=== PATIENT | male | born 1950 | race Caucasian/White ===

== ENCOUNTER 2016-07-06 07:59 | Day surgery (SDC) | payer MEDICARE, OTHER ==
[2016-07-01 10:42] VITALS: BMI 23.0
[~2016-07-06 07:59] MED LIST: DEXAMETHASONE SOD PHOSPHATE 10 MG/ML 1 ML VIAL IV ONE; HEPARIN SODIUM,PORCINE 5,000 UNIT/ML 1 ML VIAL SQ ONE; LACTATED RINGERS 1,000 ML IV SCH; LIDOCAINE 1% 20 ML VIAL (10MG/ML) FOR IV START INTRADERMA PRN; ONDANSETRON 4 MG/2 ML VIAL IVP ONE; SCOPOLAMINE 1.5MG/72HR PATCH TRANSDERM ONE; ceFAZolin 2 GM in SODIUM CHLORIDE 0.9% 100 ML IVPB ONE
--- NOTE | 2016-07-06 10:41 | P.GSHP ---
History of Present Illness H&P Date: 07/06/16 Chief Complaint: Left inguinal hernia This is a 65-year-old male referred from Dr. bruce. Patient rents today for laparoscopic robotic system repair of a left inguinal hernia. Patient has developed a tender mass in the left groin - Constitutional Constitutional: Reports as per HPI Past Medical History Past Medical History: Cancer, COPD, Deep Vein Thrombosis (DVT), GERD/Reflux, Hyperlipidemia, Hypertension, Pneumonia Additional Past Medical History / Comment(s): 07/28/14 Laparoscopic dolly fundoplication with mesh repair hiatal hernia. Other HX: HIATAL HERNIA; PROSTATE CANCER-2009. SHINGLES-2013; HX DVT RT LEG 10 years History of Any Multi-Drug Resistant Organisms: None Reported Past Surgical History: Orthopedic Surgery Additional Past Surgical History / Comment(s): 07/28/14 Laparoscopic Dolly Fundoplication with mesh repair hiatal hernia. LEFT ARM SURGERY 1966. RIGHT ROTATOR CUFF REPAIR 2012. EGD 06/16/14. Past Anesthesia/Blood Transfusion Reactions: No Reported Reaction Additional Past Anesthesia/Blood Transfusion Reaction / Comment(s): SEVERE PONV AFTER SHOULDER SURG. States becomes hyper when waking up. Past Psychological History: No Psychological Hx Reported Additional Psychological History / Comment(s): Patient is retired from [employer]. 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 Was a tobacco smoker stopping 2 years ago. Denies significant alcohol use at this point in time. Denies experience. Denies extensive travels. Did not relate to animals in the home. Smoking Status: Former smoker Past Alcohol Use History: None Reported Additional Past Alcohol Use History / Comment(s): Quit smoking 7 years ago. Past Drug Use History: None Reported - Past Family History Sister(s) Family Medical History: Deep Vein Thrombosis (DVT) Medications and Allergies Home Medications Medication Instructions Recorded Confirmed Type Albuterol Inhaler [Ventolin Hfa 1 - 2 puff INHALATION Q6HR PRN 07/01/16 History Inhaler] Aspirin 325 mg PO DAILY 07/01/16 07/06/16 History Tiotropium 18 Mcg/Puff [Spiriva] 1 cap INHALATION DAILY PRN 07/01/16 07/06/16 History Allergies Allergy/AdvReac Type Severity Reaction Status Date / Time hydrocodone AdvReac Mild Vomiting Verified 07/28/14 16:55 Surgical - Exam Vital Signs Temp Pulse Resp BP Pulse Ox 97.8 F 60 16 176/97 96 07/06/16 10:21 07/06/16 10:21 07/06/16 10:21 07/06/16 10:21 07/06/16 10:21 - General well developed, no distress - Eyes PERRL - ENT normal pinna - Neck no masses - Respiratory normal expansion - Cardiovascular Rhythm: regular - Abdomen Abdomen: soft, non tender Hernia: inguinal (Left inguinal hernia) Assessment and Plan Plan: Left internal hernia. We'll perform laparoscopic robotic system repair.
--- NOTE | 2016-07-06 10:48 | P.GSHP ---
History of Present Illness H&P Date: 07/06/16 Chief Complaint: Right inguinal hernia This is a 65-year-old male who presents today for laparoscopic robotic-assisted repair of right inguinal hernia. The patient developed a tender mass in his right groin. - Constitutional Constitutional: Reports as per HPI Past Medical History Past Medical History: Cancer, COPD, Deep Vein Thrombosis (DVT), GERD/Reflux, Hyperlipidemia, Hypertension, Pneumonia Additional Past Medical History / Comment(s): 07/28/14 Laparoscopic dolly fundoplication with mesh repair hiatal hernia. Other HX: HIATAL HERNIA; PROSTATE CANCER-2009. SHINGLES-2013; HX DVT RT LEG 10 years History of Any Multi-Drug Resistant Organisms: None Reported Past Surgical History: Orthopedic Surgery Additional Past Surgical History / Comment(s): 07/28/14 Laparoscopic Dolly Fundoplication with mesh repair hiatal hernia. LEFT ARM SURGERY 1966. RIGHT ROTATOR CUFF REPAIR 2012. EGD 06/16/14. Past Anesthesia/Blood Transfusion Reactions: No Reported Reaction Additional Past Anesthesia/Blood Transfusion Reaction / Comment(s): SEVERE PONV AFTER SHOULDER SURG. States becomes hyper when waking up. 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 Was a tobacco smoker stopping 2 years ago. Denies significant alcohol use at this point in time. Denies experience. Denies extensive travels. Did not relate to animals in the home. Smoking Status: Former smoker Past Alcohol Use History: None Reported Additional Past Alcohol Use History / Comment(s): Quit smoking 7 years ago. Past Drug Use History: None Reported - Past Family History Sister(s) Family Medical History: Deep Vein Thrombosis (DVT) Medications and Allergies Home Medications Medication Instructions Recorded Confirmed Type Albuterol Inhaler [Ventolin Hfa 1 - 2 puff INHALATION Q6HR PRN 07/01/16 History Inhaler] Aspirin 325 mg PO DAILY 07/01/16 07/06/16 History Tiotropium 18 Mcg/Puff [Spiriva] 1 cap INHALATION DAILY PRN 07/01/16 07/06/16 History Allergies Allergy/AdvReac Type Severity Reaction Status Date / Time hydrocodone AdvReac Mild Vomiting Verified 07/28/14 16:55 Surgical - Exam Vital Signs Temp Pulse Resp BP Pulse Ox 97.8 F 60 16 176/97 96 07/06/16 10:21 07/06/16 10:21 07/06/16 10:21 07/06/16 10:21 07/06/16 10:21 - General well developed, no distress - Eyes PERRL - ENT normal pinna - Neck no masses - Respiratory normal expansion - Cardiovascular Rhythm: regular - Abdomen Abdomen: soft, non tender (Right inguinal hernia) Assessment and Plan Plan: Right inguinal hernia. We'll perform laparoscopic robotic-assisted repair.
[2016-07-06 11:03] LABS: Anion Gap 10 mmol/L; Blood Urea Nitrogen 27 mg/dL (9-20); Calcium 9.1 mg/dL (8.4-10.2); Carbon Dioxide 23 mmol/L (22-30); Chloride 111 mmol/L (98-107); Glucose 101 mg/dL (74-99); Non-African American GFR(MDRD) >60 (>60 ml/min/1.73 sqM); Potassium 4.6 mmol/L (3.5-5.1); Sodium 144 mmol/L (137-145)
[2016-07-06] MEDS ORDERED: BUPIVACAIN-EPI 0.25%-1:200,000 30 ML VIAL SQ ONE ×3 (11:09→11:35)
[2016-07-06] MEDS ORDERED: KETOROLAC 30 MG/ML 1 ML VIAL ONE (11:13)
[2016-07-06] MEDS ORDERED: SUCCINYLCHOLINE CHLORIDE 100 MG/5 ML SYR IV ONE (11:13)
[2016-07-06] MEDS ORDERED: LIDOCAINE 1% INJ 10MG/ML (20 ML MDV) ONE (11:13)
[2016-07-06] MEDS ORDERED: GLYCOPYRROLATE 0.2 MG/ML 2 ML VIAL ONE (11:13)
[2016-07-06] MEDS ORDERED: NEOSTIGMINE 1 MG/ML 10 ML VIAL ONE (11:13)
[2016-07-06] MEDS ORDERED: PROPOFOL 10 MG/ML 20 ML VIAL IV ONE (11:13)
[2016-07-06] MEDS ORDERED: fentaNYL (PF) 50 MCG/ML 2 ML AMP ONE (11:13)
[2016-07-06] MEDS ORDERED: ePHEDrine 50 MG/ML 1 ML AMP ONE (11:13)
[2016-07-06] MEDS ORDERED: MIDAZOLAM 2 MG/2 ML VIAL ONE (11:13)
[2016-07-06] MEDS ORDERED: ROCURONIUM BROMIDE 10 MG/ML 10 ML VIAL IV ONE (11:13)
[2016-07-06] MEDS ORDERED: PHENYLEPHRINE-0.9% NACL SYG 1 MG/10 ML SYRINGE ONE (11:13)
[2016-07-06 11:42] LABS: Basophils % (A) 1 %; CHCM 34.4; Eosinophils # (A) 0.2 k/uL (0-0.7); Eosinophils % (A) 3 %; HCT 48.2 % (39.0-53.0); HDW 2.62; HGB 15.9 gm/dL (13.0-17.5); Luc # (Auto) 0.13; Luc % (Auto) 2; Lymphocytes # (A) 1.2 k/uL (1.0-4.8); Lymphocytes % (A) 18 %; MCH 30.9 pg (25.0-35.0); MCHC 33.1 g/dL (31.0-37.0); MCV 93.4 fL (80.0-100.0); Mean Platelet Volume 6.9; Monocytes # (A) 0.4 k/uL (0-1.0); Monocytes % (A) 7 %; Neutrophils # (A) 4.5 k/uL (1.3-7.7); Neutrophils % (A) 70 %; RBC 5.16 m/uL (4.30-5.90); RDW 13.9 % (11.5-15.5); WBC 6.4 k/uL (3.8-10.6); WBC (Perox) 6.78
--- NOTE | 2016-07-06 12:45 | P.OP ---
Date of Procedure: 07/06/16 Preoperative Diagnosis: Right inguinal hernia Postoperative Diagnosis: Bilateral inguinal hernia Incarcerated omentum in left internal hernia Procedure(s) Performed: Laparoscopic robotic-assisted repair of bilateral inguinal hernia Partial omentectomy Anesthesia: DEVYN Surgeon: Dante Palmer Estimated Blood Loss (ml): 5 Pathology: other (Omentum) Condition: stable Disposition: PACU Description of Procedure: The patient's placed on the operating table in the supine position. The patient received general anesthesia. The patient's abdomen was prepped and draped in usual sterile fashion. The skin was anesthetized 1% local Xylocaine at the incision sites. Using an 11 blade a skin incision was made at the umbilicus. The fascia was grasped with a Sera and then the peritoneal cavity was entered with the Veress needle. Position of the Veress needle was confirmed with a positive drop test. After adequate insufflation a 5 mm trocar was placed into the peritoneal cavity. The Laparoscope was placed the peritoneal cavity. And a robotic 8 mm trocar was placed in the right lateral position and then another 8 mm robotic trochars placed in the left lateral position. The original 5 mm trocar was exchanged for a 12 mm trocar. The patient was placed in reverse Trendelenburg and then the patient was docked to the robot. Next the peritoneum over top of the right inguinal hernia was incised and then using blunt and sharp dissection and electrocautery the hernia sac was dissected free from the floor of the inguinal canal. The hernia sac was completely reduced into the peritoneal cavity. And then using the Pro electric golf cart repairers mesh the hernia was repaired. The peritoneum was then sutured with 20V lock suture. Next the peritoneum over top of the left inguinal hernia was incised and then using blunt and sharp dissection and electrocautery the hernia sac was dissected free from the floor of the inguinal canal. There was a portion of incarcerated omentum within the hernia sac this was divided with left cautery and brought out through the 12 mm trocar site. The hernia sac was completely reduced into the peritoneal cavity. And then using the Pro electric golf cart repairers mesh the hernia was repaired. The peritoneum was then sutured with 20V lock suture. The patient was then undocked the robot. The needle was withdrawn from the peritoneal cavity. The umbilical trocar site was closed with 0 Ethibond suture. The skin was closed interrupted 3-0 Monocryl suture. Dermabond dressing was applied. Patient was sent to recovery in stable condition.
[2016-07-06] MEDS: HYDROmorphone 1 MG/ML 1 ML SYRINGE IVP PRN ×2 (13:01→13:06)
[2016-07-06 13:07] VITALS: TEMP 97.6
[2016-07-06 13:50] VITALS: RESP 18
[2016-07-06] MEDS ORDERED: LACTATED RINGERS 1,000 ML IV ONE (15:25)
[2016-07-06 16:02] VITALS: BP 151/86; PULSE 52
== END 2016-07-06 17:20 | disposition home or self-care (01) ==
LOC: OR 07:59
PROVIDERS: ATTEND Surgery
DX: K40.30 Unilateral inguinal hernia, with obstruction, without gangrene, not specified as recurrent (principal); J44.9 Chronic obstructive pulmonary disease, unspecified; J45.909 Unspecified asthma, uncomplicated; Z86.718 Personal history of other venous thrombosis and embolism; Z79.82 Long term (current) use of aspirin; Z79.899 Other long term (current) drug therapy; Z87.891 Personal history of nicotine dependence
CPT/HCPCS: 88305; 80048; 85025; 49650; C1781; J2250; J1644; J1100; J2710; J0690; J2405; J2001; J3010; J1885; J1170; J2370; J0330; J2704

== ENCOUNTER 2018-09-15 18:41 | Inpatient (IN) | payer MEDICARE ==
[2018-09-15] MEDS ORDERED: LIDOCAINE 1% INJ 10MG/ML (20 ML MDV) SQ ONE (18:53)
[2018-09-15] MEDS ORDERED: LORazepam 2 MG/ML INJ IV STA (18:53)
--- NOTE | 2018-09-15 19:09 | XR ---
EXAMINATION TYPE: XR chest 1V portable DATE OF EXAM: 09/15/2018 Comparison: None Clinical History: 68-year-old male with pain, difficulty breathing, heart coughing. Findings: No cardiomediastinal shift. However, there is a relatively large right-sided pneumothorax measuring u p to 8.7 cm at the lateral right base and 4.7 cm at the apex. This is likely greater than 60% in volu me. Interstitial prominence on the left and hyperinflation. Heart upper limits of normal in size. Impression: 1. Large right-sided pneumothorax estimated at over 60%. No definite tension pneumothorax at this ondina e. 2. Borderline heart size and suspect underlying COPD. Critical findings called to Dr. Santiago in the ER at 7:05pm.
[2018-09-15 19:12] LABS: Basophils % (A) 0 %; Eosinophils # (A) 0.1 k/uL (0-0.7); Eosinophils % (A) 1 %; HCT 49.6 % (39.0-53.0); HGB 16.5 gm/dL (13.0-17.5); Hypochromasia Slight; Lymphocytes # (A) 1.4 k/uL (1.0-4.8); Lymphocytes % (A) 10 %; MCH 31.9 pg (25.0-35.0); MCHC 33.2 g/dL (31.0-37.0); MCV 95.8 fL (80.0-100.0); Mean Platelet Volume 8.6; Monocytes # (A) 0.6 k/uL (0-1.0); Monocytes % (A) 5 %; Neutrophils # (A) 11.6 k/uL (1.3-7.7); Neutrophils % (A) 83 %; Platelet Count 203 k/uL (150-450); RBC 5.17 m/uL (4.30-5.90); RDW 14.2 % (11.5-15.5); WBC 14.1 k/uL (3.8-10.6)
--- NOTE | 2018-09-15 19:25 | XR ---
EXAMINATION TYPE: XR chest 1V portable DATE OF EXAM: 09/15/2018 Comparison: Earlier today Clinical History: 68-year-old male chest tube insertion Findings: Interval Thoravent insertion on the right with reexpansion of most of the right lung. Small right bas ilar pneumothorax remains measuring 1.6 cm. There is irregular patchy density at the right base that may represent atelectasis or scarring. Follow-up recommended. Elongated/tortuous appearance to the ao rtic arch. Mild diffuse interstitial prominence and mild hyperinflation. Impression: Interval Thoravent insertion with reexpansion of most of the right lung. A small right basilar compon ent to the pneumothorax remains measuring 1.6 cm. Patchy right basilar opacity could represent atelec tasis. Attention on follow-up. Suspect underlying COPD. Ectatic ascending aorta.
[2018-09-15 19:54] LABS: Albumin 4.5 g/dL (3.5-5.0); Calcium 9.9 mg/dL (8.4-10.2); Potassium 4.7 mmol/L (3.5-5.1); Total Bilirubin 0.5 mg/dL (0.2-1.3); Total Protein 7.8 g/dL (6.3-8.2)
[2018-09-15 19:56] LABS: Partial Thromboplastin Time 23.4 sec (22.0-30.0); Prothrombin Time 10.5 sec (9.0-12.0)
--- NOTE | 2018-09-15 20:04 | ED ---
General Adult HPI - General Chief complaint: Shortness of Breath Stated complaint: SOB-sent from [facility] Time Seen by Provider: 09/15/18 18:43 Source: patient, EMS, RN notes reviewed, old records reviewed Mode of arrival: EMS Limitations: no limitations - History of Present Illness Initial comments: 68 -year-old male presenting in severe respiratory distress. Patient was sent from urgent care by ambulance with concern for pneumothorax. Patient states he's had cough and dyspnea for the past one week. Approximately 24 hours prior to arrival he developed worsening dyspnea and right-sided chest pain. Patient has previous history of COPD, he was a previous smoker, smoked for 47 years. He said cough productive of sputum. No fever. No central chest pain. - Related Data Home Medications Medication Instructions Recorded Confirmed Aspirin 325 mg PO DAILY 07/01/16 09/15/18 Albuterol Nebulized [Ventolin 2.5 mg INHALATION Q6H 09/15/18 09/15/18 Nebulized] Allergies Allergy/AdvReac Type Severity Reaction Status Date / Time hydrocodone AdvReac Mild Vomiting Verified 09/15/18 18:45 Review of Systems ROS Statement: Those systems with pertinent positive or pertinent negative responses have been documented in the HPI. ROS Other: All systems not noted in ROS Statement are negative. Past Medical History Past Medical History: Cancer, COPD, Deep Vein Thrombosis (DVT), GERD/Reflux, Hyperlipidemia, Hypertension, Pneumonia Additional Past Medical History / Comment(s): 07/28/14 Laparoscopic dolly fundoplication with mesh repair hiatal hernia. Other HX: HIATAL HERNIA; PROSTATE CANCER-2010. SHINGLES-2013; HX DVT RT LEG 10 years History of Any Multi-Drug Resistant Organisms: None Reported Past Surgical History: Orthopedic Surgery Additional Past Surgical History / Comment(s): 07/28/14 Laparoscopic Dolly Fundoplication with mesh repair hiatal hernia. LEFT ARM SURGERY 1966. RIGHT ROTATOR CUFF REPAIR 2012. EGD 06/16/14. Past Anesthesia/Blood Transfusion Reactions: No Reported Reaction Additional Past Anesthesia/Blood Transfusion Reaction / Comment(s): SEVERE PONV AFTER SHOULDER SURG. States becomes hyper when waking up. Past Psychological History: No Psychological Hx Reported Smoking Status: Former smoker Past Alcohol Use History: None Reported Past Drug Use History: None Reported - Past Family History Sister(s) Family Medical History: Deep Vein Thrombosis (DVT) General Exam Limitations: no limitations Course Vital Signs 09/15/18 09/15/18 09/15/18 18:46 18:50 19:36 Temperature 98.5 F Pulse Rate 117 H 93 Respiratory 24 26 H 22 Rate Blood Pressure 182/129 150/106 O2 Sat by Pulse 93 L 95 Oximetry Procedures - Chest Tube Insertion Consent Obtained: verbal consent Side of Procedure: right Indication: Pneumothorax Placed on monitor/pulse oximetry: Yes Site Prep: Chloroprep Local Anesthesia: Lidocaine 1% Amount (mLs): 3 Insertion Site: Other (Second intercostal space, midclavicular) Scalpel: #11 Open into Pleural Space Using: Trocar Tube Size (Indonesian): Other (9 danish) Returns: Air Sutured in Place: No Dressing Applied: Tape Attached to Suction: No Repeat X-ray Results: Lung Inflated Patient Tolerated Procedure: well Medical Decision Making - Medical Decision Making 68 -year-old male presenting with dyspnea, pneumothorax on AP chest. Patient is in extremis on initial evaluation, Thoravent, he is placed second intercostal space, midclavicular. Repeat x-ray shows near complete expansion of the right long. Patient reassessed, vital signs improved, symptoms improved. Still has diffuse wheezing on lung auscultation. Will be admitted for treatment of COPD, monitoring of pneumothorax, case discussed with the patient's bench worker Dr. Chirinos, will admit. - Lab Data Result diagrams: 09/15/18 19:00 09/15/18 19:25 Lab Results 09/15/18 09/15/18 09/15/18 Range/Units 19:00 19:25 19:25 WBC 14.1 H (3.8-10.6) k/uL RBC 5.17 (4.30-5.90) m/uL Hgb 16.5 (13.0-17.5) gm/dL Hct 49.6 (39.0-53.0) % MCV 95.8 (80.0-100.0) fL MCH 31.9 (25.0-35.0) pg MCHC 33.2 (31.0-37.0) g/dL RDW 14.2 (11.5-15.5) % Plt Count 203 (150-450) k/uL Neutrophils % 83 % Lymphocytes % 10 % Monocytes % 5 % Eosinophils % 1 % Basophils % 0 % Neutrophils # 11.6 H (1.3-7.7) k/uL Lymphocytes # 1.4 (1.0-4.8) k/uL Monocytes # 0.6 (0-1.0) k/uL Eosinophils # 0.1 (0-0.7) k/uL Basophils # 0.0 (0-0.2) k/uL Hypochromasia Slight PT 10.5 (9.0-12.0) sec INR 1.0 (<1.2) APTT 23.4 (22.0-30.0) sec Sodium 140 (137-145) mmol/L Potassium 4.7 (3.5-5.1) mmol/L Chloride 105 (98-107) mmol/L Carbon Dioxide 23 (22-30) mmol/L Anion Gap 12 mmol/L BUN 20 (9-20) mg/dL Creatinine 1.20 (0.66-1.25) mg/dL Est GFR (CKD-EPI)AfAm 72 (>60 ml/min/1.73 sqM) Est GFR (CKD-EPI)NonAf 62 (>60 ml/min/1.73 sqM) Glucose 117 H (74-99) mg/dL Calcium 9.9 (8.4-10.2) mg/dL Total Bilirubin 0.5 (0.2-1.3) mg/dL AST 32 (17-59) U/L ALT 34 (21-72) U/L Alkaline Phosphatase 83 (38-126) U/L Total Protein 7.8 (6.3-8.2) g/dL Albumin 4.5 (3.5-5.0) g/dL Critical Care Time Critical Care Time: Yes Total Critical Care Time: 35 Disposition Clinical Impression: Acute exacerbation of chronic obstructive airways disease, Pneumothorax Disposition: ADMITTED IP TO THIS [facility] Condition: Stable Is patient prescribed a controlled substance at d/c from ED?: No Referrals: None,Stated [Primary Care Provider] - 1-2 days Decision to Admit Reason: Admit from EC Decision Date: 09/15/18 Decision Time: 20:08
[2018-09-15] MEDS ORDERED: HYDROmorphone 1 MG/ML 1 ML SYRINGE IVP STA (20:06)
[2018-09-15] MEDS ORDERED: IPRATROPIUM-ALBUTEROL 3 ML NEB INHALATION PRN (20:08)
[2018-09-15] MEDS ORDERED: HYDROmorphone 0.5 MG/0.5 ML SYRINGE IVP PRN (20:11)
[2018-09-15] MEDS ORDERED: HYDROmorphone 0.5 MG/0.5 ML SYRINGE IVP STA (20:13)
[2018-09-15] MEDS ORDERED: ONDANSETRON 4 MG/2 ML VIAL IVP STA (21:53)
[2018-09-15 23:15] VITALS: BMI 22.1
[2018-09-16] MEDS: IPRATROPIUM-ALBUTEROL 3 ML NEB INHALATION SCH ×4 (07:21→20:05)
--- NOTE | 2018-09-16 08:10 | XR ---
EXAMINATION TYPE: XR chest 2V DATE OF EXAM: 09/16/2018 COMPARISON: 09/15/2018 HISTORY: Shortness of breath TECHNIQUE: Frontal and lateral views of the chest are obtained. FINDINGS: Significant interval progression of right-sided pneumothorax estimated at 30-40%. Right apical measur ement is 4.6 cm with right midlung zone measurement of 3.7 cm and right basilar measurements of 3.4 c m versus 1.6 cm previously. Right-sided pleural catheter is noted to be in place. Patchy infiltrate right medial lung base. Strandy density left medial lung base. Heart size is stable. Mediastinal structures are stable and grossly unremarkable. No evidence for hilar prominence. Degenerative changes dorsal spine. IMPRESSION: 1. Significant interval progression of right-sided pneumothorax estimated at 30-40%.
[2018-09-16] MEDS ORDERED: predniSONE 20 MG TAB PO SCH (09:00)
[2018-09-16] MEDS: KETOROLAC 30 MG/ML 1 ML VIAL IVP SCH ×2 (12:29→17:41)
[2018-09-16] MEDS: guaiFENesin 600 MG TABLET.ER PO SCH ×2 (12:29→21:07)
--- NOTE | 2018-09-16 12:51 | P.GSCN ---
History of Present Illness Consult date: 09/16/18 Reason for Consult: Right sided pneumothorax, S/P thoravent placement Requesting physician: Parrish Ambriz History of present illness: This is a 68-year-old gentleman has followed with Dr. Quiros in the past. He has a previous medical history of previous tobacco dependence, COPD, hypertension, hyperlipidemia, severe acid reflux, hiatal hernia status post padma fundoplication with mesh repair, DVT, and prostate cancer. He presented to an urgent care center yesterday with complaints of severe shortness of breath and cough 1 week. For the day prior to arrival he developed worsening shortness of breath as well as right-sided chest pain. The urgent care center him via EMS to [facility] emergency room due to the severity of his difficulty in breathing. Chest x-ray was completed demonstrating a large right- sided pneumothorax estimated at greater than 60% without tension pneumothorax. A thoravent was placed by the emergency room physicians with significant improvement to the pneumothorax but still a basilar component remaining. The patient was admitted to pulmonology services for continued treatment. He was placed on bronchodilators and steroids. This morning's x-ray demonstrated progression of his right-sided pneumothorax estimated to be 30-40%. Thoravent remained in place but was not placed to suction. For these reasons a consultation was placed to Dr. Mejia from cardiothoracic surgery. Review of Systems Review of systems was completed and was negative except as noted. - Cardiovascular Reports chest pain, Reports shortness of breath - Respiratory Reports cough Past Medical History Past Medical History: Cancer, COPD, Deep Vein Thrombosis (DVT), GERD/Reflux, Hyperlipidemia, Hypertension, Pneumonia Additional Past Medical History / Comment(s): HIATAL HERNIA; PROSTATE CANCER- 2009; SHINGLES-2013; HX DVT RT LEG 10 years History of Any Multi-Drug Resistant Organisms: None Reported Past Surgical History: Orthopedic Surgery Additional Past Surgical History / Comment(s): 07/28/14 Laparoscopic Padma Fundoplication with mesh repair of hiatal hernia. LEFT ARM SURGERY 1966. RIGHT ROTATOR CUFF REPAIR 2012. EGD 06/16/14. Past Anesthesia/Blood Transfusion Reactions: No Reported Reaction Additional Past Anesthesia/Blood Transfusion Reaction / Comm: SEVERE PONV AFTER SHOULDER SURG. States becomes hyper when waking up. 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 Was a tobacco smoker stopping 2 years ago. Denies significant alcohol use at this point in time. Denies experience. Denies extensive travels. Did not relate to animals in the home. Smoking Status: Former smoker Past Alcohol Use History: None Reported Additional Past Alcohol Use History / Comment(s): Quit smoking 7 years ago. Past Drug Use History: None Reported - Past Family History Sister(s) Family Medical History: Deep Vein Thrombosis (DVT) Medications and Allergies Home Medications Medication Instructions Recorded Confirmed Type Aspirin 325 mg PO DAILY 07/01/16 09/15/18 History Albuterol Nebulized [Ventolin 2.5 mg INHALATION Q6H 09/15/18 09/15/18 History Nebulized] Allergies Allergy/AdvReac Type Severity Reaction Status Date / Time hydrocodone AdvReac Mild Vomiting Verified 09/15/18 18:45 Surgical - Exam Vital Signs Temp Pulse Resp BP Pulse Ox 98.5 F 117 H 24 182/129 93 L 09/15/18 18:46 09/15/18 18:46 09/15/18 18:46 09/15/18 18:46 09/15/18 18:46 - General well developed, well nourished, no distress, no pain - Eyes PERRL, normal ocular movement - ENT no hearing loss - Neck no masses, no bruits, trachea midline - Respiratory Lungs sounds diminished bilaterally, right greater than left. Respirations even, nonlabored. Currently on 3 L nasal cannula with oxygen saturation 95%. Right-sided thoravent present, positive movement of the red diaphragm indicating positive air leak. - Cardiovascular S1, S2 present. Regular rate and rhythm, sinus rhythm on telemetry. Palpable peripheral pulses bilaterally. No edema present. No calf pain or tenderness noted. - Abdomen Abdomen: soft, non tender, bowel sounds - Genitourinary Deferred - Rectum Deferred - Integumentary no rash, no growths - Neurologic normal coordination, normal sensation - Musculoskeletal normal gait, normal posture - Psychiatric oriented to time, oriented to person, oriented to place, speech is normal, memory intact Results - Labs 09/15/18 19:00 09/15/18 19:25 Abnormal Lab Results - Last 24 Hours (Table) 09/15/18 09/15/18 Range/Units 19:00 19:25 WBC 14.1 H (3.8-10.6) k/uL Neutrophils # 11.6 H (1.3-7.7) k/uL Glucose 117 H (74-99) mg/dL Diabetes panel 09/15/18 Range/Units 19:25 Sodium 140 (137-145) mmol/L Potassium 4.7 (3.5-5.1) mmol/L Chloride 105 (98-107) mmol/L Carbon Dioxide 23 (22-30) mmol/L BUN 20 (9-20) mg/dL Creatinine 1.20 (0.66-1.25) mg/dL Glucose 117 H (74-99) mg/dL Calcium 9.9 (8.4-10.2) mg/dL AST 32 (17-59) U/L ALT 34 (21-72) U/L Alkaline Phosphatase 83 (38-126) U/L Total Protein 7.8 (6.3-8.2) g/dL Albumin 4.5 (3.5-5.0) g/dL Calcium panel 09/15/18 Range/Units 19:25 Calcium 9.9 (8.4-10.2) mg/dL Albumin 4.5 (3.5-5.0) g/dL Pituitary panel 09/15/18 Range/Units 19:25 Sodium 140 (137-145) mmol/L Potassium 4.7 (3.5-5.1) mmol/L Chloride 105 (98-107) mmol/L Carbon Dioxide 23 (22-30) mmol/L BUN 20 (9-20) mg/dL Creatinine 1.20 (0.66-1.25) mg/dL Glucose 117 H (74-99) mg/dL Calcium 9.9 (8.4-10.2) mg/dL Adrenal panel 09/15/18 Range/Units 19:25 Sodium 140 (137-145) mmol/L Potassium 4.7 (3.5-5.1) mmol/L Chloride 105 (98-107) mmol/L Carbon Dioxide 23 (22-30) mmol/L BUN 20 (9-20) mg/dL Creatinine 1.20 (0.66-1.25) mg/dL Glucose 117 H (74-99) mg/dL Calcium 9.9 (8.4-10.2) mg/dL Total Bilirubin 0.5 (0.2-1.3) mg/dL AST 32 (17-59) U/L ALT 34 (21-72) U/L Alkaline Phosphatase 83 (38-126) U/L Total Protein 7.8 (6.3-8.2) g/dL Albumin 4.5 (3.5-5.0) g/dL - Imaging Chest x-ray: report reviewed, image reviewed Assessment and Plan Assessment: 1. Right-sided pneumothorax, status post thoravent placement to the emergency room 2. Previous tobacco dependence 3. COPD 4. Hypertension 5. Hyperlipidemia 6. Severe acid reflux 7. Previous hiatal hernia status post Padma fundoplication with mesh repair 8. History of DVT 9. History of prostate cancer Plan: The patient was seen and examined at the bedside with Dr. Mejia. Patient has evidence of air leak from right-sided thoravent. The thoravent was connected to an atrium connected to -20 cm wall suction with initial continuous air leak. At this time our recommendation is to keep the thoravent connected to continuous wall suction. We will obtain a chest x-ray in the morning and continue to monitor x-rays for resolution of pneumothorax. Incentive spirometry ordered and encouraged. IV Toradol added for pain. Continue medical management of other comorbid conditions per primary care service. Thank you Dr. Ambriz for this consult. We look forward to working with you in the care of your patient. Time with Patient: Greater than 30
[2018-09-16] MEDS: methylPREDNISolone SOD SUCCI 40 MG/ML 1 ML VIAL IV SCH (17:41)
--- NOTE | 2018-09-16 18:35 | HP ---
HISTORY AND PHYSICAL Salvador Lord is a 68-year-old male with a history of severe COPD, who presented to a walk-in clinic with increasing shortness of breath of about 2-3 weeks duration. However, 2 days ago he developed increase in his shortness of breath associated with cough and a panic attack. He was seen in the walk-in clinic, was found to have a pneumothorax on the right and was transferred by EMS to [facility]. He had a Thora- Vent placed on that side with some relief of his pneumothorax. He was admitted for further evaluation and management. He denied any recent fever, chills or rigors. PAST MEDICAL HISTORY: Positive for COPD. No clear history of asthma. History of prostate cancer, hiatal hernia, laparoscopic Padma fundoplication, gastroesophageal reflux disease, previous DVT, history of shingles, right rotator cuff repair, history of anxiety. FAMILY HISTORY: Positive for DVT in his sister. SOCIAL HISTORY: Patient is a former heavy smoker. He does not drink alcohol excessively. MEDICATIONS: Prior to admission were aspirin and nebulized albuterol. PHYSICAL EXAMINATION: He was sitting in bed. He was anxious. His blood pressure is 127/78, respiratory rate of 18, pulse rate of 64, temperature 98 degrees Fahrenheit, O2 saturation on 3 L by nasal cannula is 95%. HEENT reveals pupils that are equal. Chest revealed decreased breath sounds bilaterally, more decreased on the right than the left. There is a right- sided Thoravent present anteriorly, not hooked to suction. Cardiovascular system reveals S1, S2. No S3, S4. Abdomen is soft. There is no pedal edema. LABS: Reveal a white count of 14.1, hemoglobin 16.5 with 11.6 thousand neutrophils. Sodium 140, potassium 4.7, chloride 105, bicarb 23, BUN 20, creatinine of 1.2. Chest x-ray initially shows right-sided pneumothorax with subsequent improvement in the pneumothorax after Thoravent placement. Chest x-ray this morning continues to show a 30% right-sided pneumothorax. IMPRESSION: At this time: 1. Right-sided pneumothorax, status post Thora-Vent placement. 2. Chronic obstructive pulmonary disease with exacerbation. 3. Mild hyperglycemia. 4. Leukocytosis, etiology unclear. 5. Anxiety. 6. Previous Padma fundoplication. 7. Previous history of DVT. At this point in time, would keep the Thora-Vent to suction. Have Cardiothoracic Surgery further evaluate the patient. Follow serial chest x-rays. Keep him on bronchodilators, add aerosolized steroids and IV steroids. Keep him on GI and DVT prophylaxis. His prognosis at this time is guarded. He was counseled regarding his condition and this approach. MMODL / IJN: [id number] /
[2018-09-16] MEDS: BUDESONIDE 0.5 MG/2 ML NEBU INHALATION SCH ×2 (20:05→20:06)
[2018-09-16] MEDS: MONTELUKAST 10 MG TAB PO SCH (21:07)
[2018-09-16] MEDS: FAMOTIDINE 20 MG TAB PO SCH (21:07)
[2018-09-16] MEDS: HEPARIN SODIUM,PORCINE 5,000 UNIT/ML 1 ML VIAL SQ SCH (21:08)
[2018-09-16] MEDS: diphenhydrAMINE 50 MG/ML 1 ML VIAL IVP PRN (21:08)
[2018-09-17] MEDS: KETOROLAC 30 MG/ML 1 ML VIAL IVP SCH ×5 (00:33→23:40)
[2018-09-17] MEDS: methylPREDNISolone SOD SUCCI 40 MG/ML 1 ML VIAL IV SCH ×3 (00:34→12:04)
[2018-09-17 05:49] LABS: Glucose,Whole Blood 150 mg/dL (75-99)
[2018-09-17] MEDS: INSULIN ASPART (NovoLOG) 100 UNIT/ML VIAL SQ SCH ×4 (05:53→21:29)
[2018-09-17] MEDS: BUDESONIDE 0.5 MG/2 ML NEBU INHALATION SCH ×2 (08:35→19:40)
[2018-09-17] MEDS: IPRATROPIUM-ALBUTEROL 3 ML NEB INHALATION SCH ×4 (08:35→19:40)
[2018-09-17] MEDS: guaiFENesin 600 MG TABLET.ER PO SCH ×2 (08:47→20:24)
[2018-09-17] MEDS: HEPARIN SODIUM,PORCINE 5,000 UNIT/ML 1 ML VIAL SQ SCH ×2 (08:47→20:24)
[2018-09-17] MEDS: FAMOTIDINE 20 MG TAB PO SCH ×2 (08:49→20:24)
--- NOTE | 2018-09-17 09:57 | XR ---
EXAMINATION TYPE: XR chest 1V portable DATE OF EXAM: 09/17/2018 COMPARISON: 09/16/2018 INDICATION: Pneumothorax TECHNIQUE: Single frontal view of the chest is obtained. FINDINGS: The heart size is normal. The pulmonary vasculature is normal. Some mild right perihilar infiltrate is present, likely on the basis of atelectasis. Some minimal ate lectasis is likely at the right lung base Right-sided chest tube is present. Previous pneumothorax is absent. No residual pneumothorax is ident ified. Small amount subcutaneous emphysema is at the right shoulder. IMPRESSION: 1. Resolution of the previous right pneumothorax. Right-sided chest tube remains in position. 2. Some right lung atelectasis may be present.
--- NOTE | 2018-09-17 11:00 | P.PN ---
Subjective Progress Note Date: 09/17/18 Principal diagnosis: Right sided pneumothorax, S/P Thoravent placement in the emergency room. Previous medical history of tobacco dependence, COPD, hypertension, hyperlipidemia, severe acid reflux, hiatal hernia status post Padma fundoplication with mesh repair, DVT, and prostate cancer. The patient is currently sitting up in bed in no acute distress. He does complain of some pain at the thoravent site with movement, but states it is controlled with current medication regimen. Denies shortness of breath. Thoravent connected to suction, intermittent air leak present. Right lung is reexpanded on his x-ray. Objective - Vital Signs Vital signs: Vital Signs Temp 97.6 F 09/17/18 08:54 Pulse 65 09/17/18 08:55 Resp 18 09/17/18 08:55 BP 135/85 09/17/18 08:54 Pulse Ox 99 09/17/18 08:54 Intake & Output 09/16/18 09/17/18 09/17/18 18:59 06:59 18:59 Intake Total 906 300 360 Output Total 400 500 Balance 506 -200 360 Weight 72.2 kg Intake: Oral 906 300 360 Output: Urine 400 500 Other: Voiding Method Toilet Toilet # Voids 1 200 - Constitutional General appearance: Present: cooperative, no acute distress - Respiratory Details: Lungs sounds slightly diminished bilaterally. Respirations even, nonlabored. Currently on room air with oxygen saturation 93%. Right-sided thoravent present, connected to continuous wall suction, no drainage since placement, positive small intermittent air leak. - Cardiovascular Details: S1, S2 present. Regular rate and rhythm, sinus rhythm on telemetry. Palpable peripheral pulses bilaterally. No edema present. No calf pain or tenderness noted. - Gastrointestinal Gastrointestinal Comment(s): Abdomen soft, nontender, nondistended. Active bowel sounds 4 quadrants. Tolerating diet. - Genitourinary Genitourinary Comment(s): Continues to void clear, yellow urine. - Integumentary Integumentary Comment(s): Skin is warm and dry with evidence of good perfusion. - Neurologic Neurologic: Present: CNII-XII intact - Musculoskeletal Musculoskeletal: Present: gait normal, strength equal bilaterally - Psychiatric Psychiatric: Present: A&O x's 3, appropriate affect, intact judgment & insight - Allied health notes Allied health notes reviewed: nursing - Labs CBC & Chem 7: 09/15/18 19:00 09/15/18 19:25 Labs: Abnormal Lab Results - Last 24 Hours (Table) 09/17/18 Range/Units 05:48 POC Glucose (mg/dL) 150 H (75-99) mg/dL - Imaging and Cardiology Chest x-ray: report reviewed, image reviewed Assessment and Plan Assessment: 1. Right-sided pneumothorax, status post thoravent placement in the emergency room 2. Previous tobacco dependence 3. COPD 4. Hypertension 5. Hyperlipidemia 6. Severe acid reflux 7. Previous hiatal hernia status post Padma fundoplication with mesh repair 8. History of DVT 9. History of prostate cancer Plan: 1. Continue thoravent to wall suction. Monitor for air leak resolution. 2. Encourage incentive spirometry use 10 times every hour while awake. 3. Will monitor daily x-rays. 4. Pain controlled current medication regimen. 5. Increase activity, ambulate in room. Nursing to have enough suction tubing so patient may ambulate. 6. Continue medical management of other comorbid conditions per primary care service. 7. More recommendations to follow. Time with Patient: Greater than 30
[2018-09-17 12:19] LABS: Glucose,Whole Blood 168 mg/dL (75-99)
--- NOTE | 2018-09-17 13:23 | P.PN ---
Subjective Progress Note Date: 09/17/18 This is a 68-year-old male who has a known history of severe COPD and presented to the hospital with shortness of breath and right-sided chest discomfort. He had gone into a walk-in clinic x-ray done there showed a right-sided pneumothorax is transferred [facility] EMS to [facility]. He had a right thoracotomy placed in the ER for his pneumothorax. Vascular surgery is following. Chest x- ray from this morning shows resolution of the right-sided pneumothorax. Discussed with nursing staff Gus surgery is recommending to continue the door event and will review reevaluate in the morning. Patient currently reports improvement in her shortness of breath. Denies any chest pain. Denies any nausea or vomiting. Denies any bowel movement changes or urinary symptoms. Objective - Vital Signs Vital signs: Vital Signs Temp 97.3 F L 09/17/18 11:43 Pulse 79 09/17/18 11:46 Resp 18 09/17/18 11:46 BP 134/81 09/17/18 11:43 Pulse Ox 96 09/17/18 11:43 Intake & Output 09/16/18 09/17/18 09/17/18 18:59 06:59 18:59 Intake Total 906 300 720 Output Total 400 500 300 Balance 506 -200 420 Weight 72.2 kg Intake: Oral 906 300 720 Output: Urine 400 500 300 Other: Voiding Method Toilet Toilet # Voids 1 1 - Exam Head normocephalic Neck supple Lungs clear to auscultation bilaterally no wheezing or crackles. Heart event noted on right side chest wall Heart regular rate and rhythm S1-S2, no rub or gallop Abdomen is soft nontender nondistended positive bowel sounds no hepatosplenomegaly Extremities no edema Neuro alert and orientated to 3 - Labs CBC & Chem 7: 09/15/18 19:00 09/15/18 19:25 Labs: Abnormal Lab Results - Last 24 Hours (Table) 09/17/18 09/17/18 Range/Units 05:48 11:46 POC Glucose (mg/dL) 150 H 168 H (75-99) mg/dL Assessment and Plan Assessment: 1. Right-sided pneumothorax status post Thora-vent placement. Vascular surgery following. Chest x-ray from today showing resolution in the pneumothorax. We will await further vascular surgery recommendations 2. Acute COPD exacerbation: Continue nebulizer treatments steroids. Pulmonary service following 3. Leukocytosis: Repeat labs and monitor possibly reactive 4. Hyperglycemia likely secondary to steroids continue sliding scale coverage. Check A1c 5. History of Padma fundoplication 6. History of right leg DVT several years ago. no longer on anticoagulation 7. History of prostate cancer 2009 DVT prophylaxis subcu heparin and GI prophylaxis I performed an examination of the patient and discussed their management with the physician Locomotive Supervisor. I have reviewed the Physician Locomotive Supervisor's notes and agree with the documented findings and plan of care
--- NOTE | 2018-09-17 15:10 | P.PN ---
Subjective Progress Note Date: 09/17/18 09/17/2018: Patient seen and examined. Patient continues to have leak from chest tube. He denies chest pain and shortness of breath. At our last office visit, he asked to be started on Zoloft because "it calms me down." He knows he is hyperactive and has been told he has ADD. He has not been following with psychiatry. He denies depression or suicidality. He states he did very well on Zoloft in the past. Objective - Vital Signs Vital signs: Vital Signs Temp 97.3 F L 09/17/18 11:43 Pulse 72 09/17/18 14:04 Resp 18 09/17/18 11:46 BP 134/81 09/17/18 11:43 Pulse Ox 96 09/17/18 11:43 Intake & Output 09/16/18 09/17/18 09/17/18 18:59 06:59 18:59 Intake Total 906 300 720 Output Total 400 500 300 Balance 506 -200 420 Weight 72.2 kg Intake: Oral 906 300 720 Output: Urine 400 500 300 Other: Voiding Method Toilet Toilet # Voids 1 1 - Exam General: A+OX3, NAD, hyperactive and poor focus, easily distracted CV: RRR, s1/s2 Lungs: Diminished otherwise clear, Right chest tube in place with air leak Abdomen: soft, nontender, nondistended, +bs Ext: no edema - Labs CBC & Chem 7: 09/15/18 19:00 09/15/18 19:25 Labs: Abnormal Lab Results - Last 24 Hours (Table) 09/17/18 09/17/18 Range/Units 05:48 11:46 POC Glucose (mg/dL) 150 H 168 H (75-99) mg/dL Assessment and Plan Assessment: Right spontaneous pneumothorax COPD, severe, FEV 1 41% Hyperglycemia likely secondary to steroids Mild leukocytosis History of DVT in the remote past History of prostate cancer History of Padma fundoplication and hiatial hernia GERD Hyperactivity, question bipolar versus ADHD versus other O2 to maintain saturation greater than or equal to 90%, currently on RA Consult psychiatry and start patient on Zoloft which he has taken in the past Continued smoking cessation Pulmciort Steroid taper Duonebs Perforomist IS and pulmonary hygiene Chest tube per CVTS GI and DVT prophylaxis Continue to monitor closely
[2018-09-17 16:35] LABS: Glucose,Whole Blood 140 mg/dL (75-99)
[2018-09-17] MEDS: predniSONE 20 MG TAB PO SCH (17:15)
[2018-09-17] MEDS: FORMOTEROL FUMARATE 20 MCG/2 ML NEBU INHALATION SCH (19:40)
[2018-09-17] MEDS: SERTRALINE 50 MG TAB PO SCH (20:24)
[2018-09-17] MEDS: diphenhydrAMINE 50 MG/ML 1 ML VIAL IVP PRN (20:24)
[2018-09-17] MEDS: MONTELUKAST 10 MG TAB PO SCH (20:24)
[2018-09-17 21:06] LABS: Glucose,Whole Blood 120 mg/dL (75-99)
[2018-09-18 05:48] LABS: Glucose,Whole Blood 130 mg/dL (75-99)
[2018-09-18 06:57] LABS: Basophils % (A) 0 %; Eosinophils % (A) 0 %; HCT 48.5 % (39.0-53.0); HGB 15.5 gm/dL (13.0-17.5); Lymphocytes # (A) 0.7 k/uL (1.0-4.8); Lymphocytes % (A) 4 %; MCH 31.2 pg (25.0-35.0); MCV 97.6 fL (80.0-100.0); Mean Platelet Volume 6.9; Monocytes # (A) 0.6 k/uL (0-1.0); Monocytes % (A) 3 %; Neutrophils # (A) 17.3 k/uL (1.3-7.7); Neutrophils % (A) 93 %; Platelet Count 246 k/uL (150-450); RBC 4.96 m/uL (4.30-5.90); RDW 13.9 % (11.5-15.5); WBC 18.7 k/uL (3.8-10.6)
[2018-09-18] MEDS: INSULIN ASPART (NovoLOG) 100 UNIT/ML VIAL SQ SCH ×4 (06:59→20:46)
[2018-09-18] MEDS: KETOROLAC 30 MG/ML 1 ML VIAL IVP SCH ×4 (07:03→23:06)
[2018-09-18 07:05] LABS: Albumin 4.1 g/dL (3.5-5.0); Calcium 9.7 mg/dL (8.4-10.2); Potassium 5.2 mmol/L (3.5-5.1); Total Bilirubin 0.4 mg/dL (0.2-1.3); Total Protein 7.2 g/dL (6.3-8.2)
[2018-09-18] MEDS: BUDESONIDE 0.5 MG/2 ML NEBU INHALATION SCH ×2 (07:20→19:15)
[2018-09-18] MEDS: IPRATROPIUM-ALBUTEROL 3 ML NEB INHALATION SCH ×4 (07:20→19:15)
[2018-09-18] MEDS: FORMOTEROL FUMARATE 20 MCG/2 ML NEBU INHALATION SCH ×2 (07:20→19:15)
--- NOTE | 2018-09-18 08:19 | XR ---
EXAMINATION TYPE: XR chest 1V portable DATE OF EXAM: 09/18/2018 HISTORY: Shortness of breath. COMPARISON: 09/17/2018 TECHNIQUE: Single view of the chest is submitted. FINDINGS: Right upper lobe pleural catheter is in place. No evidence for sizable pneumothorax at this time. Sca ttered linear atelectasis upper lobes. The heart is stable. Slight hilar fullness persists. Degenerative changes are seen of the dorsal spine. IMPRESSION: 1. Right upper lobe pleural catheter is in place. No evidence for sizable pneumothorax at this time. Scattered linear atelectasis upper lobes.
[2018-09-18] MEDS: guaiFENesin 600 MG TABLET.ER PO SCH ×2 (09:24→20:36)
[2018-09-18] MEDS: HEPARIN SODIUM,PORCINE 5,000 UNIT/ML 1 ML VIAL SQ SCH ×2 (09:24→20:37)
[2018-09-18] MEDS: FAMOTIDINE 20 MG TAB PO SCH ×2 (09:24→20:36)
[2018-09-18] MEDS: predniSONE 20 MG TAB PO SCH (09:24)
--- NOTE | 2018-09-18 09:50 | P.PN ---
Subjective Progress Note Date: 09/18/18 Principal diagnosis: Right sided pneumothorax, S/P Thoravent placement in the emergency room. Previous medical history of tobacco dependence, COPD, hypertension, hyperlipidemia, severe acid reflux, hiatal hernia status post Padma fundoplication with mesh repair, DVT, and prostate cancer. The patient is currently sitting up in bed in no acute distress. He does complain of some pain at the thoravent site with movement, but states it is controlled with current medication regimen. Denies shortness of breath. Thoravent connected to suction, intermittent air leak present. Right lung continues to be re-expanded on his x-ray. Objective - Vital Signs Vital signs: Vital Signs Temp 97.1 F L 09/18/18 04:00 Pulse 75 09/18/18 07:45 Resp 17 09/18/18 04:00 BP 164/98 09/18/18 04:00 Pulse Ox 95 09/18/18 07:20 Intake & Output 09/17/18 09/18/18 09/18/18 18:59 06:59 18:59 Intake Total 1080 510 360 Output Total 300 570 Balance 780 -60 360 Weight 70.9 kg Intake: IV 30 Invasive Line 1 30 Oral 1080 480 360 Output: Chest Tube Drainage 20 Thora-Vent Right Mid- 20 Clavicular Chest Urine 300 550 Other: Voiding Method Toilet Toilet # Voids 1 1 - Constitutional General appearance: Present: cooperative, no acute distress - Respiratory Details: Lungs sounds slightly diminished bilaterally. Respirations even, nonlabored. Currently on room air with oxygen saturation 95%. Right-sided thoravent present, connected to continuous wall suction, 10 mL serous drainage since placement, positive small intermittent air leak, less than yesterday. - Cardiovascular Details: S1, S2 present. Regular rate and rhythm, sinus rhythm on telemetry. Palpable peripheral pulses bilaterally. No edema present. No calf pain or tenderness noted. - Gastrointestinal Gastrointestinal Comment(s): Abdomen soft, nontender, nondistended. Active bowel sounds 4 quadrants. Tolerating diet. - Genitourinary Genitourinary Comment(s): Continues to void clear, yellow urine. - Integumentary Integumentary Comment(s): Skin is warm and dry with evidence of good perfusion. - Neurologic Neurologic: Present: CNII-XII intact - Musculoskeletal Musculoskeletal: Present: gait normal, strength equal bilaterally - Psychiatric Psychiatric: Present: A&O x's 3, appropriate affect, intact judgment & insight - Allied health notes Allied health notes reviewed: nursing - Labs CBC & Chem 7: 09/18/18 06:10 09/18/18 06:10 Labs: Abnormal Lab Results - Last 24 Hours (Table) 09/17/18 09/17/18 09/17/18 Range/Units 11:46 16:30 21:05 WBC (3.8-10.6) k/uL Neutrophils # (1.3-7.7) k/uL Lymphocytes # (1.0-4.8) k/uL Potassium (3.5-5.1) mmol/L BUN (9-20) mg/dL Glucose (74-99) mg/dL POC Glucose (mg/dL) 168 H 140 H 120 H (75-99) mg/dL 09/18/18 09/18/18 09/18/18 Range/Units 05:47 06:10 06:10 WBC 18.7 H (3.8-10.6) k/uL Neutrophils # 17.3 H (1.3-7.7) k/uL Lymphocytes # 0.7 L (1.0-4.8) k/uL Potassium 5.2 H (3.5-5.1) mmol/L BUN 33 H (9-20) mg/dL Glucose 120 H (74-99) mg/dL POC Glucose (mg/dL) 130 H (75-99) mg/dL - Imaging and Cardiology Chest x-ray: report reviewed, image reviewed Assessment and Plan Assessment: 1. Right-sided pneumothorax, status post thoravent placement in the emergency room 2. Previous tobacco dependence 3. COPD 4. Hypertension 5. Hyperlipidemia 6. Severe acid reflux 7. Previous hiatal hernia status post Padma fundoplication with mesh repair 8. History of DVT 9. History of prostate cancer Plan: 1. Thoravent placed to water seal. Will repeat CXR @ noon. 2. Encourage incentive spirometry use 10 times every hour while awake. 3. Will monitor daily x-rays. 4. Pain controlled current medication regimen. 5. Increase activity, ambulate in hallway. 6. Continue medical management of other comorbid conditions per primary care service. 7. More recommendations to follow. Time with Patient: Greater than 30
--- NOTE | 2018-09-18 10:03 | P.PN ---
Subjective Progress Note Date: 09/18/18 09/18/2018: Patient seen and examined. Patient is lying in bed resting. He states he feels pretty good. He was hoping to go home soon. He states that he was like to go back to work as soon as possible. 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 It is discussed with the patient that he will need to take some time off to recover. He should also wear a mask when he is exposed to the paint fumes. Objective - Vital Signs Vital signs: Vital Signs Temp 97.1 F L 09/18/18 04:00 Pulse 75 09/18/18 07:45 Resp 17 09/18/18 04:00 BP 164/98 09/18/18 04:00 Pulse Ox 95 09/18/18 07:20 Intake & Output 09/17/18 09/18/18 09/18/18 18:59 06:59 18:59 Intake Total 1080 510 360 Output Total 300 570 Balance 780 -60 360 Weight 70.9 kg Intake: IV 30 Invasive Line 1 30 Oral 1080 480 360 Output: Chest Tube Drainage 20 Thora-Vent Right Mid- 20 Clavicular Chest Urine 300 550 Other: Voiding Method Toilet Toilet # Voids 1 1 - Exam General: A+OX3, NAD, hyperactive and poor focus, easily distracted CV: RRR, s1/s2 Lungs: Diminished otherwise clear, Right chest tube in place with air leak Abdomen: soft, nontender, nondistended, +bs Ext: no edema - Labs CBC & Chem 7: 09/18/18 06:10 09/18/18 06:10 Labs: Abnormal Lab Results - Last 24 Hours (Table) 09/17/18 09/17/18 09/17/18 Range/Units 11:46 16:30 21:05 WBC (3.8-10.6) k/uL Neutrophils # (1.3-7.7) k/uL Lymphocytes # (1.0-4.8) k/uL Potassium (3.5-5.1) mmol/L BUN (9-20) mg/dL Glucose (74-99) mg/dL POC Glucose (mg/dL) 168 H 140 H 120 H (75-99) mg/dL 09/18/18 09/18/18 09/18/18 Range/Units 05:47 06:10 06:10 WBC 18.7 H (3.8-10.6) k/uL Neutrophils # 17.3 H (1.3-7.7) k/uL Lymphocytes # 0.7 L (1.0-4.8) k/uL Potassium 5.2 H (3.5-5.1) mmol/L BUN 33 H (9-20) mg/dL Glucose 120 H (74-99) mg/dL POC Glucose (mg/dL) 130 H (75-99) mg/dL Assessment and Plan Assessment: Right spontaneous pneumothorax COPD, severe, FEV 1 41% Hyperglycemia likely secondary to steroids Mild leukocytosis History of DVT in the remote past History of prostate cancer Leukocytosis, possibly secondary to steroids History of Padma fundoplication and hiatial hernia GERD Hyperactivity, question bipolar versus ADHD versus other O2 to maintain saturation greater than or equal to 90%, currently on RA Consult psychiatry and start patient on Zoloft which he has taken in the past Continued smoking cessation Pulmciort Steroid taper Angelo Perforomist Monitor WBC count and for signs/symptoms of infection IS and pulmonary hygiene Chest tube per CVTS GI and DVT prophylaxis: Heparin and Pepcid Continue to monitor closely
--- NOTE | 2018-09-18 11:51 | P.PN ---
Subjective Progress Note Date: 09/18/18 This is a 68-year-old male who has a known history of severe COPD and presented to the hospital with shortness of breath and right-sided chest discomfort. He had gone into a walk-in clinic x-ray done there showed a right-sided pneumothorax is transferred via EMS to [facility]. He had a right thoracotomy placed in the ER for his pneumothorax. Vascular surgery is following. Chest x- ray from this morning shows resolution of the right-sided pneumothorax. Discussed with nursing staff Gus surgery is recommending to continue the door event and will review reevaluate in the morning. Patient currently reports improvement in her shortness of breath. Denies any chest pain. Denies any nausea or vomiting. Denies any bowel movement changes or urinary symptoms. 09/18/2018 patient scheduled for repeat chest x-ray at noon. thoravent is placed waterseal. Followed by vascular surgery and pulmonary service. Patient denies any pain. Denies a chest pain or shortness of breath. Denies any nausea or vomiting. Denies any bowel movement changes or urinary symptoms. He was started on Zoloft yesterday for his hyperactivity. Awaiting psychiatric evaluation. Objective - Vital Signs Vital signs: Vital Signs Temp 98.1 F 09/18/18 08:00 Pulse 83 09/18/18 08:00 Resp 18 09/18/18 08:00 BP 131/94 09/18/18 08:00 Pulse Ox 95 09/18/18 08:00 Intake & Output 09/17/18 09/18/18 09/18/18 18:59 06:59 18:59 Intake Total 1080 510 370 Output Total 300 570 0 Balance 780 -60 370 Weight 70.9 kg Intake: IV 30 10 Invasive Line 1 30 10 Oral 1080 480 360 Output: Chest Tube Drainage 20 0 Thora-Vent Right Mid- 20 0 Clavicular Chest Urine 300 550 Other: Voiding Method Toilet Toilet Toilet # Voids 1 1 - Exam Head normocephalic Neck supple Lungs clear to auscultation bilaterally no wheezing or crackles. thoravent on right side chest wall Heart regular rate and rhythm S1-S2, no rub or gallop Abdomen is soft nontender nondistended positive bowel sounds no hepatosplenomegaly Extremities no edema Neuro alert and orientated to 3 - Labs CBC & Chem 7: 09/18/18 06:10 09/18/18 06:10 Labs: Abnormal Lab Results - Last 24 Hours (Table) 09/17/18 09/17/18 09/17/18 Range/Units 11:46 16:30 21:05 WBC (3.8-10.6) k/uL Neutrophils # (1.3-7.7) k/uL Lymphocytes # (1.0-4.8) k/uL Potassium (3.5-5.1) mmol/L BUN (9-20) mg/dL Glucose (74-99) mg/dL POC Glucose (mg/dL) 168 H 140 H 120 H (75-99) mg/dL 09/18/18 09/18/18 09/18/18 Range/Units 05:47 06:10 06:10 WBC 18.7 H (3.8-10.6) k/uL Neutrophils # 17.3 H (1.3-7.7) k/uL Lymphocytes # 0.7 L (1.0-4.8) k/uL Potassium 5.2 H (3.5-5.1) mmol/L BUN 33 H (9-20) mg/dL Glucose 120 H (74-99) mg/dL POC Glucose (mg/dL) 130 H (75-99) mg/dL Assessment and Plan Assessment: 1. Right-sided spontaneous pneumothorax status post Thora-vent placement. Vascular surgery following. Chest x-ray from today showing resolution in the pneumothorax. We will await further vascular surgery recommendations. Thoravent placed to water seal. vascular surgery ordered a repeat chest x-ray at noon 2. Acute COPD exacerbation: Continue nebulizer treatments steroids. Pulmonary service following 3. Leukocytosis: Likely secondary to steroids. 4. Hyperglycemia likely secondary to steroids continue sliding scale coverage. A1c is 6.0 5. History of Padma fundoplication 6. History of right leg DVT several years ago. no longer on anticoagulation 7. History of prostate cancer 2009 8. Hyperactivity, Dr. Chirinos has added Zoloft and agree with psychiatry consult DVT prophylaxis subcu heparin and GI prophylaxis I performed an examination of the patient and discussed their management with the physician Redye Hand. I have reviewed the Physician Redye Hand's notes and agree with the documented findings and plan of care
[2018-09-18 12:01] LABS: Glucose,Whole Blood 109 mg/dL (75-99)
--- NOTE | 2018-09-18 12:27 | XR ---
EXAMINATION TYPE: XR chest 2V DATE OF EXAM: 09/18/2018 COMPARISON: 09/18/2018 HISTORY: Pneumothorax TECHNIQUE: Frontal and lateral views of the chest are obtained. FINDINGS: Right-sided pleural catheter is in place. There appears to be interval development of a right-sided p neumothorax estimated at between 15 and 20%. Apical measurement of 2.2 cm and mid lung zone measureme nt of 1.3 cm. Heart size is stable. Mediastinal structures are stable and grossly unremarkable. No evidence for hilar prominence. Degenerative changes dorsal spine. IMPRESSION: 1. Interval development of right-sided pneumothorax. A [place] level critical message alert has been initiated for Michaela Leyva via the [facility] Results System on 09/18/2018 12:24 PM. This message alert has been sent to Michaela Leyva via the pref erences provided by the clinician for the receipt of Radiology Critical Findings. Message ID [id number].
[2018-09-18] MEDS ORDERED: diphenhydrAMINE 25 MG CAP PO PRN (13:44)
[2018-09-18 16:56] LABS: Glucose,Whole Blood 138 mg/dL (75-99)
[2018-09-18 20:34] LABS: Glucose,Whole Blood 140 mg/dL (75-99)
[2018-09-18] MEDS: MONTELUKAST 10 MG TAB PO SCH (20:36)
[2018-09-18] MEDS: SERTRALINE 50 MG TAB PO SCH (20:36)
[2018-09-18] MEDS: amLODIPine 5 MG TAB PO SCH (23:37)
[2018-09-19 06:18] LABS: Glucose,Whole Blood 89 mg/dL (75-99)
[2018-09-19] MEDS: INSULIN ASPART (NovoLOG) 100 UNIT/ML VIAL SQ SCH ×2 (06:23→12:07)
[2018-09-19] MEDS: KETOROLAC 30 MG/ML 1 ML VIAL IVP SCH ×2 (06:25→12:09)
[2018-09-19 06:52] LABS: Basophils % (A) 0 %; Eosinophils % (A) 0 %; HCT 45.2 % (39.0-53.0); HGB 14.6 gm/dL (13.0-17.5); Lymphocytes # (A) 1.2 k/uL (1.0-4.8); Lymphocytes % (A) 10 %; MCH 30.6 pg (25.0-35.0); MCHC 32.3 g/dL (31.0-37.0); MCV 94.7 fL (80.0-100.0); Mean Platelet Volume 7.1; Monocytes # (A) 0.7 k/uL (0-1.0); Monocytes % (A) 5 %; Neutrophils # (A) 10.4 k/uL (1.3-7.7); Neutrophils % (A) 84 %; Platelet Count 244 k/uL (150-450); RBC 4.77 m/uL (4.30-5.90); RDW 14.8 % (11.5-15.5); WBC 12.4 k/uL (3.8-10.6)
[2018-09-19 06:59] LABS: ALT 27 U/L (21-72); AST 24 U/L (17-59); Albumin 3.7 g/dL (3.5-5.0); Alkaline Phosphatase 58 U/L (38-126); Anion Gap 7 mmol/L; Blood Urea Nitrogen 29 mg/dL (9-20); Calcium 9.3 mg/dL (8.4-10.2); Carbon Dioxide 26 mmol/L (22-30); Chloride 107 mmol/L (98-107); Glucose 91 mg/dL (74-99); Potassium 4.5 mmol/L (3.5-5.1); Sodium 140 mmol/L (137-145); Total Bilirubin 0.4 mg/dL (0.2-1.3); Total Protein 6.5 g/dL (6.3-8.2)
[2018-09-19] MEDS: BUDESONIDE 0.5 MG/2 ML NEBU INHALATION SCH (08:10)
[2018-09-19] MEDS: IPRATROPIUM-ALBUTEROL 3 ML NEB INHALATION SCH ×3 (08:10→15:24)
[2018-09-19] MEDS: FORMOTEROL FUMARATE 20 MCG/2 ML NEBU INHALATION SCH (08:10)
[2018-09-19] MEDS: HEPARIN SODIUM,PORCINE 5,000 UNIT/ML 1 ML VIAL SQ SCH (08:13)
[2018-09-19] MEDS: amLODIPine 5 MG TAB PO SCH (08:13)
[2018-09-19] MEDS: predniSONE 20 MG TAB PO SCH (08:14)
[2018-09-19] MEDS: FAMOTIDINE 20 MG TAB PO SCH (08:14)
[2018-09-19] MEDS: guaiFENesin 600 MG TABLET.ER PO SCH (08:14)
--- NOTE | 2018-09-19 08:26 | XR ---
EXAMINATION TYPE: XR chest 2V DATE OF EXAM: 09/19/2018 COMPARISON: 09/18/2018 HISTORY: Follow-up for pneumothorax TECHNIQUE: Frontal and lateral views of the chest are obtained. FINDINGS: There is improved right apical pneumothorax currently measuring approximately 1.3 cm and p reviously measuring approximately 2.2 cm. The right lateral component of the pneumothorax has also im proved in the interim. Right-sided Thoravent is similar in position. Underlying emphysematous changes are seen of the lungs. Right midlung linear atelectasis and/or pleural scarring is noted. Eventratio n of the hemidiaphragms is seen. Cardia mediastinal silhouette is mildly enlarged. There is also enla rgement of the main pulmonary artery suggesting underlying coronary retention. IMPRESSION: Decreasing right pneumothorax.
[2018-09-19 09:43] VITALS: RESP 18
--- NOTE | 2018-09-19 09:50 | PN ---
PROGRESS NOTE DATE OF SERVICE: 09/19/2018 The patient has been hemodynamically stable. He continues to have a right-sided pneumothorax with an air leak. PHYSICAL EXAMINATION: His respiratory rate is 16, pulse rate of 65, temperature 98.2, blood pressure 145/74, O2 sat on room air is 99%. HEENT is unremarkable. Chest reveals right Thora vent in place. Cardiovascular system reveals an S1, S2. No S3, no S4. Abdomen is soft. There is no pedal edema chest. White count is 12.4, hemoglobin of 14.6. Chest x-ray shows decreasing right-sided pneumothorax with underlying emphysematous changes. IMPRESSION: 1. Right-sided spontaneous pneumothorax with ongoing air leak. 2. Chronic obstructive pulmonary disease with exacerbation. 3. Anxiety. At this point in time, would continue Thora vent in this patient. Cardiothoracic Surgery is following the patient and the patient may require further intervention. Did discuss his condition with his primary director industrial museum, Dr. Chirinos, as well. MMODL / IJN: [id number] /
[2018-09-19 11:54] LABS: Glucose,Whole Blood 107 mg/dL (75-99)
[2018-09-19] MEDS ORDERED: HYDROmorphone 2 MG TAB PO PRN (12:00)
[2018-09-19 12:04] VITALS: BP 157/81; PULSE 76; TEMP 98.3
--- NOTE | 2018-09-19 13:58 | P.PN ---
Subjective Progress Note Date: 09/19/18 Principal diagnosis: Right sided pneumothorax, S/P Thoravent placement in the emergency room. Previous medical history of tobacco dependence, COPD, hypertension, hyperlipidemia, severe acid reflux, hiatal hernia status post Padma fundoplication with mesh repair, DVT, and prostate cancer. The patient is currently sitting up in bed in no acute distress. He does complain of some pain at the thoravent site with movement, but states it is controlled with current medication regimen. Denies shortness of breath. Thoravent placed to water seal yesterday, intermittent air leak still present, CXR stable. Patient would like to go home, he is in no distress. Objective - Vital Signs Vital signs: Vital Signs Temp 98.3 F 09/19/18 11:52 Pulse 76 09/19/18 11:52 Resp 18 09/19/18 11:52 BP 157/81 09/19/18 11:52 Pulse Ox 99 09/19/18 11:52 Intake & Output 09/18/18 09/19/18 09/19/18 18:59 06:59 18:59 Intake Total 1100 960 600 Output Total 0 Balance 1100 960 600 Weight 73.9 kg Intake: IV 20 Invasive Line 1 20 Oral 1080 960 600 Output: Chest Tube Drainage 0 Thora-Vent Right Mid- 0 Clavicular Chest Other: Voiding Method Toilet Toilet Toilet # Voids 1 2 3 - Constitutional General appearance: Present: cooperative, no acute distress - Respiratory Details: Lungs sounds slightly diminished bilaterally. Respirations even, nonlabored. Currently on room air with oxygen saturation 99%. Right-sided thoravent present, on water seal, no drainage, positive small intermittent air leak, less than yesterday. - Cardiovascular Details: S1, S2 present. Regular rate and rhythm, sinus rhythm on telemetry. Palpable peripheral pulses bilaterally. No edema present. No calf pain or tenderness noted. - Gastrointestinal Gastrointestinal Comment(s): Abdomen soft, nontender, nondistended. Active bowel sounds 4 quadrants. Tolerating diet. - Genitourinary Genitourinary Comment(s): Continues to void clear, yellow urine. - Integumentary Integumentary Comment(s): Skin is warm and dry with evidence of good perfusion. - Neurologic Neurologic: Present: CNII-XII intact - Musculoskeletal Musculoskeletal: Present: gait normal, strength equal bilaterally - Psychiatric Psychiatric: Present: A&O x's 3, appropriate affect, intact judgment & insight - Allied health notes Allied health notes reviewed: nursing - Labs CBC & Chem 7: 09/19/18 06:16 09/19/18 06:16 Labs: Abnormal Lab Results - Last 24 Hours (Table) 09/18/18 09/18/18 09/19/18 Range/Units 16:54 20:33 06:16 WBC 12.4 H (3.8-10.6) k/uL Neutrophils # 10.4 H (1.3-7.7) k/uL BUN (9-20) mg/dL POC Glucose (mg/dL) 138 H 140 H (75-99) mg/dL 09/19/18 09/19/18 Range/Units 06:16 11:51 WBC (3.8-10.6) k/uL Neutrophils # (1.3-7.7) k/uL BUN 29 H (9-20) mg/dL POC Glucose (mg/dL) 107 H (75-99) mg/dL - Imaging and Cardiology Chest x-ray: report reviewed, image reviewed Assessment and Plan Assessment: 1. Right-sided pneumothorax, status post thoravent placement in the emergency room 2. Previous tobacco dependence 3. COPD 4. Hypertension 5. Hyperlipidemia 6. Severe acid reflux 7. Previous hiatal hernia status post Padma fundoplication with mesh repair 8. History of DVT 9. History of prostate cancer Plan: 1. Atrium discontinued. Thoravent cap placed. 2. Encourage incentive spirometry use 10 times every hour while awake. 3. Pain controlled current medication regimen. 4. Increase activity, ambulate in hallway. 5. Continue medical management of other comorbid conditions per primary care s ervice. 6. Patient may be discharged to home from our standpoint with thoravent in place. Patient and his were taught how to examine the red diaphragm on the thoravent for cessation of air leak. 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 They were instructed to call our office for an appointment once there is no more fluctuation in the red diaphragm. The patient is to obtain a chest x-ray prior to his appointment with us for removal of the thoravent, prescription for chest x-ray was given to the patient. Our contact information was given to the patient and his . Time with Patient: Greater than 30
--- NOTE | 2018-09-19 14:28 | P.DS ---
Providers Date of admission: 09/15/18 20:08 Expected date of discharge: 09/19/18 Attending physician: Mukund Quiros Consults: 09/16/18 11:26 Consult Physician Stat Consulting Provider: Christiano Jackman Consult Reason/Comments: unresolved right pnemo Do you want consulting provider notified?: Yes 09/17/18 13:14 Consult Physician Routine Consulting Provider: Ame Chirinos Consult Reason/Comments: COPD exacerbation Do you want consulting provider notified?: Yes 09/17/18 15:06 Consult Physician Routine Consulting Provider: Ashok Erickson Consult Reason/Comments: Hyperactivity Do you want consulting provider notified?: Yes Primary care physician: Stated None Hospital Course: Discharge diagnosis 1. Right-sided spontaneous pneumothorax status post Thora-vent placement. Vascular surgery following. Chest x-ray from today showing resolution in the pneumothorax. We will await further vascular surgery recommendations. Thoravent placed to water seal. Per cardiothoracic surgery patient may be discharged home with her event in place. Per cardiothoracic surgery patient and his were taught how to examine the red diaphragm on the Thora vent for air leak. Orders for chest x-ray outpatient ordered. Patient to follow-up with cardiothoracic surgery for removal of Thora vent. 2. Acute COPD exacerbation: Continue nebulizer treatments steroids. Pulmonary service following. Patient has been cleared for discharge from pulmonary services. Patient will be DC'd on prednisone taper. Patient to follow-up outpatient 3. Leukocytosis: Likely secondary to steroids. Trending down 4. Hyperglycemia likely secondary to steroids continue sliding scale coverage. A1c is 6.0 5. History of Padma fundoplication 6. History of right leg DVT several years ago. no longer on anticoagulation 7. History of prostate cancer 2009 8. Hyperactivity, Dr. Chirinos has added Zoloft and agree with psychiatry consult. Patient will be DC'd on Zoloft follow up with PCP 9. Hyperkalemia: Potassium 5.2. Repeat potassium level in morning. Avoid eating potassium-rich foods, repeat potassium 4.5 10. Essential hypertension. Patient will be DC'd and Norvasc. Patient to follow-up with PCP for further management Hospital course This is a 68-year-old male who has a known history of severe COPD and presented to the hospital with shortness of breath and right-sided chest discomfort. He had gone into a walk-in clinic x-ray done there showed a right-sided pneumothorax is transferred via EMS to [facility] ER. He had a right thoracotomy placed in the ER for his pneumothorax. Vascular surgery is following. Chest x- ray from this morning shows resolution of the right-sided pneumothorax. Discussed with nursing staff Gus surgery is recommending to continue the door event and will review reevaluate in the morning. Patient currently reports improvement in her shortness of breath. Denies any chest pain. Denies any nausea or vomiting. Denies any bowel movement changes or urinary symptoms. 09/18/2018 patient scheduled for repeat chest x-ray at noon. thoravent is placed waterseal. Followed by vascular surgery and pulmonary service. Patient denies any pain. Denies a chest pain or shortness of breath. Denies any nausea or vomiting. Denies any bowel movement changes or urinary symptoms. He was started on Zoloft yesterday for his hyperactivity. Awaiting psychiatric evaluation. On 09/19/2017 patient is alert and oriented 3. Patient has been cleared for discharge from cardiothoracic and pulmonary services. Patient will be DC'd with Thora vent in place. Repeat chest x-ray for outpatient ordered per cardiothoracic surgery. Instructions also given to patient and per surgical ADJ[employer]CT TRAINER. Patient did have elevated blood pressure throughout stay. Patient will be DC'd and Norvasc 10 mg daily. Patient also evaluated by psychiatry services will be discharged home on Zoloft. Patient also discharged on prednisone taper per pulmonary recommendation. At this time patient denies chest pain or shortness of breath. Patient denies nausea vomiting or diarrhea. Patient denies any urinary burning or frequency. I performed an examination of the patient and discussed their management with the Nurse Practitioner. I have reviewed the Nurse Practitioner's notes and agree with the documented findings and plan of care Patient Condition at Discharge: Stable Plan - Discharge Summary Discharge Rx Participant: No New Discharge Prescriptions: New amLODIPine [Norvasc] 10 mg PO DAILY 30 Days #30 tab Montelukast [Singulair] 10 mg PO HS 30 Days #30 tab Sertraline [Zoloft] 50 mg PO HS 30 Days #30 tab Continue Albuterol Nebulized [Ventolin Nebulized] 2.5 mg INHALATION Q6H Discontinued Aspirin 325 mg PO DAILY Discharge Medication List Albuterol Nebulized [Ventolin Nebulized] 2.5 mg INHALATION Q6H 09/15/18 [History] Montelukast [Singulair] 10 mg PO HS 30 Days #30 tab 09/19/18 [Rx] Sertraline [Zoloft] 50 mg PO HS 30 Days #30 tab 09/19/18 [Rx] amLODIPine [Norvasc] 10 mg PO DAILY 30 Days #30 tab 09/19/18 [Rx] Follow up Appointment(s)/Referral(s): Janice Garrett MD [STAFF PHYSICIAN] - As Needed (once air leak stops (red diaphram quits moving) please call office for appointment, will need chest xray before appointment) None,Stated [Primary Care Provider] - 1-2 days (Please call insurance to find a list of providers covered in your area. ) Parrish Ambriz MD [STAFF PHYSICIAN] - 09/28/18 3:30 pm Ambulatory/Diagnostic Orders: XR chest 2V [RAD.AMB] Facility: [facility], Location: Rad Xray [facility] Patient Instructions/Handouts: Spontaneous Pneumothorax (DC), COPD (Chronic Obstructive Pulmonary Disease) (DC), Anxiety (ED) Activity/Diet/Wound Care/Special Instructions: Thoravent management: Please monitor red diaphram on Thoravent daily. When no longer moving up and down, please call Dr. Garrett's office for appointment. Obtain chest X-ray prior to appointment time. If Thoravent accidentally comes out at home, please come back to the emergency room for X-ray and evaluation.
[2018-09-20] MEDS ORDERED: amLODIPine 10 MG TAB PO SCH (09:00)
== END 2018-09-19 15:48 | disposition home or self-care (01) | DRG 200 ==
LOC: EC 18:41 → SUPCPDRO 18:41 → 3SCARD 20:08
PROVIDERS: ADMIT Internal Medicine; ATTEND Internal Medicine
PROC: 0W9900Z Drainage of Right Pleural Cavity with Drainage Device, Open Approach (ICD-10-PCS; principal; 2018-09-15)
DX: J93.9 Pneumothorax, unspecified (principal); J44.1 Chronic obstructive pulmonary disease with (acute) exacerbation; E78.5 Hyperlipidemia, unspecified; E87.5 Hyperkalemia; F41.0 Panic disorder [episodic paroxysmal anxiety]; I10 Essential (primary) hypertension; K21.9 Gastro-esophageal reflux disease without esophagitis; R73.9 Hyperglycemia, unspecified; T38.0X5A Adverse effect of glucocorticoids and synthetic analogues, initial encounter; F90.9 Attention-deficit hyperactivity disorder, unspecified type; J93.82 Other air leak; Z79.82 Long term (current) use of aspirin; Z79.899 Other long term (current) drug therapy; Z87.891 Personal history of nicotine dependence; Z86.19 Personal history of other infectious and parasitic diseases; Z85.46 Personal history of malignant neoplasm of prostate; Z86.718 Personal history of other venous thrombosis and embolism
CPT/HCPCS: 32551; 36415; 71045; 71046; 80053; 83036; 85025; 85610; 85730; 94640; 96374; 96375; 99291

== ENCOUNTER 2018-09-23 15:58 | Inpatient (IN) | payer MEDICARE ==
[2018-09-23] MEDS ORDERED: SODIUM CHLORIDE 0.9% 1,000 ML IV STA ×3 (16:00→16:09)
[2018-09-23] MEDS ORDERED: LORazepam 2 MG/ML INJ IV STA (16:09)
[2018-09-23] MEDS ORDERED: ALBUTEROL NEBULIZED 2.5 MG/3 ML INHALATION STA (16:09)
[2018-09-23] MEDS ORDERED: MORPHINE SULFATE 2 MG/ML SYRINGE IVP STA (16:09)
[2018-09-23] MEDS ORDERED: IPRATROPIUM 0.5 MG/2.5 ML NEBU INHALATION STA (16:09)
--- NOTE | 2018-09-23 16:32 | XR ---
EXAMINATION TYPE: XR chest 1V portable DATE OF EXAM: 09/23/2018 COMPARISON: 09/19/2018 HISTORY: Pneumothorax TECHNIQUE: Single frontal view of the chest is obtained. FINDINGS: There is a right upper chest. There is soft tissue air on the right chest wall. There is p robably very tiny pneumothorax of less than 5%. There is mild atelectasis in the right midlung. Left lung is clear. There is no heart failure. Trachea is midline. IMPRESSION: Mild right-sided atelectasis. Right-sided pneumothorax is essentially cleared compared t o last exam. Soft tissue air increased compared to last exam.
[2018-09-23 16:41] LABS: Basophils % (A) 0 %; Eosinophils # (A) 0.1 k/uL (0-0.7); Eosinophils % (A) 1 %; HCT 53.9 % (39.0-53.0); HGB 17.2 gm/dL (13.0-17.5); Lymphocytes # (A) 0.9 k/uL (1.0-4.8); Lymphocytes % (A) 5 %; MCV 96.9 fL (80.0-100.0); Mean Platelet Volume 6.6; Monocytes # (A) 0.7 k/uL (0-1.0); Monocytes % (A) 4 %; Neutrophils # (A) 15.2 k/uL (1.3-7.7); Neutrophils % (A) 89 %; Platelet Count 284 k/uL (150-450); RBC 5.56 m/uL (4.30-5.90); WBC 17.1 k/uL (3.8-10.6)
[2018-09-23 16:49] LABS: Albumin 4.7 g/dL (3.5-5.0); Calcium 9.9 mg/dL (8.4-10.2); Magnesium 2.2 mg/dL (1.6-2.3); Partial Thromboplastin Time 22.2 sec (22.0-30.0); Potassium 4.9 mmol/L (3.5-5.1); Prothrombin Time 10.3 sec (9.0-12.0); Total Bilirubin 0.5 mg/dL (0.2-1.3); Total Protein 8.1 g/dL (6.3-8.2)
--- NOTE | 2018-09-23 17:26 | ED ---
SOB HPI - General Chief Complaint: Shortness of Breath Stated Complaint: SOB Time Seen by Provider: 09/23/18 16:00 Source: patient, RN notes reviewed, old records reviewed Mode of arrival: wheelchair Limitations: no limitations - History of Present Illness Initial Comments: This is a 60-year-old male the ER for evaluation presents today for evaluation s ignificant shortness of breath. Patient concern over unsure), states he did fail his versus pneumothorax. Patient states he cannot live like he says he has activity he does get significant short of breath states the patient is very anxious. This is worse episode of shortness of breath and anxiety since the event. Patient was just discharged from hospital 3-4 days ago. He denies chest pain denies MD Complaint: shortness of breath, cough, anxiety -: hour(s) Severity: severe Severity scale (1-10): 10 Consistency: constant Improves With: nothing Worsens With: exertion Known History Of: COPD, other (Recent pneumothorax) Associated Symptoms: chest pain, pain with inspiration Treatments Prior to Arrival: none - Related Data Home Medications Medication Instructions Recorded Confirmed Albuterol Nebulized [Ventolin 2.5 mg INHALATION RT-Q6H 09/15/18 09/23/18 Nebulized] predniSONE See Taper PO DIRECTED 09/23/18 09/23/18 Previous Rx's Medication Instructions Recorded Ibuprofen 600 mg PO Q6HR #56 tablet 09/19/18 Montelukast [Singulair] 10 mg PO HS 30 Days #30 tab 09/19/18 Sertraline [Zoloft] 50 mg PO HS 30 Days #30 tab 09/19/18 amLODIPine [Norvasc] 10 mg PO DAILY 30 Days #30 tab 09/19/18 Allergies Allergy/AdvReac Type Severity Reaction Status Date / Time hydrocodone AdvReac Mild Vomiting Verified 09/23/18 16:31 Review of Systems ROS Statement: Those systems with pertinent positive or pertinent negative responses have been documented in the HPI. ROS Other: All systems not noted in ROS Statement are negative. Past Medical History Past Medical History: Cancer, COPD, Deep Vein Thrombosis (DVT), GERD/Reflux, Hyperlipidemia, Hypertension, Pneumonia Additional Past Medical History / Comment(s): HIATAL HERNIA; PROSTATE CANCER- 2009; SHINGLES-2013; HX DVT RT LEG 10 years History of Any Multi-Drug Resistant Organisms: None Reported Past Surgical History: Orthopedic Surgery Additional Past Surgical History / Comment(s): 07/28/14 Laparoscopic Padma Fundoplication with mesh repair of hiatal hernia. LEFT ARM SURGERY 1967. RIGHT ROTATOR CUFF REPAIR 2012. EGD 06/16/14. Past Anesthesia/Blood Transfusion Reactions: No Reported Reaction Additional Past Anesthesia/Blood Transfusion Reaction / Comment(s): SEVERE PONV AFTER SHOULDER SURG. States becomes hyper when waking up. Past Psychological History: No Psychological Hx Reported Smoking Status: Former smoker Past Alcohol Use History: None Reported Past Drug Use History: None Reported - Past Family History Sister(s) Family Medical History: Deep Vein Thrombosis (DVT) Mother Family Medical History: Cancer (Lungs) Father Family Medical History: Myocardial Infarction ([place]) General Exam Limitations: no limitations General appearance: alert, anxious, in distress Head exam: Present: atraumatic, normocephalic, normal inspection Eye exam: Present: normal appearance, PERRL, EOMI. Absent: scleral icterus, conjunctival injection, periorbital swelling ENT exam: Present: normal exam, mucous membranes moist Neck exam: Present: normal inspection. Absent: tenderness, meningismus, lymphadenopathy Respiratory exam: Present: respiratory distress, wheezes, accessory muscle use, decreased breath sounds, prolonged expiratory. Absent: rales, rhonchi, stridor Cardiovascular Exam: Present: normal rhythm, tachycardia, normal heart sounds. Absent: systolic murmur, diastolic murmur, rubs, gallop, clicks GI/Abdominal exam: Present: soft, normal bowel sounds. Absent: distended, tenderness, guarding, rebound, rigid Extremities exam: Present: normal inspection, full ROM, normal capillary refill. Absent: tenderness, pedal edema, joint swelling, calf tenderness Back exam: Present: normal inspection Neurological exam: Present: alert, oriented X3, CN II-XII intact Psychiatric exam: Present: normal affect, normal mood Skin exam: Present: warm, dry, intact, normal color. Absent: rash Course Vital Signs 09/23/18 09/23/18 09/23/18 16:16 16:50 16:55 Temperature 98.8 F Pulse Rate 101 H 78 85 Pulse Rate [ Pulse Oximetery ] Respiratory 24 20 20 Rate Blood Pressure 170/87 125/86 Blood Pressure [Left Arm] O2 Sat by Pulse 98 100 Oximetry 04/09/23/18 09/23/18 17:03 17:15 17:28 Temperature Pulse Rate 82 80 89 Pulse Rate [ Pulse Oximetery ] Respiratory 20 21 20 Rate Blood Pressure Blood Pressure [Left Arm] O2 Sat by Pulse Oximetry 09/23/18 09/23/18 09/23/18 18:51 19:14 19:28 Temperature 98.4 F Pulse Rate 81 80 Pulse Rate [ 81 Pulse Oximetery ] Respiratory 18 22 22 Rate Blood Pressure 129/91 Blood Pressure 179/100 [Left Arm] O2 Sat by Pulse 96 96 Oximetry 09/23/18 09/23/18 19:39 20:02 Temperature Pulse Rate 85 82 Pulse Rate [ Pulse Oximetery ] Respiratory 20 18 Rate Blood Pressure 137/92 Blood Pressure [Left Arm] O2 Sat by Pulse 97 Oximetry - Reevaluation(s) Reevaluation #1: Record is reviewed Patient had no improvement placed to suction that began to feel relief, patient was given anxiety medication Medical Decision Making - Medical Decision Making 60 female the ER for evaluation, patient doesn't pneumothorax or event, no pneumothorax is improved from prior. Patient will be placed on breathing treatments to be admitted further by pulmonology and cardiothoracic surgery - Lab Data Result diagrams: 09/25/18 06:31 09/25/18 06:31 Lab Results 09/23/18 09/23/18 09/23/18 Range/Units 16:22 16:22 16:22 WBC 17.1 H (3.8-10.6) k/uL RBC 5.56 (4.30-5.90) m/uL Hgb 17.2 (13.0-17.5) gm/dL Hct 53.9 H (39.0-53.0) % MCV 96.9 (80.0-100.0) fL MCH 31.0 (25.0-35.0) pg MCHC 32.0 (31.0-37.0) g/dL RDW 14.0 (11.5-15.5) % Plt Count 284 (150-450) k/uL Neutrophils % 89 % Lymphocytes % 5 % Monocytes % 4 % Eosinophils % 1 % Basophils % 0 % Neutrophils # 15.2 H (1.3-7.7) k/uL Lymphocytes # 0.9 L (1.0-4.8) k/uL Monocytes # 0.7 (0-1.0) k/uL Eosinophils # 0.1 (0-0.7) k/uL Basophils # 0.0 (0-0.2) k/uL PT (9.0-12.0) sec INR (<1.2) APTT (22.0-30.0) sec Sodium 140 (137-145) mmol/L Potassium 4.9 (3.5-5.1) mmol/L Chloride 104 (98-107) mmol/L Carbon Dioxide 23 (22-30) mmol/L Anion Gap 13 mmol/L BUN 30 H (9-20) mg/dL Creatinine 1.23 (0.66-1.25) mg/dL Est GFR (CKD-EPI)AfAm 70 (>60 ml/min/1.73 sqM) Est GFR (CKD-EPI)NonAf 60 (>60 ml/min/1.73 sqM) Glucose 137 H (74-99) mg/dL Calcium 9.9 (8.4-10.2) mg/dL Magnesium 2.2 (1.6-2.3) mg/dL Total Bilirubin 0.5 (0.2-1.3) mg/dL AST 41 (17-59) U/L ALT 52 (21-72) U/L Alkaline Phosphatase 79 (38-126) U/L Troponin I (0.000-0.034) ng/mL NT-Pro-B Natriuret Pep 2820 pg/mL Total Protein 8.1 (6.3-8.2) g/dL Albumin 4.7 (3.5-5.0) g/dL Triglycerides (<150) mg/dL Cholesterol (<200) mg/dL LDL Cholesterol, Calc (0-99) mg/dL HDL Cholesterol (40-60) mg/dL 09/23/18 09/23/18 09/23/18 Range/Units 16:22 16:22 16:22 WBC (3.8-10.6) k/uL RBC (4.30-5.90) m/uL Hgb (13.0-17.5) gm/dL Hct (39.0-53.0) % MCV (80.0-100.0) fL MCH (25.0-35.0) pg MCHC (31.0-37.0) g/dL RDW (11.5-15.5) % Plt Count (150-450) k/uL Neutrophils % % Lymphocytes % % Monocytes % % Eosinophils % % Basophils % % Neutrophils # (1.3-7.7) k/uL Lymphocytes # (1.0-4.8) k/uL Monocytes # (0-1.0) k/uL Eosinophils # (0-0.7) k/uL Basophils # (0-0.2) k/uL PT 10.3 (9.0-12.0) sec INR 1.0 (<1.2) APTT 22.2 (22.0-30.0) sec Sodium (137-145) mmol/L Potassium (3.5-5.1) mmol/L Chloride (98-107) mmol/L Carbon Dioxide (22-30) mmol/L Anion Gap mmol/L BUN (9-20) mg/dL Creatinine (0.66-1.25) mg/dL Est GFR (CKD-EPI)AfAm (>60 ml/min/1.73 sqM) Est GFR (CKD-EPI)NonAf (>60 ml/min/1.73 sqM) Glucose (74-99) mg/dL Calcium (8.4-10.2) mg/dL Magnesium (1.6-2.3) mg/dL Total Bilirubin (0.2-1.3) mg/dL AST (17-59) U/L ALT (21-72) U/L Alkaline Phosphatase (38-126) U/L Troponin I 0.395 H* (0.000-0.034) ng/mL NT-Pro-B Natriuret Pep pg/mL Total Protein (6.3-8.2) g/dL Albumin (3.5-5.0) g/dL Triglycerides 169 H (<150) mg/dL Cholesterol 249 H (<200) mg/dL LDL Cholesterol, Calc 128 H (0-99) mg/dL HDL Cholesterol 87 H (40-60) mg/dL - EKG Data -: EKG Interpreted by Me (EKG shows sinus rhythm rate of 89, CA 2:30, QRS 108, QTc 457) - Radiology Data Radiology results: report reviewed (S x-ray shows pneumothorax improved from prior), image reviewed Critical Care Time Critical Care Time: Yes Total Critical Care Time: 31 Disposition Clinical Impression: Acute exacerbation of chronic obstructive airways disease, Pneumothorax, Hypoxia, ACS (acute coronary syndrome), Elevated troponin Disposition: ADMITTED IP TO THIS HOSP Condition: Serious Is patient prescribed a controlled substance at d/c from ED?: No
[2018-09-23] MEDS ORDERED: NITROGLYCERIN SL TABS 0.4 MG TAB SUBLINGUAL PRN (18:49)
[2018-09-23] MEDS ORDERED: MORPHINE SULFATE 2 MG/ML SYRINGE IVP PRN (18:49)
[2018-09-23] MEDS ORDERED: ASPIRIN 81 MG PO STA (18:49)
[2018-09-23] MEDS: IPRATROPIUM-ALBUTEROL 3 ML NEB INHALATION SCH (19:28)
[2018-09-23] MEDS ORDERED: IBUPROFEN 600 MG TAB PO PRN (21:53)
[2018-09-23 21:57] LABS: Cholesterol 249 mg/dL (<200); HDL Cholesterol 87 mg/dL (40-60); LDL Cholesterol,Calculated 128 mg/dL (0-99); Triglycerides 169 mg/dL (<150)
[2018-09-23] MEDS: SERTRALINE 50 MG TAB PO SCH (22:09)
[2018-09-23] MEDS: MONTELUKAST 10 MG TAB PO SCH (22:09)
[2018-09-23] MEDS: diphenhydrAMINE 25 MG CAP PO PRN (22:10)
[2018-09-23] MEDS: hydrALAZINE HCL 25 MG TAB PO SCH (22:10)
[2018-09-23] MEDS: guaiFENesin 600 MG TABLET.ER PO PRN (22:10)
[2018-09-24] MEDS ORDERED: IBUPROFEN 600 MG TAB PO SCH
[2018-09-24] MEDS: IPRATROPIUM-ALBUTEROL 3 ML NEB INHALATION SCH ×5 (06:16→19:17)
--- NOTE | 2018-09-24 08:19 | P.CRDCN ---
History of Present Illness Consult date: 09/24/18 Requesting physician: Mukund Quiros Consult reason: shortness of breath Chief complaint: Shortness of breath History of present illness: This is a 68-year-old gentleman with history of hypertension, hyperlipidemia, family history of premature coronary artery disease in his father, acid reflux, hiatal hernia with prior Lance fundoplication procedure, history of DVT and prostate cancer, history of nicotine dependence who recently underwent thoravent placement because of a collapsed lung. He states that he was discharged home, and for the past 4 days has been very short of breath. He denies any peripheral edema, denies any chest discomfort, no PND or orthopnea. Chest x-ray on admission here showed mild right sided atelectasis. Right-sided pneumothorax is essentially cleared compared to last exam. Soft tissue air increased as compared with last exam. EKG on arrival here showed a normal sinus rhythm with first-degree AV block evidence of left ventricular hypertrophy and ST depression noted in the lateral leads. Blood pressure 156/105 with a heart rate in the 70s, 97% on 5 L of oxygen. Blood pressure on admission was 170/87. White blood cell count 17.1, hemoglobin 17.2, platelet count 284. Sodium 140, potassium 4.9, BUN 30 and creatinine 1.2. Magnesium 2.2. Troponin 0.39, 0.29, 0.29. BNP level [id number]. Cholesterol 249, LDL 128, triglycerides 169 and HDL 87. Cardiology consultation was requested for congestive heart failure and abnormality in troponin. At the time of my examination this morning, patient is still quite short of breath. No peripheral edema. Past Medical History Past Medical History: Cancer, COPD, Deep Vein Thrombosis (DVT), GERD/Reflux, Hyperlipidemia, Hypertension, Pneumonia Additional Past Medical History / Comment(s): HIATAL HERNIA; PROSTATE CANCER- 2009; SHINGLES-2013; HX DVT RT LEG 10 years History of Any Multi-Drug Resistant Organisms: None Reported Past Surgical History: Orthopedic Surgery Additional Past Surgical History / Comment(s): 07/28/14 Laparoscopic Padma Fundoplication with mesh repair of hiatal hernia. LEFT ARM SURGERY 1966. RIGHT ROTATOR CUFF REPAIR 2012. EGD 06/16/14. Past Anesthesia/Blood Transfusion Reactions: No Reported Reaction Additional Past Anesthesia/Blood Transfusion Reaction / Comment(s): SEVERE PONV AFTER SHOULDER SURG. States becomes hyper when waking up. Past Psychological History: No Psychological Hx Reported Additional Psychological History / Comment(s): Patient is retired from [employer]. 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 Was a tobacco smoker stopping 2 years ago. Denies significant alcohol use at this point in time. Denies experience. Denies extensive travels. Did not relate to animals in the home. Smoking Status: Former smoker Past Alcohol Use History: None Reported Additional Past Alcohol Use History / Comment(s): Quit smoking 7 years ago. Past Drug Use History: None Reported - Past Family History Sister(s) Family Medical History: Deep Vein Thrombosis (DVT) Mother Family Medical History: Cancer (Lungs) Father Family Medical History: Myocardial Infarction ([place]) Medications and Allergies Home Medications Medication Instructions Recorded Confirmed Type Albuterol Nebulized [Ventolin 2.5 mg INHALATION RT-Q6H 09/15/18 09/23/18 History Nebulized] Ibuprofen 600 mg PO Q6HR #56 tablet 09/19/18 09/23/18 Rx Montelukast [Singulair] 10 mg PO HS 30 Days #30 tab 09/19/18 09/23/18 Rx Sertraline [Zoloft] 50 mg PO HS 30 Days #30 tab 09/19/18 09/23/18 Rx amLODIPine [Norvasc] 10 mg PO DAILY 30 Days #30 tab 09/19/18 09/23/18 Rx predniSONE See Taper PO DIRECTED 09/23/18 09/23/18 History Allergies Allergy/AdvReac Type Severity Reaction Status Date / Time hydrocodone AdvReac Mild Vomiting Verified 09/23/18 16:31 Physical Exam Vitals: Vital Signs Temp Pulse Pulse Resp BP BP Pulse Ox 09/24/18 06:24 76 09/24/18 06:16 79 96 09/24/18 04:00 98 F 88 18 156/105 97 09/23/18 23:47 98.2 F 90 18 172/99 96 09/23/18 20:02 82 18 137/92 97 09/23/18 19:39 85 20 09/23/18 19:28 80 22 09/23/18 19:14 98.4 F 81 22 179/100 96 09/23/18 18:51 81 18 129/91 96 09/23/18 17:28 89 20 09/23/18 17:15 80 21 09/23/18 17:03 82 20 09/23/18 16:55 85 20 125/86 100 09/23/18 16:50 78 20 09/23/18 16:16 98.8 F 101 H 24 170/87 98 Intake and Output 09/23/18 09/24/18 09/24/18 22:59 06:59 14:59 Output Total 650 Balance -650 Output: Urine 650 Other: Voiding Method Toilet Urinal Weight 74.843 kg 74.7 kg PHYSICAL EXAMINATION: GENERAL: 68-year-old gentleman, visibly short of breath at the time of my examination HEENT: Head is atraumatic, normocephalic. Pupils equal, round. Sclera anicteric. Conjunctiva are clear. Mucous membranes of the mouth are moist. Neck is supple. There is no elevated jugular venous pressure. No carotid bruit is heard. HEART EXAMINATION: Heart S1, S2 systolic ejection murmur is heard . CHEST EXAMINATION: Lungs reveal diminished air entry to bilateral bases, thoravent in place ABDOMEN: Soft, nontender. Bowel sounds are heard. No organomegaly noted. EXTREMITIES: 2+ peripheral pulses with no evidence of peripheral edema and no calf tenderness noted. NEUROLOGIC patient is awake, alert and oriented 3 . . Results 09/25/18 06:31 09/25/18 06:31 Cardiac Enzymes 09/23/18 09/23/18 09/23/18 Range/Units 16:22 16:22 22:21 AST 41 (17-59) U/L Troponin I 0.395 H* 0.295 H* (0.000-0.034) ng/mL 09/24/18 Range/Units 04:06 AST (17-59) U/L Troponin I 0.298 H* (0.000-0.034) ng/mL Coagulation 09/23/18 Range/Units 16:22 PT 10.3 (9.0-12.0) sec APTT 22.2 (22.0-30.0) sec Lipids 09/23/18 Range/Units 16:22 Triglycerides 169 H (<150) mg/dL Cholesterol 249 H (<200) mg/dL HDL Cholesterol 87 H (40-60) mg/dL CBC 09/23/18 Range/Units 16:22 WBC 17.1 H (3.8-10.6) k/uL RBC 5.56 (4.30-5.90) m/uL Hgb 17.2 (13.0-17.5) gm/dL Hct 53.9 H (39.0-53.0) % Plt Count 284 (150-450) k/uL Comprehensive Metabolic Panel 09/23/18 Range/Units 16:22 Sodium 140 (137-145) mmol/L Potassium 4.9 (3.5-5.1) mmol/L Chloride 104 (98-107) mmol/L Carbon Dioxide 23 (22-30) mmol/L BUN 30 H (9-20) mg/dL Creatinine 1.23 (0.66-1.25) mg/dL Glucose 137 H (74-99) mg/dL Calcium 9.9 (8.4-10.2) mg/dL AST 41 (17-59) U/L ALT 52 (21-72) U/L Alkaline Phosphatase 79 (38-126) U/L Total Protein 8.1 (6.3-8.2) g/dL Albumin 4.7 (3.5-5.0) g/dL Current Medications Generic Name Dose Route Start Last Admin Trade Name Freq PRN Reason Stop Dose Admin Albuterol/Ipratropium 3 ml 09/23/18 20:00 09/24/18 06:16 Duoneb 0.5 Mg-3 Mg/3 Ml Soln INHALATION 3 ml RT-QID ZEINA Administration Amlodipine Besylate 10 mg 09/24/18 09:00 Norvasc PO DAILY [facility] Aspirin 325 mg 09/24/18 09:00 Aspirin PO DAILY [facility] Atorvastatin Calcium 80 mg 09/24/18 09:00 Lipitor PO DAILY [facility] Diphenhydramine HCl 50 mg 09/23/18 22:05 09/23/18 22:10 Benadryl PO 50 mg HS PRN Administration Insomnia Enoxaparin Sodium 40 mg 09/24/18 09:00 Lovenox SQ DAILY [facility] Guaifenesin 600 mg 09/23/18 21:51 09/23/18 22:10 Mucinex PO 600 mg Q12HR PRN Administration Cough Hydralazine HCl 25 mg 09/23/18 22:00 09/23/18 22:10 Apresoline PO 25 mg BID ZEINA Administration Ibuprofen 600 mg 09/23/18 21:53 Motrin PO QID PRN Pain Lorazepam 1 mg 09/23/18 19:48 Ativan IV Q4HR PRN Anxiety Montelukast Sodium 10 mg 09/23/18 22:00 09/23/18 22:09 Singulair PO 10 mg HS ZEINA Administration Morphine Sulfate 2 mg 09/23/18 18:49 Morphine Sulfate (Inj) IVP Q4H PRN Chest Pain Nitroglycerin 0.4 mg 09/23/18 18:49 Nitrostat SUBLINGUAL Q5M PRN Chest Pain Prednisone 40 mg 09/24/18 09:00 PO 10/04/18 08:59 DAILY ZEINA Taper Sertraline HCl 50 mg 09/23/18 22:00 09/23/18 22:09 Zoloft PO 50 mg HS ZEINA Administration Intake and Output 09/23/18 09/24/18 09/24/18 22:59 06:59 14:59 Output Total 650 Balance -650 Output: Urine 650 Other: Voiding Method Toilet Urinal Weight 74.843 kg 74.7 kg 09/23/18 16:22 09/23/18 16:22 EKG Interpretations (text) EKG shows a normal sinus rhythm with first-degree AV block, LVH strain pattern, ST depression noted in the lateral leads. Assessment and Plan Plan: Assessment and plan #1 symptoms of shortness of breath, could be secondary to recent pneumothorax with thoravent placement, COPD exacerbation, and mild congestive cardiac failure, LV function unknown #2 accelerated hypertension #3 hyperlipidemia #4 family history of premature coronary artery disease in his father #5 prior history of smoking, patient is a 42 year history of smoking #6 history of DVT #7 history of prostate cancer #8 hiatal hernia with prior Padma fundoplication #9 abnormality in troponin could be secondary to hypoxia, cannot rule out an acute coronary event Plan We will obtain an echocardiogram with Doppler study. Decrease aspirin to 81 mg daily, continue Lipitor 80, resume the patient's Norvasc 10 mg daily which she was taking at home. We will also give the patient one time dose of IV Lasix. Check a d-dimer to rule out possibility of pulmonary embolism. Further recommendations to follow. DNP note has been reviewed, I agree with a documented findings and plan of care. Patient was seen and examined.
[2018-09-24 08:53] LABS: Basophils % (A) 0 %; Eosinophils # (A) 0.2 k/uL (0-0.7); Eosinophils % (A) 2 %; HCT 47.8 % (39.0-53.0); HGB 15.4 gm/dL (13.0-17.5); Lymphocytes # (A) 1.7 k/uL (1.0-4.8); Lymphocytes % (A) 15 %; MCH 31.7 pg (25.0-35.0); MCHC 32.1 g/dL (31.0-37.0); MCV 98.6 fL (80.0-100.0); Mean Platelet Volume 6.4; Monocytes # (A) 0.6 k/uL (0-1.0); Monocytes % (A) 5 %; Neutrophils # (A) 8.7 k/uL (1.3-7.7); Neutrophils % (A) 77 %; Platelet Count 231 k/uL (150-450); RBC 4.84 m/uL (4.30-5.90); RDW 14.1 % (11.5-15.5); WBC 11.3 k/uL (3.8-10.6)
[2018-09-24] MEDS ORDERED: ASPIRIN 325 MG TAB PO SCH (09:00)
[2018-09-24] MEDS ORDERED: ENOXAPARIN 40 MG/0.4 ML SYRINGE SQ SCH (09:00)
[2018-09-24 09:02] LABS: ALT 45 U/L (21-72); AST 28 U/L (17-59); African American GFR (CKD) >90 (>60 ml/min/1.73 sqM); Albumin 3.6 g/dL (3.5-5.0); Alkaline Phosphatase 55 U/L (38-126); Anion Gap 8 mmol/L; Blood Urea Nitrogen 25 mg/dL (9-20); Carbon Dioxide 23 mmol/L (22-30); Chloride 107 mmol/L (98-107); Glucose 146 mg/dL (74-99); Potassium 4.4 mmol/L (3.5-5.1); Sodium 138 mmol/L (137-145); Total Bilirubin 0.3 mg/dL (0.2-1.3); Total Protein 6.3 g/dL (6.3-8.2)
[2018-09-24] MEDS: ASPIRIN 81 MG PO SCH (09:26)
[2018-09-24] MEDS: ATORVASTATIN 80 MG TAB PO SCH (09:27)
[2018-09-24] MEDS: predniSONE 10 MG TAB PO SCH (09:27)
[2018-09-24] MEDS: hydrALAZINE HCL 25 MG TAB PO SCH ×2 (09:27→20:27)
[2018-09-24] MEDS: amLODIPine 10 MG TAB PO SCH (09:27)
--- NOTE | 2018-09-24 11:05 | CT ---
EXAMINATION TYPE: CT angio chest DATE OF EXAM: 09/24/2018 COMPARISON: Chest x-ray of 09/23/2018 HISTORY: Elevated Ddimer CT DLP: 498.3 mGycm. Automated Exposure Control for Dose Reduction was Utilized. CONTRAST: CTA scan of the thorax is performed with IV Contrast, patient injected with 82 mL of Isovue 370, pulm onary embolism protocol. MIP Images are created on CT scanner and reviewed. FINDINGS: LUNGS: There is reaccumulation of a large right-sided pneumothorax essentially resolved on the prior chest x-ray of 09/23/2018. Volume is estimated at 70%. The right Thoravent and has its distal tip vicky g the lung surface within a large bleb. Extensive emphysematous changes are seen of the lungs. There is also interval development of extensive predominantly right-sided hemithorax subcutaneous emphysema . This extends into the neck soft tissues. Multifocal right-sided atelectasis is seen as a result of the pneumothorax. Evaluation for underlying pulmonary nodule is limited. There is no pleural effusio n. The tracheobronchial tree is patent. MEDIASTINUM: There is satisfactory enhancement of the pulmonary artery and its branches, there is no CT evidence for pulmonary embolism. There are no greater than 1 cm hilar or mediastinal lymph nodes. No CT evidence of right heart strain as there is no reflux of contrast into the hepatic veins, no e nlargement of the main pulmonary artery, and no abnormal right ventricular to left ventricular ratio. No cardiomegaly. Moderate coronary calcifications are seen. These pericardial fluid is noted. OTHER: Postsurgical changes seen of the gastroesophageal junction. Evaluation of the upper abdomen is limited without contrast. IMPRESSION: 1. Reaccumulation of a large approximately 70% right-sided pneumothorax without current mediastinal s hift on the examination. Thoravent is in place. Extensive underlying emphysematous change. Voicemail was left with the ordering provider. 2. No evidence of central pulmonary embolus. Subsegmental arteries are somewhat limited. No CT eviden ce of right heart strain. A [place] level critical message alert has been initiated for Mukund Quiros MD via the [employer] Critical Results System on 09/24/2018 11:02 AM. This message alert has been sent to Mukund Quiros MD via the preferences provided by the clinician for the receipt of Radiology Critical Findings. Spangle e ID [id number].
--- NOTE | 2018-09-24 11:26 | P.HPIM ---
History of Present Illness H&P Date: 09/24/18 This is a 68-year-old male patient who presented to the hospital with complaints of increased shortness of breath. Patient was recently admitted for spontaneous right-sided pneumothorax post thoracotomy placement. Patient was DC'd with thoraven in place. reports that at home he became very short winded was unable to walk. He has past medical history of COPD, GERD, hyperlipidemia, hypertension, pneumonia, ex-smoker, prostate cancer 2000, DVT 10 years ago completed treatment. Chest x-ray completed showing mild right-sided atelectasis. Right-sided pneumothorax is essentially cleared compared to last exam. Soft tissue air increased compared to last exam. EKG completed showing sinus rhythm with first-degree AV block. Troponin is elevated 0.394, 0.295 and 0.290. Cardiology and pulmonary service is consulted. D-dimer elevated at 2.00. CTA performed pending. BNP also elevated 2820. Patient does have thoravent in place. Cardiothoracic surgery consulted. Patient is very anxious. Ativan given when necessary order. At that time patient is still complaining of some shortness breath. Patient denies chest pain. Patient denies nausea vomiting or diarrhea. Patient denies any urinary burning or frequency. Review of Systems Please refer to HPI otherwise unremarkable Past Medical History Past Medical History: Cancer, COPD, Deep Vein Thrombosis (DVT), GERD/Reflux, Hyperlipidemia, Hypertension, Pneumonia Additional Past Medical History / Comment(s): HIATAL HERNIA; PROSTATE CANCER-2 010; SHINGLES-2013; HX DVT RT LEG 10 years History of Any Multi-Drug Resistant Organisms: None Reported Past Surgical History: Orthopedic Surgery Additional Past Surgical History / Comment(s): 07/28/14 Laparoscopic Padma Fund oplication with mesh repair of hiatal hernia. LEFT ARM SURGERY 1966. RIGHT ROTATOR CUFF REPAIR 2012. EGD 06/16/14. Past Anesthesia/Blood Transfusion Reactions: No Reported Reaction Additional Past Anesthesia/Blood Transfusion Reaction / Comment(s): SEVERE PONV AFTER SHOULDER SURG. States becomes hyper when waking up. 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 Was a tobacco smoker stopping 2 years ago. Denies significant alcohol use at this point in time. Denies experience. Denies extensive travels. Did not relate to animals in the home. Smoking Status: Former smoker Past Alcohol Use History: None Reported Additional Past Alcohol Use History / Comment(s): Quit smoking 7 years ago. Past Drug Use History: None Reported - Past Family History Sister(s) Family Medical History: Deep Vein Thrombosis (DVT) Medications and Allergies Home Medications Medication Instructions Recorded Confirmed Type Albuterol Nebulized [Ventolin 2.5 mg INHALATION RT-Q6H 09/15/18 09/23/18 History Nebulized] Ibuprofen 600 mg PO Q6HR #56 tablet 09/19/18 09/23/18 Rx Montelukast [Singulair] 10 mg PO HS 30 Days #30 tab 09/19/18 09/23/18 Rx Sertraline [Zoloft] 50 mg PO HS 30 Days #30 tab 09/19/18 09/23/18 Rx amLODIPine [Norvasc] 10 mg PO DAILY 30 Days #30 tab 09/19/18 09/23/18 Rx predniSONE See Taper PO DIRECTED 09/23/18 09/23/18 History Allergies Allergy/AdvReac Type Severity Reaction Status Date / Time hydrocodone AdvReac Mild Vomiting Verified 09/23/18 16:31 Physical Exam Vitals: Vital Signs Temp Pulse Pulse Resp BP BP Pulse Ox 09/24/18 09:37 78 09/24/18 09:21 77 09/24/18 08:30 97.7 F 72 22 127/78 94 L 09/24/18 06:24 76 09/24/18 06:16 79 96 09/24/18 04:00 98 F 88 18 156/105 97 09/23/18 23:47 98.2 F 90 18 172/99 96 09/23/18 20:02 82 18 137/92 97 09/23/18 19:39 85 20 09/23/18 19:28 80 22 09/23/18 19:14 98.4 F 81 22 179/100 96 09/23/18 18:51 81 18 129/91 96 09/23/18 17:28 89 20 09/23/18 17:15 80 21 09/23/18 17:03 82 20 09/23/18 16:55 85 20 125/86 100 09/23/18 16:50 78 20 09/23/18 16:16 98.8 F 101 H 24 170/87 98 Intake and Output 09/23/18 09/24/18 09/24/18 22:59 06:59 14:59 Intake Total 120 Output Total 650 200 Balance -650 -80 Intake: Oral 120 Output: Urine 650 200 Other: Voiding Method Toilet Urinal Weight 74.843 kg 74.7 kg Head normocephalic Neck supple Lungs diminished bilaterally, Thoravent in place Heart regular rate and rhythm S1-S2, no rub or gallop Abdomen is soft nontender nondistended positive bowel sounds no hepatosplenomegaly Extremities no edema Neuro alert and orientated to 3 Results CBC & Chem 7: 09/24/18 08:33 09/24/18 08:33 Labs: Abnormal Lab Results - Last 24 Hours (Table) 09/23/18 09/23/18 09/23/18 Range/Units 16:22 16:22 16:22 WBC 17.1 H (3.8-10.6) k/uL Hct 53.9 H (39.0-53.0) % Neutrophils # 15.2 H (1.3-7.7) k/uL Lymphocytes # 0.9 L (1.0-4.8) k/uL D-Dimer (<0.60) mg/L FEU BUN 30 H (9-20) mg/dL Glucose 137 H (74-99) mg/dL Troponin I 0.395 H* (0.000-0.034) ng/mL Triglycerides (<150) mg/dL Cholesterol (<200) mg/dL LDL Cholesterol, Calc (0-99) mg/dL HDL Cholesterol (40-60) mg/dL 09/23/18 09/23/18 09/24/18 Range/Units 16:22 22:21 04:06 WBC (3.8-10.6) k/uL Hct (39.0-53.0) % Neutrophils # (1.3-7.7) k/uL Lymphocytes # (1.0-4.8) k/uL D-Dimer (<0.60) mg/L FEU BUN (9-20) mg/dL Glucose (74-99) mg/dL Troponin I 0.295 H* 0.298 H* (0.000-0.034) ng/mL Triglycerides 169 H (<150) mg/dL Cholesterol 249 H (<200) mg/dL LDL Cholesterol, Calc 128 H (0-99) mg/dL HDL Cholesterol 87 H (40-60) mg/dL 09/24/18 09/24/18 09/24/18 Range/Units 08:33 08:33 08:33 WBC 11.3 H (3.8-10.6) k/uL Hct (39.0-53.0) % Neutrophils # 8.7 H (1.3-7.7) k/uL Lymphocytes # (1.0-4.8) k/uL D-Dimer 2.00 H (<0.60) mg/L FEU BUN 25 H (9-20) mg/dL Glucose 146 H (74-99) mg/dL Troponin I (0.000-0.034) ng/mL Triglycerides (<150) mg/dL Cholesterol (<200) mg/dL LDL Cholesterol, Calc (0-99) mg/dL HDL Cholesterol (40-60) mg/dL Thrombosis Risk Factor Assmnt - Choose All That Apply Any of the Below Risk Factors Present?: Yes Each Factor Represents 1 point: Abnormal pulmonary function (COPD) Other Risk Factors: Yes Each Risk Factor Represents 2 Points: Age 61-74 years Thrombosis Risk Factor Assessment Total Risk Factor Score: 3 Thrombosis Risk Factor Assessment Level: Moderate Risk Assessment and Plan Assessment: 1. Increased shortness of breath secondary to recent pneumothorax with thoravent in place and COPD exacerbation. D-dimer was elevated at 2.00. CTA chest performed showing reaccumulation of large, approximately 70% right-sided pneumonia without current mediastinal shift on the exam. thoravent is in place. Extensive underlying emphysematous change. No evidence of central pulmonary embolus. Subsegmental arteries are somewhat limited. No CT evidence of right heart strain. Cardiothoracic services have been consulted. Pulmonary services consulted. currently on DuoNeb breathing treatments and prednisone 40 mg 2. Mild congestive heart failure. BNP elevated 2820. 2-D echo ordered. Cardiology services following. 3. Elevated troponins. Troponin level 0.395, 0.295 and 0.298. Cardiology services are following 4. Recent right-sided spontaneous pneumothorax status post ThoraVent placement. Patient was recently DC'd with ThoraVent placed. Cardiothoracic surgeon has been reconsulted 5. Leukocytosis. Patient has been on oral prednisone. White blood cell is trending down 6. History of Niesen fundoplication 7. History of prostate cancer 2009 8. History of right leg DVT several years ago no longer on anticoagulation 9. Essential hypertension patient was DC'd during previous admission on Norvasc and hydralazine 10. Anxiety and hyperactivity. Ativan when necessary has been ordered. Maintained on Zoloft DVT prophylaxis Lovenox. GI prophylaxis Protonix Time with Patient: Greater than 30 (Greater than 60% of the total time spent in counseling and coordination of care. I performed an examination of the patient and discussed their management with the Nurse Practitioner. I have reviewed the Nurse Practitioner's notes and agree with the documented findings and plan of care)
[2018-09-24] MEDS ORDERED: FUROSEMIDE 10 MG/ML 4 ML VIAL IV STA (11:30)
--- NOTE | 2018-09-24 15:03 | P.GSCN ---
History of Present Illness Consult date: 09/24/18 Reason for Consult: Recurrent spontaneous right pneumothorax with Thoravent in place. Requesting physician: Mukund Quiros History of present illness: This is a 68-year-old gentleman who is followed by Dr. Mukund Quiros on an outpatient basis. His past medical history significant for hypertension, hyperlipidemia, chronic obstructive pulmonary disease, history of nicotine dependence in remission quit smoking about 8 years ago, gastroesophageal reflux disease, hiatal hernia status post Padma fundoplication in July 2014, history of acute renal failure due to dehydration in July 2014, right leg deep vein thrombosis, history of prostate cancer and a remote history of pneumonia. Recently, the patient has had complaints of progressive shortness of breath, cough, generalized weakness, fatigue and feeling of anxiousness. On 09/15/2018 he presented to the emergency department here at [facility] and was found to have a spontaneous right pneumothorax and subsequent Thoravent chest tube placed. He was discharged home on 09/19/2018 with his right anterior chest Thoravent in place and was scheduled to follow up with cardiothoracic surgery on an outpatient basis for Thoravent tube removal. While at home the patient continued to have progressive shortness of breath, persistent cough with tenacious white sputum, episodes of dizziness and progressive weakness. He reports that he was being stubborn at home and felt like he probably should have come to the hospital earlier but was putting it off. 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 He denies any recent fever, chills, vomiting, nausea, diarrhea, recent trauma or syncope. His initial lab results showed a white blood cell count of 17.1, hemoglobin 17.2, BUN 30, creatinine 1.23, and troponins as high as 0.395. The patient also had a d-dimer of 2.00. A chest x- ray was completed in the emergency department which according to the report showed mild right-sided atelectasis, and his right sided pneumothorax is essentially cleared compared to his last exam. Due to the patient's elevated d- dimer a CTA of his chest was completed which demonstrated a reaccumulation of a large approximately 70% right-sided pneumothorax without current mediastinal shift on the examination. Thoravent in place and some extensive underlying emphysematous change. No evidence of central pulmonary embolus was seen. Subsequently, due to the patient's recurrent spontaneous right pneumothorax despite the Thoravent in place a consult was placed to Dr. Janice Garrett from cardiothoracic surgery for further evaluation and treatment recommendations. Review of Systems A 14 point review of systems was negative except as mentioned in the HPI. Past Medical History Past Medical History: Cancer, COPD, Deep Vein Thrombosis (DVT), GERD/Reflux, Hearing Disorder / Deafness (Wears hearing aids to bilateral ears.), Hype rlipidemia, Hypertension, Pneumonia, Renal Disease (Acute renal failure in 2015 due to dehydration) Additional Past Medical History / Comment(s): HIATAL HERNIA; PROSTATE CANCER- 2009; SHINGLES-2013; HX DVT RT LEG 10 years History of Any Multi-Drug Resistant Organisms: None Reported Past Surgical History: Orthopedic Surgery Additional Past Surgical History / Comment(s): 07/28/14 Laparoscopic Padma F undoplication with mesh repair of hiatal hernia. LEFT ARM SURGERY 1966. RIGHT ROTATOR CUFF REPAIR 2012. EGD 06/16/14. Past Anesthesia/Blood Transfusion Reactions: No Reported Reaction Additional Past Anesthesia/Blood Transfusion Reaction / Comm: Severe postoperative nausea and vomiting after his shoulder surgery. states becomes hyper when waking up. Past Psychological History: No Psychological Hx Reported Additional Psychological History / Comment(s): Patient is retired from [employer]. 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 Was a tobacco smoker stopping 7 years ago. Denies significant alcohol use at this point in time. Denies experience. Denies extensive travels. Did not relate to animals in the home. Smoking Status: Former smoker Past Alcohol Use History: None Reported Additional Past Alcohol Use History / Comment(s): Quit smoking 7 years ago. Past Drug Use History: None Reported - Past Family History Sister(s) Family Medical History: Deep Vein Thrombosis (DVT) Mother Family Medical History: Cancer (Lungs) Father Family Medical History: Myocardial Infarction ([place]) Medications and Allergies Home Medications Medication Instructions Recorded Confirmed Type Albuterol Nebulized [Ventolin 2.5 mg INHALATION RT-Q6H 09/15/18 09/23/18 History Nebulized] Ibuprofen 600 mg PO Q6HR #56 tablet 09/19/18 09/23/18 Rx Montelukast [Singulair] 10 mg PO HS 30 Days #30 tab 09/19/18 09/23/18 Rx Sertraline [Zoloft] 50 mg PO HS 30 Days #30 tab 09/19/18 09/23/18 Rx amLODIPine [Norvasc] 10 mg PO DAILY 30 Days #30 tab 09/19/18 09/23/18 Rx predniSONE See Taper PO DIRECTED 09/23/18 09/23/18 History Allergies Allergy/AdvReac Type Severity Reaction Status Date / Time hydrocodone AdvReac Mild Vomiting Verified 09/23/18 16:31 Surgical - Exam Vital Signs Temp Pulse Resp BP Pulse Ox 98.8 F 101 H 24 170/87 98 09/23/18 16:16 09/23/18 16:16 09/23/18 16:16 09/23/18 16:16 09/23/18 16:16 - General Anxious and restless well developed, well nourished, no pain - Eyes PERRL, normal ocular movement - ENT normal pinna, normal nares, normal mucosa, no congestion, decreased hearing, dentures - Neck Neck is supple, no lymphadenopathy. no masses, no bruits, trachea midline, no venous distension - Respiratory Lung sounds essentially clear throughout, diminished to his right lower lobe. Respirations are symmetrical and nonlabored. Oxygen saturation are 94% on 5 L nasal cannula. Right Thoravent chest tube in place and connected to low continuous wall suction -20 cm H2O. Intermittent air leak is present. - Cardiovascular Regular rhythm and rate. S1 and S2 present, negative for S3, gallop or murmur. No edema present. Peripheral pulses palpable. - Abdomen Abdomen is soft, nontender and nondistended. Active bowel sounds to all 4 abdominal quadrants. No guarding or rigidity. No organomegaly. - Genitourinary Deferred - Rectum Deferred - Integumentary no rash, no growths, no abnormal pigmentation - Neurologic normal coordination, normal sensation - Musculoskeletal normal gait, normal posture - Psychiatric oriented to time, oriented to person, oriented to place, speech is normal, memory intact Results - Labs 09/24/18 08:33 09/24/18 08:33 Abnormal Lab Results - Last 24 Hours (Table) 09/23/18 09/23/18 09/23/18 Range/Units 16:22 16:22 16:22 WBC 17.1 H (3.8-10.6) k/uL Hct 53.9 H (39.0-53.0) % Neutrophils # 15.2 H (1.3-7.7) k/uL Lymphocytes # 0.9 L (1.0-4.8) k/uL D-Dimer (<0.60) mg/L FEU BUN 30 H (9-20) mg/dL Glucose 137 H (74-99) mg/dL Troponin I 0.395 H* (0.000-0.034) ng/mL Triglycerides (<150) mg/dL Cholesterol (<200) mg/dL LDL Cholesterol, Calc (0-99) mg/dL HDL Cholesterol (40-60) mg/dL 09/23/18 09/23/18 09/24/18 Range/Units 16:22 22:21 04:06 WBC (3.8-10.6) k/uL Hct (39.0-53.0) % Neutrophils # (1.3-7.7) k/uL Lymphocytes # (1.0-4.8) k/uL D-Dimer (<0.60) mg/L FEU BUN (9-20) mg/dL Glucose (74-99) mg/dL Troponin I 0.295 H* 0.298 H* (0.000-0.034) ng/mL Triglycerides 169 H (<150) mg/dL Cholesterol 249 H (<200) mg/dL LDL Cholesterol, Calc 128 H (0-99) mg/dL HDL Cholesterol 87 H (40-60) mg/dL 09/24/18 09/24/18 09/24/18 Range/Units 08:33 08:33 08:33 WBC 11.3 H (3.8-10.6) k/uL Hct (39.0-53.0) % Neutrophils # 8.7 H (1.3-7.7) k/uL Lymphocytes # (1.0-4.8) k/uL D-Dimer 2.00 H (<0.60) mg/L FEU BUN 25 H (9-20) mg/dL Glucose 146 H (74-99) mg/dL Troponin I (0.000-0.034) ng/mL Triglycerides (<150) mg/dL Cholesterol (<200) mg/dL LDL Cholesterol, Calc (0-99) mg/dL HDL Cholesterol (40-60) mg/dL Diabetes panel 09/23/18 09/23/18 09/24/18 Range/Units 16:22 16:22 08:33 Sodium 140 138 (137-145) mmol/L Potassium 4.9 4.4 (3.5-5.1) mmol/L Chloride 104 107 (98-107) mmol/L Carbon Dioxide 23 23 (22-30) mmol/L BUN 30 H 25 H (9-20) mg/dL Creatinine 1.23 0.94 (0.66-1.25) mg/dL Glucose 137 H 146 H (74-99) mg/dL Calcium 9.9 9.0 (8.4-10.2) mg/dL AST 41 28 (17-59) U/L ALT 52 45 (21-72) U/L Alkaline Phosphatase 79 55 (38-126) U/L Total Protein 8.1 6.3 (6.3-8.2) g/dL Albumin 4.7 3.6 (3.5-5.0) g/dL Triglycerides 169 H (<150) mg/dL HDL Cholesterol 87 H (40-60) mg/dL Calcium panel 09/23/18 09/24/18 Range/Units 16:22 08:33 Calcium 9.9 9.0 (8.4-10.2) mg/dL Albumin 4.7 3.6 (3.5-5.0) g/dL Pituitary panel 09/23/18 09/24/18 Range/Units 16:22 08:33 Sodium 140 138 (137-145) mmol/L Potassium 4.9 4.4 (3.5-5.1) mmol/L Chloride 104 107 (98-107) mmol/L Carbon Dioxide 23 23 (22-30) mmol/L BUN 30 H 25 H (9-20) mg/dL Creatinine 1.23 0.94 (0.66-1.25) mg/dL Glucose 137 H 146 H (74-99) mg/dL Calcium 9.9 9.0 (8.4-10.2) mg/dL Adrenal panel 09/23/18 09/24/18 Range/Units 16:22 08:33 Sodium 140 138 (137-145) mmol/L Potassium 4.9 4.4 (3.5-5.1) mmol/L Chloride 104 107 (98-107) mmol/L Carbon Dioxide 23 23 (22-30) mmol/L BUN 30 H 25 H (9-20) mg/dL Creatinine 1.23 0.94 (0.66-1.25) mg/dL Glucose 137 H 146 H (74-99) mg/dL Calcium 9.9 9.0 (8.4-10.2) mg/dL Total Bilirubin 0.5 0.3 (0.2-1.3) mg/dL AST 41 28 (17-59) U/L ALT 52 45 (21-72) U/L Alkaline Phosphatase 79 55 (38-126) U/L Total Protein 8.1 6.3 (6.3-8.2) g/dL Albumin 4.7 3.6 (3.5-5.0) g/dL - Imaging Chest x-ray: report reviewed, image reviewed CT scan - chest: report reviewed, image reviewed EKG: image reviewed Assessment and Plan Assessment: 1. Recurrent spontaneous right pneumothorax with Thoravent in place 2. Chronic obstructive pulmonary disease 3. Mild congestive heart failure, elevated BNP 2820 4. Elevated troponins as high as 0.395 5. Leukocytosis 6. History of hiatal hernia status post Padma fundoplication 7. History of prostate cancer 8. History of right leg deep vein thrombosis 9. Hypertension 10. Hyperlipidemia 11. Anxiety 12. History of pneumonia 13. Remote history of smoking, in remission 14. History of gastroesophageal reflux disease Plan: The patient was seen and examined. His chart diagnostics were reviewed. The CTA of his chest report reveals a 60-70% recurrent right pneumothorax despite the Thoravent in place. The Thoravent was placed to low continuous wall suction at -20 cm H2O with a repeat chest x-ray showing a less than 5% pneumothorax. The patient's case was discussed with Dr. Donta Sierra from Cardiothoracic Surgery. We will repeat a chest x-ray in the a.m. and continue to follow and monitor his chest x-rays for resolution of his pneumothorax. Encourage use of his incentive spirometry every hour while awake. Acetaminophen by mouth has b een added to his pain management regimen. Encourage continued smoking cessation. Primary care for continued medical management recommendations. Thank you Dr. Quiros for this consult and we will look forward to working with you in the care of your patient. Time with Patient: Greater than 30
--- NOTE | 2018-09-24 16:27 | XR ---
EXAMINATION TYPE: XR chest 1V portable DATE OF EXAM: 09/24/2018 Comparison: 09/23/2018 Clinical History: 68-year-old male follow-up right pneumothorax Findings: Right-sided thoracentesis present. Moderate size right-sided pneumothorax is present. Pleural edge me asures 1.3 cm from the apical margin and 1.7 cm from the lateral basilar margin. Pleural edge is also seen at the medial base measuring 1.7 cm to the right heart margin. No shift of the heart towards th e left. Mild interstitial prominence. Extensive subcutaneous emphysema in the right hemithorax. Impression: Moderate-sized right-sided pneumothorax. This seems to have improved slightly from the CT performed e padmini today. No radiographic evidence for tension. Background of COPD.
--- NOTE | 2018-09-24 16:31 | CONS ---
CONSULTATION Salvador Lord is a 68-year-old male with a history of is severe COPD who presented to the ER with increasing shortness of breath of about 1-2 days duration. He recently was admitted to the hospital with a right-sided spontaneous pneumothorax and had a Thoravent in place. He was seen in the ER and admitted. He had a chest x-ray done which showed less than 5% pneumothorax. Subsequently, his D-dimer was elevated. He had a CT scan of the chest, which showed a 70% pneumothorax with some shift of his mediastinum to the right. Subsequently cardiothoracic surgery consult was placed as well. The patient, when I saw him, was quite short of breath. He was very anxious. He denied any recent fever or chills. PAST MEDICAL HISTORY: His past medical history is positive for COPD, prostate cancer, hiatal hernia and laparoscopic Padma fundoplication. Gastroesophageal reflux disease. Previous DVT. History of shingles. Right rotator cuff repair. History of anxiety. FAMILY HISTORY: Positive for DVT in his sister. SOCIAL HISTORY: The patient is a former smoker. He does not drink alcohol excessively. MEDICATIONS: Prior to admission were sertraline, Singulair, prednisone in a tapering fashion, Norvasc, ibuprofen, and albuterol. REVIEW OF SYSTEMS: Noncontributory other than what is described in the history of present illness and past medical history. PHYSICAL EXAMINATION: GENERAL: He was standing up at the side of the bed. He was quite short of breath. He subsequently sat down. VITAL SIGNS: His blood pressure was 127/78, respiratory rate of 28, pulse rate of 76, temperature 97.7, O2 saturation on 5 L by nasal cannula is 94%. HEENT reveals pupils are equal, mild prominence of the jugular veins. CHEST: Reveals decreased breath sounds on the right with a Thoravent in place. There was prolonged exhalation bilaterally with an expiratory wheeze. CARDIOVASCULAR SYSTEM: With an S1, S2. ABDOMEN was soft. EXTREMITIES: There was no pedal edema. LABS: Reveal a white count of 11.3, hemoglobin of 15.4, D-dimer of 2. Sodium 138, potassium 4.4, chloride 107, bicarb 23, BUN 25, creatinine 0.94. Troponin of 0.298. X-RAY: Chest x-ray was reviewed which showed less than 5% pneumothorax. CT scan of the chest was reviewed which showed a 70% pneumothorax mostly anterior on the right. IMPRESSION: At this time: 1. Shortness of breath that is worsening secondary to right-sided pneumothorax. 2. Chronic obstructive pulmonary disease with recent exacerbation. 3. Mild congestive heart failure is likely. 4. Elevated troponins, etiology unclear. At this point in time, from a pulmonary perspective, would recommend keeping the Thoravent to negative suction. Further evaluation by cardiothoracic surgery with possible replacement of chest tube versus more invasive procedure with mechanical pleurodesis for ongoing pneumothorax. I agree with keeping on bronchodilators. See if we can taper his steroids. His prognosis at this time is guarded. Keep him on GI and DVT prophylaxis. He was counseled regarding his condition. MMODL / IJN: [id number] /
--- NOTE | 2018-09-24 18:29 | ECHOF ---
Referral Reason:chf MEASUREMENTS -------- HEIGHT: 180.3 cm WEIGHT: 74.4 kg BP: IVSd: 1.3 cm (0.6 - 1.1) LVIDd: 3.8 cm (3.9 - 5.3) LVPWd: 1.4 cm (0.6 - 1.1) IVSs: 1.3 cm LVIDs: 2.4 cm LVPWs: 1.6 cm Ao Diam: 3.4 cm (2.0 - 3.7) LA Diam: 2.6 cm (2.7 - 3.8) AV Cusp: 0.8 cm (1.5 - 2.6) EPSS: 1.2 cm MV E Shayne: 0.52 m/s MV DecT: 224 ms MV A Shayne: 0.76 m/s MV E/A Ratio: 0.69 AV maxP.19 mmHg AV meanP.56 mmHg AR PHT: 225 ms RAP: 5.00 mmHg RVSP: 11.16 mmHg MV EF SLOPE: 50.78 mm/s (70 - 150) MV EXCURSION: 13.67 mm (> 18.000) FINDINGS -------- Sinus rhythm. This was a technically good study. The left ventricular size is normal. There is moderate concentric left ventricular hypertrophy. O verall left ventricular systolic function is low-normal with, an EF between 50 - 55 %. The right ventricle is normal in size. The left atrium is normal in size. The right atrial size is normal. Aortic valve is trileaflet and is severely thickened. There is mild aortic regurgitation. Moderat e to severe aortic stenosis with peak/mean pressure gradient of 88.19mmHg / 61.56mmHg, the aortic ghanshyam ve area by continuity equation is 0.4cm. Peak/mean gradient across the Aortic Valve is 88.19mmHg / 61.56mmHg. The mitral valve leaflets are mildly thickened. Mild mitral annular calcification present. Mild m itral regurgitation is present. Mild tricuspid regurgitation present. The right ventricular systolic pressure, as measured by Doppl er, is 11.16mmHg. There is no pulmonic regurgitation present. The aortic root size is normal. Normal inferior vena cava with normal inspiratory collapse consistent with estimated right atrial pre ssure of 5 mmHg. There is no pericardial effusion. CONCLUSIONS -------- 1. Sinus rhythm. 2. This was a technically good study. 3. The left ventricular size is normal. 4. There is moderate concentric left ventricular hypertrophy. 5. Overall left ventricular systolic function is low-normal with, an EF between 50 - 55 %. 6. The right ventricle is normal in size. 7. The left atrium is normal in size. 8. The right atrial size is normal. 9. Aortic valve is trileaflet and is severely thickened. 10. There is mild aortic regurgitation. 11. Moderate to severe aortic stenosis with peak/mean pressure gradient of 88.19mmHg / 61.56mmHg, the aortic valve area by continuity equation is 0.4cm. 12. Peak/mean gradient across the Aortic Valve is 88.19mmHg / 61.56mmHg. 13. The mitral valve leaflets are mildly thickened. 14. Mild mitral annular calcification present. 15. Mild mitral regurgitation is present. 16. Mild tricuspid regurgitation present. 17. The right ventricular systolic pressure, as measured by Doppler, is 11.16mmHg. 18. There is no pulmonic regurgitation present. 19. The aortic root size is normal. 20. Normal inferior vena cava with normal inspiratory collapse consistent with estimated right atrial pressure of 5 mmHg. 21. There is no pericardial effusion. BAND INSTRUMENT REPAIRER: Michaela Ibarra RDCS
[2018-09-24] MEDS: HEPARIN SODIUM,PORCINE 5,000 UNIT/ML 1 ML VIAL SQ SCH (20:27)
[2018-09-24] MEDS: SERTRALINE 50 MG TAB PO SCH (20:27)
[2018-09-24] MEDS: diphenhydrAMINE 25 MG CAP PO PRN (20:27)
[2018-09-24] MEDS: MONTELUKAST 10 MG TAB PO SCH (20:27)
[2018-09-24] MEDS: guaiFENesin 600 MG TABLET.ER PO PRN (20:28)
[2018-09-24] MEDS: ACETAMINOPHEN TAB 500 MG TAB PO PRN (20:28)
[2018-09-25] MEDS: IPRATROPIUM-ALBUTEROL 3 ML NEB INHALATION PRN (03:55)
[2018-09-25] MEDS: PANTOPRAZOLE 40 MG TABLET PO SCH (06:41)
[2018-09-25 07:12] LABS: Basophils % (A) 0 %; Eosinophils # (A) 0.2 k/uL (0-0.7); Eosinophils % (A) 2 %; HCT 44.7 % (39.0-53.0); HGB 14.6 gm/dL (13.0-17.5); Lymphocytes % (A) 20 %; MCH 31.7 pg (25.0-35.0); MCHC 32.6 g/dL (31.0-37.0); Mean Platelet Volume 6.7; Monocytes # (A) 0.8 k/uL (0-1.0); Monocytes % (A) 8 %; Neutrophils # (A) 6.9 k/uL (1.3-7.7); Neutrophils % (A) 69 %; Platelet Count 214 k/uL (150-450); RBC 4.61 m/uL (4.30-5.90); RDW 14.6 % (11.5-15.5); WBC 9.9 k/uL (3.8-10.6)
[2018-09-25 07:15] LABS: Albumin 3.3 g/dL (3.5-5.0); Potassium 4.7 mmol/L (3.5-5.1); Total Bilirubin 0.3 mg/dL (0.2-1.3)
[2018-09-25] MEDS: IPRATROPIUM-ALBUTEROL 3 ML NEB INHALATION SCH ×4 (07:44→19:52)
[2018-09-25] MEDS: predniSONE 10 MG TAB PO SCH (08:50)
[2018-09-25] MEDS: ASPIRIN 81 MG PO SCH (08:50)
[2018-09-25] MEDS: ATORVASTATIN 80 MG TAB PO SCH (08:51)
[2018-09-25] MEDS: hydrALAZINE HCL 25 MG TAB PO SCH ×2 (08:51→20:48)
[2018-09-25] MEDS: HEPARIN SODIUM,PORCINE 5,000 UNIT/ML 1 ML VIAL SQ SCH ×2 (08:51→20:48)
--- NOTE | 2018-09-25 09:02 | P.PN ---
Subjective Progress Note Date: 09/25/18 Principal diagnosis: Pneumothorax This is a pleasant 68-year-old gentleman with a past medical history significant for hypertension, dyslipidemia, and history of DVT, who was admitted to the hospital with shortness of breath and was found to have pneumothorax which seems to be recurrent. He was discharged from the hospital recently with Thoravent. This time that was attached to suction. He is feeling better. The computed tomography scan revealed right sided pneumothorax. He was seen and evaluated by a surgeon and the plan is to pursue with surgery in the next few days. On follow-up with him today, he is feeling better internal shortness of breath. No chest pain or chest discomfort. Overall he is looking much better than yesterday. Hemodynamically he is stable. He underwent an echocardiogram which revealed normal LV function with evidence of severe aortic stenosis and mean gradient more than 14 mmHg. Objective - Vital Signs Vital signs: Vital Signs Temp 98.3 F 09/25/18 08:54 Pulse 64 09/25/18 08:54 Resp 20 09/25/18 08:54 BP 106/60 09/25/18 08:54 Pulse Ox 97 09/25/18 08:54 Intake & Output 09/24/18 09/25/18 09/25/18 18:59 06:59 18:59 Intake Total 740 822 Output Total 2200 1600 Balance -1460 -1600 822 Weight 73.4 kg Intake: IV 140 LR @ 50 140 Oral 600 822 Output: Urine 2200 1600 Other: Voiding Method Urinal # Voids 4 - Constitutional General appearance: Present: no acute distress - Respiratory Respiratory: bilateral: CTA - Cardiovascular Rhythm: regular Heart sounds: normal: S1, S2 Abnormal Heart Sounds: Present: systolic murmur - Labs CBC & Chem 7: 09/25/18 06:31 09/25/18 06:31 Labs: Abnormal Lab Results - Last 24 Hours (Table) 09/24/18 09/24/18 09/25/18 Range/Units 08:33 08:33 06:31 D-Dimer 2.00 H (<0.60) mg/L FEU Carbon Dioxide 34 H (22-30) mmol/L BUN 25 H 29 H (9-20) mg/dL Glucose 146 H (74-99) mg/dL Total Protein 6.0 L (6.3-8.2) g/dL Albumin 3.3 L (3.5-5.0) g/dL Assessment and Plan Assessment: Assessment #1 recurrent right-sided pneumothorax #2 hypertension #3 dyslipidemia #4 aortic stenosis Plan #1 the patient is going to undergo surgery for the pneumothorax #2 down the line, he is to have a ALEJANDRO and heart catheterization to further investigate aortic stenosis #4 follow-up with the patient
--- NOTE | 2018-09-25 09:04 | XR ---
EXAMINATION TYPE: XR chest 1V portable DATE OF EXAM: 09/25/2018 COMPARISON: 09/24/2018 HISTORY: Right-sided pneumothorax. Follow-up exam. TECHNIQUE: Single frontal view of the chest is obtained. FINDINGS: Subcutaneous emphysema is seen again overlying the right hemithorax. The previously seen r ight-sided pneumothorax is less well visualized given overlying density. Obliquely oriented density i n the right midlung is present however lung markings are seen past this line. The pneumothorax appear s to have improved in the interim. No right-sided mediastinal shift. Ascending thoracic aortic aneury sm is suspected. Main pulmonary artery on the left appears enlarged. Underlying emphysematous changes are seen with scattered areas of linear atelectasis. Surgical anchors of the right humeral head are seen from prior rotator cuff repair with surgical change of the distal right clavicle. Right-sided th oracostomy tube is similar in position. IMPRESSION: Slightly suboptimal evaluation of the pneumothorax however this appears to have improved in the interim with the visceral pleural line only vaguely seen peripherally. Overlying subcutaneous emphysema, chest wall edema, and multifocal bilateral atelectasis are again noted. Ascending thoraci c aortic aneurysm is suspected.
[2018-09-25] MEDS: amLODIPine 10 MG TAB PO SCH (10:45)
--- NOTE | 2018-09-25 11:06 | P.PN ---
Subjective Progress Note Date: 09/25/18 This is a 68-year-old male patient who presented to the hospital with complaints of increased shortness of breath. Patient was recently admitted for spontaneous right-sided pneumothorax post thoracotomy placement. Patient was DC'd with thoraven in place. reports that at home he became very short winded was unable to walk. He has past medical history of COPD, GERD, hyperlipidemia, hypertension, pneumonia, ex-smoker, prostate cancer 2000, DVT 10 years ago completed treatment. Chest x-ray completed showing mild right-sided atelectasis. Right-sided pneumothorax is essentially cleared compared to last exam. Soft tissue air increased compared to last exam. EKG completed showing sinus rhythm with first-degree AV block. Troponin is elevated 0.394, 0.295 and 0.290. Cardiology and pulmonary service is consulted. D-dimer elevated at 2.00. CTA performed pending. BNP also elevated 2820. Patient does have thoravent in place. Cardiothoracic surgery consulted. Patient is very anxious. Ativan given when necessary order. At that time patient is still complaining of some shortness breath. Patient denies chest pain. Patient denies nausea vomiting or diarrhea. Patient denies any urinary burning or frequency. On 09/25/2018 patient's chest tube hooked to suction for right-sided pneu mothorax. Discussed case with cardiothoracic nurse practitioner. Planning VATS procedure. Patient received 1 dose of IV Lasix for mild CHF exacerbation. Per cardiology patient does have aortic stenosis will eventually have ALEJANDRO and heart cath outpatient. At this time patient does state improvement with shortness of breath. Patient denies chest pain. Patient denies nausea vomiting or diarrhea. Patient denies any urinary burning or frequency. Objective - Vital Signs Vital signs: Vital Signs Temp 98.3 F 09/25/18 08:54 Pulse 64 09/25/18 08:54 Resp 20 09/25/18 08:54 BP 106/60 09/25/18 08:54 Pulse Ox 97 09/25/18 08:54 Intake & Output 09/24/18 09/25/18 09/25/18 18:59 06:59 18:59 Intake Total 740 822 Output Total 2200 1600 Balance -1460 -1600 822 Weight 73.4 kg Intake: IV 140 LR @ 50 140 Oral 600 822 Output: Urine 2200 1600 Other: Voiding Method Urinal Urinal # Voids 4 - Exam Head normocephalic Neck supple Lungs diminished bilaterally, Thoravent in place Heart regular rate and rhythm S1-S2, no rub or gallop Abdomen is soft nontender nondistended positive bowel sounds no hepatosplenomegaly Extremities no edema Neuro alert and orientated to 3 - Labs CBC & Chem 7: 09/25/18 06:31 09/25/18 06:31 Labs: Abnormal Lab Results - Last 24 Hours (Table) 09/25/18 Range/Units 06:31 Carbon Dioxide 34 H (22-30) mmol/L BUN 29 H (9-20) mg/dL Total Protein 6.0 L (6.3-8.2) g/dL Albumin 3.3 L (3.5-5.0) g/dL Assessment and Plan Assessment: 1. Increased shortness of breathing secondary to recurring right-sided pneumothorax. CTA chest performed showing reaccumulation of large, approximately 70% right-sided pneumonia without current mediastinal shift on the exam. thoravent is in place. Extensive underlying emphysematous change. No evidence of central pulmonary embolus. Subsegmental arteries are somewhat limited. No CT evidence of right heart strain. Cardiothoracic services have been consulted. Pulmonary services consulted. currently on DuoNeb breathing treatments and prednisone 40 mg. Thoravent currently attached to negative suction. Discussed case with cardiothoracic MACHINE FELLER likely planning VATS procedure 2. Mild diastolic congestive heart failure. BNP elevated 2820. 2-D echo completed showing EF of 50-55% Cardiology services following. Patient received 1 dose of IV Lasix 3. Elevated troponins. Troponin level 0.395, 0.295 and 0.298. Cardiology services are following 4. Recent right-sided spontaneous pneumothorax status post ThoraVent placement. Patient was recently DC'd with ThoraVent placed. Cardiothoracic surgeon has been reconsulted 5. Leukocytosis. Patient has been on oral prednisone. White blood cell is kenneth nding down 6. History of Niesen fundoplication 7. History of prostate cancer 2009 8. History of right leg DVT several years ago no longer on anticoagulation 9. Essential hypertension patient was DC'd during previous admission on Norvasc and hydralazine 10. Anxiety and hyperactivity. Ativan when necessary has been ordered. Maintained on Zoloft 11. Aortic stenosis. 2-D echo completed per cardiology. Patient will likely need ALEJANDRO a cardiac catheterization outpatient DVT prophylaxis heparin. GI prophylaxis Protoni I performed an examination of the patient and discussed their management with the Nurse Practitioner. I have reviewed the Nurse Practitioner's notes and agree with the documented findings and plan of care
--- NOTE | 2018-09-25 11:48 | P.PN ---
Subjective Progress Note Date: 09/25/18 Principal diagnosis: Recurrent spontaneous right pneumothorax with thoravent in place. Previous medical history of tobacco dependence, COPD, hypertension, hyperlipidemia, severe acid reflux, hiatal hernia status post Padma fundoplication with mesh repair, right leg DVT, renal failure secondary to dehydration, and prostate cancer. The patient's currently sitting up in bed in no acute distress with his at the bedside. Thoravent remains in place connected to atrium connected to -20 cm wall suction. Positive air leak present. Denies pain, shortness of breath at this time. No new complaints except patient would like to have surgery to get it over with so he may return to work. Objective - Vital Signs Vital signs: Vital Signs Temp 98.3 F 09/25/18 08:54 Pulse 64 09/25/18 08:54 Resp 20 09/25/18 08:54 BP 106/60 09/25/18 08:54 Pulse Ox 97 09/25/18 08:54 Intake & Output 09/24/18 09/25/18 09/25/18 18:59 06:59 18:59 Intake Total 740 822 Output Total 2200 1600 Balance -1460 -1600 822 Weight 73.4 kg Intake: IV 140 LR @ 50 140 Oral 600 822 Output: Urine 2200 1600 Other: Voiding Method Urinal Urinal # Voids 4 - Constitutional General appearance: Present: cooperative, no acute distress - Respiratory Details: Lungs sounds diminished bilaterally. Respirations even, nonlabored. Currently on 4 L nasal cannula with oxygen saturation 98%. Able to achieve 2250 mL on his incentive spirometry. Right-sided thoravent present, connected to atrium at -20 cm wall suction, no output in the atrium, positive air leak present. - Cardiovascular Details: S1, S2 present. Regular rate and rhythm, sinus rhythm on telemetry. Palpable peripheral pulses bilaterally. No edema present. No calf pain or tenderness noted. - Gastrointestinal Gastrointestinal Comment(s): Abdomen soft, nontender, nondistended. Active bowel sounds present 4 quadra nts. Tolerating diet. - Genitourinary Genitourinary Comment(s): Continues to void clear, yellow urine. - Integumentary Integumentary Comment(s): Skin is warm and dry with evidence of good perfusion. - Neurologic Neurologic: Present: CNII-XII intact - Musculoskeletal Musculoskeletal: Present: gait normal, strength equal bilaterally - Psychiatric Psychiatric: Present: A&O x's 3, appropriate affect - Allied health notes Allied health notes reviewed: nursing - Labs CBC & Chem 7: 09/25/18 06:31 09/25/18 06:31 Labs: Abnormal Lab Results - Last 24 Hours (Table) 09/25/18 Range/Units 06:31 Carbon Dioxide 34 H (22-30) mmol/L BUN 29 H (9-20) mg/dL Total Protein 6.0 L (6.3-8.2) g/dL Albumin 3.3 L (3.5-5.0) g/dL - Imaging and Cardiology Chest x-ray: report reviewed, image reviewed Assessment and Plan Assessment: 1. Recurrent spontaneous right pneumothorax with Thoravent in place 2. Previous tobacco dependence 3. Chronic obstructive pulmonary disease 4. Hypertension 5. Hyperlipidemia 6. Severe acid reflux 7. History of hiatal hernia status post Padma fundoplication 8. History of prostate cancer 9. History of right leg deep vein thrombosis 10. Anxiety Plan: 1. Continue thoravent to continuous wall suction. Will monitor for resolution of air leak. 2. Will monitor daily x-rays. 3. Wean O2 as tolerated. Encourage incentive spirometry use 10 times every hour while awake. 4. Encourage continued smoking cessation. 5. Bronchodilators, steroids per pulmonology. 6. Patient will likely need surgical thoracoscopy. This was discussed in detail with the patient and his and they are in agreement. Timing of surgery to be discussed. Would like the patient's lungs to be medically maximized first. 7. Continued medical management per primary care service. 8. GI/DVT prophylaxis. 9. Pain control with current medication regimen. 10. More recommendations to follow. Time with Patient: Greater than 30
--- NOTE | 2018-09-25 14:41 | P.PN ---
Subjective Progress Note Date: 09/25/18 09/25/2018: Patient seen and examined for follow-up. The patient has Thora vent hooked to suction. The patient states that he had a panic attack yesterday when he could not breathe. He states he is feeling much better today and is less short of breath. The patient does have a continuous air leak. Plan is for surgical intervention. The patient was also told he needs an aortic valve replacement which will be arranged as an outpatient, apparently he was told in 3 months. Objective - Vital Signs Vital signs: Vital Signs Temp 98.0 F 09/25/18 11:40 Pulse 68 09/25/18 11:58 Resp 20 09/25/18 11:42 BP 120/70 09/25/18 11:40 Pulse Ox 95 09/25/18 11:40 Intake & Output 09/24/18 09/25/18 09/25/18 18:59 06:59 18:59 Intake Total 740 1082 Output Total 2200 1600 13 Balance -1460 -1600 1069 Weight 73.4 kg Intake: IV 140 LR @ 50 140 Oral 600 1082 Output: Chest Tube Drainage 13 Thora-Vent 13 Urine 2200 1600 Other: Voiding Method Urinal Urinal # Voids 4 - Exam General: A+OX3, NAD, hyperactive and poor focus, easily distracted CV: RRR, s1/s2 Lungs: Diminished otherwise clear, Right thoravent in place with air leak Abdomen: soft, nontender, nondistended, +bs Ext: no edema - Labs CBC & Chem 7: 09/25/18 06:31 09/25/18 06:31 Labs: Abnormal Lab Results - Last 24 Hours (Table) 09/25/18 Range/Units 06:31 Carbon Dioxide 34 H (22-30) mmol/L BUN 29 H (9-20) mg/dL Total Protein 6.0 L (6.3-8.2) g/dL Albumin 3.3 L (3.5-5.0) g/dL Assessment and Plan Assessment: Right spontaneous pneumothorax, s/p thoravent COPD, severe, FEV 1 41% Hyperglycemia likely secondary to steroids Mild leukocytosis History of DVT in the remote past History of prostate cancer Leukocytosis, possibly secondary to steroids History of Padma fundoplication and hiatial hernia GERD Hyperactivity, question bipolar versus ADHD versus other O2 to maintain saturation greater than or equal to 90%, currently on RA Continue Zoloft Continued smoking cessation Pulmciort Steroid taper Angelo Perforomist IS and pulmonary hygiene Thoravent per CVTS GI and DVT prophylaxis: Heparin and Pepcid Continue to monitor closely Plan for surgical intervention Patients lungs are at baseline.
[2018-09-25] MEDS: FORMOTEROL FUMARATE 20 MCG/2 ML NEBU INHALATION SCH (19:52)
[2018-09-25] MEDS: BUDESONIDE 0.5 MG/2 ML NEBU INHALATION SCH (19:52)
[2018-09-25] MEDS: diphenhydrAMINE 25 MG CAP PO PRN (20:48)
[2018-09-25] MEDS: MONTELUKAST 10 MG TAB PO SCH (20:48)
[2018-09-25] MEDS: SERTRALINE 50 MG TAB PO SCH (20:48)
[2018-09-26] MEDS: IPRATROPIUM-ALBUTEROL 3 ML NEB INHALATION PRN ×2 (04:17→23:32)
[2018-09-26 06:49] LABS: Basophils % (A) 0 %; Eosinophils # (A) 0.3 k/uL (0-0.7); Eosinophils % (A) 3 %; HGB 14.5 gm/dL (13.0-17.5); Lymphocytes % (A) 20 %; MCHC 32.2 g/dL (31.0-37.0); MCV 96.5 fL (80.0-100.0); Mean Platelet Volume 6.7; Monocytes # (A) 0.7 k/uL (0-1.0); Monocytes % (A) 7 %; Neutrophils # (A) 6.8 k/uL (1.3-7.7); Neutrophils % (A) 68 %; Platelet Count 209 k/uL (150-450); RBC 4.67 m/uL (4.30-5.90); RDW 14.6 % (11.5-15.5)
[2018-09-26 06:57] LABS: ALT 43 U/L (21-72); AST 22 U/L (17-59); African American GFR (CKD) >90 (>60 ml/min/1.73 sqM); Albumin 3.3 g/dL (3.5-5.0); Alkaline Phosphatase 53 U/L (38-126); Anion Gap 4 mmol/L; Blood Urea Nitrogen 28 mg/dL (9-20); Calcium 8.8 mg/dL (8.4-10.2); Carbon Dioxide 29 mmol/L (22-30); Chloride 104 mmol/L (98-107); Glucose 88 mg/dL (74-99); Potassium 4.3 mmol/L (3.5-5.1); Sodium 137 mmol/L (137-145); Total Bilirubin 0.3 mg/dL (0.2-1.3); Total Protein 5.9 g/dL (6.3-8.2)
[2018-09-26] MEDS: FORMOTEROL FUMARATE 20 MCG/2 ML NEBU INHALATION SCH ×2 (07:41→21:15)
[2018-09-26] MEDS: IPRATROPIUM-ALBUTEROL 3 ML NEB INHALATION SCH ×5 (07:41→21:15)
[2018-09-26] MEDS: BUDESONIDE 0.5 MG/2 ML NEBU INHALATION SCH ×2 (07:41→21:15)
--- NOTE | 2018-09-26 07:52 | XR ---
EXAMINATION TYPE: XR chest 1V portable DATE OF EXAM: 09/26/2018 HISTORY: Follow-up pneumothorax COMPARISON: 09/26/2018 from earlier in the day TECHNIQUE: Single view of the chest is submitted. FINDINGS: Large right-sided pneumothorax has progressed since the previous study with maximal measurement of 4. 2 cm versus 2.9 cm previously. Right apical pleural catheter appears to have been removed. There is a increasing subcutaneous emphysema noted. Pneumothorax is estimated at 50%. The heart is stable. Hilar and mediastinal structures are within normal limits. Degenerative changes are seen of the dorsal spine. IMPRESSION: 1. Progressive right-sided pneumothorax estimated at 50%. Increasing subcutaneous emphysema. Right a pical pleural catheter appears to have been removed. A [place] level critical message alert has been initiated for Michaela Leyva via the [facility] Results System on 09/26/2018 7:49 AM. This message alert has been sent to Michaela Leyva via the unrival ences provided by the clinician for the receipt of Radiology Critical Findings. Message ID [id number].
--- NOTE | 2018-09-26 07:53 | XR ---
EXAMINATION TYPE: XR chest 1V portable DATE OF EXAM: 09/26/2018 HISTORY: Follow-up pneumothorax COMPARISON: 09/25/2018 TECHNIQUE: Single view of the chest is submitted. FINDINGS: Significant interval progression of right-sided pneumothorax identified measuring 2.9 cm. Pneumothora x is estimated at 35-40%. Right apical pleural catheter is noted. Subcutaneous emphysema identified. The heart is stable. Hilar and mediastinal structures are within normal limits. Degenerative changes are seen of the dorsal spine. IMPRESSION: 1. Significant interval progression of right-sided pneumothorax identified measuring 2.9 cm. Pneumot horax is estimated at 35-40%. Right apical pleural catheter is noted.
[2018-09-26] MEDS ORDERED: IPRATROPIUM-ALBUTEROL 3 ML NEB INHALATION STA (08:35)
[2018-09-26] MEDS ORDERED: ceFAZolin IN SWFI 2 GM/20 ML SYRINGE IVP STA (08:39)
[2018-09-26] MEDS ORDERED: NEOSTIGMINE 1 MG/ML 10 ML VIAL ONE (09:00)
[2018-09-26] MEDS ORDERED: ePHEDrine SULFATE/0.9% NACL/PF 50 MG/5 ML SYRINGE IV ONE (09:00)
[2018-09-26] MEDS ORDERED: ROCURONIUM BROMIDE 10 MG/ML 10 ML VIAL IV ONE (09:00)
[2018-09-26] MEDS ORDERED: fentaNYL (PF) 50 MCG/ML 2 ML AMP ONE (09:00)
[2018-09-26] MEDS ORDERED: SUCCINYLCHOLINE CHLORIDE 100 MG/5 ML SYR IV ONE (09:00)
[2018-09-26] MEDS ORDERED: LIDOCAINE 1% INJ 10MG/ML (20 ML MDV) ONE (09:00)
[2018-09-26] MEDS ORDERED: ONDANSETRON 4 MG/2 ML VIAL ONE (09:00)
[2018-09-26] MEDS ORDERED: LABETALOL 5 MG/ML VIAL MDV ONE (09:00)
[2018-09-26] MEDS ORDERED: PHENYLEPHRINE-0.9% NACL SYG 1 MG/10 ML SYRINGE ONE (09:00)
[2018-09-26] MEDS ORDERED: PROPOFOL 10 MG/ML 20 ML VIAL IV ONE (09:00)
[2018-09-26] MEDS ORDERED: GLYCOPYRROLATE 0.2 MG/ML 2 ML VIAL ONE (09:00)
[2018-09-26] MEDS ORDERED: MIDAZOLAM 2 MG/2 ML VIAL ONE (09:00)
[2018-09-26] MEDS ORDERED: LACTATED RINGERS 1,000 ML IV ONE (09:10)
[2018-09-26] MEDS ORDERED: IV FLUID CONTINUATION 1,000 ML IV ONE (09:10)
[2018-09-26] MEDS ORDERED: STERILE TALC 3 GM POWDER W/BLOWER KIT INTRAPLEUR ONE ×2 (09:10→10:52)
[2018-09-26] MEDS ORDERED: BUPIVACAINE (PF) 0.5% 30 ML VIAL SQ ONE ×2 (09:53→11:11)
--- NOTE | 2018-09-26 10:56 | P.PN ---
Subjective Progress Note Date: 09/26/18 Principal diagnosis: Recurrent spontaneous right pneumothorax with thoravent in place. Previous medical history of tobacco dependence, COPD, hypertension, hyperlipidemia, severe acid reflux, hiatal hernia status post Padma fundoplication with mesh repair, right leg DVT, renal failure secondary to dehydration, and prostate cancer. After chest x-ray this morning the patient's thoravent was noted to be almost completely out, patient was very short of breath although oxygen saturations were stable in the mid to high 90s. Thoravent removed, site covered with Vaseline gauze and 4 x 4, stat portable chest x-ray completed demonstrating 50% pneumothorax off the lateral wall. Drs. Sierra and Gasper were called, decision was made to take patient to the operating room for video-assisted thoracoscopy with bleb stapling. This was discussed in detail with the patient and his and they were in agreement. Prior to getting to the operating room, the patient complained of feeling like his throat was closing, his voice became more high- pitched, and he was very anxious. He was taken to the recovery room, arterial line was placed, and he was taken emergently to the operating room. Objective - Vital Signs Vital signs: Vital Signs Temp 98.1 F 09/26/18 03:30 Pulse 89 09/26/18 08:37 Resp 24 09/26/18 08:00 BP 131/71 09/26/18 08:00 Pulse Ox 98 09/26/18 08:00 Intake & Output 09/25/18 09/26/18 09/26/18 18:59 06:59 18:59 Intake Total 1282 0 Output Total 238 1025 100 Balance 1044 -1025 -100 Weight 75.1 kg Intake: Oral 1282 0 Output: Chest Tube Drainage 13 50 Thora-Vent 13 50 Urine 225 975 100 Other: Voiding Method Urinal Toilet - Constitutional Constitutional Comment(s): Moderate distress General appearance: Present: cooperative - Respiratory Details: Lungs sounds diminished bilaterally, right greater than left, expiratory wheezes present. Respirations labored this morning. Was on 5 L nasal cannula with oxygen saturation in the mid 90s. Right-sided thoravent was discontinued, positive subcu air present to right chest. - Cardiovascular Details: S1, S2 present. Regular rate and rhythm, sinus rhythm on telemetry. Palpable peripheral pulses bilaterally. No edema present. No calf pain or tenderness noted. - Gastrointestinal Gastrointestinal Comment(s): Abdomen soft, nontender, nondistended. Active bowel sounds present 4 quadrants. Patient made nothing by mouth for surgery. - Genitourinary Genitourinary Comment(s): Continues to void clear, yellow urine. - Integumentary Integumentary Comment(s): Skin is warm and dry with evidence of good perfusion. - Neurologic Neurologic: Present: CNII-XII intact - Musculoskeletal Musculoskeletal: Present: strength equal bilaterally - Psychiatric Psychiatric Comment(s): Very anxious requiring constant reassurance Psychiatric: Present: A&O x's 3 - Allied health notes Allied health notes reviewed: nursing - Labs CBC & Chem 7: 09/26/18 06:15 09/26/18 06:15 Labs: Abnormal Lab Results - Last 24 Hours (Table) 09/26/18 Range/Units 06:15 BUN 28 H (9-20) mg/dL Total Protein 5.9 L (6.3-8.2) g/dL Albumin 3.3 L (3.5-5.0) g/dL - Imaging and Cardiology Chest x-ray: report reviewed, image reviewed Assessment and Plan Assessment: 1. Recurrent spontaneous right pneumothorax with Thoravent dislodgment this morning 2. Previous tobacco dependence 3. Chronic obstructive pulmonary disease 4. Hypertension 5. Hyperlipidemia 6. Severe acid reflux 7. History of hiatal hernia status post Padma fundoplication 8. History of prostate cancer 9. History of right leg deep vein thrombosis 10. Anxiety 11. Severe aortic stenosis discovered on transthoracic echocardiogram with peak/mean gradient 88.19 mmHg/61.56 mmHg and valve area 0.4 cm Plan: 1. Patient taken emergently to OR this morning for VATS with bleb resection. We will transfer to the intensive care unit after surgery. 2. Will monitor daily x-rays. 3. Wean O2 as tolerated. Encourage incentive spirometry use 10 times every hour while awake. 4. Encourage continued smoking cessation. 5. Bronchodilators, steroids per pulmonology. 6. Continued medical management per primary care service. 7. GI/DVT prophylaxis. 8. Pain control with current medication regimen. 9. Patient will need workup for aortic stenosis with ALEJANDRO and heart catheterization in the future, cardiology following. 10. More recommendations to follow. Time with Patient: Greater than 30
[2018-09-26] MEDS ORDERED: ALBUTEROL NEBULIZED 2.5 MG/3 ML INHALATION ONE (11:38)
[2018-09-26] MEDS ORDERED: LABETALOL SYRINGE 5 MG/ML IVP ONE (11:45)
[2018-09-26] MEDS ORDERED: FUROSEMIDE 10 MG/ML 4 ML VIAL IV ONE (11:55)
--- NOTE | 2018-09-26 12:09 | XR ---
EXAMINATION TYPE: XR chest 1V portable DATE OF EXAM: 09/26/2018 HISTORY: Follow-up pneumothorax COMPARISON: 09/26/2018 TECHNIQUE: Single view of the chest is submitted. FINDINGS: Right-sided pneumothorax is much smaller in size and currently measures approximately 5.2 mm versus 4 .2 cm previously. Right-sided chest tube in place. Extensive subcutaneous emphysema noted. The heart is stable. Hilar and mediastinal structures are within normal limits. Degenerative changes are seen of the dorsal spine. IMPRESSION: 1. Right-sided pneumothorax is much smaller in size and currently measures approximately 5.2 mm vers us 4.2 cm previously. Right-sided chest tube in place. Extensive subcutaneous emphysema noted.
[2018-09-26] MEDS ORDERED: SODIUM CHLORIDE 0.9% 1,000 ML IV ONE (12:35)
[2018-09-26] MEDS ORDERED: METOCLOPRAMIDE 5 MG/ML 2 ML VIAL IVP PRN (13:23)
--- NOTE | 2018-09-26 13:31 | P.PN ---
Subjective Progress Note Date: 09/26/18 09/26/2018: Patient seen and examined in the ICU immediately post-op. He is having pain and is asking for pain medications. SBP is 100-110 with MAP 70's. O2 saturation is 95% on 2L NC. He does appear to be in pain and has subcutaneous emphysema. The patient states he is doing ok. He was given Lasix 10 mg IV post-operatively in the PACU. Objective - Vital Signs Vital signs: Vital Signs Temp 97.8 F 09/26/18 11:38 Pulse 58 L 09/26/18 12:35 Resp 18 09/26/18 12:35 BP 112/52 09/26/18 12:35 Pulse Ox 100 09/26/18 12:35 Intake & Output 09/25/18 09/26/18 09/26/18 18:59 06:59 18:59 Intake Total 1282 1600 Output Total 238 1025 320 Balance 1044 -1025 1280 Weight 75.1 kg Intake: IV 1600 Oral 1282 0 Output: Chest Tube Drainage 13 50 Thora-Vent 13 50 Urine 225 975 300 Estimated Blood Loss 20 Other: Voiding Method Urinal Toilet - Exam General: A+OX3, appears to have pain and pursed lip breathing CV: RRR, s1/s2, joel Lungs: Diminished with coarse breath sounds bilaterally, Right chest tube in place with air leak Abdomen: soft, nontender, nondistended, +bs Ext: no edema - Labs CBC & Chem 7: 09/26/18 06:15 09/26/18 06:15 Labs: Abnormal Lab Results - Last 24 Hours (Table) 09/26/18 Range/Units 06:15 BUN 28 H (9-20) mg/dL Total Protein 5.9 L (6.3-8.2) g/dL Albumin 3.3 L (3.5-5.0) g/dL Assessment and Plan Assessment: Right spontaneous pneumothorax, s/p VATS COPD, severe, FEV 1 41% Hyperglycemia likely secondary to steroids Mild leukocytosis History of DVT in the remote past History of prostate cancer Leukocytosis, possibly secondary to steroids History of Padma fundoplication and hiatial hernia GERD Hyperactivity, question bipolar versus ADHD versus other O2 to maintain saturation greater than or equal to 90% Continue Zoloft Continued smoking cessation Pulmciort Steroid taper Duonebs Perforomist IS and pulmonary hygiene Chest tube per CVTS Monitor urine output and renal function Monitor BP via arterial line Pain control GI and DVT prophylaxis: Heparin and Pepcid Monitor in the ICU
--- NOTE | 2018-09-26 13:38 | CDI ---
Documentation Clarification Form Date: 09/26/2018 1:27:27 PM From: Kiara Addison RN CCDS Phone: '[phone] Admit Date: 09/23/2018 6:49:00 PM Patient Name: Salvador Lord Visit Number: [id number] Discharge Date: ATTENTION: The Clinical Documentation Specialists (CDI) and [facility] Coding Staff appreciate your assistance in clarifying documentation. Please respond to the clarification below the line at the bottom and electronically sign. The CDI & [facility] Coding staff will review the response and follow-up if needed. Please note: Queries are made part of the Legal Health Record. If you have any questions, please contact the author of this message via ITS. Dr. Mukund Quiros Mild diastolic congestive heart failure is documented in PN dated 09/25/2018 History/Risk Factors: 68 year old male presents to ED with shortness of breath. Medical Hx COPD, HTN , ex smoker Clinical Indicators: VS/Pulse OX: 106/60 64 98.3 20 97% BNP: 2820 Echocardiogram Results: EF 50% - 55% Chest X Ray: Mild right sided atelectasis Treatment: Lasix ivp In your professional opinion, can you please clarify the acuity of CHF if known? Diastolic Heart Failure: * Acute * Chronic * Acute on Chronic * Unable to Determine * Other, please specify (Last Revision: August 2017) Acute diastolic heart failure MTDD
--- NOTE | 2018-09-26 13:46 | P.PN ---
Subjective Progress Note Date: 09/26/18 This is a 68-year-old male patient who presented to the hospital with complaints of increased shortness of breath. Patient was recently admitted for spontaneous right-sided pneumothorax post thoracotomy placement. Patient was DC'd with thoraven in place. reports that at home he became very short winded was unable to walk. He has past medical history of COPD, GERD, hyperlipidemia, hypertension, pneumonia, ex-smoker, prostate cancer 2000, DVT 10 years ago completed treatment. Chest x-ray completed showing mild right-sided atelectasis. Right-sided pneumothorax is essentially cleared compared to last exam. Soft tissue air increased compared to last exam. EKG completed showing sinus rhythm with first-degree AV block. Troponin is elevated 0.394, 0.295 and 0.290. Cardiology and pulmonary service is consulted. D-dimer elevated at 2.00. CTA performed pending. BNP also elevated 2820. Patient does have thoravent in place. Cardiothoracic surgery consulted. Patient is very anxious. Ativan given when necessary order. At that time patient is still complaining of some shortness breath. Patient denies chest pain. Patient denies nausea vomiting or diarrhea. Patient denies any urinary burning or frequency. On 09/25/2018 patient's chest tube hooked to suction for right-sided pneu mothorax. Discussed case with cardiothoracic nurse practitioner. Planning VATS procedure. Patient received 1 dose of IV Lasix for mild CHF exacerbation. Per cardiology patient does have aortic stenosis will eventually have ALEJANDRO and heart cath outpatient. At this time patient does state improvement with shortness of breath. Patient denies chest pain. Patient denies nausea vomiting or diarrhea. Patient denies any urinary burning or frequency. On 09/26/2018. Patient had episode of chest tube feeding dislodge this AM. Patient went into a story distress. Patient was taken to emergent surgery for VATS procedure with Dr. Jackman. Patient is currently resting in the intensive care unit. Chest tube is in place. At this time patient does state some improvement with shortness of breath. Patient denies nausea or vomiting. Patient denies any urinary burning or frequency Objective - Vital Signs Vital signs: Vital Signs Temp 97.8 F 09/26/18 11:38 Pulse 58 L 09/26/18 12:35 Resp 18 09/26/18 12:35 BP 112/52 09/26/18 12:35 Pulse Ox 100 09/26/18 12:35 Intake & Output 09/25/18 09/26/18 09/26/18 18:59 06:59 18:59 Intake Total 1282 1600 Output Total 238 1025 320 Balance 1044 -1025 1280 Weight 75.1 kg Intake: IV 1600 Oral 1282 0 Output: Chest Tube Drainage 13 50 Thora-Vent 13 50 Urine 225 975 300 Estimated Blood Loss 20 Other: Voiding Method Urinal Toilet - Exam Head normocephalic Neck supple Lungs diminished bilaterally, chest tube in place Heart regular rate and rhythm S1-S2, no rub or gallop Abdomen is soft nontender nondistended positive bowel sounds no hepatosplenomegaly Extremities no edema Neuro alert and orientated to 3 - Labs CBC & Chem 7: 09/26/18 06:15 09/26/18 06:15 Labs: Abnormal Lab Results - Last 24 Hours (Table) 09/26/18 Range/Units 06:15 BUN 28 H (9-20) mg/dL Total Protein 5.9 L (6.3-8.2) g/dL Albumin 3.3 L (3.5-5.0) g/dL Assessment and Plan Assessment: 1. Increased shortness of breathing secondary to recurring right-sided pneumothorax. CTA chest performed showing reaccumulation of large, approximately 70% right-sided pneumonia without current mediastinal shift on the exam. thoravent is in place. Extensive underlying emphysematous change. No evidence of central pulmonary embolus. Subsegmental arteries are somewhat limited. No CT evidence of right heart strain. Cardiothoracic services have been consulted. Pulmonary services consulted. currently on DuoNeb breathing treatments and prednisone 40 mg. and 09/26/2018, Thoravent extraembryonic improved this AM. Was taken to the OR for video-assisted thorascopic the with bleb stapling. Patient is now resting in the intensive care unit. 2. Mild diastolic congestive heart failure. BNP elevated 2820. 2-D echo completed showing EF of 50-55% Cardiology services following. Patient received 1 dose of IV Lasix 3. Elevated troponins. Troponin level 0.395, 0.295 and 0.298. Cardiology services are following 4. Recent right-sided spontaneous pneumothorax status post ThoraVent placement. 5. Leukocytosis. Patient has been on oral prednisone. White blood cell is trending down 6. History of Niesen fundoplication 7. History of prostate cancer 2009 8. History of right leg DVT several years ago no longer on anticoagulation 9. Essential hypertension patient was DC'd during previous admission on Norvasc and hydralazine 10. Anxiety and hyperactivity. Ativan when necessary has been ordered. Maintained on Zoloft 11. Aortic stenosis. 2-D echo completed per cardiology. Patient will likely need ALEJANDRO a cardiac catheterization outpatient DVT prophylaxis heparin. GI prophylaxis Protonix Patient in the intensive care unit. Pulmonary, cardiology and cardiothoracic following I performed an examination of the patient and discussed their management with the Nurse Practitioner. I have reviewed the Nurse Practitioner's notes and agre e with the documented findings and plan of care
[2018-09-26] MEDS: amLODIPine 10 MG TAB PO SCH (14:56)
[2018-09-26] MEDS: PANTOPRAZOLE 40 MG TABLET PO SCH (14:56)
[2018-09-26] MEDS: ATORVASTATIN 80 MG TAB PO SCH (14:57)
[2018-09-26] MEDS: predniSONE 10 MG TAB PO SCH (14:57)
[2018-09-26] MEDS: hydrALAZINE HCL 25 MG TAB PO SCH ×2 (14:57→21:22)
[2018-09-26] MEDS: ASPIRIN 81 MG PO SCH (14:57)
[2018-09-26] MEDS: HEPARIN SODIUM,PORCINE 5,000 UNIT/ML 1 ML VIAL SQ SCH ×2 (14:57→21:27)
[2018-09-26] MEDS: HYDROcodone/APAP 10-325MG 1 EACH TAB PO PRN (15:53)
[2018-09-26] MEDS: ONDANSETRON 4 MG/2 ML VIAL IVP PRN (15:54)
--- NOTE | 2018-09-26 17:00 | P.PN ---
Subjective Progress Note Date: 09/26/18 Principal diagnosis: Pneumothorax This is a pleasant 68-year-old gentleman with a past medical history significant for hypertension, dyslipidemia, and history of DVT, who was admitted to the hospital with shortness of breath and was found to have pneumothorax which seems to be recurrent. He was discharged from the hospital recently with Thoravent. This time that was attached to suction. He is feeling better. The computed tomography scan revealed right sided pneumothorax. He was seen and evaluated by a surgeon and the plan is to pursue with surgery in the next few days. On follow-up with the patient today, he is feeling better internal shortness of breath with no chest pain or chest discomfort. Hemodynamically he continues to be stable. He does have severe aortic stenosis which will be addressed probably as an outpatient. Objective - Vital Signs Vital signs: Vital Signs Temp 98.3 F 09/26/18 14:00 Pulse 59 L 09/26/18 15:40 Resp 16 09/26/18 15:40 BP 99/65 09/26/18 15:40 Pulse Ox 94 L 09/26/18 15:40 Intake & Output 09/25/18 09/26/18 09/26/18 18:59 06:59 18:59 Intake Total 1282 1770 Output Total 238 1025 506 Balance 1044 -1025 1264 Weight 75.1 kg Intake: IV 1650 LR @ 50 50 Oral 1282 120 Output: Chest Tube Drainage 13 50 Thora-Vent 13 50 Drainage 46 Right Chest 46 Urine 225 975 440 Estimated Blood Loss 20 Other: Voiding Method Urinal Toilet ABP, PAP, CO, CI - Last Documented Arterial Blood Pressure 82/48 - Constitutional General appearance: Present: no acute distress - Respiratory Respiratory: right: diminished - Cardiovascular Rhythm: regular Heart sounds: normal: S1, S2 Abnormal Heart Sounds: Present: systolic murmur - Labs CBC & Chem 7: 09/26/18 06:15 09/26/18 06:15 Labs: Abnormal Lab Results - Last 24 Hours (Table) 09/26/18 Range/Units 06:15 BUN 28 H (9-20) mg/dL Total Protein 5.9 L (6.3-8.2) g/dL Albumin 3.3 L (3.5-5.0) g/dL Assessment and Plan Assessment: Assessment #1 recurrent right-sided pneumothorax #2 hypertension #3 dyslipidemia #4 aortic stenosis Plan #1 continue the current medical regimen #2 down the line, he is to have a ALEJANDRO and heart catheterization to further investigate aortic stenosis #4 follow-up with the patient
[2018-09-26] MEDS: ceFAZolin IN SWFI 2 GM/20 ML SYRINGE IVP SCH ×2 (17:37→23:58)
[2018-09-26] MEDS: HYDROmorphone 1 MG/ML 1 ML SYRINGE IVP PRN (19:21)
[2018-09-26] MEDS: diphenhydrAMINE 25 MG CAP PO PRN (21:27)
[2018-09-26] MEDS: MONTELUKAST 10 MG TAB PO SCH (21:27)
[2018-09-26] MEDS: SERTRALINE 50 MG TAB PO SCH (22:12)
--- NOTE | 2018-09-26 22:17 | OP ---
OPERATIVE REPORT DATE OF SURGERY: 09/26/2018 PREOPERATIVE DIAGNOSIS: Spontaneous right pneumothorax. POSTOPERATIVE DIAGNOSIS: Spontaneous right pneumothorax. PROCEDURES: 1. Right VATS bleb resection. 2. Pleurodesis. SURGEON: Christiano Jackman MD [employer] MECHANIC: CHARLENE Thibodeaux ANESTHESIA: General. SPECIMEN: Right lower lobe bleb wedge resection. ESTIMATED BLOOD LOSS: Less than 25 mL. COMPLICATIONS: None. INDICATION: The patient is a 68-year-old male with a history of multiple medical problems, including COPD, who was initially admitted to the hospital last week with a spontaneous right pneumothorax. He was noted to have large blebs per CT scan. A Thoravent was placed and he was discharged home. He returned to the hospital earlier this week with persistent shortness of breath. This morning the Thoravent became dislodged and he became progressively hypoxic. Right VATS bleb resection and pleurodesis were recommended. The risks, benefits and alternatives to these procedures were discussed with the patient. All his questions were answered. Consent was obtained. FINDINGS: There was a large bleb noted in the right lower lobe. PROCEDURE IN DETAIL: The patient was taken to the operating room and placed supine on the operating table. After the induction of general anesthesia, a double-lumen endotracheal tube was placed by the anesthesia service. Its position was confirmed using a bronchoscope. The patient was then placed in the left lateral decubitus position with the right side up. Care was taken to pad all pressure points. The right flank and chest were then prepped and draped in the usual sterile fashion. A thoracoscope port was placed at approximately the sixth intercostal space along the posterior axillary line. Upon entry into the pleural space, a large taylor of air was noted. Two additional working ports were then placed under direct vision. A thoracoscope was introduced and adhesions were noted between the lung and the chest wall. These were carefully taken down using electrocautery. Once the lung was completely freed circumferentially, I was able to inspect it closer. There was a large bleb noted at the base of the right lower lobe. Using a stapling device with a 60 mm reinforced purple load, the bleb was resected through normal tissue parenchyma. The remaining right upper lobe, right middle lobe and right lower lobe were then carefully inspected. I did not visualize any additional large blebs. The right chest was then filled with saline. I did inflate the right lung, and no obvious air bubbling was noted. Mechanical pleurodesis was then performed to the chest wall using a Bovie scratch pad. Three grams of talc were also insufflated into the pleural space. A 28-Yakut chest tube was placed and directed posteriorly toward the apex. The right lung was inflated under direct vision and appeared to expand nicely. There was no obvious air leak noted. Hemostasis was assured. The chest tube was secured to the skin using a suture. All three working ports were then closed in multiple layers. Sterile dressing was applied. The patient appeared to tolerate the procedure well. There were no immediate complications. He was extubated at the completion of the case and returned to the recovery room in stable condition. MMODL / IJN: [id number] / MTDAllison
[2018-09-26] MEDS: guaiFENesin 600 MG TABLET.ER PO PRN (23:50)
[2018-09-26] MEDS: LORazepam 2 MG/ML INJ IV PRN (23:51)
[2018-09-27] MEDS: methylPREDNISolone SOD SUCCI 40 MG/ML 1 ML VIAL IV SCH ×4 (00:01→23:55)
--- NOTE | 2018-09-27 00:02 | XR ---
EXAM: XR Chest, 1 View 09/26/2018 at 2330 hrs. CLINICAL HISTORY: Reason: Increased resp distress and facial swelling TECHNIQUE: Frontal view of the chest. COMPARISON: Chest x-ray 09/26/2018 1152 hrs. FINDINGS: Lungs: No focal infiltrates or consolidations. Pleural space: Very small right-sided pneumothorax unchanged as compared to prior study of 09/26/2018 1152 hrs. No significant pleural effusion. Heart: Heart size remains within normal limits. Extensive soft tissue emphysema persists throughout the thorax and extending into the imaged base of neck. Pneumomediastinum is also likely present. Tubes, lines and devices: Indwelling right chest tube remains unchanged with tip extending to right apex. No significant change since prior chest radiograph of 09/26/2018. IMPRESSION: Stable follow-up chest radiograph with very small right sided pneumothorax. Indwelling right chest tube. Extensive soft tissue emphysema and probable pneumomediastinum.
[2018-09-27] MEDS: HYDROmorphone 1 MG/ML 1 ML SYRINGE IVP PRN ×3 (02:26→22:47)
[2018-09-27] MEDS: ONDANSETRON 4 MG/2 ML VIAL IVP PRN (02:26)
[2018-09-27] MEDS ORDERED: ePHEDrine SULFATE/0.9% NACL/PF 50 MG/5 ML SYRINGE IV ONE (04:30)
[2018-09-27] MEDS ORDERED: ROCURONIUM BROMIDE 10 MG/ML 10 ML VIAL IV ONE (04:30)
[2018-09-27] MEDS ORDERED: MIDAZOLAM 1 MG/ML 5 ML VIAL ONE (04:30)
[2018-09-27] MEDS ORDERED: PROPOFOL 10 MG/ML 20 ML VIAL IV ONE (04:30)
[2018-09-27] MEDS ORDERED: SUCCINYLCHOLINE CHLORIDE VIAL 200 MG/10 ML VIAL IV ONE (04:30)
[2018-09-27] MEDS: PROPOFOL 1,000 MG in EMPTY BAG 1 BAG IV SCH ×6 (05:30→23:47)
[2018-09-27 05:46] LABS: ABG Base Excess 1.7 mmol/L; ABG HCO3 28 mmol/L (21-25); ABG Oxygen Saturation 99.8 % (94-97); ABG PCO2 54 mmHg (35-45); ABG PH 7.32 (7.35-7.45); ABG PO2 388 mmHg (83-108); ABG TCO2 29 mmol/L (19-24); Allen Test Performed? Yes
--- NOTE | 2018-09-27 05:48 | XR ---
EXAM: XR Chest, 1 View 09/27/2018 at 0503 hrs. CLINICAL HISTORY: Reason: post vats TECHNIQUE: Frontal view of the chest. COMPARISON: Chest x-ray 09/26/2018 at 2330 hrs. Chest x-ray 09/26/2018 at 1152 hrs. FINDINGS: Interval placement of endotracheal tube which has its tip above the tamera and appears to project at level of thoracic aortic arch. Interval placement of nasogastric tube which extends into the stomach, distal tip not included. Indwelling right chest tube remains unchanged and extends to right apex. Minimal right pneumothorax is unchanged or mildly decreased. No significant pleural effusion identified on supine chest examination. Persistent extensive soft tissue emphysema throughout the chest and base of neck. Probable pneumomediastinum. Heart size remains within normal limits. No acute infiltrates or consolidations. Overall, no significant change since prior comparison chest radiographs except for placement of endotracheal and nasogastric tubes. IMPRESSION: Indwelling right chest tube remains unchanged. Interval placement of endotracheal and nasogastric tubes as described in body of report. Minimal right pneumothorax and persistent extensive soft tissue emphysema. Probable pneumomediastinum.
[2018-09-27] MEDS ORDERED: SODIUM CHLORIDE 0.9% 1,000 ML IV ONE (05:57)
[2018-09-27 06:26] LABS: Basophils % (A) 0 %; Eosinophils % (A) 0 %; HCT 41.1 % (39.0-53.0); HGB 13.4 gm/dL (13.0-17.5); Lymphocytes # (A) 0.4 k/uL (1.0-4.8); Lymphocytes % (A) 2 %; MCH 32.1 pg (25.0-35.0); MCHC 32.7 g/dL (31.0-37.0); MCV 98.2 fL (80.0-100.0); Mean Platelet Volume 6.5; Monocytes # (A) 0.6 k/uL (0-1.0); Monocytes % (A) 3 %; Neutrophils # (A) 16.9 k/uL (1.3-7.7); Neutrophils % (A) 94 %; Platelet Count 177 k/uL (150-450); RBC 4.19 m/uL (4.30-5.90)
[2018-09-27] MEDS: NOREPINEPHRINE 4 MG in SODIUM CHLORIDE 0.9% 250 ML IV SCH ×2 (06:27→23:47)
[2018-09-27 06:48] LABS: Appearance,Urine Clear (Clear); Bilirubin,Urine Negative (Negative); Blood,Urine Moderate (Negative); Color,Urine Yellow; Glucose,Urine (UA) Negative (Negative); Ketones,Urine Trace (Negative); Leukocyte Esterase,Urine Negative (Negative); Mucus,Urine Rare /hpf; Nitrite,Urine Negative (Negative); Protein,Urine Trace (Negative); RBC,Urine >182 /hpf (0-5); Specific Gravity,Urine 1.034 (1.001-1.035); Urobilinogen,Urine <2.0 mg/dL (<2.0)
[2018-09-27 06:51] LABS: ALT 35 U/L (21-72); AST 33 U/L (17-59); African American GFR (CKD) >90 (>60 ml/min/1.73 sqM); Albumin 2.4 g/dL (3.5-5.0); Alkaline Phosphatase 42 U/L (38-126); Anion Gap 3 mmol/L; Blood Urea Nitrogen 28 mg/dL (9-20); Calcium 6.9 mg/dL (8.4-10.2); Carbon Dioxide 23 mmol/L (22-30); Chloride 110 mmol/L (98-107); Glucose 120 mg/dL (74-99); Magnesium 1.6 mg/dL (1.6-2.3); Phosphorus 3.5 mg/dL (2.5-4.5); Potassium 4.2 mmol/L (3.5-5.1); Sodium 136 mmol/L (137-145); Total Bilirubin 0.4 mg/dL (0.2-1.3); Total Protein 4.6 g/dL (6.3-8.2)
[2018-09-27] MEDS ORDERED: Magnesium Replacement Protocol 1 EACH MISC MISCELLANE PRN (07:01)
[2018-09-27] MEDS: FORMOTEROL FUMARATE 20 MCG/2 ML NEBU INHALATION SCH ×2 (08:02→19:44)
[2018-09-27] MEDS: IPRATROPIUM-ALBUTEROL 3 ML NEB INHALATION SCH ×4 (08:02→19:44)
[2018-09-27] MEDS: BUDESONIDE 0.5 MG/2 ML NEBU INHALATION SCH ×2 (08:02→19:44)
[2018-09-27] MEDS: MAGNESIUM SULFATE-D5W PMX 1 GM in DEXTROSE/WATER 1 100ML.BAG IVPB SCH ×2 (08:45→10:00)
[2018-09-27] MEDS: PANTOPRAZOLE 40 MG TABLET PO SCH (09:59)
[2018-09-27] MEDS: amLODIPine 10 MG TAB PO SCH (10:00)
[2018-09-27] MEDS: ATORVASTATIN 80 MG TAB PO SCH (10:00)
[2018-09-27] MEDS: ASPIRIN 81 MG PO SCH (10:00)
[2018-09-27] MEDS: CHLORHEXIDINE GLUCONATE 15 ML CUP MUCOUS MEM SCH ×2 (10:00→20:37)
[2018-09-27] MEDS: hydrALAZINE HCL 25 MG TAB PO SCH (10:01)
[2018-09-27] MEDS: HEPARIN SODIUM,PORCINE 5,000 UNIT/ML 1 ML VIAL SQ SCH ×2 (10:01→20:37)
[2018-09-27] MEDS: PANTOPRAZOLE 40 MG/10 ML VIAL IVP SCH (10:23)
--- NOTE | 2018-09-27 11:45 | P.PN ---
Subjective Progress Note Date: 09/27/18 Principal diagnosis: Pneumothorax This is a pleasant 68-year-old gentleman with a past medical history significant for hypertension, dyslipidemia, and history of DVT, who was admitted to the hospital with shortness of breath and was found to have pneumothorax which seems to be recurrent. He was discharged from the hospital recently with Thoravent. This time that was attached to suction. He is feeling better. The computed tomography scan revealed right sided pneumothorax. He underwent surgery. The patient underwent right VATS bleb resection. On follow-up with the patient today, he was intubated last night. He is on a small dose of Levothroid. He does have severe aortic stenosis. I am going to DC his blood pressure medications, try to wean him from the Levothroid, and hopefully extubate him soon. Objective - Vital Signs Vital signs: Vital Signs Temp 98.3 F 09/27/18 08:00 Pulse 58 L 09/27/18 08:53 Resp 16 09/27/18 08:00 BP 110/66 09/27/18 08:00 Pulse Ox 98 09/27/18 08:00 Intake & Output 09/26/18 09/27/18 09/27/18 18:59 06:59 18:59 Intake Total 2009 1838.228 76.408 Output Total 870 400 123 Balance 1140 1438.228 -46.592 Intake: IV 1650 1040 20 LR @ 50 50 Sodium Chloride 0.9% 1, 40 20 000 ml @ 0 mls/hr IV .STK -[facility] Rx#:[id number] Sodium Chloride 0.9% 1, 1000 000 ml @ 999 mls/hr IV . Q1H1M [facility] Rx#:[id number] Intake, IV Titration 18.228 56.408 Amount Norepinephrine 4 mg In 3.958 17.168 Sodium Chloride 0.9% 250 ml @ 0.05 MCG/KG/MIN 14. 307 mls/hr IV .[id number] [facility] Rx#:[id number] Propofol 1,000 mg In 14.270 39.24 Empty Bag 1 bag @ Titrate IV .Q0M [facility] Rx#: [id number] Oral 360 780 Output: Drainage 55 23 Right Chest 55 23 Urine 795 400 100 Uretheral (Flores) 140 Estimated Blood Loss 20 Other: Voiding Method Indwelling Catheter Indwelling Catheter ABP, PAP, CO, CI - Last Documented Arterial Blood Pressure 111/45 - Constitutional General appearance: Present: no acute distress - Respiratory Respiratory: bilateral: CTA - Cardiovascular Rhythm: regular Abnormal Heart Sounds: Present: systolic murmur - Labs CBC & Chem 7: 09/27/18 05:45 09/27/18 05:45 Labs: Abnormal Lab Results - Last 24 Hours (Table) 09/27/18 09/27/18 09/27/18 Range/Units 05:43 05:45 05:45 WBC 18.0 H (3.8-10.6) k/uL RBC 4.19 L (4.30-5.90) m/uL Neutrophils # 16.9 H (1.3-7.7) k/uL Lymphocytes # 0.4 L (1.0-4.8) k/uL ABG pH 7.32 L (7.35-7.45) ABG pCO2 54 H (35-45) mmHg ABG pO2 388 H (83-108) mmHg ABG HCO3 28 H (21-25) mmol/L ABG Total CO2 29 H (19-24) mmol/L ABG O2 Saturation 99.8 H (94-97) % Sodium 136 L (137-145) mmol/L Chloride 110 H (98-107) mmol/L BUN 28 H (9-20) mg/dL Glucose 120 H (74-99) mg/dL Calcium 6.9 L (8.4-10.2) mg/dL Total Protein 4.6 L (6.3-8.2) g/dL Albumin 2.4 L (3.5-5.0) g/dL Urine Protein (Negative) Urine Ketones (Negative) Urine Blood (Negative) Urine RBC (0-5) /hpf Urine Mucus (None) /hpf 09/27/18 Range/Units 06:20 WBC (3.8-10.6) k/uL RBC (4.30-5.90) m/uL Neutrophils # (1.3-7.7) k/uL Lymphocytes # (1.0-4.8) k/uL ABG pH (7.35-7.45) ABG pCO2 (35-45) mmHg ABG pO2 (83-108) mmHg ABG HCO3 (21-25) mmol/L ABG Total CO2 (19-24) mmol/L ABG O2 Saturation (94-97) % Sodium (137-145) mmol/L Chloride (98-107) mmol/L BUN (9-20) mg/dL Glucose (74-99) mg/dL Calcium (8.4-10.2) mg/dL Total Protein (6.3-8.2) g/dL Albumin (3.5-5.0) g/dL Urine Protein Trace H (Negative) Urine Ketones Trace H (Negative) Urine Blood Moderate H (Negative) Urine RBC >182 H (0-5) /hpf Urine Mucus Rare H (None) /hpf Assessment and Plan Assessment: Assessment #1 recurrent right-sided pneumothorax #2 hypertension #3 dyslipidemia #4 aortic stenosis Plan #1 continue the current medical regimen #2 down the line, he is to have a ALEJANDRO and heart catheterization to further investigate aortic stenosis #4 follow-up with the patient
--- NOTE | 2018-09-27 12:04 | P.PN ---
Subjective Progress Note Date: 09/27/18 This is a 68-year-old male patient who presented to the hospital with complaints of increased shortness of breath. Patient was recently admitted for spontaneous right-sided pneumothorax post thoracotomy placement. Patient was DC'd with thoraven in place. reports that at home he became very short winded was unable to walk. He has past medical history of COPD, GERD, hyperlipidemia, hypertension, pneumonia, ex-smoker, prostate cancer 2000, DVT 10 years ago completed treatment. Chest x-ray completed showing mild right-sided atelectasis. Right-sided pneumothorax is essentially cleared compared to last exam. Soft tissue air increased compared to last exam. EKG completed showing sinus rhythm with first-degree AV block. Troponin is elevated 0.394, 0.295 and 0.290. Cardiology and pulmonary service is consulted. D-dimer elevated at 2.00. CTA performed pending. BNP also elevated 2820. Patient does have thoravent in place. Cardiothoracic surgery consulted. Patient is very anxious. Ativan given when necessary order. At that time patient is still complaining of some shortness breath. Patient denies chest pain. Patient denies nausea vomiting or diarrhea. Patient denies any urinary burning or frequency. On 09/25/2018 patient's chest tube hooked to suction for right-sided pneu mothorax. Discussed case with cardiothoracic nurse practitioner. Planning VATS procedure. Patient received 1 dose of IV Lasix for mild CHF exacerbation. Per cardiology patient does have aortic stenosis will eventually have ALEJANDRO and heart cath outpatient. At this time patient does state improvement with shortness of breath. Patient denies chest pain. Patient denies nausea vomiting or diarrhea. Patient denies any urinary burning or frequency. On 09/26/2018. Patient had episode of chest tube feeding dislodge this AM. Patient went into a story distress. Patient was taken to emergent surgery for VATS procedure with Dr. Jackman. Patient is currently resting in the intensive care unit. Chest tube is in place. At this time patient does state some improvement with shortness of breath. Patient denies nausea or vomiting. Patient denies any urinary burning or frequency On 09/27/2018 patient required mechanical ventilation and intubation throughout night due to increasing subcu emphysema. At this time patient is sedated. Patient also requiring Levophed for pressure support. Patient remains in intensive care unit. Pulmonary and cardiothoracic services are following. Objective - Vital Signs Vital signs: Vital Signs Temp 98.3 F 09/27/18 08:00 Pulse 58 L 09/27/18 08:53 Resp 16 09/27/18 08:00 BP 110/66 09/27/18 08:00 Pulse Ox 98 09/27/18 08:00 Intake & Output 09/26/18 09/27/18 09/27/18 18:59 06:59 18:59 Intake Total 2009 1838.228 76.408 Output Total 870 400 123 Balance 1140 1438.228 -46.592 Intake: IV 1650 1040 20 LR @ 50 50 Sodium Chloride 0.9% 1, 40 20 000 ml @ 0 mls/hr IV .[facility] Rx#:[id number] Sodium Chloride 0.9% 1, 1000 000 ml @ 999 mls/hr IV . Q1H1M [facility] Rx#:[id number] Intake, IV Titration 18.228 56.408 Amount Norepinephrine 4 mg In 3.958 17.168 Sodium Chloride 0.9% 250 ml @ 0.05 MCG/KG/MIN 14. 307 mls/hr IV .[id number] [facility] Rx#:[id number] Propofol 1,000 mg In 14.270 39.24 Empty Bag 1 bag @ Titrate IV .Q0M [facility] Rx#: [id number] Oral 360 780 Output: Drainage 55 23 Right Chest 55 23 Urine 795 400 100 Uretheral (Flores) 140 Estimated Blood Loss 20 Other: Voiding Method Indwelling Catheter Indwelling Catheter ABP, PAP, CO, CI - Last Documented Arterial Blood Pressure 111/45 - Exam Head normocephalic Neck supple Lungs diminished bilaterally, chest tube in place Heart regular rate and rhythm S1-S2, no rub or gallop Abdomen is soft nontender nondistended positive bowel sounds no hepatosplenomegaly Extremities no edema Neuro alert and orientated to 3 - Labs CBC & Chem 7: 09/27/18 05:45 09/27/18 05:45 Labs: Abnormal Lab Results - Last 24 Hours (Table) 09/27/18 09/27/18 09/27/18 Range/Units 05:43 05:45 05:45 WBC 18.0 H (3.8-10.6) k/uL RBC 4.19 L (4.30-5.90) m/uL Neutrophils # 16.9 H (1.3-7.7) k/uL Lymphocytes # 0.4 L (1.0-4.8) k/uL ABG pH 7.32 L (7.35-7.45) ABG pCO2 54 H (35-45) mmHg ABG pO2 388 H (83-108) mmHg ABG HCO3 28 H (21-25) mmol/L ABG Total CO2 29 H (19-24) mmol/L ABG O2 Saturation 99.8 H (94-97) % Sodium 136 L (137-145) mmol/L Chloride 110 H (98-107) mmol/L BUN 28 H (9-20) mg/dL Glucose 120 H (74-99) mg/dL Calcium 6.9 L (8.4-10.2) mg/dL Total Protein 4.6 L (6.3-8.2) g/dL Albumin 2.4 L (3.5-5.0) g/dL Urine Protein (Negative) Urine Ketones (Negative) Urine Blood (Negative) Urine RBC (0-5) /hpf Urine Mucus (None) /hpf 09/27/18 Range/Units 06:20 WBC (3.8-10.6) k/uL RBC (4.30-5.90) m/uL Neutrophils # (1.3-7.7) k/uL Lymphocytes # (1.0-4.8) k/uL ABG pH (7.35-7.45) ABG pCO2 (35-45) mmHg ABG pO2 (83-108) mmHg ABG HCO3 (21-25) mmol/L ABG Total CO2 (19-24) mmol/L ABG O2 Saturation (94-97) % Sodium (137-145) mmol/L Chloride (98-107) mmol/L BUN (9-20) mg/dL Glucose (74-99) mg/dL Calcium (8.4-10.2) mg/dL Total Protein (6.3-8.2) g/dL Albumin (3.5-5.0) g/dL Urine Protein Trace H (Negative) Urine Ketones Trace H (Negative) Urine Blood Moderate H (Negative) Urine RBC >182 H (0-5) /hpf Urine Mucus Rare H (None) /hpf Assessment and Plan Assessment: 1. Increased shortness of breathing secondary to recurring right-sided pneumothorax. CTA chest performed showing reaccumulation of large, approximately 70% right-sided pneumonia without current mediastinal shift on the exam. thoravent is in place. Extensive underlying emphysematous change. No evidence of central pulmonary embolus. Subsegmental arteries are somewhat limited. No CT evidence of right heart strain. Cardiothoracic services have been consulted. Pulmonary services consulted. currently on DuoNeb breathing treatments and prednisone 40 mg. and 09/26/2018, Thoravent extraembryonic improved this AM. Was taken to the OR for video-assisted thorascopic the with bleb stapling. Patient having subcu emphysema. Patient currently on steroids. 2. Increased subcu emphysema post surgical requiring mechanical ventilation for airway management. Patient is currently maintained on mechanical ventilation. Pulmonary services are following 3. Mild diastolic congestive heart failure. BNP elevated 2820. 2-D echo completed showing EF of 50-55% Cardiology services following. Patient received 1 dose of IV Lasix 4. Elevated troponins. Troponin level 0.395, 0.295 and 0.298. Cardiology services are following 5. Recent right-sided spontaneous pneumothorax status post ThoraVent placement. 6. Leukocytosis. Patient has been on oral prednisone. White blood cell is trending down 7. History of Niesen fundoplication 8. History of prostate cancer 2009 9. History of right leg DVT several years ago no longer on anticoagulation 10. Essential hypertension patient was DC'd during previous admission on Norvasc and hydralazine 11. Anxiety and hyperactivity. Ativan when necessary has been ordered. Maintained on Zoloft 12. Aortic stenosis. 2-D echo completed per cardiology. Patient will likely need ALEJANDRO a cardiac catheterization outpatient 13. Hypotension likely secondary to sedation. Patient currently maintained on Levophed DVT prophylaxis heparin. GI prophylaxis Protonix Patient in the intensive care unit. Pulmonary, cardiology and cardiothoracic following I performed an examination of the patient and discussed their management with the Nurse Practitioner. I have reviewed the Nurse Practitioner's notes and agree with the documented findings and plan of care
[2018-09-27 12:29] LABS: Glucose,Whole Blood 150 mg/dL (75-99)
[2018-09-27] MEDS: INSULIN ASPART (NovoLOG) 100 UNIT/ML VIAL SQ SCH ×3 (13:00→23:55)
[2018-09-27] MEDS ORDERED: ATROPINE SULFATE 0.1 MG/ML 10ML SYRINGE ONE (13:19)
--- NOTE | 2018-09-27 13:19 | P.PN ---
Subjective Progress Note Date: 09/27/18 09/27/2018: Patient seen and examined in the intensive care unit with nursing staff and his sister at bedside. Case was also discussed with thoracic surgery team. Overnight the patient had worsening shortness of breath and subcutaneous emphysema. The patient was unable to protect his airway and was having difficulty swallowing his saliva. The patient was subsequently intubated for airway protection. The patient is currently intubated in the intensive care unit. He does have air leak via his chest tube. His chest x-ray is reviewed and shows minimal pneumothorax. The patient is on 4 mcg/m of Levophed. He has been bradycardic since surgery with heart rates in the 50s to 60s. The patient is currently sedated on propofol. His urine output has been around 100 mL per hour. He was found to have an elevated white blood cell count and 18. He was started on Solu-Medrol overnight. The patient has zero cuff leak. This is discussed with his family at bedside. The patient will remain sedated and intubated. We will recheck cuff leak in the AM and if there is adequate cuff leak, we will proceed with spontaneous breathing trial. Objective - Vital Signs Vital signs: Vital Signs Temp 98.3 F 09/27/18 08:00 Pulse 51 L 09/27/18 12:07 Resp 16 09/27/18 08:00 BP 110/66 09/27/18 08:00 Pulse Ox 98 09/27/18 08:00 Intake & Output 09/26/18 09/27/18 09/27/18 18:59 06:59 18:59 Intake Total 2009 1838.228 76.408 Output Total 870 400 123 Balance 1140 1438.228 -46.592 Intake: IV 1650 1040 20 LR @ 50 50 Sodium Chloride 0.9% 1, 40 20 000 ml @ 0 mls/hr IV .[facility] Rx#:[id number] Sodium Chloride 0.9% 1, 1000 000 ml @ 999 mls/hr IV . Q1H1M [facility] Rx#:[id number] Intake, IV Titration 18.228 56.408 Amount Norepinephrine 4 mg In 3.958 17.168 Sodium Chloride 0.9% 250 ml @ 0.05 MCG/KG/MIN 14. 307 mls/hr IV .[id number] [facility] Rx#:[id number] Propofol 1,000 mg In 14.270 39.24 Empty Bag 1 bag @ Titrate IV .Q0M [facility] Rx#: [id number] Oral 360 780 Output: Drainage 55 23 Right Chest 55 23 Urine 795 400 100 Uretheral (Flores) 140 Estimated Blood Loss 20 Other: Voiding Method Indwelling Catheter Indwelling Catheter ABP, PAP, CO, CI - Last Documented Arterial Blood Pressure 111/45 - Exam General: Sedated on ventilator, comfortable CV: RRR, s1/s2, joel Lungs: Diminished with coarse breath sounds bilaterally, Right chest tube in place with air leak Abdomen: soft, nontender, nondistended, +bs Ext: no edema - Labs CBC & Chem 7: 09/27/18 05:45 09/27/18 05:45 Labs: Abnormal Lab Results - Last 24 Hours (Table) 09/27/18 09/27/18 09/27/18 Range/Units 05:43 05:45 05:45 WBC 18.0 H (3.8-10.6) k/uL RBC 4.19 L (4.30-5.90) m/uL Neutrophils # 16.9 H (1.3-7.7) k/uL Lymphocytes # 0.4 L (1.0-4.8) k/uL ABG pH 7.32 L (7.35-7.45) ABG pCO2 54 H (35-45) mmHg ABG pO2 388 H (83-108) mmHg ABG HCO3 28 H (21-25) mmol/L ABG Total CO2 29 H (19-24) mmol/L ABG O2 Saturation 99.8 H (94-97) % Sodium 136 L (137-145) mmol/L Chloride 110 H (98-107) mmol/L BUN 28 H (9-20) mg/dL Glucose 120 H (74-99) mg/dL POC Glucose (mg/dL) (75-99) mg/dL Calcium 6.9 L (8.4-10.2) mg/dL Total Protein 4.6 L (6.3-8.2) g/dL Albumin 2.4 L (3.5-5.0) g/dL Urine Protein (Negative) Urine Ketones (Negative) Urine Blood (Negative) Urine RBC (0-5) /hpf Urine Mucus (None) /hpf 09/27/18 09/27/18 Range/Units 06:20 12:25 WBC (3.8-10.6) k/uL RBC (4.30-5.90) m/uL Neutrophils # (1.3-7.7) k/uL Lymphocytes # (1.0-4.8) k/uL ABG pH (7.35-7.45) ABG pCO2 (35-45) mmHg ABG pO2 (83-108) mmHg ABG HCO3 (21-25) mmol/L ABG Total CO2 (19-24) mmol/L ABG O2 Saturation (94-97) % Sodium (137-145) mmol/L Chloride (98-107) mmol/L BUN (9-20) mg/dL Glucose (74-99) mg/dL POC Glucose (mg/dL) 150 H (75-99) mg/dL Calcium (8.4-10.2) mg/dL Total Protein (6.3-8.2) g/dL Albumin (3.5-5.0) g/dL Urine Protein Trace H (Negative) Urine Ketones Trace H (Negative) Urine Blood Moderate H (Negative) Urine RBC >182 H (0-5) /hpf Urine Mucus Rare H (None) /hpf Assessment and Plan Assessment: Respiratory failure due to compromised airway, on mechanical ventilation Right spontaneous pneumothorax, s/p VATS Hypotension likely secondary to sedation COPD, severe, FEV 1 41% Leukocytosis History of DVT in the remote past History of prostate cancer Leukocytosis, possibly secondary to steroids History of Padma fundoplication and hiatial hernia GERD Hyperactivity, question bipolar versus ADHD versus other O2 to maintain saturation greater than or equal to 90% Continue Zoloft Continued smoking cessation Pulmciort Steroid taper Dubrigette Perforomist IS and pulmonary hygiene Chest tube per CVTS Monitor urine output and renal function Monitor BP via arterial line Pain control GI and DVT prophylaxis: Heparin and Pepcid Zero cuff leak, patient is not to be extubated at this time. Will continue Solumedrol and recheck cuff leak in the AM. Plans for sedation holiday and SBT will be dependent on cuff leak. Discussed with nursing and will wean levophed to maintain MAP > or = 60. Monitor urine output and renal function. [place] and Dilaudid for pain control. Continue Propofol for sedation. Initiate tube feeds. Blood, urine, sputum cultures. Patient started on Rocephin for UA. Further ABX recommendations pending culture results. Family is at bedside and updated to plan of care. All questions are answered.
--- NOTE | 2018-09-27 13:49 | P.PN ---
Subjective Progress Note Date: 09/27/18 Principal diagnosis: Spontaneous right pneumothorax status post Thoravent placement, mild congestive heart failure, elevated BNP on admission 2820, elevated troponins as high as 0. 395, history of hiatal hernia status post Padma fundoplication, history of prostate cancer, history of right leg deep vein thrombosis, hypertension, hyperlipidemia, history of anxiety, history of pneumonia, remote history of smoking, in remission, history of gastroesophageal reflux disease. POD #1 right video-assisted thoracoscopic surgery with bleb resection and talc pleurodesis. Postoperative respiratory failure due to compromised airway an unexpected outcome. The patient is resting in bed in the intensive care unit. Last evening the patient developed some episodes of anxiety, dyspnea and increasing subcutaneous emphysema to his chest, bilateral upper extremities and to his face and right eye. He was complaining of difficulty swallowing, and progressive shortness of breath. Subsequently, he was intubated with mechanical ventilator support and is currently sedated on propofol drip at 55 mcg/kg/m. According to his nurse the subcutaneous emphysema has somewhat lessened since being intubated. The patient is also on norepinephrine drip at 4 mcg/m due to some hypotension. A right pleural chest tube remains in place to low continuous wall suction -20 cm H2O with a continuous air leak present. Pulmonary critical care medicine was notified of his progressive shortness of breath and he was subsequently started on Solu-Medrol and felt he needed to be intubated to protect his airway. Currently his is at his bedside and was updated on his care and her questions were answered to the best of my ability. Objective - Vital Signs Vital signs: Vital Signs Temp 98.3 F 09/27/18 08:00 Pulse 51 L 09/27/18 12:07 Resp 16 09/27/18 08:00 BP 110/66 09/27/18 08:00 Pulse Ox 98 09/27/18 08:00 Intake & Output 09/26/18 09/27/18 09/27/18 18:59 06:59 18:59 Intake Total 2009 1838.228 76.408 Output Total 870 400 123 Balance 1140 1438.228 -46.592 Intake: IV 1650 1040 20 LR @ 50 50 Sodium Chloride 0.9% 1, 40 20 000 ml @ 0 mls/hr IV .[facility] Rx#:[id number] Sodium Chloride 0.9% 1, 1000 000 ml @ 999 mls/hr IV . Q1H1M [facility] Rx#:[id number] Intake, IV Titration 18.228 56.408 Amount Norepinephrine 4 mg In 3.958 17.168 Sodium Chloride 0.9% 250 ml @ 0.05 MCG/KG/MIN 14. 307 mls/hr IV .[id number] [facility] Rx#:[id number] Propofol 1,000 mg In 14.270 39.24 Empty Bag 1 bag @ Titrate IV .Q0M [facility] Rx#: [id number] Oral 360 780 Output: Drainage 55 23 Right Chest 55 23 Urine 795 400 100 Uretheral (Flores) 140 Estimated Blood Loss 20 Other: Voiding Method Indwelling Catheter Indwelling Catheter ABP, PAP, CO, CI - Last Documented Arterial Blood Pressure 111/45 - Constitutional Constitutional Comment(s): Sedated on propofol drip. General appearance: Present: no acute distress (Temperature) - Respiratory Details: Lungs sounds are diminished throughout, with few scattered rhonchi. Respirations symmetrical and nonlabored with mechanical ventilator support. Current ventilator settings: AC 14, TV 500, FiO2 60%, PEEP 5. Right pleural chest tube remains in place to low continuous wall suction -20 cm H2O. Continuous air leak present. Draining thin serosanguineous drainage, 75 mL output since surgery. - Cardiovascular Details: Regular rhythm with a bradycardic rate. S1 and S2 present, negative for S3 or gallop. Systolic murmur present. Bedside telemetry showing sinus bradycardia heart rate 52. No edema present. Knee-high sequential compression devices and KRISTEN hose in place to his bilateral lower extremities. - Gastrointestinal Gastrointestinal Comment(s): Abdomen is soft, nontender and nondistended. Hypoactive bowel sounds present in all 4 abdominal quadrants. OG tube in place to low intermittent wall suction. - Genitourinary Genitourinary Comment(s): Flores catheter for accurate I&O. Draining clear yellow urine. - Integumentary Integumentary Comment(s): Skin is warm and dry. No clubbing or cyanosis is present. Right VATS incisions clean, dry and approximated. Dressings are clean, dry and intact. No drainage or redness is present. Dressing in place to his right pleural chest tube, clean and dry. - Neurologic Neurologic: Present: CNII-XII intact - Musculoskeletal Musculoskeletal Comment(s): Bed rest at this time, sedated with propofol drip. - Psychiatric Psychiatric Comment(s): Sedated on propofol drip at 55 mcg/kg/m. - Allied health notes Allied health notes reviewed: nursing - Labs CBC & Chem 7: 09/27/18 05:45 09/27/18 05:45 Labs: Abnormal Lab Results - Last 24 Hours (Table) 09/27/18 09/27/18 09/27/18 Range/Units 05:43 05:45 05:45 WBC 18.0 H (3.8-10.6) k/uL RBC 4.19 L (4.30-5.90) m/uL Neutrophils # 16.9 H (1.3-7.7) k/uL Lymphocytes # 0.4 L (1.0-4.8) k/uL ABG pH 7.32 L (7.35-7.45) ABG pCO2 54 H (35-45) mmHg ABG pO2 388 H (83-108) mmHg ABG HCO3 28 H (21-25) mmol/L ABG Total CO2 29 H (19-24) mmol/L ABG O2 Saturation 99.8 H (94-97) % Sodium 136 L (137-145) mmol/L Chloride 110 H (98-107) mmol/L BUN 28 H (9-20) mg/dL Glucose 120 H (74-99) mg/dL POC Glucose (mg/dL) (75-99) mg/dL Calcium 6.9 L (8.4-10.2) mg/dL Total Protein 4.6 L (6.3-8.2) g/dL Albumin 2.4 L (3.5-5.0) g/dL Urine Protein (Negative) Urine Ketones (Negative) Urine Blood (Negative) Urine RBC (0-5) /hpf Urine Mucus (None) /hpf 09/27/18 09/27/18 Range/Units 06:20 12:25 WBC (3.8-10.6) k/uL RBC (4.30-5.90) m/uL Neutrophils # (1.3-7.7) k/uL Lymphocytes # (1.0-4.8) k/uL ABG pH (7.35-7.45) ABG pCO2 (35-45) mmHg ABG pO2 (83-108) mmHg ABG HCO3 (21-25) mmol/L ABG Total CO2 (19-24) mmol/L ABG O2 Saturation (94-97) % Sodium (137-145) mmol/L Chloride (98-107) mmol/L BUN (9-20) mg/dL Glucose (74-99) mg/dL POC Glucose (mg/dL) 150 H (75-99) mg/dL Calcium (8.4-10.2) mg/dL Total Protein (6.3-8.2) g/dL Albumin (3.5-5.0) g/dL Urine Protein Trace H (Negative) Urine Ketones Trace H (Negative) Urine Blood Moderate H (Negative) Urine RBC >182 H (0-5) /hpf Urine Mucus Rare H (None) /hpf - Imaging and Cardiology Chest x-ray: report reviewed, image reviewed Assessment and Plan Assessment: 1. Recurrent spontaneous right pneumothorax with Thoravent in place 2. Chronic obstructive pulmonary disease 3. Mild congestive heart failure, elevated BNP 2820 4. Elevated troponins as high as 0.395 5. Leukocytosis 6. History of hiatal hernia status post Padma fundoplication 7. History of prostate cancer 8. History of right leg deep vein thrombosis 9. Hypertension 10. Hyperlipidemia 11. Anxiety 12. History of pneumonia 13. Remote history of smoking, in remission 14. History of gastroesophageal reflux disease 15. Subcutaneous emphysema 16. Postoperative acute respiratory failure due to compromised airway, an unexpected outcome Plan: 1. Keep right pleural chest tube in place to low continuous wall suction -20 cm H2O. Monitor for resolution of air leak. 2. Mechanical ventilator, bronchodilator and steroid management and pulmonary management per Dr. Chirinos. 3. GI and DVT prophylaxis. 4. Continue education on smoking cessation. 5. Pain control per current ordered regimen. 6. Medical management per primary care service. 7. Once extubated encourage use of his incentive spirometry every hour while awake. 8. Once extubated encourage activity as tolerated consult physical and occupational therapy. 9. More recommendations to follow based on patient's clinical course. Time with Patient: Greater than 30
[2018-09-27 17:24] LABS: Glucose,Whole Blood 131 mg/dL (75-99)
[2018-09-27] MEDS: MONTELUKAST 10 MG TAB PO SCH (20:37)
[2018-09-27] MEDS: SERTRALINE 50 MG TAB PO SCH (22:57)
[2018-09-28 00:01] LABS: Glucose,Whole Blood 179 mg/dL (75-99)
[2018-09-28] MEDS: HYDROmorphone 1 MG/ML 1 ML SYRINGE IVP PRN ×2 (02:44→11:05)
[2018-09-28] MEDS: PROPOFOL 1,000 MG in EMPTY BAG 1 BAG IV SCH ×6 (04:14→21:32)
[2018-09-28 04:28] LABS: Basophils % (A) 0 %; Eosinophils % (A) 0 %; HCT 36.8 % (39.0-53.0); HGB 11.7 gm/dL (13.0-17.5); Lymphocytes # (A) 0.4 k/uL (1.0-4.8); Lymphocytes % (A) 2 %; MCH 31.5 pg (25.0-35.0); MCHC 31.7 g/dL (31.0-37.0); MCV 99.7 fL (80.0-100.0); Mean Platelet Volume 6.5; Monocytes # (A) 0.5 k/uL (0-1.0); Monocytes % (A) 3 %; Neutrophils # (A) 17.4 k/uL (1.3-7.7); Neutrophils % (A) 95 %; Platelet Count 184 k/uL (150-450); WBC 18.4 k/uL (3.8-10.6)
[2018-09-28 04:49] LABS: ABG Base Excess 1.9 mmol/L; ABG HCO3 28 mmol/L (21-25); ABG Oxygen Saturation 99.1 % (94-97); ABG PCO2 53 mmHg (35-45); ABG PH 7.33 (7.35-7.45); ABG PO2 159 mmHg (83-108); ABG TCO2 30 mmol/L (19-24); Allen Test Performed? Yes
[2018-09-28 04:54] LABS: ALT 27 U/L (21-72); AST 17 U/L (17-59); African American GFR (CKD) >90 (>60 ml/min/1.73 sqM); Alkaline Phosphatase 39 U/L (38-126); Anion Gap 0 mmol/L; Blood Urea Nitrogen 22 mg/dL (9-20); Calcium 6.7 mg/dL (8.4-10.2); Carbon Dioxide 23 mmol/L (22-30); Chloride 115 mmol/L (98-107); Glucose 101 mg/dL (74-99); Magnesium 2.1 mg/dL (1.6-2.3); Potassium 3.8 mmol/L (3.5-5.1); Sodium 138 mmol/L (137-145); Total Bilirubin 0.2 mg/dL (0.2-1.3); Total Protein 4.1 g/dL (6.3-8.2)
[2018-09-28 06:30] LABS: Glucose,Whole Blood 120 mg/dL (75-99)
[2018-09-28] MEDS: INSULIN ASPART (NovoLOG) 100 UNIT/ML VIAL SQ SCH ×3 (06:31→18:27)
[2018-09-28] MEDS ORDERED: Potassium Replacement Protocol 1 EACH MISC MISCELLANE PRN (06:41)
[2018-09-28] MEDS: POTASSIUM CHLORIDE 10 MEQ in WATER FOR INJECTION 1 100ML.BAG IVPB SCH ×2 (07:14→08:20)
--- NOTE | 2018-09-28 07:19 | XR ---
EXAMINATION TYPE: XR chest 1V portable DATE OF EXAM: 09/28/2018 HISTORY: Tube placement COMPARISON: September 27, 2018 TECHNIQUE: Single view of the chest is submitted. FINDINGS: Endotracheal and NG tubes are unchanged in position. Right-sided chest tube is also unchanged in posi tion. No evidence for sizable pneumothorax. Extensive subcutaneous emphysema noted. The heart is stable. Hilar and mediastinal structures are within normal limits. Degenerative changes are seen of the dorsal spine. IMPRESSION: 1. Endotracheal and NG tubes are unchanged in position. Right-sided chest tube is also unchanged in position. No evidence for sizable pneumothorax. Extensive subcutaneous emphysema noted.
--- NOTE | 2018-09-28 07:36 | P.PN ---
Subjective Progress Note Date: 09/28/18 Principal diagnosis: Pneumothorax This is a pleasant 68-year-old gentleman with a past medical history significant for hypertension, dyslipidemia, and history of DVT, who was admitted to the hospital with shortness of breath and was found to have pneumothorax which seems to be recurrent. He was discharged from the hospital recently with Thoravent. This time that was attached to suction. He is feeling better. The computed tomography scan revealed right sided pneumothorax. He underwent surgery. The patient underwent right VATS bleb resection. On follow-up with the patient today, 09/28/2018, the patient still intubated on mechanical ventilation. Hemodynamically the patient continues to be unstable and requiring small doses of norepinephrine. Part of the hemodynamic instability is that he is on propofol, in the setting of severe aortic stenosis. The chest x-ray from today revealed no evidence off pneumothorax with extensive subcutaneous emphysema changes. Objective - Vital Signs Vital signs: Vital Signs Temp 97.4 F L 09/28/18 04:00 Pulse 42 L 09/28/18 07:00 Resp 14 09/28/18 07:00 BP 99/61 09/28/18 02:00 Pulse Ox 98 09/28/18 07:00 Intake & Output 09/27/18 09/28/18 09/28/18 18:59 06:59 18:59 Intake Total 935.231 958.630 63.277 Output Total 1283 535 Balance -347.769 423.630 63.277 Weight 75.1 kg 78.5 kg Intake: IV 250 436 43 Normal Saline 200 400 40 Normal Saline Pressure 30 36 3 Bag Sodium Chloride 0.9% 1, 20 000 ml @ 0 mls/hr IV .[facility] Rx#:[id number] Intake, IV Titration 625.231 392.630 20.277 Amount Magnesium Sulfate-D5w Pmx 200 1 gm In Dextrose/Water 1 100ml.bag @ 100 mls/hr IVPB Q1H [facility] Rx#: [id number] Norepinephrine 4 mg In 145.119 61.280 Sodium Chloride 0.9% 250 ml @ 0.05 MCG/KG/MIN 14. 307 mls/hr IV .[id number] [facility] Rx#:[id number] Propofol 1,000 mg In 230.112 331.350 20.277 Empty Bag 1 bag @ Titrate IV .Q0M [facility] Rx#: [id number] cefTRIAXone 1 gm In 50 Sodium Chloride 0.9% 50 ml @ 100 mls/hr IVPB Q24H [facility] Rx#:[id number] Tube Feeding 70 Other 60 60 Output: Chest Tube Drainage 50 Chest Tube Right Lateral 50 Chest Drainage 23 Right Chest 23 Urine 1210 535 Other: Voiding Method Indwelling Catheter Indwelling Catheter ABP, PAP, CO, CI - Last Documented Arterial Blood Pressure 110/47 - Constitutional General appearance: Present: no acute distress - Respiratory Respiratory: bilateral: CTA - Cardiovascular Rhythm: regular Heart sounds: normal: S1, S2 Abnormal Heart Sounds: Present: systolic murmur - Labs CBC & Chem 7: 09/28/18 04:05 09/28/18 04:05 Labs: Abnormal Lab Results - Last 24 Hours (Table) 09/27/18 09/27/18 09/27/18 Range/Units 12:25 17:23 23:52 WBC (3.8-10.6) k/uL RBC (4.30-5.90) m/uL Hgb (13.0-17.5) gm/dL Hct (39.0-53.0) % Neutrophils # (1.3-7.7) k/uL Lymphocytes # (1.0-4.8) k/uL ABG pH (7.35-7.45) ABG pCO2 (35-45) mmHg ABG pO2 (83-108) mmHg ABG HCO3 (21-25) mmol/L ABG Total CO2 (19-24) mmol/L ABG O2 Saturation (94-97) % Chloride (98-107) mmol/L BUN (9-20) mg/dL Creatinine (0.66-1.25) mg/dL Glucose (74-99) mg/dL POC Glucose (mg/dL) 150 H 131 H 179 H (75-99) mg/dL Calcium (8.4-10.2) mg/dL Total Protein (6.3-8.2) g/dL Albumin (3.5-5.0) g/dL 09/28/18 09/28/18 09/28/18 Range/Units 04:05 04:05 04:43 WBC 18.4 H (3.8-10.6) k/uL RBC 3.70 L (4.30-5.90) m/uL Hgb 11.7 L (13.0-17.5) gm/dL Hct 36.8 L (39.0-53.0) % Neutrophils # 17.4 H (1.3-7.7) k/uL Lymphocytes # 0.4 L (1.0-4.8) k/uL ABG pH 7.33 L (7.35-7.45) ABG pCO2 53 H (35-45) mmHg ABG pO2 159 H (83-108) mmHg ABG HCO3 28 H (21-25) mmol/L ABG Total CO2 30 H (19-24) mmol/L ABG O2 Saturation 99.1 H (94-97) % Chloride 115 H (98-107) mmol/L BUN 22 H (9-20) mg/dL Creatinine 0.55 L (0.66-1.25) mg/dL Glucose 101 H (74-99) mg/dL POC Glucose (mg/dL) (75-99) mg/dL Calcium 6.7 L (8.4-10.2) mg/dL Total Protein 4.1 L (6.3-8.2) g/dL Albumin 2.0 L (3.5-5.0) g/dL 09/28/18 Range/Units 06:28 WBC (3.8-10.6) k/uL RBC (4.30-5.90) m/uL Hgb (13.0-17.5) gm/dL Hct (39.0-53.0) % Neutrophils # (1.3-7.7) k/uL Lymphocytes # (1.0-4.8) k/uL ABG pH (7.35-7.45) ABG pCO2 (35-45) mmHg ABG pO2 (83-108) mmHg ABG HCO3 (21-25) mmol/L ABG Total CO2 (19-24) mmol/L ABG O2 Saturation (94-97) % Chloride (98-107) mmol/L BUN (9-20) mg/dL Creatinine (0.66-1.25) mg/dL Glucose (74-99) mg/dL POC Glucose (mg/dL) 120 H (75-99) mg/dL Calcium (8.4-10.2) mg/dL Total Protein (6.3-8.2) g/dL Albumin (3.5-5.0) g/dL Microbiology - Last 24 Hours (Table) 09/27/18 06:20 Urine Culture - Preliminary Urine,Catheterized Assessment and Plan Assessment: Assessment #1 recurrent right-sided pneumothorax #2 acute hypoxic respiratory failure #3 hypotension Plan #1 right wean the patient from norepinephrine #2 hopefully extubate the patient later on today #3 follow-up with the patient
[2018-09-28] MEDS: BUDESONIDE 0.5 MG/2 ML NEBU INHALATION SCH ×2 (07:37→19:41)
[2018-09-28] MEDS: FORMOTEROL FUMARATE 20 MCG/2 ML NEBU INHALATION SCH ×2 (07:37→19:41)
[2018-09-28] MEDS: IPRATROPIUM-ALBUTEROL 3 ML NEB INHALATION SCH ×4 (07:37→19:41)
[2018-09-28] MEDS: methylPREDNISolone SOD SUCCI 40 MG/ML 1 ML VIAL IV SCH ×2 (08:19→16:47)
[2018-09-28] MEDS: CHLORHEXIDINE GLUCONATE 15 ML CUP MUCOUS MEM SCH ×2 (08:19→21:36)
[2018-09-28] MEDS: PANTOPRAZOLE 40 MG/10 ML VIAL IVP SCH (08:19)
[2018-09-28] MEDS: HEPARIN SODIUM,PORCINE 5,000 UNIT/ML 1 ML VIAL SQ SCH ×2 (08:20→21:36)
[2018-09-28] MEDS: ASPIRIN 81 MG PO SCH (08:20)
[2018-09-28] MEDS: ATORVASTATIN 80 MG TAB PO SCH (08:20)
--- NOTE | 2018-09-28 09:34 | P.PN ---
Subjective Progress Note Date: 09/28/18 This is a 68-year-old male patient who presented to the hospital with complaints of increased shortness of breath. Patient was recently admitted for spontaneous right-sided pneumothorax post thoracotomy placement. Patient was DC'd with thoraven in place. reports that at home he became very short winded was unable to walk. He has past medical history of COPD, GERD, hyperlipidemia, hypertension, pneumonia, ex-smoker, prostate cancer 2000, DVT 10 years ago completed treatment. Chest x-ray completed showing mild right-sided atelectasis. Right-sided pneumothorax is essentially cleared compared to last exam. Soft tissue air increased compared to last exam. EKG completed showing sinus rhythm with first-degree AV block. Troponin is elevated 0.394, 0.295 and 0.290. Cardiology and pulmonary service is consulted. D-dimer elevated at 2.00. CTA performed pending. BNP also elevated 2820. Patient does have thoravent in place. Cardiothoracic surgery consulted. Patient is very anxious. Ativan given when necessary order. At that time patient is still complaining of some shortness breath. Patient denies chest pain. Patient denies nausea vomiting or diarrhea. Patient denies any urinary burning or frequency. On 09/25/2018 patient's chest tube hooked to suction for right-sided pneu mothorax. Discussed case with cardiothoracic nurse practitioner. Planning VATS procedure. Patient received 1 dose of IV Lasix for mild CHF exacerbation. Per cardiology patient does have aortic stenosis will eventually have ALEJANDRO and heart cath outpatient. At this time patient does state improvement with shortness of breath. Patient denies chest pain. Patient denies nausea vomiting or diarrhea. Patient denies any urinary burning or frequency. On 09/26/2018. Patient had episode of Thora vent dislodge this AM. Patient went into a story distress. Patient was taken to emergent surgery for VATS procedure with Dr. Jackman. Patient is currently resting in the intensive care unit. Chest tube is in place. At this time patient does state some improvement with shortness of breath. Patient denies nausea or vomiting. Patient denies any urinary burning or frequency On 09/27/2018 patient required mechanical ventilation and intubation throughout night due to increasing subcu emphysema. At this time patient is sedated. Patient also requiring Levophed for pressure support. Patient remains in intensive care unit. Pulmonary and cardiothoracic services are following. On 09/28/2018 patient remains on mechanical ventilation in the ICU. Patient remains on sedation. Pulmonary following. Patient started on Rocephin. Patient maintained on IV Solu-Medrol. Patient improvement with subcu emphysema. Patient remains on Levophed for pressure support. No plans to wean today per pulmonary. Continue tube feeds Objective - Vital Signs Vital signs: Vital Signs Temp 97.5 F L 09/28/18 08:00 Pulse 48 L 09/28/18 08:30 Resp 14 09/28/18 08:30 BP 99/61 09/28/18 02:00 Pulse Ox 99 09/28/18 08:30 Intake & Output 09/27/18 09/28/18 09/28/18 18:59 06:59 18:59 Intake Total 935.231 958.630 366.438 Output Total 1283 535 30 Balance -347.769 423.630 336.438 Weight 75.1 kg 78.5 kg Intake: IV 250 436 266 Normal Saline 200 400 60 Normal Saline Pressure 30 36 6 Bag Potassium Chloride 10 meq 200 In Water For Injection 1 100ml.bag @ 100 mls/hr IVPB Q1H [facility] Rx#: [id number] Sodium Chloride 0.9% 1, 20 000 ml @ 0 mls/hr IV .[facility] Rx#:[id number] Intake, IV Titration 625.231 392.630 100.438 Amount Magnesium Sulfate-D5w Pmx 200 1 gm In Dextrose/Water 1 100ml.bag @ 100 mls/hr IVPB Q1H [facility] Rx#: [id number] Norepinephrine 4 mg In 145.119 61.280 45.307 Sodium Chloride 0.9% 250 ml @ 0.05 MCG/KG/MIN 14. 307 mls/hr IV .[id number] [facility] Rx#:[id number] Propofol 1,000 mg In 230.112 331.350 55.131 Empty Bag 1 bag @ Titrate IV .Q0M [facility] Rx#: [id number] cefTRIAXone 1 gm In 50 Sodium Chloride 0.9% 50 ml @ 100 mls/hr IVPB Q24H [facility] Rx#:[id number] Tube Feeding 70 Other 60 60 Output: Chest Tube Drainage 50 0 Chest Tube Right Lateral 50 0 Chest Drainage 23 Right Chest 23 Urine 1210 535 30 Other: Voiding Method Indwelling Catheter Indwelling Catheter ABP, PAP, CO, CI - Last Documented Arterial Blood Pressure 128/62 - Exam Head normocephalic Neck supple Lungs diminished bilaterally, chest tube in place Heart regular rate and rhythm S1-S2, no rub or gallop Abdomen is soft nontender nondistended positive bowel sounds no hepatosplenomegaly Extremities no edema Neuro alert and orientated to 3 - Labs CBC & Chem 7: 09/28/18 04:05 09/28/18 04:05 Labs: Abnormal Lab Results - Last 24 Hours (Table) 09/27/18 09/27/18 09/27/18 Range/Units 12:25 17:23 23:52 WBC (3.8-10.6) k/uL RBC (4.30-5.90) m/uL Hgb (13.0-17.5) gm/dL Hct (39.0-53.0) % Neutrophils # (1.3-7.7) k/uL Lymphocytes # (1.0-4.8) k/uL ABG pH (7.35-7.45) ABG pCO2 (35-45) mmHg ABG pO2 (83-108) mmHg ABG HCO3 (21-25) mmol/L ABG Total CO2 (19-24) mmol/L ABG O2 Saturation (94-97) % Chloride (98-107) mmol/L BUN (9-20) mg/dL Creatinine (0.66-1.25) mg/dL Glucose (74-99) mg/dL POC Glucose (mg/dL) 150 H 131 H 179 H (75-99) mg/dL Calcium (8.4-10.2) mg/dL Total Protein (6.3-8.2) g/dL Albumin (3.5-5.0) g/dL 09/28/18 09/28/18 09/28/18 Range/Units 04:05 04:05 04:43 WBC 18.4 H (3.8-10.6) k/uL RBC 3.70 L (4.30-5.90) m/uL Hgb 11.7 L (13.0-17.5) gm/dL Hct 36.8 L (39.0-53.0) % Neutrophils # 17.4 H (1.3-7.7) k/uL Lymphocytes # 0.4 L (1.0-4.8) k/uL ABG pH 7.33 L (7.35-7.45) ABG pCO2 53 H (35-45) mmHg ABG pO2 159 H (83-108) mmHg ABG HCO3 28 H (21-25) mmol/L ABG Total CO2 30 H (19-24) mmol/L ABG O2 Saturation 99.1 H (94-97) % Chloride 115 H (98-107) mmol/L BUN 22 H (9-20) mg/dL Creatinine 0.55 L (0.66-1.25) mg/dL Glucose 101 H (74-99) mg/dL POC Glucose (mg/dL) (75-99) mg/dL Calcium 6.7 L (8.4-10.2) mg/dL Total Protein 4.1 L (6.3-8.2) g/dL Albumin 2.0 L (3.5-5.0) g/dL 09/28/18 Range/Units 06:28 WBC (3.8-10.6) k/uL RBC (4.30-5.90) m/uL Hgb (13.0-17.5) gm/dL Hct (39.0-53.0) % Neutrophils # (1.3-7.7) k/uL Lymphocytes # (1.0-4.8) k/uL ABG pH (7.35-7.45) ABG pCO2 (35-45) mmHg ABG pO2 (83-108) mmHg ABG HCO3 (21-25) mmol/L ABG Total CO2 (19-24) mmol/L ABG O2 Saturation (94-97) % Chloride (98-107) mmol/L BUN (9-20) mg/dL Creatinine (0.66-1.25) mg/dL Glucose (74-99) mg/dL POC Glucose (mg/dL) 120 H (75-99) mg/dL Calcium (8.4-10.2) mg/dL Total Protein (6.3-8.2) g/dL Albumin (3.5-5.0) g/dL Microbiology - Last 24 Hours (Table) 09/27/18 06:20 Urine Culture - Preliminary Urine,Catheterized Assessment and Plan Assessment: 1. Increased shortness of breathing secondary to recurring right-sided pneumothorax. CTA chest performed showing reaccumulation of large, approxi mately 70% right-sided pneumonia without current mediastinal shift on the exam. thoravent is in place. Extensive underlying emphysematous change. No evidence of central pulmonary embolus. Subsegmental arteries are somewhat limited. No CT evidence of right heart strain. Cardiothoracic services have been consulted. Pulmonary services consulted. currently on DuoNeb breathing treatments and pr ednisone 40 mg. and 09/26/2018, Thoravent extraembryonic improved this AM. Was taken to the OR for video-assisted thorascopic the with bleb stapling. Patient having subcu emphysema. Patient currently on steroids. 2. Increased subcu emphysema post surgical requiring mechanical ventilation for airway management. Patient is currently maintained on mechanical ventilation. Pulmonary services are following 3. Mild diastolic congestive heart failure. BNP elevated 2820. 2-D echo completed showing EF of 50-55% Cardiology services following. Patient received 1 dose of IV Lasix 4. Elevated troponins. Troponin level 0.395, 0.295 and 0.298. Cardiology services are following 5. Recent right-sided spontaneous pneumothorax status post ThoraVent placement. 6. Leukocytosis. Patient has been on oral prednisone. White blood cell is trending down 7. History of Niesen fundoplication 8. History of prostate cancer 2009 9. History of right leg DVT several years ago no longer on anticoagulation 10. Essential hypertension patient was DC'd during previous admission on Norvasc and hydralazine 11. Anxiety and hyperactivity. Ativan when necessary has been ordered. Maintained on Zoloft 12. Aortic stenosis. 2-D echo completed per cardiology. Patient will likely need ALEJANDRO a cardiac catheterization outpatient 13. Hypotension likely secondary to sedation. Patient currently maintained on Levophed DVT prophylaxis heparin. GI prophylaxis Protonix Patient in the intensive care unit. Pulmonary, cardiology and cardiothoracic following I performed an examination of the patient and discussed their management with the Nurse Practitioner. I have reviewed the Nurse Practitioner's notes and agree with the documented findings and plan of care
[2018-09-28] MEDS ORDERED: CALCIUM GLUCONATE 2 GM in SODIUM CHLORIDE 0.9% 100 ML IVPB ONE (10:00)
[2018-09-28 12:16] LABS: Glucose,Whole Blood 145 mg/dL (75-99)
--- NOTE | 2018-09-28 13:47 | P.PN ---
Subjective Progress Note Date: 09/28/18 Principal diagnosis: Recurrent spontaneous right pneumothorax with thoravent in place. Mild congestive heart failure on admission with BNP 2820, elevated troponins of 0.395. New diagnosis of severe aortic stenosis per echocardiogram. Previous medical history of tobacco dependence, COPD, hypertension, hyperlipidemia, severe acid reflux, hiatal hernia status post Padma fundoplication with mesh repair, right leg DVT, renal failure secondary to dehydration, and prostate cancer. POD #2 right VATS bleb resection with mechanical and talc pleurodesis Postoperative hypoxic respiratory failure secondary to compromised airway, expected outcome given extensive subcutaneous emphysema The patient remains intubated and mechanically ventilated in the intensive care unit. Attempt was made last night and this morning for cuff leak which the patient did not have, hence he will remain intubated per pulmonology. Was hypotensive yesterday requiring initiation of levofed. With lightened sedation this morning he was moving all extremities but not to command. Right-sided chest tube remains present with continuous air leak. Subcu emphysema improved but still present. Objective - Vital Signs Vital signs: Vital Signs Temp 97.8 F 09/28/18 12:00 Pulse 49 L 09/28/18 13:00 Resp 14 09/28/18 13:00 BP 99/61 09/28/18 02:00 Pulse Ox 96 09/28/18 13:00 Intake & Output 09/27/18 09/28/18 09/28/18 18:59 06:59 18:59 Intake Total 935.231 958.630 643.584 Output Total 1283 535 175 Balance -347.769 423.630 468.584 Weight 75.1 kg 78.5 kg 78.5 kg Intake: IV 250 436 438 Normal Saline 200 400 220 Normal Saline Pressure 30 36 18 Bag Potassium Chloride 10 meq 200 In Water For Injection 1 100ml.bag @ 100 mls/hr IVPB Q1H [facility] Rx#: [id number] Sodium Chloride 0.9% 1, 20 000 ml @ 0 mls/hr IV [facility] Rx#:[id number] Intake, IV Titration 625.231 392.630 165.584 Amount Magnesium Sulfate-D5w Pmx 200 1 gm In Dextrose/Water 1 100ml.bag @ 100 mls/hr IVPB Q1H [facility] Rx#: [id number] Norepinephrine 4 mg In 145.119 61.280 45.307 Sodium Chloride 0.9% 250 ml @ 0.05 MCG/KG/MIN 14. 307 mls/hr IV .[id number] [facility] Rx#:[id number] Propofol 1,000 mg In 230.112 331.350 120.277 Empty Bag 1 bag @ Titrate IV .Q0M [facility] Rx#: [id number] cefTRIAXone 1 gm In 50 Sodium Chloride 0.9% 50 ml @ 100 mls/hr IVPB Q24H [facility] Rx#:[id number] Tube Feeding 70 40 Other 60 60 Output: Chest Tube Drainage 50 20 Chest Tube Right Lateral 50 20 Chest Drainage 23 Right Chest 23 Urine 1210 535 155 Other: Voiding Method Indwelling Catheter Indwelling Catheter Indwelling Catheter ABP, PAP, CO, CI - Last Documented Arterial Blood Pressure 102/52 - Constitutional General appearance: Present: no acute distress - Respiratory Details: Lungs sounds diminished bilaterally. Respirations even, nonlabored on mechanical ventilation. Current ventilator settings assist control mode, FiO2 40%, tidal volume 500, respiratory rate 14, PEEP 5. 7.5 ET tube present, 24 at the lip. Right pleural chest tube present to -20 cm continuous wall suction, 170 mL serosanguineous drainage in the last 24 hours, continuous air leak present. - Cardiovascular Details: S1, S2 present. Slow but regular rate and rhythm, sinus bradycardia on telemetry. Palpable peripheral pulses bilaterally. No lower extremity edema present. No calf pain or tenderness noted. Left radial arterial line present. SCDs present. - Gastrointestinal Gastrointestinal Comment(s): Abdomen soft, nontender, nondistended. Active bowel sounds present 4 quadrants. OG tube present with tube feeding infusing at 20 mL/h. - Genitourinary Genitourinary Comment(s): Flores present draining clear, yellow urine. Output 30-50 mL per hour overnight. - Integumentary Integumentary Comment(s): Skin is warm and dry with evidence of good perfusion. Right lateral chest tube site covered with dry intact dressing. - Neurologic Neurologic: Present: CNII-XII intact - Allied health notes Allied health notes reviewed: nursing - Labs CBC & Chem 7: 09/28/18 04:05 09/28/18 04:05 Labs: Abnormal Lab Results - Last 24 Hours (Table) 09/27/18 09/27/18 09/28/18 Range/Units 17:23 23:52 04:05 WBC 18.4 H (3.8-10.6) k/uL RBC 3.70 L (4.30-5.90) m/uL Hgb 11.7 L (13.0-17.5) gm/dL Hct 36.8 L (39.0-53.0) % Neutrophils # 17.4 H (1.3-7.7) k/uL Lymphocytes # 0.4 L (1.0-4.8) k/uL ABG pH (7.35-7.45) ABG pCO2 (35-45) mmHg ABG pO2 (83-108) mmHg ABG HCO3 (21-25) mmol/L ABG Total CO2 (19-24) mmol/L ABG O2 Saturation (94-97) % Chloride (98-107) mmol/L BUN (9-20) mg/dL Creatinine (0.66-1.25) mg/dL Glucose (74-99) mg/dL POC Glucose (mg/dL) 131 H 179 H (75-99) mg/dL Calcium (8.4-10.2) mg/dL Total Protein (6.3-8.2) g/dL Albumin (3.5-5.0) g/dL 09/28/18 09/28/18 09/28/18 Range/Units 04:05 04:43 06:28 WBC (3.8-10.6) k/uL RBC (4.30-5.90) m/uL Hgb (13.0-17.5) gm/dL Hct (39.0-53.0) % Neutrophils # (1.3-7.7) k/uL Lymphocytes # (1.0-4.8) k/uL ABG pH 7.33 L (7.35-7.45) ABG pCO2 53 H (35-45) mmHg ABG pO2 159 H (83-108) mmHg ABG HCO3 28 H (21-25) mmol/L ABG Total CO2 30 H (19-24) mmol/L ABG O2 Saturation 99.1 H (94-97) % Chloride 115 H (98-107) mmol/L BUN 22 H (9-20) mg/dL Creatinine 0.55 L (0.66-1.25) mg/dL Glucose 101 H (74-99) mg/dL POC Glucose (mg/dL) 120 H (75-99) mg/dL Calcium 6.7 L (8.4-10.2) mg/dL Total Protein 4.1 L (6.3-8.2) g/dL Albumin 2.0 L (3.5-5.0) g/dL 09/28/18 Range/Units 12:14 WBC (3.8-10.6) k/uL RBC (4.30-5.90) m/uL Hgb (13.0-17.5) gm/dL Hct (39.0-53.0) % Neutrophils # (1.3-7.7) k/uL Lymphocytes # (1.0-4.8) k/uL ABG pH (7.35-7.45) ABG pCO2 (35-45) mmHg ABG pO2 (83-108) mmHg ABG HCO3 (21-25) mmol/L ABG Total CO2 (19-24) mmol/L ABG O2 Saturation (94-97) % Chloride (98-107) mmol/L BUN (9-20) mg/dL Creatinine (0.66-1.25) mg/dL Glucose (74-99) mg/dL POC Glucose (mg/dL) 145 H (75-99) mg/dL Calcium (8.4-10.2) mg/dL Total Protein (6.3-8.2) g/dL Albumin (3.5-5.0) g/dL Microbiology - Last 24 Hours (Table) 09/27/18 06:20 Urine Culture - Final Urine,Catheterized 09/28/18 01:05 Sputum Culture - Preliminary Sputum - Imaging and Cardiology Chest x-ray: report reviewed, image reviewed Assessment and Plan Assessment: 1. Recurrent spontaneous right pneumothorax, status post VATS with bleb resection and pleurodesis 2. Mild congestive heart failure, elevated BNP 2820 3. Elevated troponins as high as 0.395 4. Leukocytosis 5. Previous tobacco dependence 6. Chronic obstructive pulmonary disease 7. Hypertension 8. Hyperlipidemia 9. Severe acid reflux 10. History of hiatal hernia status post Padma fundoplication 11. History of prostate cancer 12. History of right leg deep vein thrombosis 13. Anxiety 14. Severe aortic stenosis discovered on transthoracic echocardiogram with peak/mean gradient 88.19 mmHg/61.56 mmHg and valve area 0.4 cm 15. Postoperative subcu emphysema, expected 16. Postoperative acute respiratory failure secondary to compromised airway Plan: 1. Continue chest tube to continuous wall suction. Will monitor for resolution of air leak. 2. Mechanical ventilator, bronchodilators, steroid management per pulmonology. 3. Will monitor daily x-rays. 4. Encourage continued smoking cessation. 5. Once extubated encourage use of incentive spirometry, increase activity. 6. Continued medical management per primary care service. 7. GI/DVT prophylaxis. 8. Pain control with current medication regimen. 9. Patient will need workup for aortic stenosis with ALEJANDRO and heart catheterization in the future, cardiology following. 10. More recommendations to follow. Time with Patient: Greater than 30
[2018-09-28] MEDS ORDERED: SODIUM CHLORIDE 0.9% 1,000 ML IV ONE (14:23)
--- NOTE | 2018-09-28 14:23 | P.PN ---
Subjective Progress Note Date: 09/28/18 09/28/2017: Patient seen and examined in the intensive care unit with his and sister at bedside. The patient did not have a cuff leak this morning. This is discussed with the family. We will continue to monitor and recheck cuff leak in the morning. His CXR shows no evidence of pneumothorax however he does have extensive subcutaneous emphysema. He remains on levophed at less than 1 mcg/min. His MAP is 66. His urine output has been 30-50 cc/hr. He is tolerating tube feeds. He does have a continous air leak. Objective - Vital Signs Vital signs: Vital Signs Temp 97.8 F 09/28/18 12:00 Pulse 49 L 09/28/18 13:00 Resp 14 09/28/18 13:00 BP 99/61 09/28/18 02:00 Pulse Ox 96 09/28/18 13:00 Intake & Output 09/27/18 09/28/18 09/28/18 18:59 06:59 18:59 Intake Total 935.231 958.630 643.584 Output Total 1283 535 175 Balance -347.769 423.630 468.584 Weight 75.1 kg 78.5 kg 78.5 kg Intake: IV 250 436 438 Normal Saline 200 400 220 Normal Saline Pressure 30 36 18 Bag Potassium Chloride 10 meq 200 In Water For Injection 1 100ml.bag @ 100 mls/hr IVPB Q1H [facility] Rx#: [id number] Sodium Chloride 0.9% 1, 20 000 ml @ 0 mls/hr IV .[facility] Rx#:[id number] Intake, IV Titration 625.231 392.630 165.584 Amount Magnesium Sulfate-D5w Pmx 200 1 gm In Dextrose/Water 1 100ml.bag @ 100 mls/hr IVPB Q1H [facility] Rx#: [id number] Norepinephrine 4 mg In 145.119 61.280 45.307 Sodium Chloride 0.9% 250 ml @ 0.05 MCG/KG/MIN 14. 307 mls/hr IV .[id number] [facility] Rx#:[id number] Propofol 1,000 mg In 230.112 331.350 120.277 Empty Bag 1 bag @ Titrate IV .Q0M [facility] Rx#: [id number] cefTRIAXone 1 gm In 50 Sodium Chloride 0.9% 50 ml @ 100 mls/hr IVPB Q24H [facility] Rx#:[id number] Tube Feeding 70 40 Other 60 60 Output: Chest Tube Drainage 50 20 Chest Tube Right Lateral 50 20 Chest Drainage 23 Right Chest 23 Urine 1210 535 155 Other: Voiding Method Indwelling Catheter Indwelling Catheter Indwelling Catheter ABP, PAP, CO, CI - Last Documented Arterial Blood Pressure 102/52 - Exam General: Sedated on ventilator, comfortable CV: RRR, s1/s2, joel Lungs: Diminished with coarse breath sounds bilaterally, Right chest tube in place with air leak Abdomen: soft, nontender, nondistended, +bs Ext: no edema - Labs CBC & Chem 7: 09/28/18 04:05 09/28/18 04:05 Labs: Abnormal Lab Results - Last 24 Hours (Table) 09/27/18 09/27/18 09/28/18 Range/Units 17:23 23:52 04:05 WBC 18.4 H (3.8-10.6) k/uL RBC 3.70 L (4.30-5.90) m/uL Hgb 11.7 L (13.0-17.5) gm/dL Hct 36.8 L (39.0-53.0) % Neutrophils # 17.4 H (1.3-7.7) k/uL Lymphocytes # 0.4 L (1.0-4.8) k/uL ABG pH (7.35-7.45) ABG pCO2 (35-45) mmHg ABG pO2 (83-108) mmHg ABG HCO3 (21-25) mmol/L ABG Total CO2 (19-24) mmol/L ABG O2 Saturation (94-97) % Chloride (98-107) mmol/L BUN (9-20) mg/dL Creatinine (0.66-1.25) mg/dL Glucose (74-99) mg/dL POC Glucose (mg/dL) 131 H 179 H (75-99) mg/dL Calcium (8.4-10.2) mg/dL Total Protein (6.3-8.2) g/dL Albumin (3.5-5.0) g/dL 09/28/18 09/28/18 09/28/18 Range/Units 04:05 04:43 06:28 WBC (3.8-10.6) k/uL RBC (4.30-5.90) m/uL Hgb (13.0-17.5) gm/dL Hct (39.0-53.0) % Neutrophils # (1.3-7.7) k/uL Lymphocytes # (1.0-4.8) k/uL ABG pH 7.33 L (7.35-7.45) ABG pCO2 53 H (35-45) mmHg ABG pO2 159 H (83-108) mmHg ABG HCO3 28 H (21-25) mmol/L ABG Total CO2 30 H (19-24) mmol/L ABG O2 Saturation 99.1 H (94-97) % Chloride 115 H (98-107) mmol/L BUN 22 H (9-20) mg/dL Creatinine 0.55 L (0.66-1.25) mg/dL Glucose 101 H (74-99) mg/dL POC Glucose (mg/dL) 120 H (75-99) mg/dL Calcium 6.7 L (8.4-10.2) mg/dL Total Protein 4.1 L (6.3-8.2) g/dL Albumin 2.0 L (3.5-5.0) g/dL 09/28/18 Range/Units 12:14 WBC (3.8-10.6) k/uL RBC (4.30-5.90) m/uL Hgb (13.0-17.5) gm/dL Hct (39.0-53.0) % Neutrophils # (1.3-7.7) k/uL Lymphocytes # (1.0-4.8) k/uL ABG pH (7.35-7.45) ABG pCO2 (35-45) mmHg ABG pO2 (83-108) mmHg ABG HCO3 (21-25) mmol/L ABG Total CO2 (19-24) mmol/L ABG O2 Saturation (94-97) % Chloride (98-107) mmol/L BUN (9-20) mg/dL Creatinine (0.66-1.25) mg/dL Glucose (74-99) mg/dL POC Glucose (mg/dL) 145 H (75-99) mg/dL Calcium (8.4-10.2) mg/dL Total Protein (6.3-8.2) g/dL Albumin (3.5-5.0) g/dL Microbiology - Last 24 Hours (Table) 09/27/18 06:20 Urine Culture - Final Urine,Catheterized 09/28/18 01:05 Sputum Culture - Preliminary Sputum Assessment and Plan Assessment: Respiratory failure due to compromised airway, on mechanical ventilation Right spontaneous pneumothorax, s/p VATS Hypotension likely secondary to sedation COPD, severe, 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% Leukocytosis History of DVT in the remote past History of prostate cancer Leukocytosis, possibly secondary to steroids History of Padma fundoplication and hiatial hernia GERD Hyperactivity, question bipolar versus ADHD versus other O2 to maintain saturation greater than or equal to 90% Continue Zoloft Continued smoking cessation Pulmciort Steroid taper Duoneanil Perforomist IS and pulmonary hygiene Chest tube per CVTS Monitor urine output and renal function Monitor BP via arterial line Pain control GI and DVT prophylaxis: Heparin and Pepcid No audible cuff leak, patient is not to be extubated at this time. Will continue Solumedrol and recheck cuff leak in the AM. Plans for sedation holiday and SBT will be dependent on cuff leak. Monitor urine output and renal function. [place] and Dilaudid for pain control. Continue Propofol for sedation. Continue tube feeds. Will give 1 L IVF bolus now for marginal urine output and to hopefully help wean levophed off. Family is at bedside and updated to plan of care. All questions are answered.
[2018-09-28] MEDS: NOREPINEPHRINE 4 MG in SODIUM CHLORIDE 0.9% 250 ML IV SCH (17:44)
[2018-09-28 17:50] LABS: Glucose,Whole Blood 151 mg/dL (75-99)
[2018-09-28] MEDS: MONTELUKAST 10 MG TAB PO SCH (21:36)
[2018-09-28] MEDS: SERTRALINE 50 MG TAB PO SCH (21:36)
[2018-09-28] MEDS: IPRATROPIUM-ALBUTEROL 3 ML NEB INHALATION PRN (23:21)
[2018-09-28 23:29] LABS: Glucose,Whole Blood 127 mg/dL (75-99)
[2018-09-29 01:24] LABS: Glucose,Whole Blood 124 mg/dL (75-99)
[2018-09-29] MEDS: PROPOFOL 1,000 MG in EMPTY BAG 1 BAG IV SCH ×3 (01:24→08:13)
[2018-09-29] MEDS: INSULIN ASPART (NovoLOG) 100 UNIT/ML VIAL SQ SCH ×4 (01:25→18:43)
[2018-09-29] MEDS: methylPREDNISolone SOD SUCCI 40 MG/ML 1 ML VIAL IV SCH ×3 (01:26→17:25)
[2018-09-29] MEDS: IPRATROPIUM-ALBUTEROL 3 ML NEB INHALATION PRN ×2 (03:37→23:26)
[2018-09-29] MEDS: HYDROmorphone 1 MG/ML 1 ML SYRINGE IVP PRN (04:29)
[2018-09-29 05:36] LABS: ABG Base Excess 1.6 mmol/L; ABG HCO3 27 mmol/L (21-25); ABG Oxygen Saturation 98.6 % (94-97); ABG PCO2 47 mmHg (35-45); ABG PH 7.37 (7.35-7.45); ABG PO2 121 mmHg (83-108); ABG TCO2 28 mmol/L (19-24); Allen Test Performed? Yes
[2018-09-29 06:11] LABS: Glucose,Whole Blood 148 mg/dL (75-99)
--- NOTE | 2018-09-29 06:40 | XR ---
EXAMINATION TYPE: XR chest 1V portable DATE OF EXAM: 09/29/2018 HISTORY: Tube placement. REFERENCE: Previous study dated 09/28/2018. FINDINGS: The patient is ET tube and NG tube remain in place, unchanged in appearance. A right pleura l drains in place. There is extensive subcutaneous emphysema present bilaterally. This is unchanged from previous. Heart size upper limits of normal. The lungs appear clear. Pleural space are clear. IMPRESSION: PERSISTENT SUBCUTANEOUS EMPHYSEMA.
[2018-09-29 06:47] LABS: HCT 36.1 % (39.0-53.0); HGB 11.7 gm/dL (13.0-17.5); MCH 32.1 pg (25.0-35.0); MCHC 32.5 g/dL (31.0-37.0); MCV 98.8 fL (80.0-100.0); Mean Platelet Volume 6.7; Platelet Count 162 k/uL (150-450); RBC 3.65 m/uL (4.30-5.90); RDW 14.1 % (11.5-15.5)
[2018-09-29 06:52] LABS: African American GFR (CKD) >90 (>60 ml/min/1.73 sqM); Anion Gap 2 mmol/L; Blood Urea Nitrogen 31 mg/dL (9-20); Calcium 8.5 mg/dL (8.4-10.2); Carbon Dioxide 26 mmol/L (22-30); Chloride 109 mmol/L (98-107); Glucose 139 mg/dL (74-99); Potassium 4.9 mmol/L (3.5-5.1); Sodium 137 mmol/L (137-145)
--- NOTE | 2018-09-29 06:56 | P.PN ---
Subjective Progress Note Date: 09/29/18 Principal diagnosis: Pneumothorax This is a pleasant 68-year-old gentleman with a past medical history significant for hypertension, dyslipidemia, and history of DVT, who was admitted to the hospital with shortness of breath and was found to have pneumothorax which seems to be recurrent. He was discharged from the hospital recently with Thoravent. This time that was attached to suction. He is feeling better. The computed tomography scan revealed right sided pneumothorax. He underwent surgery. The patient underwent right VATS bleb resection. On follow-up with the patient today, September 292018, the patient continues to be intubated on mechanical ventilation. Beside that he continues to be slightly unstable and requiring small dose of norepinephrine. He failed weaning yesterday. The chest x-ray continues to show persistent subcutaneous emphysema. Objective - Vital Signs Vital signs: Vital Signs Temp 98.1 F 09/29/18 04:00 Pulse 54 L 09/29/18 06:00 Resp 14 09/29/18 06:00 BP 99/57 09/29/18 06:00 Pulse Ox 96 09/29/18 06:00 Intake & Output 09/28/18 09/28/18 09/29/18 06:59 18:59 06:59 Intake Total 853.850 5320.060 1068.204 Output Total 535 480 680 Balance 467.420 3952.060 388.204 Weight 78.5 kg 78.5 kg 81.2 kg Intake: IV 436 1889 473 Calcium Gluconate 2 gm In 100 Sodium Chloride 0.9% 100 ml @ 100 mls/hr IVPB ONCE [facility] Rx#:[id number] Normal Saline 400 500 440 Normal Saline Pressure 36 39 33 Bag Potassium Chloride 10 meq 200 In Water For Injection 1 100ml.bag @ 100 mls/hr IVPB Q1H [facility] Rx#: [id number] Sodium Chloride 0.9% 1, 1000 000 ml @ 999 mls/hr IV . Q1H1M [facility] Rx#:[id number] cefTRIAXone 1 gm In 50 Sodium Chloride 0.9% 50 ml @ 100 mls/hr IVPB Q24H [facility] Rx#:[id number] Intake, IV Titration 392.630 383.060 210.204 Amount Norepinephrine 4 mg In 61.280 65.286 10.204 Sodium Chloride 0.9% 250 ml @ 0.05 MCG/KG/MIN 14. 307 mls/hr IV .[id number] [facility] Rx#:[id number] Propofol 1,000 mg In 331.350 317.774 200 Empty Bag 1 bag @ Titrate IV .Q0M [facility] Rx#: [id number] Tube Feeding 70 70 325 Other 60 60 Output: Chest Tube Drainage 30 30 Chest Tube Right Lateral 30 30 Chest Urine 535 450 650 Other: Voiding Method Indwelling Catheter Indwelling Catheter Indwelling Catheter ABP, PAP, CO, CI - Last Documented Arterial Blood Pressure 98/49 - Constitutional General appearance: Present: no acute distress - Respiratory Respiratory: bilateral: diminished - Labs CBC & Chem 7: 09/28/18 04:05 09/29/18 06:00 Labs: Abnormal Lab Results - Last 24 Hours (Table) 09/28/18 09/28/18 09/28/18 Range/Units 12:14 17:49 23:27 ABG pCO2 (35-45) mmHg ABG pO2 (83-108) mmHg ABG HCO3 (21-25) mmol/L ABG Total CO2 (19-24) mmol/L ABG O2 Saturation (94-97) % Chloride (98-107) mmol/L BUN (9-20) mg/dL Glucose (74-99) mg/dL POC Glucose (mg/dL) 145 H 151 H 127 H (75-99) mg/dL 09/29/18 09/29/18 09/29/18 Range/Units 01:23 05:31 06:00 ABG pCO2 47 H (35-45) mmHg ABG pO2 121 H (83-108) mmHg ABG HCO3 27 H (21-25) mmol/L ABG Total CO2 28 H (19-24) mmol/L ABG O2 Saturation 98.6 H (94-97) % Chloride 109 H (98-107) mmol/L BUN 31 H (9-20) mg/dL Glucose 139 H (74-99) mg/dL POC Glucose (mg/dL) 124 H (75-99) mg/dL 09/29/18 Range/Units 06:09 ABG pCO2 (35-45) mmHg ABG pO2 (83-108) mmHg ABG HCO3 (21-25) mmol/L ABG Total CO2 (19-24) mmol/L ABG O2 Saturation (94-97) % Chloride (98-107) mmol/L BUN (9-20) mg/dL Glucose (74-99) mg/dL POC Glucose (mg/dL) 148 H (75-99) mg/dL Microbiology - Last 24 Hours (Table) 09/27/18 13:10 Blood Culture - Preliminary Blood No Growth after 24 hours 09/28/18 01:05 Gram Stain - Preliminary Sputum Sputum Culture - Preliminary 09/27/18 06:20 Urine Culture - Final Urine,Catheterized Assessment and Plan Assessment: Assessment #1 recurrent right-sided pneumothorax #2 acute hypoxic respiratory failure #3 hypotension #4 severe aortic stenosis Plan #1 try to wean the patient from norepinephrine #2 avoid any hypertensive medications #3 follow-up with the patient
[2018-09-29] MEDS: CHLORHEXIDINE GLUCONATE 15 ML CUP MUCOUS MEM SCH (08:12)
[2018-09-29] MEDS: PANTOPRAZOLE 40 MG/10 ML VIAL IVP SCH (08:12)
[2018-09-29] MEDS: HEPARIN SODIUM,PORCINE 5,000 UNIT/ML 1 ML VIAL SQ SCH ×2 (08:12→21:48)
[2018-09-29] MEDS: ATORVASTATIN 80 MG TAB PO SCH (08:13)
[2018-09-29] MEDS: ASPIRIN 81 MG PO SCH (08:13)
[2018-09-29] MEDS: BUDESONIDE 0.5 MG/2 ML NEBU INHALATION SCH ×2 (08:20→19:40)
[2018-09-29] MEDS: IPRATROPIUM-ALBUTEROL 3 ML NEB INHALATION SCH ×4 (08:20→19:40)
[2018-09-29] MEDS: FORMOTEROL FUMARATE 20 MCG/2 ML NEBU INHALATION SCH ×2 (08:20→19:40)
--- NOTE | 2018-09-29 11:25 | P.PN ---
Subjective Progress Note Date: 09/29/18 09/29/2018: Patient seen and examined in the ICU with nursing staff and family at bedside. The patient is off levophed with MAP 70's. Urine output has been adequate. Sedation is held and patient follows complex commands. He is able to lift his head off of the bed. He denies significant pain. He tolerated SBT and has a large, audible cuff leak. The patient's sister is at bedside and is updated to the plan for extubation. Objective - Vital Signs Vital signs: Vital Signs Temp 97.5 F L 09/29/18 08:00 Pulse 52 L 09/29/18 10:00 Resp 14 09/29/18 10:00 BP 94/52 09/29/18 10:00 Pulse Ox 97 09/29/18 10:00 Intake & Output 09/28/18 09/29/18 09/29/18 18:59 06:59 18:59 Intake Total 2342.060 1068.204 470.086 Output Total 480 680 240 Balance 1862.060 388.204 230.086 Weight 78.5 kg 81.2 kg Intake: IV 1889 473 172 Calcium Gluconate 2 gm In 100 Sodium Chloride 0.9% 100 ml @ 100 mls/hr IVPB ONCE [facility] Rx#:[id number] Normal Saline 500 440 160 Normal Saline Pressure 39 33 12 Bag Potassium Chloride 10 meq 200 In Water For Injection 1 100ml.bag @ 100 mls/hr IVPB Q1H [facility] Rx#: [id number] Sodium Chloride 0.9% 1, 1000 000 ml @ 999 mls/hr IV . Q1H1M [facility] Rx#:[id number] cefTRIAXone 1 gm In 50 Sodium Chloride 0.9% 50 ml @ 100 mls/hr IVPB Q24H [facility] Rx#:[id number] Intake, IV Titration 383.060 210.204 145.086 Amount Norepinephrine 4 mg In 65.286 10.204 7.439 Sodium Chloride 0.9% 250 ml @ 0.05 MCG/KG/MIN 14. 307 mls/hr IV .[id number] [facility] Rx#:[id number] Propofol 1,000 mg In 317.774 200 137.647 Empty Bag 1 bag @ Titrate IV .Q0M [facility] Rx#: [id number] Tube Feeding 70 325 123 Other 60 30 Output: Chest Tube Drainage 30 30 0 Chest Tube Right Lateral 30 30 0 Chest Urine 450 650 240 Other: Voiding Method Indwelling Catheter Indwelling Catheter Indwelling Catheter ABP, PAP, CO, CI - Last Documented Arterial Blood Pressure 98/49 - Exam General: Alert, following commands CV: RRR, s1/s2, joel Lungs: Diminished with coarse breath sounds bilaterally, Right chest tube in place with air leak Abdomen: soft, nontender, nondistended, +bs Ext: no edema - Labs CBC & Chem 7: 09/29/18 06:00 09/29/18 06:00 Labs: Abnormal Lab Results - Last 24 Hours (Table) 09/28/18 09/28/18 09/28/18 Range/Units 12:14 17:49 23:27 WBC (3.8-10.6) k/uL RBC (4.30-5.90) m/uL Hgb (13.0-17.5) gm/dL Hct (39.0-53.0) % ABG pCO2 (35-45) mmHg ABG pO2 (83-108) mmHg ABG HCO3 (21-25) mmol/L ABG Total CO2 (19-24) mmol/L ABG O2 Saturation (94-97) % Chloride (98-107) mmol/L BUN (9-20) mg/dL Glucose (74-99) mg/dL POC Glucose (mg/dL) 145 H 151 H 127 H (75-99) mg/dL 09/29/18 09/29/18 09/29/18 Range/Units 01:23 05:31 06:00 WBC 18.0 H (3.8-10.6) k/uL RBC 3.65 L (4.30-5.90) m/uL Hgb 11.7 L (13.0-17.5) gm/dL Hct 36.1 L (39.0-53.0) % ABG pCO2 47 H (35-45) mmHg ABG pO2 121 H (83-108) mmHg ABG HCO3 27 H (21-25) mmol/L ABG Total CO2 28 H (19-24) mmol/L ABG O2 Saturation 98.6 H (94-97) % Chloride (98-107) mmol/L BUN (9-20) mg/dL Glucose (74-99) mg/dL POC Glucose (mg/dL) 124 H (75-99) mg/dL 09/29/18 09/29/18 Range/Units 06:00 06:09 WBC (3.8-10.6) k/uL RBC (4.30-5.90) m/uL Hgb (13.0-17.5) gm/dL Hct (39.0-53.0) % ABG pCO2 (35-45) mmHg ABG pO2 (83-108) mmHg ABG HCO3 (21-25) mmol/L ABG Total CO2 (19-24) mmol/L ABG O2 Saturation (94-97) % Chloride 109 H (98-107) mmol/L BUN 31 H (9-20) mg/dL Glucose 139 H (74-99) mg/dL POC Glucose (mg/dL) 148 H (75-99) mg/dL Microbiology - Last 24 Hours (Table) 09/28/18 01:05 Gram Stain - Preliminary Sputum Sputum Culture - Preliminary Marylin albicans Presumptive Staph aureus 09/27/18 13:10 Blood Culture - Preliminary Blood No Growth after 24 hours 09/27/18 06:20 Urine Culture - Final Urine,Catheterized Assessment and Plan Assessment: Respiratory failure due to compromised airway, s/p mechanical ventilation Right spontaneous pneumothorax, s/p VATS Hypotension likely secondary to sedation COPD, severe, FEV 1 41% Leukocytosis History of DVT in the remote past History of prostate cancer Leukocytosis, possibly secondary to steroids History of Padma fundoplication and hiatial hernia GERD Hyperactivity, question bipolar versus ADHD versus other O2 to maintain saturation greater than or equal to 90% Continue Zoloft Continued smoking cessation Pulmciort Steroid taper Angelo Perforomist IS and pulmonary hygiene Chest tube per CVTS Monitor urine output and renal function Discontinue arterial line Pain control GI and DVT prophylaxis: Heparin and Pepcid Monitor urine output and renal function. [place] and Dilaudid for pain control. Discontinue Propofol and levophed Tube feeds discontinued Patient had large, audible cuff leak, patient successfully extubated to 4L NC O2. CVTS team updated Family is at bedside and updated to plan of care. All questions are answered.
--- NOTE | 2018-09-29 12:30 | P.PN ---
Subjective Progress Note Date: 09/29/18 Principal diagnosis: Recurrent spontaneous right pneumothorax with thoravent in place. Mild congestive heart failure on admission with BNP 2820, elevated troponins of 0.395. New diagnosis of severe aortic stenosis per echocardiogram. Previous medical history of tobacco dependence, COPD, hypertension, hyperlipidemia, severe acid reflux, hiatal hernia status post Padma fundoplication with mesh repair, right leg DVT, renal failure secondary to dehydration, and prostate cancer. POD #3 right VATS bleb resection with mechanical and talc pleurodesis Postoperative hypoxic respiratory failure secondary to compromised airway, expected outcome given extensive subcutaneous emphysema The patient remained intubated and mechanically ventilated in the intensive care unit this morning, recently extubated per pulmonology. Right-sided chest tube remains present with continuous air leak. Subcu emphysema improved but still present. Objective - Vital Signs Vital signs: Vital Signs Temp 98.1 F 09/29/18 12:00 Pulse 71 09/29/18 12:00 Resp 27 H 09/29/18 12:00 BP 138/74 09/29/18 12:00 Pulse Ox 93 L 09/29/18 12:00 Intake & Output 09/28/18 09/29/18 09/29/18 18:59 06:59 18:59 Intake Total 2342.060 1068.204 578.989 Output Total 480 680 360 Balance 1862.060 388.204 218.989 Weight 78.5 kg 81.2 kg Intake: IV 1889 473 255 Calcium Gluconate 2 gm In 100 Sodium Chloride 0.9% 100 ml @ 100 mls/hr IVPB ONCE [facility] Rx#:[id number] Normal Saline 500 440 240 Normal Saline Pressure 39 33 15 Bag Potassium Chloride 10 meq 200 In Water For Injection 1 100ml.bag @ 100 mls/hr IVPB Q1H [facility] Rx#: [id number] Sodium Chloride 0.9% 1, 1000 000 ml @ 999 mls/hr IV . Q1H1M [facility] Rx#:[id number] cefTRIAXone 1 gm In 50 Sodium Chloride 0.9% 50 ml @ 100 mls/hr IVPB Q24H [facility] Rx#:[id number] Intake, IV Titration 383.060 210.204 170.989 Amount Norepinephrine 4 mg In 65.286 10.204 7.439 Sodium Chloride 0.9% 250 ml @ 0.05 MCG/KG/MIN 14. 307 mls/hr IV .[id number] [facility] Rx#:[id number] Propofol 1,000 mg In 317.774 200 163.550 Empty Bag 1 bag @ Titrate IV .Q0M [facility] Rx#: [id number] Tube Feeding 70 325 123 Other 60 30 Output: Chest Tube Drainage 30 30 10 Chest Tube Right Lateral 30 30 10 Chest Urine 450 650 350 Other: Voiding Method Indwelling Catheter Indwelling Catheter Indwelling Catheter ABP, PAP, CO, CI - Last Documented Arterial Blood Pressure 98/49 - Constitutional General appearance: Present: cooperative, no acute distress - Respiratory Details: Lungs sounds diminished bilaterally. Respirations even, nonlabored. Currently on 4 L nasal cannula with oxygen saturation 93%. Right pleural chest tube present to -20 cm continuous wall suction, 30 mL serosanguineous drainage overnight, 100 mL in the last 24 hours, continuous air leak present. - Cardiovascular Details: S1, S2 present. Regular rate and rhythm, sinus rhythm on telemetry. Palpable peripheral pulses bilaterally. No lower extremity edema present. No calf pain or tenderness noted. Left radial arterial line present. SCDs present. - Gastrointestinal Gastrointestinal Comment(s): Abdomen soft, nontender, nondistended. Active bowel sounds present 4 quadrants. Currently nothing by mouth as he was just extubated - Genitourinary Genitourinary Comment(s): Flores present draining clear, yellow urine. Output 40-50 mL per hour overnight. - Integumentary Integumentary Comment(s): Skin is warm and dry with evidence of good perfusion. Right lateral chest tube site covered with dry intact dressing. - Neurologic Neurologic: Present: CNII-XII intact - Musculoskeletal Musculoskeletal: Present: generalized weakness, strength equal bilaterally - Psychiatric Psychiatric: Present: A&O x's 3, appropriate affect, intact judgment & insight - Allied health notes Allied health notes reviewed: nursing - Labs CBC & Chem 7: 09/29/18 06:00 09/29/18 06:00 Labs: Abnormal Lab Results - Last 24 Hours (Table) 09/28/18 09/28/18 09/29/18 Range/Units 17:49 23:27 01:23 WBC (3.8-10.6) k/uL RBC (4.30-5.90) m/uL Hgb (13.0-17.5) gm/dL Hct (39.0-53.0) % ABG pCO2 (35-45) mmHg ABG pO2 (83-108) mmHg ABG HCO3 (21-25) mmol/L ABG Total CO2 (19-24) mmol/L ABG O2 Saturation (94-97) % Chloride (98-107) mmol/L BUN (9-20) mg/dL Glucose (74-99) mg/dL POC Glucose (mg/dL) 151 H 127 H 124 H (75-99) mg/dL 09/29/18 09/29/18 09/29/18 Range/Units 05:31 06:00 06:00 WBC 18.0 H (3.8-10.6) k/uL RBC 3.65 L (4.30-5.90) m/uL Hgb 11.7 L (13.0-17.5) gm/dL Hct 36.1 L (39.0-53.0) % ABG pCO2 47 H (35-45) mmHg ABG pO2 121 H (83-108) mmHg ABG HCO3 27 H (21-25) mmol/L ABG Total CO2 28 H (19-24) mmol/L ABG O2 Saturation 98.6 H (94-97) % Chloride 109 H (98-107) mmol/L BUN 31 H (9-20) mg/dL Glucose 139 H (74-99) mg/dL POC Glucose (mg/dL) (75-99) mg/dL 09/29/18 Range/Units 06:09 WBC (3.8-10.6) k/uL RBC (4.30-5.90) m/uL Hgb (13.0-17.5) gm/dL Hct (39.0-53.0) % ABG pCO2 (35-45) mmHg ABG pO2 (83-108) mmHg ABG HCO3 (21-25) mmol/L ABG Total CO2 (19-24) mmol/L ABG O2 Saturation (94-97) % Chloride (98-107) mmol/L BUN (9-20) mg/dL Glucose (74-99) mg/dL POC Glucose (mg/dL) 148 H (75-99) mg/dL Microbiology - Last 24 Hours (Table) 09/28/18 01:05 Gram Stain - Preliminary Sputum Sputum Culture - Preliminary Marylin albicans Presumptive Staph aureus 09/27/18 13:10 Blood Culture - Preliminary Blood No Growth after 24 hours 09/27/18 06:20 Urine Culture - Final Urine,Catheterized - Imaging and Cardiology Chest x-ray: report reviewed, image reviewed Assessment and Plan Assessment: 1. Recurrent spontaneous right pneumothorax, status post VATS with bleb resection and pleurodesis 2. Mild congestive heart failure, elevated BNP 2820 3. Elevated troponins as high as 0.395 4. Leukocytosis 5. Previous tobacco dependence 6. Chronic obstructive pulmonary disease 7. Hypertension 8. Hyperlipidemia 9. Severe acid reflux 10. History of hiatal hernia status post Padma fundoplication 11. History of prostate cancer 12. History of right leg deep vein thrombosis 13. Anxiety 14. Severe aortic stenosis discovered on transthoracic echocardiogram with peak/mean gradient 88.19 mmHg/61.56 mmHg and valve area 0.4 cm 15. Postoperative subcu emphysema, expected 16. Postoperative acute respiratory failure secondary to compromised airway Plan: 1. Continue chest tube to continuous wall suction. Will monitor for resolution of air leak. 2. Bronchodilators, steroid management per pulmonology. 3. Will monitor daily x-rays. 4. Encourage continued smoking cessation. 5. Encourage use of incentive spirometry, increase activity. 6. Continued medical management per primary care service. 7. GI/DVT prophylaxis. 8. Pain control with current medication regimen. 9. Patient will need workup for aortic stenosis with ALEJANDRO and heart catheterization in the future, cardiology following. 10. More recommendations to follow. Time with Patient: Greater than 30
[2018-09-29 13:26] LABS: Glucose,Whole Blood 120 mg/dL (75-99)
--- NOTE | 2018-09-29 14:45 | P.PN ---
Subjective Progress Note Date: 09/29/18 This is a 68-year-old male patient who presented to the hospital with complaints of increased shortness of breath. Patient was recently admitted for spontaneous right-sided pneumothorax post thoracotomy placement. Patient was DC'd with thoraven in place. reports that at home he became very short winded was unable to walk. He has past medical history of COPD, GERD, hyperlipidemia, hypertension, pneumonia, ex-smoker, prostate cancer 2000, DVT 10 years ago completed treatment. Chest x-ray completed showing mild right-sided atelectasis. Right-sided pneumothorax is essentially cleared compared to last exam. Soft tissue air increased compared to last exam. EKG completed showing sinus rhythm with first-degree AV block. Troponin is elevated 0.394, 0.295 and 0.290. Cardiology and pulmonary service is consulted. D-dimer elevated at 2.00. CTA performed pending. BNP also elevated 2820. Patient does have thoravent in place. Cardiothoracic surgery consulted. Patient is very anxious. Ativan given when necessary order. At that time patient is still complaining of some shortness breath. Patient denies chest pain. Patient denies nausea vomiting or diarrhea. Patient denies any urinary burning or frequency. On 09/25/2018 patient's chest tube hooked to suction for right-sided pneumo thorax. Discussed case with cardiothoracic nurse practitioner. Planning VATS procedure. Patient received 1 dose of IV Lasix for mild CHF exacerbation. Per cardiology patient does have aortic stenosis will eventually have ALEJANDRO and heart cath outpatient. At this time patient does state improvement with shortness of breath. Patient denies chest pain. Patient denies nausea vomiting or diarrhea. Patient denies any urinary burning or frequency. On 09/26/2018. Patient had episode of Thora vent dislodge this AM. Patient went into a story distress. Patient was taken to emergent surgery for VATS procedure with Dr. Jackman. Patient is currently resting in the intensive care unit. Chest tube is in place. At this time patient does state some improvement with shortness of breath. Patient denies nausea or vomiting. Patient denies any urinary burning or frequency On 09/27/2018 patient required mechanical ventilation and intubation throughout night due to increasing subcu emphysema. At this time patient is sedated. Patient also requiring Levophed for pressure support. Patient remains in intensive care unit. Pulmonary and cardiothoracic services are following. On 09/28/2018 patient remains on mechanical ventilation in the ICU. Patient remains on sedation. Pulmonary following. Patient started on Rocephin. Patient maintained on IV Solu-Medrol. Patient improvement with subcu emphysema. Patient remains on Levophed for pressure support. No plans to wean today per pulmonary. Continue tube feeds On 09/29/2018 patient was seen and examined in the ICU he was extubated and is tolerating well he is alert and oriented 3 in no apparent distress there is no chest pain or shortness of breath he has occasional cough no fever or chills no headache or dizziness no nausea or vomiting no abdominal pain no diarrhea and no urinary symptoms Objective - Vital Signs Vital signs: Vital Signs Temp 98.1 F 09/29/18 12:00 Pulse 67 09/29/18 14:30 Resp 11 L 09/29/18 14:30 BP 118/66 09/29/18 14:30 Pulse Ox 95 09/29/18 14:30 Intake & Output 09/28/18 09/29/18 09/29/18 18:59 06:59 18:59 Intake Total 2342.060 1068.204 708.989 Output Total 480 680 810 Balance 1862.060 388.204 -101.011 Weight 78.5 kg 81.2 kg Intake: IV 1889 473 385 Calcium Gluconate 2 gm In 100 Sodium Chloride 0.9% 100 ml @ 100 mls/hr IVPB [facility] Rx#:[id number] Normal Saline 500 440 320 Normal Saline Pressure 39 33 15 Bag Potassium Chloride 10 meq 200 In Water For Injection 1 100ml.bag @ 100 mls/hr IVPB Q1H [facility] Rx#: [id number] Sodium Chloride 0.9% 1, 1000 000 ml @ 999 mls/hr IV . Q1H1M [facility] Rx#:[id number] cefTRIAXone 1 gm In 50 50 Sodium Chloride 0.9% 50 ml @ 100 mls/hr IVPB Q24H [facility] Rx#:[id number] Intake, IV Titration 383.060 210.204 170.989 Amount Norepinephrine 4 mg In 65.286 10.204 7.439 Sodium Chloride 0.9% 250 ml @ 0.05 MCG/KG/MIN 14. 307 mls/hr IV .[id number] [facility] Rx#:[id number] Propofol 1,000 mg In 317.774 200 163.550 Empty Bag 1 bag @ Titrate IV .Q0M [facility] Rx#: [id number] Tube Feeding 70 325 123 Other 60 30 Output: Chest Tube Drainage 30 30 10 Chest Tube Right Lateral 30 30 10 Chest Urine 450 650 800 Other: Voiding Method Indwelling Catheter Indwelling Catheter Indwelling Catheter ABP, PAP, CO, CI - Last Documented Arterial Blood Pressure 98/49 - Exam Head normocephalic and atraumatic Neck supple no JVD no goiter Lungs diminished bilaterally, chest tube in place Heart regular rate and rhythm S1-S2, no rub or gallop Abdomen is soft nontender nondistended positive bowel sounds no hepatosplenomeg zahra Extremities no edema no cyanosis or clubbing Neuro alert and orientated to 3 - Labs CBC & Chem 7: 09/29/18 06:00 09/29/18 06:00 Labs: Abnormal Lab Results - Last 24 Hours (Table) 09/28/18 09/28/18 09/29/18 Range/Units 17:49 23:27 01:23 WBC (3.8-10.6) k/uL RBC (4.30-5.90) m/uL Hgb (13.0-17.5) gm/dL Hct (39.0-53.0) % ABG pCO2 (35-45) mmHg ABG pO2 (83-108) mmHg ABG HCO3 (21-25) mmol/L ABG Total CO2 (19-24) mmol/L ABG O2 Saturation (94-97) % Chloride (98-107) mmol/L BUN (9-20) mg/dL Glucose (74-99) mg/dL POC Glucose (mg/dL) 151 H 127 H 124 H (75-99) mg/dL 09/29/18 09/29/18 09/29/18 Range/Units 05:31 06:00 06:00 WBC 18.0 H (3.8-10.6) k/uL RBC 3.65 L (4.30-5.90) m/uL Hgb 11.7 L (13.0-17.5) gm/dL Hct 36.1 L (39.0-53.0) % ABG pCO2 47 H (35-45) mmHg ABG pO2 121 H (83-108) mmHg ABG HCO3 27 H (21-25) mmol/L ABG Total CO2 28 H (19-24) mmol/L ABG O2 Saturation 98.6 H (94-97) % Chloride 109 H (98-107) mmol/L BUN 31 H (9-20) mg/dL Glucose 139 H (74-99) mg/dL POC Glucose (mg/dL) (75-99) mg/dL 09/29/18 09/29/18 Range/Units 06:09 13:24 WBC (3.8-10.6) k/uL RBC (4.30-5.90) m/uL Hgb (13.0-17.5) gm/dL Hct (39.0-53.0) % ABG pCO2 (35-45) mmHg ABG pO2 (83-108) mmHg ABG HCO3 (21-25) mmol/L ABG Total CO2 (19-24) mmol/L ABG O2 Saturation (94-97) % Chloride (98-107) mmol/L BUN (9-20) mg/dL Glucose (74-99) mg/dL POC Glucose (mg/dL) 148 H 120 H (75-99) mg/dL Microbiology - Last 24 Hours (Table) 09/28/18 01:05 Gram Stain - Preliminary Sputum Sputum Culture - Preliminary Marylin albicans Presumptive Staph aureus 09/27/18 13:10 Blood Culture - Preliminary Blood No Growth after 24 hours 09/27/18 06:20 Urine Culture - Final Urine,Catheterized Assessment and Plan Plan: 1. Increased shortness of breathing secondary to recurring right-sided pneumothorax. CTA chest performed showing reaccumulation of large, approximately 70% right-sided pneumonia without current mediastinal shift on the exam. thoravent is in place. Extensive underlying emphysematous change. No evidence of central pulmonary embolus. Subsegmental arteries are somewhat limited. No CT evidence of right heart strain. Cardiothoracic services have been consulted. Pulmonary services consulted. currently on DuoNeb breathing treatments and prednisone 40 mg. and 09/26/2018, Thoravent extraembryonic improved this AM. Was taken to the OR for video-assisted thorascopic the with bleb stapling. Patient having subcu emphysema. Patient currently on steroids. 2. Increased subcu emphysema post surgical requiring mechanical ventilation for airway management. Patient is currently maintained on mechanical ventilation. Pulmonary services are following 3. Mild diastolic congestive heart failure. BNP elevated 2820. 2-D echo completed showing EF of 50-55% Cardiology services following. Patient received 1 dose of IV Lasix 4. Elevated troponins. Troponin level 0.395, 0.295 and 0.298. Cardiology services are following 5. Recent right-sided spontaneous pneumothorax status post ThoraVent placement. 6. Leukocytosis. Patient has been on oral prednisone. White blood cell is trending down 7. History of Niesen fundoplication 8. History of prostate cancer 2009 9. History of right leg DVT several years ago no longer on anticoagulation 10. Essential hypertension patient was DC'd during previous admission on Norvasc and hydralazine 11. Anxiety and hyperactivity. Ativan when necessary has been ordered. Maintained on Zoloft 12. Aortic stenosis. 2-D echo completed per cardiology. Patient will likely need ALEJANDRO a cardiac catheterization outpatient 13. Hypotension likely secondary to sedation. Patient currently maintained on Levophed DVT prophylaxis heparin. GI prophylaxis Protonix Patient in the intensive care unit. Pulmonary, cardiology and cardiothoracic following
[2018-09-29] MEDS ORDERED: VANCOMYCIN IV PER PHARMACY 1 EACH MISC MISCELLANE PRN (16:19)
[2018-09-29] MEDS: VANCOMYCIN 1,500 MG in SODIUM CHLORIDE 0.9% 250 ML IVPB SCH (17:25)
[2018-09-29 18:35] LABS: Glucose,Whole Blood 108 mg/dL (75-99)
[2018-09-29] MEDS: SERTRALINE 50 MG TAB PO SCH (21:48)
[2018-09-29] MEDS: guaiFENesin 600 MG TABLET.ER PO PRN (21:48)
[2018-09-29] MEDS: MONTELUKAST 10 MG TAB PO SCH (21:48)
[2018-09-29] MEDS: diphenhydrAMINE 50 MG CAP PO SCH (22:25)
[2018-09-29 23:38] LABS: Glucose,Whole Blood 128 mg/dL (75-99)
[2018-09-30] MEDS: INSULIN ASPART (NovoLOG) 100 UNIT/ML VIAL SQ SCH ×4 (00:18→21:12)
[2018-09-30] MEDS: methylPREDNISolone SOD SUCCI 40 MG/ML 1 ML VIAL IV SCH ×3 (00:22→16:19)
[2018-09-30] MEDS: PIPERACILLIN-TAZOBACTAM 3.375 GM in SODIUM CHLORIDE 0.9% 100 ML IVPB SCH ×3 (00:26→16:19)
--- NOTE | 2018-09-30 01:00 | XR ---
EXAM: XR Chest, 1 View CLINICAL HISTORY: ITS.REASON XR Reason: change in pneumo TECHNIQUE: Frontal view of the chest. COMPARISON: 09/29/18 x-ray IMPRESSION: Worsened right sided pneumo-thorax along the right lateral chest wall. Measures approximately 2 cm in thickness, previously approximately 1.2 cm. Diffuse soft tissue emphysema. Right chest tube is unchanged.
[2018-09-30] MEDS: LORazepam 2 MG/ML INJ IV PRN ×4 (01:05→18:56)
[2018-09-30] MEDS: VANCOMYCIN 1,500 MG in SODIUM CHLORIDE 0.9% 250 ML IVPB SCH ×2 (01:38→09:16)
[2018-09-30 05:28] LABS: Basophils % (A) 0 %; Eosinophils # (A) 0.1 k/uL (0-0.7); Eosinophils % (A) 0 %; HGB 13.8 gm/dL (13.0-17.5); Lymphocytes # (A) 0.3 k/uL (1.0-4.8); Lymphocytes % (A) 2 %; MCH 32.1 pg (25.0-35.0); MCHC 32.8 g/dL (31.0-37.0); Mean Platelet Volume 6.9; Monocytes # (A) 0.6 k/uL (0-1.0); Monocytes % (A) 3 %; Neutrophils # (A) 16.4 k/uL (1.3-7.7); Neutrophils % (A) 94 %; Platelet Count 164 k/uL (150-450); RBC 4.29 m/uL (4.30-5.90); RDW 14.1 % (11.5-15.5); WBC 17.4 k/uL (3.8-10.6)
[2018-09-30 05:29] LABS: Glucose,Whole Blood 122 mg/dL (75-99)
[2018-09-30 05:44] LABS: African American GFR (CKD) >90 (>60 ml/min/1.73 sqM); Anion Gap 5 mmol/L; Blood Urea Nitrogen 32 mg/dL (9-20); Calcium 9.2 mg/dL (8.4-10.2); Carbon Dioxide 28 mmol/L (22-30); Chloride 110 mmol/L (98-107); Glucose 127 mg/dL (74-99); Magnesium 2.2 mg/dL (1.6-2.3); Phosphorus 3.3 mg/dL (2.5-4.5); Potassium 4.8 mmol/L (3.5-5.1); Sodium 143 mmol/L (137-145)
--- NOTE | 2018-09-30 06:34 | XR ---
EXAMINATION TYPE: XR chest 1V portable DATE OF EXAM: 09/30/2018 HISTORY: Tube placement. REFERENCE: Previous study dated 09/30/2018. FINDINGS: A right pleural drain is in place. The patient's right-sided pneumothorax has resolved. The re is subcutaneous emphysema present bilaterally. There is volume loss in the right. There is shift o f mediastinal structures towards the right. Left lung appears clear. The heart is mildly prominent. N o definite pleural fluid is seen. IMPRESSION: 1. RESOLUTION OF THE PATIENT'S RIGHT-SIDED PNEUMOTHORAX. 2 CONTINUING BILATERAL SUBCUTANEOUS EMPHYSEM A. 3. RIGHT-SIDED VOLUME LOSS WITH SHIFT OF THE MEDIASTINAL STRUCTURES TOWARDS THE RIGHT. 4. MILD CARDIOMEGALY.
--- NOTE | 2018-09-30 07:14 | P.PN ---
Subjective Progress Note Date: 09/30/18 Principal diagnosis: Pneumothorax This is a pleasant 68-year-old gentleman with a past medical history significant for hypertension, dyslipidemia, and history of DVT, who was admitted to the hospital with shortness of breath and was found to have pneumothorax which seems to be recurrent. He was discharged from the hospital recently with Thoravent. This time that was attached to suction. He is feeling better. The computed tomography scan revealed right sided pneumothorax. He underwent surgery. The patient underwent right VATS bleb resection. On follow-up with the patient today, September 302018, he was extubated yesterday. He is slightly agitated and coughing. He has been coughing some blood. The emphysema in the neck and the face has gotten worse. He is hypertensive and tachycardic. I'm going to add small dose of metoprolol to the current medical regimen. Also continue the aspirin as well as a statin. Objective - Vital Signs Vital signs: Vital Signs Temp 98.2 F 09/30/18 04:00 Pulse 86 09/30/18 06:00 Resp 28 H 09/30/18 06:00 BP 146/90 09/30/18 06:00 Pulse Ox 94 L 09/30/18 06:00 Intake & Output 09/29/18 09/30/18 09/30/18 18:59 06:59 18:59 Intake Total 1964.027 7051 Output Total 1360 1770 Balance -281.011 -700 Weight 78.2 kg Intake: IV 755 830 Normal Saline 440 480 Normal Saline Pressure 15 Bag Piperacillin-Tazobactam 3 100 .375 gm In Sodium Chloride 0.9% 100 ml @ 25 mls/hr IVPB Q8HR [facility] Rx# :[id number] Vancomycin 1,500 mg In 250 250 Sodium Chloride 0.9% 250 ml @ 125 mls/hr IVPB Q8H [facility] Rx#:[id number] cefTRIAXone 1 gm In 50 Sodium Chloride 0.9% 50 ml @ 100 mls/hr IVPB Q24H [facility] Rx#:[id number] Intake, IV Titration 170.989 Amount Norepinephrine 4 mg In 7.439 Sodium Chloride 0.9% 250 ml @ 0.05 MCG/KG/MIN 14. 307 mls/hr IV .[id number] [facility] Rx#:[id number] Propofol 1,000 mg In 163.550 Empty Bag 1 bag @ Titrate IV .Q0M [facility] Rx#: [id number] Oral 240 Tube Feeding 123 Other 30 Output: Chest Tube Drainage 10 120 Chest Tube Right Lateral 10 120 Chest Urine 1350 1650 Other: Voiding Method Indwelling Catheter Indwelling Catheter ABP, PAP, CO, CI - Last Documented Arterial Blood Pressure 98/49 - Constitutional General appearance: Present: no acute distress - Respiratory Respiratory: bilateral: diminished - Cardiovascular Rhythm: regular Heart sounds: normal: S1 Abnormal Heart Sounds: Present: systolic murmur - Labs CBC & Chem 7: 09/30/18 04:51 09/30/18 04:51 Labs: Abnormal Lab Results - Last 24 Hours (Table) 09/29/18 09/29/18 09/29/18 Range/Units 13:24 18:33 23:35 WBC (3.8-10.6) k/uL RBC (4.30-5.90) m/uL Neutrophils # (1.3-7.7) k/uL Lymphocytes # (1.0-4.8) k/uL Chloride (98-107) mmol/L BUN (9-20) mg/dL Glucose (74-99) mg/dL POC Glucose (mg/dL) 120 H 108 H 128 H (75-99) mg/dL 09/30/18 09/30/18 09/30/18 Range/Units 04:51 04:51 05:28 WBC 17.4 H (3.8-10.6) k/uL RBC 4.29 L (4.30-5.90) m/uL Neutrophils # 16.4 H (1.3-7.7) k/uL Lymphocytes # 0.3 L (1.0-4.8) k/uL Chloride 110 H (98-107) mmol/L BUN 32 H (9-20) mg/dL Glucose 127 H (74-99) mg/dL POC Glucose (mg/dL) 122 H (75-99) mg/dL Microbiology - Last 24 Hours (Table) 09/27/18 13:10 Blood Culture - Preliminary Blood No Growth after 48 hours 09/28/18 01:05 Gram Stain - Preliminary Sputum Sputum Culture - Preliminary Marylin albicans Presumptive Staph aureus Assessment and Plan Assessment: Assessment #1 recurrent right-sided pneumothorax #2 acute hypoxic respiratory failure #3 hypotension #4 severe aortic stenosis Plan #1 continue the current medical regimen including aspirin and statin #2 add metoprolol to control the blood pressure as well as heart rate #3 follow-up with the patient.
[2018-09-30] MEDS: IPRATROPIUM-ALBUTEROL 3 ML NEB INHALATION SCH ×4 (07:59→19:46)
[2018-09-30] MEDS: FORMOTEROL FUMARATE 20 MCG/2 ML NEBU INHALATION SCH (07:59)
[2018-09-30] MEDS: BUDESONIDE 0.5 MG/2 ML NEBU INHALATION SCH ×2 (07:59→19:46)
[2018-09-30] MEDS: METOPROLOL TARTRATE 25 MG TAB PO SCH ×2 (09:05→21:14)
[2018-09-30] MEDS: ATORVASTATIN 80 MG TAB PO SCH (09:06)
[2018-09-30] MEDS: ASPIRIN 81 MG PO SCH (09:06)
[2018-09-30] MEDS: PANTOPRAZOLE 40 MG/10 ML VIAL IVP SCH (09:16)
[2018-09-30] MEDS: HEPARIN SODIUM,PORCINE 5,000 UNIT/ML 1 ML VIAL SQ SCH ×2 (09:16→21:14)
[2018-09-30] MEDS ORDERED: DILTIAZEM DRIP BOLUS FROM BAG 1 MG SOLN IV ONE (09:27)
[2018-09-30] MEDS ORDERED: DILTIAZEM 125 MG in SODIUM CHLORIDE 0.9% 100 ML IV SCH (09:30)
--- NOTE | 2018-09-30 11:38 | P.PN ---
Subjective Progress Note Date: 09/30/18 09/30/2018: Patient seen and examined in the intensive care unit with his at bedside. The patient had worsening subcutaneous emphysema over night. The patient states that at this time his breathing is okay. He is not having any difficulty swallowing. His voice does appear changed. The patient did go into atrial fibrillation with rapid ventricular response early this morning. He was started on Cardizem and cardiology is following. The patient's chest x-ray is reviewed and shows some rightward mediastinal shift, no pneumothorax, extensive subcutaneous emphysema. The patient's urine output has been adequate. Objective - Vital Signs Vital signs: Vital Signs Temp 98.2 F 09/30/18 04:00 Pulse 118 H 09/30/18 11:00 Resp 26 H 09/30/18 11:00 BP 97/80 09/30/18 11:00 Pulse Ox 95 09/30/18 11:00 Intake & Output 09/29/18 09/30/18 09/30/18 18:59 06:59 18:59 Intake Total 4227.323 0176 550 Output Total 1360 1770 580 Balance -281.011 -700 -30 Weight 78.2 kg Intake: IV 755 830 550 Normal Saline 440 480 200 Normal Saline Pressure 15 Bag Piperacillin-Tazobactam 3 100 100 .375 gm In Sodium Chloride 0.9% 100 ml @ 25 mls/hr IVPB Q8HR [facility] Rx# :[id number] Vancomycin 1,500 mg In 250 250 250 Sodium Chloride 0.9% 250 ml @ 125 mls/hr IVPB Q8H [facility] Rx#:[id number] cefTRIAXone 1 gm In 50 Sodium Chloride 0.9% 50 ml @ 100 mls/hr IVPB Q24H [facility] Rx#:[id number] Intake, IV Titration 170.989 Amount Norepinephrine 4 mg In 7.439 Sodium Chloride 0.9% 250 ml @ 0.05 MCG/KG/MIN 14. 307 mls/hr IV .[id number] [facility] Rx#:[id number] Propofol 1,000 mg In 163.550 Empty Bag 1 bag @ Titrate IV .Q0M [facility] Rx#: [id number] Oral 240 Tube Feeding 123 Other 30 Output: Chest Tube Drainage 10 120 Chest Tube Right Lateral 10 120 Chest Urine 1350 1650 580 Other: Voiding Method Indwelling Catheter Indwelling Catheter ABP, PAP, CO, CI - Last Documented Arterial Blood Pressure 98/49 - Exam General: Alert, following commands, extensive subcutaneous emphysema CV: RRR, s1/s2, joel Lungs: Diminished with coarse breath sounds bilaterally, Right chest tube in place with air leak Abdomen: soft, nontender, nondistended, +bs Ext: no edema - Labs CBC & Chem 7: 09/30/18 04:51 09/30/18 04:51 Labs: Abnormal Lab Results - Last 24 Hours (Table) 09/29/18 09/29/18 09/29/18 Range/Units 13:24 18:33 23:35 WBC (3.8-10.6) k/uL RBC (4.30-5.90) m/uL Neutrophils # (1.3-7.7) k/uL Lymphocytes # (1.0-4.8) k/uL Chloride (98-107) mmol/L BUN (9-20) mg/dL Glucose (74-99) mg/dL POC Glucose (mg/dL) 120 H 108 H 128 H (75-99) mg/dL 09/30/18 09/30/18 09/30/18 Range/Units 04:51 04:51 05:28 WBC 17.4 H (3.8-10.6) k/uL RBC 4.29 L (4.30-5.90) m/uL Neutrophils # 16.4 H (1.3-7.7) k/uL Lymphocytes # 0.3 L (1.0-4.8) k/uL Chloride 110 H (98-107) mmol/L BUN 32 H (9-20) mg/dL Glucose 127 H (74-99) mg/dL POC Glucose (mg/dL) 122 H (75-99) mg/dL Microbiology - Last 24 Hours (Table) 09/27/18 13:10 Blood Culture - Preliminary Blood No Growth after 48 hours 09/28/18 01:05 Gram Stain - Preliminary Sputum Sputum Culture - Preliminary Marylin albicans Presumptive Staph aureus Assessment and Plan Assessment: Respiratory failure due to compromised airway, s/p mechanical ventilation Right spontaneous pneumothorax, s/p VATS Rightward mediastinal shift New onset atrial fibrillation with rapid ventricular response Hypotension likely secondary to sedation - resolved COPD, severe, FEV 1 41% Leukocytosis History of DVT in the remote past History of prostate cancer Leukocytosis, possibly secondary to steroids History of Padma fundoplication and hiatial hernia GERD Hyperactivity, question bipolar versus ADHD versus other O2 to maintain saturation greater than or equal to 90% Continue Zoloft Continued smoking cessation Pulmciort Steroid taper Duonebs Perforomist - DC due to afib IS and pulmonary hygiene Chest tube per CVTS Monitor urine output and renal function Pain control GI and DVT prophylaxis: Heparin and Pepcid Monitor urine output and renal function. [place] and Dilaudid for pain control. Family is at bedside and updated to plan of care. All questions are answered.
[2018-09-30 11:58] LABS: Glucose,Whole Blood 107 mg/dL (75-99)
--- NOTE | 2018-09-30 12:19 | P.PN ---
Subjective Progress Note Date: 09/30/18 Principal diagnosis: Recurrent spontaneous right pneumothorax with thoravent in place. Mild congestive heart failure on admission with BNP 2820, elevated troponins of 0.395. New diagnosis of severe aortic stenosis per echocardiogram. Previous medical history of tobacco dependence, COPD, hypertension, hyperlipidemia, severe acid reflux, hiatal hernia status post Padma fundoplication with mesh repair, right leg DVT, renal failure secondary to dehydration, and prostate cancer. POD #4 right VATS bleb resection with mechanical and talc pleurodesis Postoperative hypoxic respiratory failure secondary to compromised airway, expected outcome given extensive subcutaneous emphysema The patient was successfully extubated yesterday. Denies pain or shortness of breath. Denies difficulty swallowing. Right-sided chest tube remains present with continuous air leak. Subcu emphysema worse than yesterday, has migrated upwards. Patient did go into A. fib with RVR this morning and was started on IV Cardizem as well as oral Lopressor. Objective - Vital Signs Vital signs: Vital Signs Temp 98.2 F 09/30/18 04:00 Pulse 118 H 09/30/18 11:00 Resp 26 H 09/30/18 11:00 BP 97/80 09/30/18 11:00 Pulse Ox 95 09/30/18 11:00 Intake & Output 09/29/18 09/30/18 09/30/18 18:59 06:59 18:59 Intake Total 0781.474 1124 550 Output Total 1360 1770 580 Balance -281.011 -700 -30 Weight 78.2 kg Intake: IV 755 830 550 Normal Saline 440 480 200 Normal Saline Pressure 15 Bag Piperacillin-Tazobactam 3 100 100 .375 gm In Sodium Chloride 0.9% 100 ml @ 25 mls/hr IVPB Q8HR [facility]EINA Rx# :[id number] Vancomycin 1,500 mg In 250 250 250 Sodium Chloride 0.9% 250 ml @ 125 mls/hr IVPB Q8H [facility]EINA Rx#:[id number] cefTRIAXone 1 gm In 50 Sodium Chloride 0.9% 50 ml @ 100 mls/hr IVPB Q24H [facility] Rx#:[id number] Intake, IV Titration 170.989 Amount Norepinephrine 4 mg In 7.439 Sodium Chloride 0.9% 250 ml @ 0.05 MCG/KG/MIN 14. 307 mls/hr IV .[id number] [facility]EINA Rx#:[id number] Propofol 1,000 mg In 163.550 Empty Bag 1 bag @ Titrate IV .Q0M ZEINA Rx#: [id number] Oral 240 Tube Feeding 123 Other 30 Output: Chest Tube Drainage 10 120 Chest Tube Right Lateral 10 120 Chest Urine 1350 1650 580 Other: Voiding Method Indwelling Catheter Indwelling Catheter ABP, PAP, CO, CI - Last Documented Arterial Blood Pressure 98/49 - Constitutional General appearance: Present: cooperative, no acute distress - Respiratory Details: Lungs sounds diminished bilaterally. Respirations even, nonlabored. Currently on 4 L nasal cannula with oxygen saturation 94%. Right pleural chest tube present to -20 cm continuous wall suction, 120 mL serosanguineous drainage overnight, 150 mL in the last 24 hours, continuous air leak present. Significant subcu emphysema present to face, neck, chest, arms. - Cardiovascular Details: S1, S2 present. Irregular, tachycardic rate and rhythm, A. fib with RVR on telemetry. Palpable peripheral pulses bilaterally. No lower extremity edema present. No calf pain or tenderness noted. Left radial arterial line present. SCDs present. - Gastrointestinal Gastrointestinal Comment(s): Abdomen soft, nontender, nondistended. Active bowel sounds present 4 quadrants. Tolerating diet - Genitourinary Genitourinary Comment(s): Flores present draining clear, yellow urine. Output 75-200 mL per hour overnight. - Integumentary Integumentary Comment(s): Skin is warm and dry with evidence of good perfusion. Right lateral chest tube site covered with dry intact dressing. - Neurologic Neurologic: Present: CNII-XII intact - Musculoskeletal Musculoskeletal: Present: strength equal bilaterally - Psychiatric Psychiatric: Present: A&O x's 3, appropriate affect, intact judgment & insight - Allied health notes Allied health notes reviewed: nursing - Labs CBC & Chem 7: 09/30/18 04:51 09/30/18 04:51 Labs: Abnormal Lab Results - Last 24 Hours (Table) 09/29/18 09/29/18 09/29/18 Range/Units 13:24 18:33 23:35 WBC (3.8-10.6) k/uL RBC (4.30-5.90) m/uL Neutrophils # (1.3-7.7) k/uL Lymphocytes # (1.0-4.8) k/uL Chloride (98-107) mmol/L BUN (9-20) mg/dL Glucose (74-99) mg/dL POC Glucose (mg/dL) 120 H 108 H 128 H (75-99) mg/dL 09/30/18 09/30/18 09/30/18 Range/Units 04:51 04:51 05:28 WBC 17.4 H (3.8-10.6) k/uL RBC 4.29 L (4.30-5.90) m/uL Neutrophils # 16.4 H (1.3-7.7) k/uL Lymphocytes # 0.3 L (1.0-4.8) k/uL Chloride 110 H (98-107) mmol/L BUN 32 H (9-20) mg/dL Glucose 127 H (74-99) mg/dL POC Glucose (mg/dL) 122 H (75-99) mg/dL 09/30/18 Range/Units 11:56 WBC (3.8-10.6) k/uL RBC (4.30-5.90) m/uL Neutrophils # (1.3-7.7) k/uL Lymphocytes # (1.0-4.8) k/uL Chloride (98-107) mmol/L BUN (9-20) mg/dL Glucose (74-99) mg/dL POC Glucose (mg/dL) 107 H (75-99) mg/dL Microbiology - Last 24 Hours (Table) 09/27/18 13:10 Blood Culture - Preliminary Blood No Growth after 48 hours 09/28/18 01:05 Gram Stain - Preliminary Sputum Sputum Culture - Preliminary Marylin albicans Presumptive Staph aureus - Imaging and Cardiology Chest x-ray: report reviewed, image reviewed Assessment and Plan Assessment: 1. Recurrent spontaneous right pneumothorax, status post VATS with bleb rese ction and pleurodesis, continued air leak 2. Mild congestive heart failure, elevated BNP 2820 3. Elevated troponins as high as 0.395 4. Leukocytosis 5. Previous tobacco dependence 6. Chronic obstructive pulmonary disease 7. Hypertension 8. Hyperlipidemia 9. Severe acid reflux 10. History of hiatal hernia status post Padma fundoplication 11. History of prostate cancer 12. History of right leg deep vein thrombosis 13. Anxiety 14. Severe aortic stenosis discovered on transthoracic echocardiogram with peak/mean gradient 88.19 mmHg/61.56 mmHg and valve area 0.4 cm 15. Postoperative subcu emphysema, expected 16. Postoperative acute respiratory failure secondary to compromised airway Plan: 1. Continue chest tube to continuous wall suction. Will monitor for resolution of air leak. 2. Needle decompression performed this morning by Dr. Garrett, will continue to monitor subcu emphysema 3. Bronchodilators, steroid management per pulmonology. 4. Will monitor daily x-rays. 5. Encourage continued smoking cessation. 6. Encourage use of incentive spirometry, increase activity. 7. Continued medical management per primary care service. 8. GI/DVT prophylaxis. 9. Pain control with current medication regimen. 10. Patient will need workup for aortic stenosis with ALEJANDRO and heart catheterization in the future, cardiology following. 11. More recommendations to follow. Time with Patient: Greater than 30
[2018-09-30] MEDS: BENZONATATE 100 MG CAP PO PRN (13:10)
[2018-09-30] MEDS ORDERED: HYDROGEN PEROXIDE BOTTLE TOPICAL ONE (13:25)
--- NOTE | 2018-09-30 13:25 | P.CONS ---
History of Present Illness - Reason for Consult Consult date: 09/30/18 - Chief Complaint shortness of breath - History of Present Illness 68-year-old male that has multiple medical troubles that includes COPD, coronary artery disease,and a history of prostate carcinoma treated with radiation therapy presents to hospital with significant shortness of breath. Upon evidence of spontaneous pneumothorax from a ruptured bleb rof the right lung. He was seen by current thoracic surgery and a thorough that was applied. He had some improvement but then eventually he developed progressive respiratory failure and required intubation with sedation mechanical ventilation. And also require surgical intervention with the VATS procedure for the resection of the bleb. The patient has subsequently been extubated is having stability to his pulmonary status. However sputum now has evidence of new pathogen and concerns to underlying pneumonia and consequently the infectious diseases consultation was requested. The patient is received some Ativan and is somewhat sedated. His is present. The patient is comfortable and not in respiratory distress at this time. Review of Systems HEENT:Denies headache or acute visual change. Denies sinus or mouth discomforts. Denies neck stiffness or pain. Denies significant oral cavity pain. Denies difficulty on swallowing. Lungs: Shortness of breath is improved, decreased cough, no hemoptysis Cardiovascular: Denies chest pain at this time. Subsequent cutaneous emphysema is noted in uncomfortable since it ascended to the face. Gastrointestinal:Denies nausea, vomiting, diarrhea, constipation, hematemesis, melena, hematochezia. No no significant change of bowel habit noticed. Musculoskeletal: denies significant myalgias or arthralgias. No new joint swelling. Denies new back pain. Skin: Denies new rash or lesions. No new ulcers or wounds are related.. Neuro: Denies headache or visual change. Denies any new onset weakness or difficulty with ambulation. Denies falls or seizures. Psychiatric:anxiety Endocrine: fatigue weight loss Past Medical History Past Medical History: Cancer, COPD, Deep Vein Thrombosis (DVT), GERD/Reflux, Hyperlipidemia, Hypertension, Pneumonia Additional Past Medical History / Comment(s): HIATAL HERNIA; PROSTATE CANCER- 2009; SHINGLES-2013; HX DVT RT LEG 10 years History of Any Multi-Drug Resistant Organisms: None Reported Past Surgical History: Orthopedic Surgery Additional Past Surgical History / Comment(s): 07/28/14 Laparoscopic Padma Fundoplication with mesh repair of hiatal hernia. LEFT ARM SURGERY 1966. RIGHT ROTATOR CUFF REPAIR 2013. EGD 06/16/14. Past Anesthesia/Blood Transfusion Reactions: No Reported Reaction Additional Past Anesthesia/Blood Transfusion Reaction / Comm: SEVERE PONV AFTER SHOULDER SURG. States becomes hyper when waking up. Past Psychological History: No Psychological Hx Reported Additional Psychological History / Comment(s): to his second who he resides with. Retired from [employer]. 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 pet dog in the home. No service. No international travel Smoking Status: Former smoker Past Alcohol Use History: None Reported Past Drug Use History: None Reported - Past Family History Mother Family Medical History: Cancer (Lungs) Father Family Medical History: Myocardial Infarction ([place]) Sister(s) Family Medical History: Deep Vein Thrombosis (DVT) Medications and Allergies Home Medications and Allergies Comment(s): Current Medications Acetaminophen (Tylenol Tab) 1,000 mg PO Q6HR PRN PRN Reason: Fever and/ or Pain Last Admin: 09/24/18 20:28 Dose: 1,000 mg Documented by: Hydrocodone Bitart/Acetaminophen ([place] 10) 1 each PO Q6H PRN PRN Reason: Moderate Pain Last Admin: 09/26/18 15:53 Dose: 1 each Documented by: Albuterol/Ipratropium (Duoneb 0.5 Mg-3 Mg/3 Ml Soln) 3 ml INHALATION RT-QID [facility], [facility]1983 Last Admin: 09/30/18 12:36 Dose: 3 ml Documented by: Albuterol/Ipratropium (Duoneb 0.5 Mg-3 Mg/3 Ml Soln) 3 ml INHALATION RT-Q2H PRN PRN Reason: Shortness Of Breath Or Wheezing Last Admin: 09/29/18 23:26 Dose: 3 ml Documented by: Aspirin (Aspirin) 81 mg PO DAILY [facility], [facility]–1983 Last Admin: 09/30/18 09:06 Dose: 81 mg Documented by: Atorvastatin Calcium (Lipitor) 80 mg PO DAILY [facility], [facility]–1983 Last Admin: 09/30/18 09:06 Dose: 80 mg Documented by: Benzonatate (Tessalon Perles) 100 mg PO TID PRN PRN Reason: Cough Last Admin: 09/30/18 13:10 Dose: 100 mg Documented by: Budesonide (Pulmicort) 0.5 mg INHALATION RT-BID [facility], [facility]–1983 Last Admin: 09/30/18 07:59 Dose: 0.5 mg Documented by: Diphenhydramine HCl (Benadryl) 50 mg PO HS [facility], [facility]1983 Last Admin: 09/29/18 22:25 Dose: 50 mg Documented by: Guaifenesin (Mucinex) 600 mg PO Q12HR PRN PRN Reason: Cough Last Admin: 09/29/18 21:48 Dose: 600 mg Documented by: Heparin Sodium (Porcine) (Heparin) 5,000 unit SQ Q12HR [facility] Last Admin: 09/30/18 09:16 Dose: 5,000 unit Documented by: Hydromorphone HCl (Dilaudid) 1 mg IVP Q4HR PRN PRN Reason: Severe Pain Last Admin: 09/29/18 04:29 Dose: 1 mg Documented by: Piperacillin Sod/Tazobactam (Sod 3.375 gm/ Sodium Chloride) 100 mls @ 25 mls/hr IVPB Q8HR [facility], [facility] Last Admin: 09/30/18 09:09 Dose: 25 mls/hr Documented by: Diltiazem HCl 125 mg/ Sodium (Chloride) 125 mls @ 5 mls/hr IV .Q24H [facility], [facility]1983 Last Admin: 09/30/18 10:04 Dose: 5 mg/hr, 5 mls/hr Documented by: Ibuprofen (Motrin) 600 mg PO QID PRN PRN Reason: Pain Insulin Aspart (Novolog) 0 unit SQ Q6H [facility], [facility]; Protocol Last Admin: 09/30/18 12:46 Dose: Not Given Documented by: Lorazepam (Ativan) 1 mg IV Q4HR PRN PRN Reason: Anxiety Last Admin: 09/30/18 13:18 Dose: 1 mg Documented by: Methylprednisolone Sodium Succinate (Solu-Medrol) 40 mg IV Q8HR [facility] Last Admin: 09/30/18 09:06 Dose: 40 mg Documented by: Metoclopramide HCl (Reglan) 5 mg IVP Q4HR PRN PRN Reason: Nausea And Vomiting Metoprolol Tartrate (Lopressor) 25 mg PO BID [facility]1983 Last Admin: 09/30/18 09:05 Dose: 25 mg Documented by: Miscellaneous Information (Magnesium Per Protocol) 1 each MISCELLANE DAILY PRN; Protocol PRN Reason: Per Protocol Miscellaneous Information (Potassium Per Protocol) 1 each MISCELLANE DAILY PRN; Protocol PRN Reason: Per Protocol Miscellaneous Information (Vancomycin Trough Due) 0 each MISCELLANE DIRECTED ONE Stop: 10/01/18 08:01 Montelukast Sodium (Singulair) [address] [facility] Last Admin: 09/29/18 21:48 Dose: 10 mg Documented by: Nitroglycerin (Nitrostat) 0.4 mg SUBLINGUAL Q5M PRN PRN Reason: Chest Pain Ondansetron HCl (Zofran) 4 mg IVP Q8HR PRN PRN Reason: Nausea And Vomiting Last Admin: 09/27/18 02:26 Dose: 4 mg Documented by: Pantoprazole Sodium (Protonix) 40 mg PO -BRKT [facility] Sertraline HCl (Zoloft) [address] [facility] Last Admin: 09/29/18 21:48 Dose: 50 mg Documented by: Home Medications Medication Instructions Recorded Confirmed Type Albuterol Nebulized [Ventolin 2.5 mg INHALATION RT-Q6H 09/15/18 09/23/18 History Nebulized] Ibuprofen 600 mg PO Q6HR #56 tablet 09/19/18 09/23/18 Rx Montelukast [Singulair] 10 mg PO HS 30 Days #30 tab 09/19/18 09/23/18 Rx Sertraline [Zoloft] 50 mg PO HS 30 Days #30 tab 09/19/18 09/23/18 Rx amLODIPine [Norvasc] 10 mg PO DAILY 30 Days #30 tab 09/19/18 09/23/18 Rx predniSONE See Taper PO DIRECTED 09/23/18 09/23/18 History diphenhydrAMINE [Benadryl] 50 mg PO HS PRN 09/29/18 09/29/18 History Allergies Allergy/AdvReac Type Severity Reaction Status Date / Time hydrocodone AdvReac Mild Vomiting Verified 09/23/18 16:31 Physical Exam Vitals: Vital Signs Temp Pulse Resp BP Pulse Ox 09/30/18 12:50 107 H 09/30/18 12:36 120 H 09/30/18 12:00 99.5 F 122 H 21 117/75 92 L 09/30/18 11:00 118 H 26 H 97/80 95 09/30/18 10:00 138 H 26 H 131/91 97 09/30/18 09:00 98.7 F 149 H 26 H 163/104 95 09/30/18 08:21 90 09/30/18 08:09 92 09/30/18 08:00 90 20 158/100 96 09/30/18 07:59 89 09/30/18 07:00 93 25 H 141/89 91 L 09/30/18 06:00 86 28 H 146/90 94 L 09/30/18 05:00 99 27 H 155/97 93 L 09/30/18 04:00 98.2 F 82 18 159/87 94 L 09/30/18 03:00 79 17 150/92 93 L 09/30/18 02:00 81 17 152/88 95 09/30/18 01:00 71 18 140/84 95 09/30/18 00:00 98.2 F 69 20 135/76 95 09/29/18 23:36 70 09/29/18 23:26 67 09/29/18 23:00 67 17 140/81 95 09/29/18 22:28 74 22 148/87 93 L 09/29/18 22:00 76 34 H 122/70 94 L 09/29/18 21:00 67 18 128/79 96 09/29/18 20:04 71 09/29/18 20:00 98.2 F 70 20 136/93 100 09/29/18 19:51 67 09/29/18 19:50 67 09/29/18 19:40 76 09/29/18 19:00 69 26 H 123/68 96 09/29/18 18:30 70 22 124/68 94 L 09/29/18 18:00 75 20 116/71 96 09/29/18 17:30 69 17 110/60 96 09/29/18 17:00 67 12 118/65 98 09/29/18 16:30 69 17 121/69 95 09/29/18 16:00 98.4 F 66 20 116/67 94 L 09/29/18 15:58 70 09/29/18 15:47 68 09/29/18 15:30 65 18 122/68 96 09/29/18 15:00 73 23 110/59 96 09/29/18 14:30 67 11 L 118/66 95 09/29/18 14:00 73 16 105/60 94 L 09/29/18 13:30 69 11 L 109/59 92 L Intake and Output 09/29/18 09/30/18 09/30/18 22:59 06:59 14:59 Intake Total 770 670 630 Output Total 1000 1320 820 Balance -230 -650 -190 Intake: IV 530 670 630 Normal Saline 280 320 280 Piperacillin-Tazobactam 3 100 100 .375 gm In Sodium Chloride 0.9% 100 ml @ 25 mls/hr IVPB Q8HR [facility] Rx# :[id number] Vancomycin 1,500 mg In 250 250 250 Sodium Chloride 0.9% 250 ml @ 125 mls/hr IVPB Q8H [facility] Rx#:[id number] Oral 240 Output: Chest Tube Drainage 0 120 40 Chest Tube Right Lateral 0 120 40 Chest Urine 1000 1200 780 Other: Voiding Method Indwelling Catheter Indwelling Catheter Weight 78.2 kg 68-year-old male comfortable HEENT: Anicteric conjunctiva are pink and moist nasal mucosa grossly intact without significant lesions, there is no thrush.subcutaneous emphysema is palpable on the face of the periorbital area. It is related with application of some localized pressure is actually improving already Neck: The neck is supple without significant lymphadenopathy or thyromegaly. Lungs: they're symmetrical bilateral air entry, there are decreased breath sounds at the bilateral bases. Some few expiratory wheezes are heard. There is still easily palpable subcu emphysema onto the anterior chest wall shoulders and upper arms bilaterally. The patient has had multiple catheters applied to reduce the 70s emphysema and apparently is are improving Heart: irregular irregular audible S1 and S2 soft S4 no click or rub 2/6 systolic murmur excellent carotids Abdomen: Positive bowel sounds soft and nontender without palpable masses or organomegaly. There was no guarding or rebound. Extremities: The upper extremities have excellent pulses they are symmetric, no significant petechiae or telangiectasia. No splinter hemorrhages were noted. The lower extremities are free from significant edema. The peripheral pulses were 2+ and symmetric. Neuro: patient is arousable and interactive solicited from the recent Ativan usage. Follows all commands without difficulties. Results CBC & Chem 7: 09/30/18 04:51 09/30/18 04:51 Labs: Abnormal Lab Results - Last 24 Hours (Table) 09/29/18 09/29/18 09/29/18 Range/Units 13:24 18:33 23:35 WBC (3.8-10.6) k/uL RBC (4.30-5.90) m/uL Neutrophils # (1.3-7.7) k/uL Lymphocytes # (1.0-4.8) k/uL Chloride (98-107) mmol/L BUN (9-20) mg/dL Glucose (74-99) mg/dL POC Glucose (mg/dL) 120 H 108 H 128 H (75-99) mg/dL 09/30/18 09/30/18 09/30/18 Range/Units 04:51 04:51 05:28 WBC 17.4 H (3.8-10.6) k/uL RBC 4.29 L (4.30-5.90) m/uL Neutrophils # 16.4 H (1.3-7.7) k/uL Lymphocytes # 0.3 L (1.0-4.8) k/uL Chloride 110 H (98-107) mmol/L BUN 32 H (9-20) mg/dL Glucose 127 H (74-99) mg/dL POC Glucose (mg/dL) 122 H (75-99) mg/dL 09/30/18 Range/Units 11:56 WBC (3.8-10.6) k/uL RBC (4.30-5.90) m/uL Neutrophils # (1.3-7.7) k/uL Lymphocytes # (1.0-4.8) k/uL Chloride (98-107) mmol/L BUN (9-20) mg/dL Glucose (74-99) mg/dL POC Glucose (mg/dL) 107 H (75-99) mg/dL Microbiology - Last 24 Hours (Table) 09/27/18 13:10 Blood Culture - Preliminary Blood No Growth after 48 hours 09/28/18 01:05 Gram Stain - Preliminary Sputum Sputum Culture - Preliminary Marylin albicans Presumptive Staph aureus Laboratory Results WBC 17.4 k/uL (3.8-10.6) H 09/30/18 04:51 RBC 4.29 m/uL (4.30-5.90) L 09/30/18 04:51 Hgb 13.8 gm/dL (13.0-17.5) 09/30/18 04:51 Hct 42.0 % (39.0-53.0) 09/30/18 04:51 MCV 98.0 fL (80.0-100.0) 09/30/18 04:51 MCH 32.1 pg (25.0-35.0) 09/30/18 04:51 MCHC 32.8 g/dL (31.0-37.0) 09/30/18 04:51 RDW 14.1 % (11.5-15.5) 09/30/18 04:51 Plt Count 164 k/uL (150-450) 09/30/18 04:51 Neutrophils % 94 % 09/30/18 04:51 Lymphocytes % 2 % 09/30/18 04:51 Monocytes % 3 % 09/30/18 04:51 Eosinophils % 0 % 09/30/18 04:51 Basophils % 0 % 09/30/18 04:51 Neutrophils # 16.4 k/uL (1.3-7.7) H 09/30/18 04:51 Lymphocytes # 0.3 k/uL (1.0-4.8) L 09/30/18 04:51 Monocytes # 0.6 k/uL (0-1.0) 09/30/18 04:51 Eosinophils # 0.1 k/uL (0-0.7) 09/30/18 04:51 Basophils # 0.0 k/uL (0-0.2) 09/30/18 04:51 PT 10.3 sec (9.0-12.0) 09/23/18 16:22 INR 1.0 (<1.2) 09/23/18 16:22 APTT 22.2 sec (22.0-30.0) 09/23/18 16:22 D-Dimer 2.00 mg/L FEU (<0.60) H 09/24/18 08:33 Sample Site vicki 09/29/18 05:31 ABG pH 7.37 (7.35-7.45) 09/29/18 05:31 ABG pCO2 47 mmHg (35-45) H 09/29/18 05:31 ABG pO2 121 mmHg (83-108) H 09/29/18 05:31 ABG HCO3 27 mmol/L (21-25) H 09/29/18 05:31 ABG Total CO2 28 mmol/L (19-24) H 09/29/18 05:31 ABG O2 Saturation 98.6 % (94-97) H 09/29/18 05:31 ABG Base Excess 1.6 mmol/L 09/29/18 05:31 Peng Test Yes 09/29/18 05:31 FiO2 40 % 09/29/18 05:31 Sodium 143 mmol/L (137-145) 09/30/18 04:51 Potassium 4.8 mmol/L (3.5-5.1) 09/30/18 04:51 Chloride 110 mmol/L (98-107) H 09/30/18 04:51 Carbon Dioxide 28 mmol/L (22-30) 09/30/18 04:51 Anion Gap 5 mmol/L 09/30/18 04:51 BUN 32 mg/dL (9-20) H 09/30/18 04:51 Creatinine 0.75 mg/dL (0.66-1.25) 09/30/18 04:51 Est GFR (CKD-EPI)AfAm >90 (>60 ml/min/1.73 sqM) 09/30/18 04:51 Est GFR (CKD-EPI)NonAf >90 (>60 ml/min/1.73 sqM) 09/30/18 04:51 Glucose 127 mg/dL (74-99) H 09/30/18 04:51 POC Glucose (mg/dL) 107 mg/dL (75-99) H 09/30/18 11:56 POC Glu Video Coordinator ID Ruchi Clark 09/30/18 11:56 Calcium 9.2 mg/dL (8.4-10.2) 09/30/18 04:51 Phosphorus 3.3 mg/dL (2.5-4.5) 09/30/18 04:51 Magnesium 2.2 mg/dL (1.6-2.3) 09/30/18 04:51 Total Bilirubin 0.2 mg/dL (0.2-1.3) 09/28/18 04:05 AST 17 U/L (17-59) 09/28/18 04:05 ALT 27 U/L (21-72) 09/28/18 04:05 Alkaline Phosphatase 39 U/L (38-126) 09/28/18 04:05 Troponin I 0.298 ng/mL (0.000-0.034) H* 09/24/18 04:06 NT-Pro-B Natriuret Pep 2820 pg/mL 09/23/18 16:22 Total Protein 4.1 g/dL (6.3-8.2) L 09/28/18 04:05 Albumin 2.0 g/dL (3.5-5.0) L 09/28/18 04:05 Triglycerides 169 mg/dL (<150) H 09/23/18 16:22 Cholesterol 249 mg/dL (<200) H 09/23/18 16:22 LDL Cholesterol, Calc 128 mg/dL (0-99) H 09/23/18 16:22 HDL Cholesterol 87 mg/dL (40-60) H 09/23/18 16:22 Urine Color Yellow 09/27/18 06:20 Urine Appearance Clear (Clear) 09/27/18 06:20 Urine pH 6.0 (5.0-8.0) 09/27/18 06:20 Ur Specific [place] 1.034 (1.001-1.035) 09/27/18 06:20 Urine Protein Trace (Negative) H 09/27/18 06:20 Urine Glucose (UA) Negative (Negative) 09/27/18 06:20 Urine Ketones Trace (Negative) H 09/27/18 06:20 Urine Blood Moderate (Negative) H 09/27/18 06:20 Urine Nitrite Negative (Negative) 09/27/18 06:20 Urine Bilirubin Negative (Negative) 09/27/18 06:20 Urine Urobilinogen <2.0 mg/dL (<2.0) 09/27/18 06:20 Ur Leukocyte Esterase Negative (Negative) 09/27/18 06:20 Urine RBC >182 /hpf (0-5) H 09/27/18 06:20 Urine WBC 3 /hpf (0-5) 09/27/18 06:20 Urine Mucus Rare /hpf (None) H 09/27/18 06:20 Blood Type A Negative 09/26/18 11:46 Blood Type Confirm A Negative 09/26/18 12:39 Blood Type Recheck CABO Indicated 09/26/18 11:46 Antibody Screen NEGATIVE 09/26/18 11:46 Spec Expiration Date 09/29/2018 - 4866 09/26/18 11:46 Microbiology 09/27/18 13:10 Blood Blood Culture - Preliminary No Growth after 48 hours 09/28/18 01:05 Sputum Gram Stain - Preliminary 09/28/18 01:05 Sputum Sputum Culture - Preliminary Marylin albicans Presumptive Staph aureus 09/27/18 06:20 Urine,Catheterized Urine Culture - Final Comments: indeterminate probability PE Chest x-ray: report reviewed (ion of the pneumothorax, so Pitocin his emphysema is visualized) Assessment and Plan (1) Acute exacerbation of chronic obstructive airways disease Current Visit: Yes Status: Acute Code(s): J44.1 - CHRONIC OBSTRUCTIVE PULMONARY DISEASE W (ACUTE) EXACERBATION SNOMED Code(s): 333308813 (2) Spontaneous pneumothorax Narrative/Plan: 68-year-old male presents to hospital with the sudden onset of increasing shortness of breath. He was 5 evidence of a spontaneous pneumothorax from a bleb on the right lung. Was treated with Serevent and had some improvement. However then had worsening of the symptoms and required further intervention. He was seen by cardiovascular surgery taken the operating room and a VATS procedure was performed for surgical correction of the bleb. The patient's pneumothorax is now improving and it is also noted that his extensive his emphysema is starting to show some improvement. Patient's sputum was showing evidence of MSSA at this point in time. Vancomycin may be discontinued. Currently receiving antimicrobial therapy with piperacillin tazobactam. This will be rapidly de-escalate once final cultures are available within the next day. Patient's her REVEALS evidence of the significant irritation and a mixture of peroxide and mouthwash and utilized for cleansing of his oral cavity to improve his discomfort and oral cavity and is improving his ability to eat Current Visit: Yes Status: Acute Code(s): J93.83 - OTHER PNEUMOTHORAX SNOMED Code(s): 03060930 (3) ACS (acute coronary syndrome) Current Visit: Yes Status: Acute Code(s): I24.9 - ACUTE ISCHEMIC HEART DISEASE, UNSPECIFIED SNOMED Code(s): 129696941
--- NOTE | 2018-09-30 15:04 | P.PN ---
Subjective Progress Note Date: 09/30/18 This is a 68-year-old male patient who presented to the hospital with complaints of increased shortness of breath. Patient was recently admitted for spontaneous right-sided pneumothorax post thoracotomy placement. Patient was DC'd with thoraven in place. reports that at home he became very short winded was unable to walk. He has past medical history of COPD, GERD, hyperlipidemia, hypertension, pneumonia, ex-smoker, prostate cancer 2000, DVT 10 years ago completed treatment. Chest x-ray completed showing mild right-sided atelectasis. Right-sided pneumothorax is essentially cleared compared to last exam. Soft tissue air increased compared to last exam. EKG completed showing sinus rhythm with first-degree AV block. Troponin is elevated 0.394, 0.295 and 0.290. Cardiology and pulmonary service is consulted. D-dimer elevated at 2.00. CTA performed pending. BNP also elevated 2820. Patient does have thoravent in place. Cardiothoracic surgery consulted. Patient is very anxious. Ativan given when necessary order. At that time patient is still complaining of some shortness breath. Patient denies chest pain. Patient denies nausea vomiting or diarrhea. Patient denies any urinary burning or frequency. On 09/25/2018 patient's chest tube hooked to suction for right-sided pneumo thorax. Discussed case with cardiothoracic nurse practitioner. Planning VATS procedure. Patient received 1 dose of IV Lasix for mild CHF exacerbation. Per cardiology patient does have aortic stenosis will eventually have ALEJANDRO and heart cath outpatient. At this time patient does state improvement with shortness of breath. Patient denies chest pain. Patient denies nausea vomiting or diarrhea. Patient denies any urinary burning or frequency. On 09/26/2018. Patient had episode of Thora vent dislodge this AM. Patient went into a story distress. Patient was taken to emergent surgery for VATS procedure with Dr. Jackman. Patient is currently resting in the intensive care unit. Chest tube is in place. At this time patient does state some improvement with shortness of breath. Patient denies nausea or vomiting. Patient denies any urinary burning or frequency On 09/27/2018 patient required mechanical ventilation and intubation throughout night due to increasing subcu emphysema. At this time patient is sedated. Patient also requiring Levophed for pressure support. Patient remains in intensive care unit. Pulmonary and cardiothoracic services are following. On 09/28/2018 patient remains on mechanical ventilation in the ICU. Patient remains on sedation. Pulmonary following. Patient started on Rocephin. Patient maintained on IV Solu-Medrol. Patient improvement with subcu emphysema. Patient remains on Levophed for pressure support. No plans to wean today per pulmonary. Continue tube feeds On 09/29/2018 patient was seen and examined in the ICU he was extubated and is tolerating well he is alert and oriented 3 in no apparent distress there is no chest pain or shortness of breath he has occasional cough no fever or chills no headache or dizziness no nausea or vomiting no abdominal pain no diarrhea and no urinary symptoms. On 09/30/2018 patient was seen again in the intensive care unit he is alert and oriented 3 he is maintained on oxygen via nasal cannula and is tolerating well he has worsening subcutaneous emphysema and occasional cough otherwise he denies any complaints there is no fever or chills no chest pain no shortness of breath at rest no nausea or vomiting no abdominal pain no diarrhea and no urinary symptoms Objective - Vital Signs Vital signs: Vital Signs Temp 99.5 F 09/30/18 12:00 Pulse 113 H 09/30/18 14:00 Resp 26 H 09/30/18 14:00 BP 115/92 09/30/18 14:00 Pulse Ox 94 L 09/30/18 14:00 Intake & Output 09/29/18 09/30/18 09/30/18 18:59 06:59 18:59 Intake Total 2956.263 4759 670 Output Total 1360 1770 920 Balance -281.011 -700 -250 Weight 78.2 kg Intake: IV 755 830 670 Normal Saline 440 480 320 Normal Saline Pressure 15 Bag Piperacillin-Tazobactam 3 100 100 .375 gm In Sodium Chloride 0.9% 100 ml @ 25 mls/hr IVPB Q8HR [facility] Rx# :[id number] Vancomycin 1,500 mg In 250 250 250 Sodium Chloride 0.9% 250 ml @ 125 mls/hr IVPB Q8H [facility] Rx#:[id number] cefTRIAXone 1 gm In 50 Sodium Chloride 0.9% 50 ml @ 100 mls/hr IVPB Q24H [facility] Rx#:[id number] Intake, IV Titration 170.989 Amount Norepinephrine 4 mg In 7.439 Sodium Chloride 0.9% 250 ml @ 0.05 MCG/KG/MIN 14. 307 mls/hr IV .[id number] [facility] Rx#:[id number] Propofol 1,000 mg In 163.550 Empty Bag 1 bag @ Titrate IV .Q0M [facility] Rx#: [id number] Oral 240 Tube Feeding 123 Other 30 Output: Chest Tube Drainage 10 120 40 Chest Tube Right Lateral 10 120 40 Chest Urine 1350 1650 880 Other: Voiding Method Indwelling Catheter Indwelling Catheter ABP, PAP, CO, CI - Last Documented Arterial Blood Pressure 98/49 - Exam Head normocephalic and atraumatic Neck supple no JVD no goiter Lungs diminished bilaterally, chest tube in place Heart regular rate and rhythm S1-S2, no rub or gallop Abdomen is soft nontender nondistended positive bowel sounds no hepatosplenomegaly Extremities no edema no cyanosis or clubbing Neuro alert and orientated to 3 - Labs CBC & Chem 7: 09/30/18 04:51 09/30/18 04:51 Labs: Abnormal Lab Results - Last 24 Hours (Table) 09/29/18 09/29/18 09/30/18 Range/Units 18:33 23:35 04:51 WBC 17.4 H (3.8-10.6) k/uL RBC 4.29 L (4.30-5.90) m/uL Neutrophils # 16.4 H (1.3-7.7) k/uL Lymphocytes # 0.3 L (1.0-4.8) k/uL Chloride (98-107) mmol/L BUN (9-20) mg/dL Glucose (74-99) mg/dL POC Glucose (mg/dL) 108 H 128 H (75-99) mg/dL 09/30/18 09/30/18 09/30/18 Range/Units 04:51 05:28 11:56 WBC (3.8-10.6) k/uL RBC (4.30-5.90) m/uL Neutrophils # (1.3-7.7) k/uL Lymphocytes # (1.0-4.8) k/uL Chloride 110 H (98-107) mmol/L BUN 32 H (9-20) mg/dL Glucose 127 H (74-99) mg/dL POC Glucose (mg/dL) 122 H 107 H (75-99) mg/dL Microbiology - Last 24 Hours (Table) 09/27/18 13:10 Blood Culture - Preliminary Blood No Growth after 48 hours Assessment and Plan Plan: 1. Increased shortness of breathing secondary to recurring right-sided p neumothorax. CTA chest performed showing reaccumulation of large, approximately 70% right-sided pneumonia without current mediastinal shift on the exam. thoravent is in place. Extensive underlying emphysematous change. No evidence of central pulmonary embolus. Subsegmental arteries are somewhat limited. No CT evidence of right heart strain. Cardiothoracic services have been consulted. Pulmonary services consulted. currently on DuoNeb breathing treatments and prednisone 40 mg. and 09/26/2018, Thoravent extraembryonic improved this AM. Was taken to the OR for video-assisted thorascopic the with bleb stapling. Patient having subcu emphysema. Patient currently on steroids. 2. Increased subcu emphysema post surgical requiring mechanical ventilation for airway management. Patient is currently maintained on mechanical ventilation. Pulmonary services are following 3. Mild diastolic congestive heart failure. BNP elevated 2820. 2-D echo completed showing EF of 50-55% Cardiology services following. Patient received 1 dose of IV Lasix 4. Elevated troponins. Troponin level 0.395, 0.295 and 0.298. Cardiology services are following 5. Recent right-sided spontaneous pneumothorax status post ThoraVent placement. 6. Leukocytosis. Patient has been on oral prednisone. White blood cell is trending down 7. History of Niesen fundoplication 8. History of prostate cancer 2009 9. History of right leg DVT several years ago no longer on anticoagulation 10. Essential hypertension patient was DC'd during previous admission on Norvasc and hydralazine 11. Anxiety and hyperactivity. Ativan when necessary has been ordered. Maintained on Zoloft 12. Aortic stenosis. 2-D echo completed per cardiology. Patient will likely need ALEJANDRO a cardiac catheterization outpatient 13. Hypotension likely secondary to sedation. Patient currently maintained on Levophed DVT prophylaxis heparin. GI prophylaxis Protonix Patient in the intensive care unit. Pulmonary, cardiology and cardiothoracic following
[2018-09-30 17:16] LABS: Glucose,Whole Blood 121 mg/dL (75-99)
[2018-09-30 21:08] LABS: Glucose,Whole Blood 126 mg/dL (75-99)
[2018-09-30] MEDS: diphenhydrAMINE 50 MG CAP PO SCH (21:14)
[2018-09-30] MEDS: MONTELUKAST 10 MG TAB PO SCH (21:14)
[2018-09-30] MEDS: SERTRALINE 50 MG TAB PO SCH (21:15)
[2018-10-01] MEDS: methylPREDNISolone SOD SUCCI 40 MG/ML 1 ML VIAL IV SCH ×3 (00:04→21:03)
[2018-10-01] MEDS: PIPERACILLIN-TAZOBACTAM 3.375 GM in SODIUM CHLORIDE 0.9% 100 ML IVPB SCH ×2 (00:04→09:25)
[2018-10-01] MEDS: guaiFENesin 600 MG TABLET.ER PO PRN ×2 (00:04→11:11)
[2018-10-01 05:27] LABS: Basophils % (A) 0 %; Eosinophils % (A) 0 %; HCT 43.8 % (39.0-53.0); HGB 14.1 gm/dL (13.0-17.5); Lymphocytes # (A) 0.4 k/uL (1.0-4.8); Lymphocytes % (A) 3 %; MCH 31.3 pg (25.0-35.0); MCHC 32.1 g/dL (31.0-37.0); MCV 97.2 fL (80.0-100.0); Mean Platelet Volume 7.7; Monocytes # (A) 0.4 k/uL (0-1.0); Monocytes % (A) 3 %; Neutrophils # (A) 13.9 k/uL (1.3-7.7); Neutrophils % (A) 94 %; Platelet Count 179 k/uL (150-450); RBC 4.51 m/uL (4.30-5.90); RDW 14.5 % (11.5-15.5); WBC 14.7 k/uL (3.8-10.6)
[2018-10-01 05:40] LABS: African American GFR (CKD) >90 (>60 ml/min/1.73 sqM); Anion Gap 4 mmol/L; Blood Urea Nitrogen 30 mg/dL (9-20); Calcium 8.9 mg/dL (8.4-10.2); Carbon Dioxide 28 mmol/L (22-30); Chloride 107 mmol/L (98-107); Glucose 142 mg/dL (74-99); Potassium 4.7 mmol/L (3.5-5.1); Sodium 139 mmol/L (137-145)
[2018-10-01 06:09] LABS: Glucose,Whole Blood 139 mg/dL (75-99)
[2018-10-01] MEDS: INSULIN ASPART (NovoLOG) 100 UNIT/ML VIAL SQ SCH ×4 (06:45→21:03)
[2018-10-01] MEDS: PANTOPRAZOLE 40 MG TABLET PO SCH (06:45)
--- NOTE | 2018-10-01 07:18 | XR ---
EXAMINATION TYPE: XR chest 1V portable DATE OF EXAM: 10/01/2018 HISTORY: Shortness of breath. COMPARISON: 09/30/2018 TECHNIQUE: Single view of the chest is submitted. FINDINGS: Right-sided chest tube is unchanged in position. Sizable pneumothorax is not identified with certaint y. There is extensive subcutaneous emphysema throughout the bilateral chest and neck. Hilar and mediastinal structures are within normal limits. Degenerative changes are seen of the dorsal spine. IMPRESSION: 1. Right-sided chest tube without evidence for sizable pneumothorax. 2. Extensive subcutaneous emphysema.
[2018-10-01] MEDS: BUDESONIDE 0.5 MG/2 ML NEBU INHALATION SCH ×2 (07:32→19:40)
[2018-10-01] MEDS: IPRATROPIUM-ALBUTEROL 3 ML NEB INHALATION SCH ×4 (07:32→19:40)
--- NOTE | 2018-10-01 07:46 | P.PN ---
Subjective Progress Note Date: 10/01/18 Principal diagnosis: Pneumothorax This is a pleasant 68-year-old gentleman with a past medical history significant for hypertension, dyslipidemia, and history of DVT, who was admitted to the hospital with shortness of breath and was found to have pneumothorax which seems to be recurrent. He was discharged from the hospital recently with Thoravent. This time that was attached to suction. He is feeling better. The computed tomography scan revealed right sided pneumothorax. He underwent surgery. The patient underwent right VATS bleb resection. On follow-up with the patient today, 10/01/2018, he is looking overall better clinically. He is in sinus rhythm. He is on metoprolol at 25 mg by mouth twice a day and also he is on Cardizem drip. I'm going to DC the Cardizem drip and increase the dose of metoprolol to 25 mg by mouth 3 times a day. Continue the aspirin as well as statin. Objective - Vital Signs Vital signs: Vital Signs Temp 98.3 F 10/01/18 04:00 Pulse 68 10/01/18 07:33 Resp 15 10/01/18 07:00 BP 147/87 10/01/18 07:00 Pulse Ox 96 10/01/18 07:00 Intake & Output 09/30/18 10/01/18 10/01/18 18:59 06:59 18:59 Intake Total 890 320 Output Total 1275 1994 Balance -385 -1670 Weight 77.9 kg Intake: IV 890 320 Normal Saline 440 220 Piperacillin-Tazobactam 3 200 100 .375 gm In Sodium Chloride 0.9% 100 ml @ 25 mls/hr IVPB Q8HR [facility] Rx# :[id number] Vancomycin 1,500 mg In 250 Sodium Chloride 0.9% 250 ml @ 125 mls/hr IVPB Q8H [facility] Rx#:[id number] Output: Chest Tube Drainage 40 90 Chest Tube Right Lateral 40 90 Chest Urine 1235 1905 Other: Voiding Method Indwelling Catheter Indwelling Catheter ABP, PAP, CO, CI - Last Documented Arterial Blood Pressure 98/49 - Constitutional General appearance: Present: no acute distress - Respiratory Respiratory: bilateral: diminished - Cardiovascular Rhythm: regular Heart sounds: normal: S1, S2 - Labs CBC & Chem 7: 10/01/18 04:28 10/01/18 04:28 Labs: Abnormal Lab Results - Last 24 Hours (Table) 09/30/18 09/30/18 09/30/18 Range/Units 11:56 17:15 21:06 WBC (3.8-10.6) k/uL Neutrophils # (1.3-7.7) k/uL Lymphocytes # (1.0-4.8) k/uL BUN (9-20) mg/dL Glucose (74-99) mg/dL POC Glucose (mg/dL) 107 H 121 H 126 H (75-99) mg/dL 10/01/18 10/01/18 10/01/18 Range/Units 04:28 04:28 06:08 WBC 14.7 H (3.8-10.6) k/uL Neutrophils # 13.9 H (1.3-7.7) k/uL Lymphocytes # 0.4 L (1.0-4.8) k/uL BUN 30 H (9-20) mg/dL Glucose 142 H (74-99) mg/dL POC Glucose (mg/dL) 139 H (75-99) mg/dL Microbiology - Last 24 Hours (Table) 09/27/18 13:10 Blood Culture - Preliminary Blood No Growth after 72 hours Assessment and Plan Assessment: Assessment #1 recurrent right-sided pneumothorax #2 acute hypoxic respiratory failure #3 hypotension #4 severe aortic stenosis Plan #1 continue the current medical regimen including aspirin and statin #2 increase the dose of metoprolol #3 DC Cardizem #4 follow-up with the patient
[2018-10-01] MEDS ORDERED: VANCOMYCIN TROUGH DUE 1 EACH MISC MISCELLANE ONE (08:00)
[2018-10-01] MEDS: HEPARIN SODIUM,PORCINE 5,000 UNIT/ML 1 ML VIAL SQ SCH ×2 (09:25→21:03)
[2018-10-01] MEDS: ASPIRIN 81 MG PO SCH (09:26)
[2018-10-01] MEDS: ATORVASTATIN 80 MG TAB PO SCH (09:26)
[2018-10-01] MEDS: METOPROLOL TARTRATE 25 MG TAB PO SCH ×3 (09:26→21:06)
[2018-10-01] MEDS: ALPRAZolam 0.25 MG TAB PO PRN ×2 (09:57→22:49)
--- NOTE | 2018-10-01 10:22 | P.PN ---
Subjective Progress Note Date: 10/01/18 This is a 68-year-old male patient who presented to the hospital with complaints of increased shortness of breath. Patient was recently admitted for spontaneous right-sided pneumothorax post thoracotomy placement. Patient was DC'd with thoraven in place. reports that at home he became very short winded was unable to walk. He has past medical history of COPD, GERD, hyperlipidemia, hypertension, pneumonia, ex-smoker, prostate cancer 2000, DVT 10 years ago completed treatment. Chest x-ray completed showing mild right-sided atelectasis. Right-sided pneumothorax is essentially cleared compared to last exam. Soft tissue air increased compared to last exam. EKG completed showing sinus rhythm with first-degree AV block. Troponin is elevated 0.394, 0.295 and 0.290. Cardiology and pulmonary service is consulted. D-dimer elevated at 2.00. CTA performed pending. BNP also elevated 2820. Patient does have thoravent in place. Cardiothoracic surgery consulted. Patient is very anxious. Ativan given when necessary order. At that time patient is still complaining of some shortness breath. Patient denies chest pain. Patient denies nausea vomiting or diarrhea. Patient denies any urinary burning or frequency. On 09/25/2018 patient's chest tube hooked to suction for right-sided pneumot horax. Discussed case with cardiothoracic nurse practitioner. Planning VATS procedure. Patient received 1 dose of IV Lasix for mild CHF exacerbation. Per cardiology patient does have aortic stenosis will eventually have ALEJANDRO and heart cath outpatient. At this time patient does state improvement with shortness of breath. Patient denies chest pain. Patient denies nausea vomiting or diarrhea. Patient denies any urinary burning or frequency. On 09/26/2018. Patient had episode of Thora vent dislodge this AM. Patient went into a story distress. Patient was taken to emergent surgery for VATS procedure with Dr. Jackman. Patient is currently resting in the intensive care unit. Chest tube is in place. At this time patient does state some improvement with shortness of breath. Patient denies nausea or vomiting. Patient denies any urinary burning or frequency On 09/27/2018 patient required mechanical ventilation and intubation throughout night due to increasing subcu emphysema. At this time patient is sedated. Patient also requiring Levophed for pressure support. Patient remains in intensive care unit. Pulmonary and cardiothoracic services are following. On 09/28/2018 patient remains on mechanical ventilation in the ICU. Patient remains on sedation. Pulmonary following. Patient started on Rocephin. Patient maintained on IV Solu-Medrol. Patient improvement with subcu emphysema. Patient remains on Levophed for pressure support. No plans to wean today per pulmonary. Continue tube feeds On 09/29/2018 patient was seen and examined in the ICU he was extubated and is tolerating well he is alert and oriented 3 in no apparent distress there is no chest pain or shortness of breath he has occasional cough no fever or chills no headache or dizziness no nausea or vomiting no abdominal pain no diarrhea and no urinary symptoms. On 09/30/2018 patient was seen again in the intensive care unit he is alert and oriented 3 he is maintained on oxygen via nasal cannula and is tolerating well he has worsening subcutaneous emphysema and occasional cough otherwise he denies any complaints there is no fever or chills no chest pain no shortness of breath at rest no nausea or vomiting no abdominal pain no diarrhea and no urinary symptoms On 10/01/2018 patient remains in the intensive care unit. Patient subcu emphysema is improving. Patient is anxious. Will order Xanax at this time. Patient currently on Cardizem drip currently in sinus rhythm. Metroprolol has been increased per cardiology. At this time patient denies chest pain. Shortness of breath is improving. Patient denies any nausea vomiting or diarrhea. Patient denies any urinary burning or frequency Objective - Vital Signs Vital signs: Vital Signs Temp 98.1 F 10/01/18 08:00 Pulse 78 10/01/18 09:00 Resp 15 10/01/18 09:00 BP 162/93 10/01/18 09:00 Pulse Ox 94 L 10/01/18 09:00 Intake & Output 09/30/18 10/01/18 10/01/18 18:59 06:59 18:59 Intake Total 890 320 165 Output Total 1275 4031 846 Balance -903 -6058 -612 Weight 77.9 kg Intake: IV 890 320 165 Normal Saline 440 220 60 Piperacillin-Tazobactam 3 200 100 100 .375 gm In Sodium Chloride 0.9% 100 ml @ 25 mls/hr IVPB Q8HR [facility] Rx# :[id number] Vancomycin 1,500 mg In 250 Sodium Chloride 0.9% 250 ml @ 125 mls/hr IVPB Q8H [facility] Rx#:[id number] cardizem 5 Output: Chest Tube Drainage 40 90 0 Chest Tube Right Lateral 40 90 0 Chest Urine 1235 1905 325 Other: Voiding Method Indwelling Catheter Indwelling Catheter ABP, PAP, CO, CI - Last Documented Arterial Blood Pressure 98/49 - Exam Head normocephalic Neck supple Lungs diminished bilaterally, chest tube in place, subcu emphysema noted to neck and face Heart regular rate and rhythm S1-S2, no rub or gallop Abdomen is soft nontender nondistended positive bowel sounds no hepatosplenomegaly Extremities no edema Neuro alert and orientated to 3 - Labs CBC & Chem 7: 10/01/18 04:28 10/01/18 04:28 Labs: Abnormal Lab Results - Last 24 Hours (Table) 09/30/18 09/30/18 09/30/18 Range/Units 11:56 17:15 21:06 WBC (3.8-10.6) k/uL Neutrophils # (1.3-7.7) k/uL Lymphocytes # (1.0-4.8) k/uL BUN (9-20) mg/dL Glucose (74-99) mg/dL POC Glucose (mg/dL) 107 H 121 H 126 H (75-99) mg/dL 10/01/18 10/01/18 10/01/18 Range/Units 04:28 04:28 06:08 WBC 14.7 H (3.8-10.6) k/uL Neutrophils # 13.9 H (1.3-7.7) k/uL Lymphocytes # 0.4 L (1.0-4.8) k/uL BUN 30 H (9-20) mg/dL Glucose 142 H (74-99) mg/dL POC Glucose (mg/dL) 139 H (75-99) mg/dL Microbiology - Last 24 Hours (Table) 09/27/18 13:10 Blood Culture - Preliminary Blood No Growth after 72 hours Assessment and Plan Assessment: 1. Increased shortness of breathing secondary to recurring right-sided pneumothorax. CTA chest performed showing reaccumulation of large, approximately 70% right-sided pneumonia without current mediastinal shift on the exam. thoravent is in place. Extensive underlying emphysematous change. No evidence of central pulmonary embolus. Subsegmental arteries are somewhat limited. No CT evidence of right heart strain. Cardiothoracic services have been consulted. Pulmonary services consulted. currently on DuoNeb breathing treatments and prednisone 40 mg. and 09/26/2018, Thoravent extraembryonic improved this AM. Was taken to the OR for video-assisted thorascopic the with bleb stapling. Patient having subcu emphysema. Patient currently on steroids. 2. Increased subcu emphysema post surgical requiring mechanical ventilation for airway management. Patient has been extubated on 09/29/2018. Patient did requ barb needle decompression for subcu emphysema by cardiothoracic 09/30/2017 3. Mild diastolic congestive heart failure. BNP elevated 2820. 2-D echo completed showing EF of 50-55% Cardiology services following. Patient received 1 dose of IV Lasix 4. Elevated troponins. Troponin level 0.395, 0.295 and 0.298. Cardiology services are following 5. Recent right-sided spontaneous pneumothorax status post ThoraVent placement. 6. Leukocytosis. Patient has been on oral prednisone. Sputum culture growing presumptive staph aureus. Infectious disease is following. Patient currently maintained on Zosyn 7. History of Niesen fundoplication 8. History of prostate cancer 2009 9. History of right leg DVT several years ago no longer on anticoagulation 10. Essential hypertension patient was DC'd during previous admission on Norvasc and hydralazine 11. Anxiety and hyperactivity. Ativan when necessary has been ordered. Maintained on Zoloft. Xanax has been added 12. Aortic stenosis. 2-D echo completed per cardiology. Patient will likely need ALEJANDRO a cardiac catheterization outpatient 13. Hypotension likely secondary to sedation. Patient currently maintained on Levophed. Resolved 14. New-onset A. fib with RVR. Patient was started on Cardizem drip. Patient is now in sinus rhythm. Cardizem drip DC'd and patient started on Metroprolol. Cardiology services following DVT prophylaxis heparin. GI prophylaxis Protonix I performed an examination of the patient and discussed their management with the Nurse Practitioner. I have reviewed the Nurse Practitioner's notes and agree with the documented findings and plan of care
[2018-10-01] MEDS: BENZONATATE 100 MG CAP PO PRN ×2 (11:10→21:05)
[2018-10-01 12:01] LABS: Glucose,Whole Blood 111 mg/dL (75-99)
--- NOTE | 2018-10-01 12:41 | P.PN ---
Subjective Progress Note Date: 10/01/18 Principal diagnosis: Recurrent spontaneous right pneumothorax with thoravent in place. Mild congestive heart failure on admission with BNP 2820, elevated troponins of 0.395. New diagnosis of severe aortic stenosis per echocardiogram. Previous medical history of tobacco dependence, COPD, hypertension, hyperlipidemia, severe acid reflux, hiatal hernia status post Padma fundoplication with mesh repair, right leg DVT, renal failure secondary to dehydration, and prostate cancer. POD #5 right VATS bleb resection with mechanical and talc pleurodesis Postoperative hypoxic respiratory failure secondary to compromised airway, expected outcome given extensive subcutaneous emphysema The patient is currently sitting up in bed in the intensive care unit in no acute distress. Head significant increase in subcu emphysema yesterday, needle decompression performed yesterday, chest tube suction changed to -30 cm. Subcu emphysema still present but decreased from yesterday. Denies difficulty swallowing or breathing. Right-sided chest tube remains present with continuous air leak. Objective - Vital Signs Vital signs: Vital Signs Temp 98.1 F 10/01/18 08:00 Pulse 65 10/01/18 11:47 Resp 17 10/01/18 11:00 BP 127/78 10/01/18 11:00 Pulse Ox 94 L 10/01/18 11:00 Intake & Output 09/30/18 10/01/18 10/01/18 18:59 06:59 18:59 Intake Total 890 320 215 Output Total 1275 1995 848 Balance -030 -7378 -947 Weight 77.9 kg Intake: IV 890 320 215 Normal Saline 440 220 100 Piperacillin-Tazobactam 3 200 100 100 .375 gm In Sodium Chloride 0.9% 100 ml @ 25 mls/hr IVPB Q8HR [facility] Rx# :[id number] Vancomycin 1,500 mg In 250 Sodium Chloride 0.9% 250 ml @ 125 mls/hr IVPB Q8H [facility] Rx#:[id number] cardizem 15 Output: Chest Tube Drainage 40 90 0 Chest Tube Right Lateral 40 90 0 Chest Urine 1235 1905 440 Other: Voiding Method Indwelling Catheter Indwelling Catheter ABP, PAP, CO, CI - Last Documented Arterial Blood Pressure 98/49 - Constitutional General appearance: Present: cooperative, no acute distress - Respiratory Details: Lungs sounds diminished bilaterally. Respirations even, nonlabored. Currently on 4 L nasal cannula with oxygen saturation 96%. Right pleural chest tube p resent to -30 cm continuous wall suction, 90 mL serosanguineous drainage overnight, 150 mL in the last 24 hours, continuous air leak present. Significant subcu emphysema present to face, neck, chest, arms, decreased from yesterday. - Cardiovascular Details: S1, S2 present. Regular rate and rhythm, sinus rhythm with PACs on telemetry. Palpable peripheral pulses bilaterally. No lower extremity edema present. No calf pain or tenderness noted. Left radial arterial line present. SCDs present. - Gastrointestinal Gastrointestinal Comment(s): Abdomen soft, nontender, nondistended. Active bowel sounds present 4 quadrants. Tolerating diet - Genitourinary Genitourinary Comment(s): Flores present draining clear, yellow urine. - Integumentary Integumentary Comment(s): Skin is warm and dry with evidence of good perfusion. Right lateral chest tube site covered with dry intact dressing. - Neurologic Neurologic: Present: CNII-XII intact - Musculoskeletal Musculoskeletal: Present: strength equal bilaterally - Psychiatric Psychiatric: Present: A&O x's 3, appropriate affect, intact judgment & insight - Allied health notes Allied health notes reviewed: nursing - Labs CBC & Chem 7: 10/01/18 04:28 10/01/18 04:28 Labs: Abnormal Lab Results - Last 24 Hours (Table) 09/30/18 09/30/18 10/01/18 Range/Units 17:15 21:06 04:28 WBC 14.7 H (3.8-10.6) k/uL Neutrophils # 13.9 H (1.3-7.7) k/uL Lymphocytes # 0.4 L (1.0-4.8) k/uL BUN (9-20) mg/dL Glucose (74-99) mg/dL POC Glucose (mg/dL) 121 H 126 H (75-99) mg/dL 10/01/18 10/01/18 10/01/18 Range/Units 04:28 06:08 11:59 WBC (3.8-10.6) k/uL Neutrophils # (1.3-7.7) k/uL Lymphocytes # (1.0-4.8) k/uL BUN 30 H (9-20) mg/dL Glucose 142 H (74-99) mg/dL POC Glucose (mg/dL) 139 H 111 H (75-99) mg/dL Microbiology - Last 24 Hours (Table) 09/28/18 01:05 Gram Stain - Final Sputum Sputum Culture - Final Marylin albicans Staphylococcus aureus 09/27/18 13:10 Blood Culture - Preliminary Blood No Growth after 72 hours - Imaging and Cardiology Chest x-ray: report reviewed, image reviewed Assessment and Plan Assessment: 1. Recurrent spontaneous right pneumothorax, status post VATS with bleb resection and pleurodesis, continued air leak 2. Mild congestive heart failure, elevated BNP 2820 3. Elevated troponins as high as 0.395 4. Leukocytosis 5. Previous tobacco dependence 6. Chronic obstructive pulmonary disease 7. Hypertension 8. Hyperlipidemia 9. Severe acid reflux 10. History of hiatal hernia status post Padma fundoplication 11. History of prostate cancer 12. History of right leg deep vein thrombosis 13. Anxiety 14. Severe aortic stenosis discovered on transthoracic echocardiogram with peak/mean gradient 88.19 mmHg/61.56 mmHg and valve area 0.4 cm 15. Postoperative subcu emphysema, expected 16. Postoperative acute respiratory failure secondary to compromised airway Plan: 1. Continue chest tube to continuous wall suction. Will monitor for resolution of air leak. 2. Needle decompression performed yesterday by Dr. Garrett and chest tube suction was changed to -30 cm, will continue to monitor subcu emphysema 3. Bronchodilators, steroid management per pulmonology. 4. Will monitor daily x-rays. 5. Encourage continued smoking cessation. 6. Encourage use of incentive spirometry, increase activity. 7. Continued medical management per primary care service. 8. GI/DVT prophylaxis. 9. Pain control with current medication regimen. 10. Patient will need workup for aortic stenosis with ALEJANDRO and heart catheterization in the future, cardiology following. 11. More recommendations to follow. Time with Patient: Greater than 30
--- NOTE | 2018-10-01 14:20 | P.PN ---
Subjective Progress Note Date: 10/01/18 10/01/2018: Patient seen and examined in the intensive care unit with nursing staff and his at bedside. The patient states he is feeling okay today. He denies significant pain. He denies difficulty swallowing. He did pass a swallow evaluation will be started on a regular diet. The patient did receive a dose of Xanax for anxiety. He is off of Cardizem drip and is now in sinus rhythm. He does have worsening subcutaneous emphysema. Chest tube is to suction with nearly continuous air leak. Urine output has been 70-100 cc/h. Objective - Vital Signs Vital signs: Vital Signs Temp 98.2 F 10/01/18 13:00 Pulse 66 10/01/18 13:00 Resp 22 10/01/18 13:00 BP 136/80 10/01/18 13:00 Pulse Ox 96 10/01/18 13:00 Intake & Output 09/30/18 10/01/18 10/01/18 18:59 06:59 18:59 Intake Total 890 320 255 Output Total 1275 2880 580 Balance -033 -8628 -146 Weight 77.9 kg 77.9 kg Intake: IV 890 320 255 Normal Saline 440 220 140 Piperacillin-Tazobactam 3 200 100 100 .375 gm In Sodium Chloride 0.9% 100 ml @ 25 mls/hr IVPB Q8HR [facility] Rx# :[id number] Vancomycin 1,500 mg In 250 Sodium Chloride 0.9% 250 ml @ 125 mls/hr IVPB Q8H [facility] Rx#:[id number] cardizem 15 Output: Chest Tube Drainage 40 90 0 Chest Tube Right Lateral 40 90 0 Chest Urine 1235 1905 580 Other: Voiding Method Indwelling Catheter Indwelling Catheter Indwelling Catheter ABP, PAP, CO, CI - Last Documented Arterial Blood Pressure 98/49 - Exam General: Alert, following commands, extensive subcutaneous emphysema CV: RRR, s1/s2, joel Lungs: Diminished with coarse breath sounds bilaterally, Right chest tube in place with air leak Abdomen: soft, nontender, nondistended, +bs Ext: no edema - Labs CBC & Chem 7: 10/01/18 04:28 10/01/18 04:28 Labs: Abnormal Lab Results - Last 24 Hours (Table) 09/30/18 09/30/18 10/01/18 Range/Units 17:15 21:06 04:28 WBC 14.7 H (3.8-10.6) k/uL Neutrophils # 13.9 H (1.3-7.7) k/uL Lymphocytes # 0.4 L (1.0-4.8) k/uL BUN (9-20) mg/dL Glucose (74-99) mg/dL POC Glucose (mg/dL) 121 H 126 H (75-99) mg/dL 10/01/18 10/01/18 10/01/18 Range/Units 04:28 06:08 11:59 WBC (3.8-10.6) k/uL Neutrophils # (1.3-7.7) k/uL Lymphocytes # (1.0-4.8) k/uL BUN 30 H (9-20) mg/dL Glucose 142 H (74-99) mg/dL POC Glucose (mg/dL) 139 H 111 H (75-99) mg/dL Microbiology - Last 24 Hours (Table) 09/28/18 01:05 Gram Stain - Final Sputum Sputum Culture - Final Marylin albicans Staphylococcus aureus 09/27/18 13:10 Blood Culture - Preliminary Blood No Growth after 72 hours Assessment and Plan Assessment: Respiratory failure due to compromised airway, s/p mechanical ventilation Right spontaneous pneumothorax, s/p VATS Rightward mediastinal shift Staph aureus tracheobronchitis New onset atrial fibrillation with rapid ventricular response - resolved, now NSR Hypotension likely secondary to sedation - resolved COPD, severe, FEV 1 41% Leukocytosis History of DVT in the remote past History of prostate cancer Leukocytosis, possibly secondary to steroids History of Padma fundoplication and hiatial hernia GERD Hyperactivity, question bipolar versus ADHD versus other O2 to maintain saturation greater than or equal to 90% Continue Zoloft Continued smoking cessation Pulmciort Steroid taper Duonebs IS and pulmonary hygiene Chest tube per CVTS Monitor urine output and renal function Pain control DC Ativan and Dilaudid - patient taking PO meds now Regular diet GI and DVT prophylaxis: Heparin and Pepcid Monitor urine output and renal function. DC Zosyn and change to PO Augmentin Family is at bedside and updated to plan of care. All questions are answered.
[2018-10-01 16:57] LABS: Glucose,Whole Blood 164 mg/dL (75-99)
[2018-10-01 20:47] LABS: Glucose,Whole Blood 221 mg/dL (75-99)
[2018-10-01] MEDS: MONTELUKAST 10 MG TAB PO SCH (21:03)
[2018-10-01] MEDS: AMOXIC-POT CLAV 875-125MG 1 EACH TAB PO SCH (21:03)
[2018-10-01] MEDS: diphenhydrAMINE 50 MG CAP PO SCH (21:04)
[2018-10-01] MEDS: SERTRALINE 50 MG TAB PO SCH (21:04)
--- NOTE | 2018-10-01 21:54 | P.PN ---
Subjective Progress Note Date: 10/01/18 68-year-old male that has multiple medical troubles that includes COPD, coronary artery disease,and a history of prostate carcinoma treated with radiation therapy presents to hospital with significant shortness of breath. Upon evidence of spontaneous pneumothorax from a ruptured bleb rof the right lung. He was seen by current thoracic surgery and a thorough that was applied. He had some improvement but then eventually he developed progressive respiratory failure and required intubation with sedation mechanical ventilation. And also require surgical intervention with the VATS procedure for the resection of the bleb. The patient has subsequently been extubated is having stability to his pulmonary status. However sputum now has evidence of new pathogen and concerns to underlying pneumonia and consequently the infectious diseases consultation was requested. The patient is received some Ativan and is somewhat sedated. His is present. The patient is comfortable and not in respiratory distress at this time. 10/01/2018 patient is feeling better today. Pain is well controlled. Shortness of breath is improved. Objective - Vital Signs Vital signs: Vital Signs Temp 97.5 F L 10/01/18 20:00 Pulse 70 10/01/18 20:00 Resp 24 10/01/18 20:00 BP 125/81 10/01/18 20:00 Pulse Ox 95 10/01/18 20:00 Intake & Output 10/01/18 10/01/18 10/02/18 06:59 18:59 06:59 Intake Total 320 355 40 Output Total 1994 472 958 Balance -1675 -540 -385 Weight 77.9 kg 77.9 kg Intake: IV 320 355 40 Normal Saline 220 240 40 Piperacillin-Tazobactam 3 100 100 .375 gm In Sodium Chloride 0.9% 100 ml @ 25 mls/hr IVPB Q8HR [facility] Rx# :[id number] cardizem 15 Output: Chest Tube Drainage 90 0 Chest Tube Right Lateral 90 0 Chest Urine 1905 895 425 Other: Voiding Method Indwelling Catheter Indwelling Catheter # Bowel Movements 1 ABP, PAP, CO, CI - Last Documented Arterial Blood Pressure 98/49 - Exam 8-year-old male comfortable HEENT: Anicteric conjunctiva are pink and moist nasal mucosa grossly intact without significant lesions, there is no thrush.subcutaneous emphysema is palpable on the face of the periorbital area. It is related with application of some localized pressure is actually improving already Neck: The neck is supple without significant lymphadenopathy or thyromegaly. Lungs: they're symmetrical bilateral air entry, there are decreased breath sounds at the bilateral bases. Some few expiratory wheezes are heard. There is still easily palpable subcu emphysema onto the anterior chest wall shoulders and upper arms bilaterally. The patient has had multiple catheters applied to reduce the 70s emphysema and apparently is are improving Heart: irregular irregular audible S1 and S2 soft S4 no click or rub 2/6 systolic murmur excellent carotids Abdomen: Positive bowel sounds soft and nontender without palpable masses or organomegaly. There was no guarding or rebound. Extremities: The upper extremities have excellent pulses they are symmetric, no significant petechiae or telangiectasia. No splinter hemorrhages were noted. The lower extremities are free from significant edema. The peripheral pulses were 2+ and symmetric. Neuro: patient is awake and alert interactive - Labs CBC & Chem 7: 10/01/18 04:28 10/01/18 04:28 Labs: Abnormal Lab Results - Last 24 Hours (Table) 10/01/18 10/01/18 10/01/18 Range/Units 04:28 04:28 06:08 WBC 14.7 H (3.8-10.6) k/uL Neutrophils # 13.9 H (1.3-7.7) k/uL Lymphocytes # 0.4 L (1.0-4.8) k/uL BUN 30 H (9-20) mg/dL Glucose 142 H (74-99) mg/dL POC Glucose (mg/dL) 139 H (75-99) mg/dL 10/01/18 10/01/18 10/01/18 Range/Units 11:59 16:54 20:45 WBC (3.8-10.6) k/uL Neutrophils # (1.3-7.7) k/uL Lymphocytes # (1.0-4.8) k/uL BUN (9-20) mg/dL Glucose (74-99) mg/dL POC Glucose (mg/dL) 111 H 164 H 221 H (75-99) mg/dL Microbiology - Last 24 Hours (Table) 09/27/18 13:10 Blood Culture - Preliminary Blood No Growth after 96 hours 09/28/18 01:05 Gram Stain - Final Sputum Sputum Culture - Final Marylin albicans Staphylococcus aureus Laboratory Results WBC 14.7 k/uL (3.8-10.6) H 10/01/18 04:28 RBC 4.51 m/uL (4.30-5.90) 10/01/18 04:28 Hgb 14.1 gm/dL (13.0-17.5) 10/01/18 04:28 Hct 43.8 % (39.0-53.0) 10/01/18 04:28 MCV 97.2 fL (80.0-100.0) 10/01/18 04:28 MCH 31.3 pg (25.0-35.0) 10/01/18 04:28 MCHC 32.1 g/dL (31.0-37.0) 10/01/18 04:28 RDW 14.5 % (11.5-15.5) 10/01/18 04:28 Plt Count 179 k/uL (150-450) 10/01/18 04:28 Neutrophils % 94 % 10/01/18 04:28 Lymphocytes % 3 % 10/01/18 04:28 Monocytes % 3 % 10/01/18 04:28 Eosinophils % 0 % 10/01/18 04:28 Basophils % 0 % 10/01/18 04:28 Neutrophils # 13.9 k/uL (1.3-7.7) H 10/01/18 04:28 Lymphocytes # 0.4 k/uL (1.0-4.8) L 10/01/18 04:28 Monocytes # 0.4 k/uL (0-1.0) 10/01/18 04:28 Eosinophils # 0.0 k/uL (0-0.7) 10/01/18 04:28 Basophils # 0.0 k/uL (0-0.2) 10/01/18 04:28 PT 10.3 sec (9.0-12.0) 09/23/18 16:22 INR 1.0 (<1.2) 09/23/18 16:22 APTT 22.2 sec (22.0-30.0) 09/23/18 16:22 D-Dimer 2.00 mg/L FEU (<0.60) H 09/24/18 08:33 Sample Site boron 09/29/18 05:31 ABG pH 7.37 (7.35-7.45) 09/29/18 05:31 ABG pCO2 47 mmHg (35-45) H 09/29/18 05:31 ABG pO2 121 mmHg (83-108) H 09/29/18 05:31 ABG HCO3 27 mmol/L (21-25) H 09/29/18 05:31 ABG Total CO2 28 mmol/L (19-24) H 09/29/18 05:31 ABG O2 Saturation 98.6 % (94-97) H 09/29/18 05:31 ABG Base Excess 1.6 mmol/L 09/29/18 05:31 Peng Test Yes 09/29/18 05:31 FiO2 40 % 09/29/18 05:31 Sodium 139 mmol/L (137-145) 10/01/18 04:28 Potassium 4.7 mmol/L (3.5-5.1) 10/01/18 04:28 Chloride 107 mmol/L (98-107) 10/01/18 04:28 Carbon Dioxide 28 mmol/L (22-30) 10/01/18 04:28 Anion Gap 4 mmol/L 10/01/18 04:28 BUN 30 mg/dL (9-20) H 10/01/18 04:28 Creatinine 0.82 mg/dL (0.66-1.25) 10/01/18 04:28 Est GFR (CKD-EPI)AfAm >90 (>60 ml/min/1.73 sqM) 10/01/18 04:28 Est GFR (CKD-EPI)NonAf >90 (>60 ml/min/1.73 sqM) 10/01/18 04:28 Glucose 142 mg/dL (74-99) H 10/01/18 04:28 POC Glucose (mg/dL) 221 mg/dL (75-99) H 10/01/18 20:45 POC Glu [employer] ID Leon Moy 10/01/18 20:45 Calcium 8.9 mg/dL (8.4-10.2) 10/01/18 04:28 Phosphorus 3.3 mg/dL (2.5-4.5) 09/30/18 04:51 Magnesium 2.2 mg/dL (1.6-2.3) 09/30/18 04:51 Total Bilirubin 0.2 mg/dL (0.2-1.3) 09/28/18 04:05 AST 17 U/L (17-59) 09/28/18 04:05 ALT 27 U/L (21-72) 09/28/18 04:05 Alkaline Phosphatase 39 U/L (38-126) 09/28/18 04:05 Troponin I 0.298 ng/mL (0.000-0.034) H* 09/24/18 04:06 NT-Pro-B Natriuret Pep 2820 pg/mL 09/23/18 16:22 Total Protein 4.1 g/dL (6.3-8.2) L 09/28/18 04:05 Albumin 2.0 g/dL (3.5-5.0) L 09/28/18 04:05 Triglycerides 169 mg/dL (<150) H 09/23/18 16:22 Cholesterol 249 mg/dL (<200) H 09/23/18 16:22 LDL Cholesterol, Calc 128 mg/dL (0-99) H 09/23/18 16:22 HDL Cholesterol 87 mg/dL (40-60) H 09/23/18 16:22 Urine Color Yellow 09/27/18 06:20 Urine Appearance Clear (Clear) 09/27/18 06:20 Urine pH 6.0 (5.0-8.0) 09/27/18 06:20 Ur Specific [place] 1.034 (1.001-1.035) 09/27/18 06:20 Urine Protein Trace (Negative) H 09/27/18 06:20 Urine Glucose (UA) Negative (Negative) 09/27/18 06:20 Urine Ketones Trace (Negative) H 09/27/18 06:20 Urine Blood Moderate (Negative) H 09/27/18 06:20 Urine Nitrite Negative (Negative) 09/27/18 06:20 Urine Bilirubin Negative (Negative) 09/27/18 06:20 Urine Urobilinogen <2.0 mg/dL (<2.0) 09/27/18 06:20 Ur Leukocyte Esterase Negative (Negative) 09/27/18 06:20 Urine RBC >182 /hpf (0-5) H 09/27/18 06:20 Urine WBC 3 /hpf (0-5) 09/27/18 06:20 Urine Mucus Rare /hpf (None) H 09/27/18 06:20 Blood Type A Negative 09/26/18 11:46 Blood Type Confirm A Negative 09/26/18 12:39 Blood Type Recheck CABO Indicated 09/26/18 11:46 Antibody Screen NEGATIVE 09/26/18 11:46 Spec Expiration Date 09/29/2018 - 2346 09/26/18 11:46 Microbiology 09/27/18 13:10 Blood Blood Culture - Preliminary No Growth after 96 hours 09/28/18 01:05 Sputum Gram Stain - Final 09/28/18 01:05 Sputum Sputum Culture - Final Marylin albicans Staphylococcus aureus 09/27/18 06:20 Urine,Catheterized Urine Culture - Final Assessment and Plan (1) Acute exacerbation of chronic obstructive airways disease Current Visit: Yes Status: Acute Code(s): J44.1 - CHRONIC OBSTRUCTIVE PULMONARY DISEASE W (ACUTE) EXACERBATION SNOMED Code(s): 822937737 (2) Spontaneous pneumothorax Narrative/Plan: 68-year-old male presents to hospital with the sudden onset of increasing shortness of breath. He was 5 evidence of a spontaneous pneumothorax from a bleb on the right lung. Was treated with Serevent and had some improvement. However then had worsening of the symptoms and required further intervention. He was seen by cardiovascular surgery taken the operating room and a VATS procedure was performed for surgical correction of the bleb. The patient's pneumothorax is now improving and it is also noted that his extensive his emphysema is starting to show some improvement. Patient's sputum was showing evidence of MSSA at this point in time. Vancomycin may be discontinued. Currently receiving antimicrobial therapy with piperacillin tazobactam. This will be rapidly de-escalate once final cultures are available within the next day. Patient's her REVEALS evidence of the significant irritation and a mixture of peroxide and mouthwash and utilized for cleansing of his oral cavity to improve his discomfort and oral cavity and is improving his ability to eat 10/01/2018 patient feeling better today. Oral cavity feels improved today. The patient's chest x-ray reveals evidence of resolution of the pneumothorax. His pain has improved. Tolerating current antibiotic therapy well will de-escalate to oral Augmentin with the current improvements. He's been followed by cardiovascular surgery for his continuous air leak from chest tube. Except cutaneous emphysema seems to be improving though. No other new infections except MSSA in the sputum. Current Visit: Yes Status: Acute Code(s): J93.83 - OTHER PNEUMOTHORAX SNOMED Code(s): 01177084 (3) ACS (acute coronary syndrome) Current Visit: Yes Status: Acute Code(s): I24.9 - ACUTE ISCHEMIC HEART DISEASE, UNSPECIFIED SNOMED Code(s): 179748295
[2018-10-02 06:13] LABS: Basophils % (A) 0 %; Eosinophils % (A) 0 %; HCT 43.1 % (39.0-53.0); HGB 13.6 gm/dL (13.0-17.5); Lymphocytes # (A) 0.5 k/uL (1.0-4.8); Lymphocytes % (A) 3 %; MCH 30.5 pg (25.0-35.0); MCHC 31.5 g/dL (31.0-37.0); MCV 96.8 fL (80.0-100.0); Mean Platelet Volume 7.3; Monocytes # (A) 0.6 k/uL (0-1.0); Monocytes % (A) 3 %; Neutrophils # (A) 17.1 k/uL (1.3-7.7); Neutrophils % (A) 94 %; Platelet Count 166 k/uL (150-450); RBC 4.46 m/uL (4.30-5.90); RDW 14.8 % (11.5-15.5); WBC 18.3 k/uL (3.8-10.6)
[2018-10-02 06:22] LABS: African American GFR (CKD) >90 (>60 ml/min/1.73 sqM); Anion Gap 2 mmol/L; Blood Urea Nitrogen 41 mg/dL (9-20); Calcium 8.7 mg/dL (8.4-10.2); Carbon Dioxide 30 mmol/L (22-30); Chloride 107 mmol/L (98-107); Glucose 134 mg/dL (74-99); Potassium 4.7 mmol/L (3.5-5.1); Sodium 139 mmol/L (137-145)
[2018-10-02 07:07] LABS: Glucose,Whole Blood 126 mg/dL (75-99)
[2018-10-02] MEDS: INSULIN ASPART (NovoLOG) 100 UNIT/ML VIAL SQ SCH ×4 (07:07→20:31)
[2018-10-02] MEDS: PANTOPRAZOLE 40 MG TABLET PO SCH (07:09)
--- NOTE | 2018-10-02 07:36 | P.PN ---
Subjective Progress Note Date: 10/02/18 Principal diagnosis: Pneumothorax This is a pleasant 68-year-old gentleman with a past medical history significant for hypertension, dyslipidemia, and history of DVT, who was admitted to the hospital with shortness of breath and was found to have pneumothorax which seems to be recurrent. He was discharged from the hospital recently with Thoravent. This time that was attached to suction. He is feeling better. The computed tomography scan revealed right sided pneumothorax. He underwent surgery. The patient underwent right VATS bleb resection. I'll follow-up with the patient today, October 022018, the patient overall is doing better clinically and hemodynamically. He has been maintaining normal sinus mechanism. He is on metoprolol by mouth. I with consider adding oral anticoagulation once the chest tube is out and no need for any further surgical procedure. Objective - Vital Signs Vital signs: Vital Signs Temp 97.8 F 10/02/18 04:00 Pulse 63 10/02/18 07:00 Resp 19 10/02/18 07:00 BP 138/82 10/02/18 07:00 Pulse Ox 96 10/02/18 07:00 Intake & Output 10/01/18 10/02/18 10/02/18 18:59 06:59 18:59 Intake Total 355 240 20 Output Total 895 1025 75 Balance -540 -785 -55 Weight 77.9 kg Intake: IV 355 240 20 Normal Saline 240 240 20 Piperacillin-Tazobactam 3 100 .375 gm In Sodium Chloride 0.9% 100 ml @ 25 mls/hr IVPB Q8HR [facility] Rx# :[id number] cardizem 15 Output: Chest Tube Drainage 0 Chest Tube Right Lateral 0 Chest Urine 895 1025 75 Other: Voiding Method Indwelling Catheter Indwelling Catheter # Bowel Movements 1 ABP, PAP, CO, CI - Last Documented Arterial Blood Pressure 98/49 - Constitutional General appearance: Present: no acute distress - Respiratory Respiratory: bilateral: diminished - Cardiovascular Rhythm: regular Heart sounds: normal: S1 Abnormal Heart Sounds: Present: systolic murmur - Labs CBC & Chem 7: 10/02/18 05:47 10/02/18 05:47 Labs: Abnormal Lab Results - Last 24 Hours (Table) 10/01/18 10/01/18 10/01/18 Range/Units 11:59 16:54 20:45 WBC (3.8-10.6) k/uL Neutrophils # (1.3-7.7) k/uL Lymphocytes # (1.0-4.8) k/uL BUN (9-20) mg/dL Glucose (74-99) mg/dL POC Glucose (mg/dL) 111 H 164 H 221 H (75-99) mg/dL 10/02/18 10/02/18 10/02/18 Range/Units 05:47 05:47 07:05 WBC 18.3 H (3.8-10.6) k/uL Neutrophils # 17.1 H (1.3-7.7) k/uL Lymphocytes # 0.5 L (1.0-4.8) k/uL BUN 41 H (9-20) mg/dL Glucose 134 H (74-99) mg/dL POC Glucose (mg/dL) 126 H (75-99) mg/dL Microbiology - Last 24 Hours (Table) 09/27/18 13:10 Blood Culture - Preliminary Blood No Growth after 96 hours 09/28/18 01:05 Gram Stain - Final Sputum Sputum Culture - Final Marylin albicans Staphylococcus aureus Assessment and Plan Assessment: Assessment #1 recurrent right-sided pneumothorax #2 acute hypoxic respiratory failure #3 hypotension #4 severe aortic stenosis #5 paroxysmal atrial fibrillation Plan #1 continue the current medical regimen including aspirin and statin #2 follow-up with the patient
--- NOTE | 2018-10-02 08:47 | XR ---
EXAMINATION TYPE: XR chest 1V portable DATE OF EXAM: 10/02/2018 COMPARISON: 10/01/2018 INDICATION: Pneumothorax, tube placement TECHNIQUE: Single frontal view of the chest is obtained. FINDINGS: The heart size is normal. The pulmonary vasculature is normal. The lungs are clear. No large pneumothorax is evident. Extensive subcutaneous emphysema is present b ilaterally. Right-sided chest tube is present with the tip directed towards the apex. IMPRESSION: 1. No large pneumothorax is evident. Right-sided chest tube is present. 2. Right infrahilar masslike area. Follow-up is recommended. 3. Extensive subcutaneous emphysema.
[2018-10-02] MEDS: methylPREDNISolone SOD SUCCI 40 MG/ML 1 ML VIAL IV SCH (08:56)
[2018-10-02] MEDS: ATORVASTATIN 80 MG TAB PO SCH (08:56)
[2018-10-02] MEDS: AMOXIC-POT CLAV 875-125MG 1 EACH TAB PO SCH ×2 (08:56→20:30)
[2018-10-02] MEDS: ASPIRIN 81 MG PO SCH (08:56)
[2018-10-02] MEDS: HEPARIN SODIUM,PORCINE 5,000 UNIT/ML 1 ML VIAL SQ SCH ×2 (08:56→20:30)
[2018-10-02] MEDS: METOPROLOL TARTRATE 25 MG TAB PO SCH ×3 (08:57→20:30)
[2018-10-02] MEDS: IPRATROPIUM-ALBUTEROL 3 ML NEB INHALATION SCH ×4 (09:03→20:31)
[2018-10-02] MEDS: BUDESONIDE 0.5 MG/2 ML NEBU INHALATION SCH ×2 (09:07→20:31)
[2018-10-02] MEDS: guaiFENesin 600 MG TABLET.ER PO PRN (09:08)
--- NOTE | 2018-10-02 09:47 | P.PN ---
Subjective Progress Note Date: 10/02/18 This is a 68-year-old male patient who presented to the hospital with complaints of increased shortness of breath. Patient was recently admitted for spontaneous right-sided pneumothorax post thoracotomy placement. Patient was DC'd with thoraven in place. reports that at home he became very short winded was unable to walk. He has past medical history of COPD, GERD, hyperlipidemia, hypertension, pneumonia, ex-smoker, prostate cancer 2000, DVT 10 years ago completed treatment. Chest x-ray completed showing mild right-sided atelectasis. Right-sided pneumothorax is essentially cleared compared to last exam. Soft tissue air increased compared to last exam. EKG completed showing sinus rhythm with first-degree AV block. Troponin is elevated 0.394, 0.295 and 0.290. Cardiology and pulmonary service is consulted. D-dimer elevated at 2.00. CTA performed pending. BNP also elevated 2820. Patient does have thoravent in place. Cardiothoracic surgery consulted. Patient is very anxious. Ativan given when necessary order. At that time patient is still complaining of some shortness breath. Patient denies chest pain. Patient denies nausea vomiting or diarrhea. Patient denies any urinary burning or frequency. On 09/25/2018 patient's chest tube hooked to suction for right-sided pneumot horax. Discussed case with cardiothoracic nurse practitioner. Planning VATS procedure. Patient received 1 dose of IV Lasix for mild CHF exacerbation. Per cardiology patient does have aortic stenosis will eventually have ALEJANDRO and heart cath outpatient. At this time patient does state improvement with shortness of breath. Patient denies chest pain. Patient denies nausea vomiting or diarrhea. Patient denies any urinary burning or frequency. On 09/26/2018. Patient had episode of Thora vent dislodge this AM. Patient went into a story distress. Patient was taken to emergent surgery for VATS procedure with Dr. Jackman. Patient is currently resting in the intensive care unit. Chest tube is in place. At this time patient does state some improvement with shortness of breath. Patient denies nausea or vomiting. Patient denies any urinary burning or frequency On 09/27/2018 patient required mechanical ventilation and intubation throughout night due to increasing subcu emphysema. At this time patient is sedated. Patient also requiring Levophed for pressure support. Patient remains in intensive care unit. Pulmonary and cardiothoracic services are following. On 09/28/2018 patient remains on mechanical ventilation in the ICU. Patient remains on sedation. Pulmonary following. Patient started on Rocephin. Patient maintained on IV Solu-Medrol. Patient improvement with subcu emphysema. Patient remains on Levophed for pressure support. No plans to wean today per pulmonary. Continue tube feeds On 09/29/2018 patient was seen and examined in the ICU he was extubated and is tolerating well he is alert and oriented 3 in no apparent distress there is no chest pain or shortness of breath he has occasional cough no fever or chills no headache or dizziness no nausea or vomiting no abdominal pain no diarrhea and no urinary symptoms. On 09/30/2018 patient was seen again in the intensive care unit he is alert and oriented 3 he is maintained on oxygen via nasal cannula and is tolerating well he has worsening subcutaneous emphysema and occasional cough otherwise he denies any complaints there is no fever or chills no chest pain no shortness of breath at rest no nausea or vomiting no abdominal pain no diarrhea and no urinary symptoms On 10/01/2018 patient remains in the intensive care unit. Patient subcu emphysema is improving. Patient is anxious. Will order Xanax at this time. Patient currently on Cardizem drip currently in sinus rhythm. Metroprolol has been increased per cardiology. At this time patient denies chest pain. Shortness of breath is improving. Patient denies any nausea vomiting or diarrhea. Patient denies any urinary burning or frequency On 10/02/2018 patient is alert and oriented. Patient reports he feels improved. Patient maintained in the intensive care unit on 2 L nasal cannula. Patient still has some prominent subcu emphysema to place. Patient's chest tube remains in place. At this time patient denies chest pain. Patient denies any nausea vomiting or diarrhea. Patient denies any urinary burning or frequency. Sh ortness of breath is improving Objective - Vital Signs Vital signs: Vital Signs Temp 97.8 F 10/02/18 04:00 Pulse 74 10/02/18 09:15 Resp 21 10/02/18 09:00 BP 124/85 10/02/18 09:00 Pulse Ox 95 10/02/18 09:00 Intake & Output 10/01/18 10/02/18 10/02/18 18:59 06:59 18:59 Intake Total 355 240 60 Output Total 895 1025 135 Balance -540 -785 -75 Weight 77.9 kg 77.6 kg Intake: IV 355 240 60 Normal Saline 240 240 60 Piperacillin-Tazobactam 3 100 .375 gm In Sodium Chloride 0.9% 100 ml @ 25 mls/hr IVPB Q8HR [facility] Rx# :[id number] cardizem 15 Output: Chest Tube Drainage 0 Chest Tube Right Lateral 0 Chest Urine 895 1025 135 Other: Voiding Method Indwelling Catheter Indwelling Catheter # Bowel Movements 1 1 ABP, PAP, CO, CI - Last Documented Arterial Blood Pressure 98/49 - Exam Head normocephalic Neck supple Lungs diminished bilaterally, chest tube in place, subcu emphysema noted to neck and face Heart regular rate and rhythm S1-S2, no rub or gallop Abdomen is soft nontender nondistended positive bowel sounds no hepatosplenomegaly Extremities no edema Neuro alert and orientated to 3 - Labs CBC & Chem 7: 10/02/18 05:47 10/02/18 05:47 Labs: Abnormal Lab Results - Last 24 Hours (Table) 10/01/18 10/01/18 10/01/18 Range/Units 11:59 16:54 20:45 WBC (3.8-10.6) k/uL Neutrophils # (1.3-7.7) k/uL Lymphocytes # (1.0-4.8) k/uL BUN (9-20) mg/dL Glucose (74-99) mg/dL POC Glucose (mg/dL) 111 H 164 H 221 H (75-99) mg/dL 10/02/18 10/02/18 10/02/18 Range/Units 05:47 05:47 07:05 WBC 18.3 H (3.8-10.6) k/uL Neutrophils # 17.1 H (1.3-7.7) k/uL Lymphocytes # 0.5 L (1.0-4.8) k/uL BUN 41 H (9-20) mg/dL Glucose 134 H (74-99) mg/dL POC Glucose (mg/dL) 126 H (75-99) mg/dL Microbiology - Last 24 Hours (Table) 09/27/18 13:10 Blood Culture - Preliminary Blood No Growth after 96 hours 09/28/18 01:05 Gram Stain - Final Sputum Sputum Culture - Final Marylin albicans Staphylococcus aureus Assessment and Plan Assessment: 1. Increased shortness of breathing secondary to recurring right-sided pneumothorax with rightward mediastinal shift S/P VATS. CTA chest performed showing reaccumulation of large, approximately 70% right-sided pneumonia without current mediastinal shift on the exam. thoravent is in place. Extensive underlying emphysematous change. No evidence of central pulmonary embolus. Subsegmental arteries are somewhat limited. No CT evidence of right heart strain. Cardiothoracic services have been consulted. Pulmonary services consulted. currently on DuoNeb breathing treatments. 09/26/2018 patient was taken to the OR for video-assisted thorascopic the with bleb stapling after thoravent was accidentally pulled out. Chest tube remains in place 2. Increased subcu emphysema post surgical requiring mechanical ventilation for airway management. Patient has been extubated on 09/29/2018. Patient did require needle decompression for subcu emphysema by cardiothoracic 09/30/2017 3. Staph aureus tracheobronchitis. Pulmonary and infectious disease service is following. Sputum culture growing Staphylococcus aureus. Patient currently on Augmentin for antibiotic 4. Mild diastolic congestive heart failure. BNP elevated 2820. 2-D echo completed showing EF of 50-55% Cardiology services following. Patient received 1 dose of IV Lasix 5. Elevated troponins. Troponin level 0.395, 0.295 and 0.298. Cardiology services are following 6. Recent right-sided spontaneous pneumothorax status post ThoraVent placement. 7. Leukocytosis. Patient has been on oral prednisone. Sputum culture growing presumptive staph aureus. Infectious disease is following. Patient currently maintained on Zosyn 8. History of Niesen fundoplication 9. History of prostate cancer 2009 10. History of right leg DVT several years ago no longer on anticoagulation 11. Essential hypertension patient was DC'd during previous admission on Norvasc and hydralazine 12. Anxiety and hyperactivity. Ativan when necessary has been ordered. Maintained on Zoloft. Xanax has been added 13. Aortic stenosis. 2-D echo completed per cardiology. Patient will likely need ALEJANDRO a cardiac catheterization outpatient 14. Hypotension likely secondary to sedation. Patient currently maintained on Levophed. Resolved 15. New-onset A. fib with RVR. Patient was started on Cardizem drip. Patient is now in sinus rhythm. Cardizem drip DC'd and patient started on Metroprolol. Per cardiology will consider adding oral anticoagulation once the chest tube is out and no need for any further surgical procedure] DVT prophylaxis heparin. GI prophylaxis Protonix I performed an examination of the patient and discussed their management with the Nurse Practitioner. I have reviewed the Nurse Practitioner's notes and agree with the documented findings and plan of care
--- NOTE | 2018-10-02 10:14 | CDI ---
Documentation Clarification Form Date: 10/02/2018 From: Kiara Addison RN CCDS Admit Date: 09/23/2018 6:49:00 PM Patient Name: Salvador Lord Visit Number: [id number] Discharge Date: ATTENTION: The Clinical Documentation Specialists (CDI) and [facility] Coding Staff appreciate your assistance in clarifying documentation. Please respond to the clarification below the line at the bottom and electronically sign. The CDI & [facility] Coding staff will review the response and follow-up if needed. Please note: Queries are made part of the Legal Health Record. If you have any questions, please contact the author of this message via ITS. Dr. Nahun Salgado Documentation states: Elevated Tropnins. Troponin Level 0.395, 0.295 and 0.298. Cardiology services are following. History/Risk Factors: Clinical indicators: ED Impression Acute coronary syndrome, Elevated Troponin, ID Consult Acute Coronary Syndrome on 09/30/2018 Abnormal Troponins 0.395, 0.295, 0.298 EKG sinus rhythm with 1st degree AV block, Left ventricular hypertrophy with repolarization abnormality. Treatment: NItrostat, Aspirin, Cardiology Consult Clinical significance of diagnostic testing and treatment CANNOT be assumed or coded without physician documentation of significance if any. Please clarify what Elevated Troponin signifies: * NSTEMI Type 2 possibly due to Pneumothorax * STEMI * Elevated Troponins due to ( please specify disease process, infectious process ) * Abnormal Lab Value * Unable to determine * Other, please specify (Last Revision: February 2017) Elevated troponins representing a Type 2 event with oxygen supply-demand mismatch secondary to pneumothorax MTDD
[2018-10-02] MEDS: HYDROcodone/APAP 10-325MG 1 EACH TAB PO PRN ×2 (11:21→23:11)
[2018-10-02] MEDS: SODIUM CHLORIDE 0.9% 1,000 ML IV SCH (11:22)
[2018-10-02 11:48] LABS: Glucose,Whole Blood 123 mg/dL (75-99)
--- NOTE | 2018-10-02 12:47 | P.PN ---
Subjective Progress Note Date: 10/02/18 Principal diagnosis: Recurrent spontaneous right pneumothorax with thoravent in place. Mild congestive heart failure on admission with BNP 2820, elevated troponins of 0.395. New diagnosis of severe aortic stenosis per echocardiogram. Previous medical history of tobacco dependence, COPD, hypertension, hyperlipidemia, severe acid reflux, hiatal hernia status post Padma fundoplication with mesh repair, right leg DVT, renal failure secondary to dehydration, and prostate cancer. POD #6 right VATS bleb resection with mechanical and talc pleurodesis Postoperative hypoxic respiratory failure secondary to compromised airway, expected outcome given extensive subcutaneous emphysema The patient is currently sitting up in a recliner in the intensive care unit in no acute distress. Subcu emphysema still present but decreased from yesterday. Denies difficulty swallowing or breathing, eating lunch. Right-sided chest tube remains present with continuous air leak. Objective - Vital Signs Vital signs: Vital Signs Temp 97.8 F 10/02/18 04:00 Pulse 60 10/02/18 12:12 Resp 23 10/02/18 11:00 BP 120/75 10/02/18 11:00 Pulse Ox 91 L 10/02/18 11:00 Intake & Output 10/01/18 10/02/18 10/02/18 18:59 06:59 18:59 Intake Total 355 240 80 Output Total 895 1025 170 Balance -540 -785 -90 Weight 77.9 kg 77.6 kg Intake: IV 355 240 80 Normal Saline 240 240 80 Piperacillin-Tazobactam 3 100 .375 gm In Sodium Chloride 0.9% 100 ml @ 25 mls/hr IVPB Q8HR [facility] Rx# :[id number] cardizem 15 Output: Chest Tube Drainage 0 Chest Tube Right Lateral 0 Chest Urine 895 1025 170 Other: Voiding Method Indwelling Catheter Indwelling Catheter Indwelling Catheter # Bowel Movements 1 1 ABP, PAP, CO, CI - Last Documented Arterial Blood Pressure 98/49 - Constitutional General appearance: Present: cooperative, no acute distress - Respiratory Details: Lungs sounds diminished bilaterally. Respirations even, nonlabored. Currently on 4 L nasal cannula with oxygen saturation 91%. Right pleural chest tube present to -30 cm continuous wall suction, 150 mL serosanguineous drainage in the last 24 hours, continuous air leak present. Subcu emphysema present to face, neck, chest, arms, decreased from yesterday. - Cardiovascular Details: S1, S2 present. Regular rate and rhythm, sinus rhythm on telemetry. Palpable peripheral pulses bilaterally. No lower extremity edema present. No calf pain or tenderness noted. Left radial arterial line present. SCDs present. - Gastrointestinal Gastrointestinal Comment(s): Abdomen soft, nontender, nondistended. Active bowel sounds present 4 quadrants. Tolerating diet - Genitourinary Genitourinary Comment(s): Flores present draining clear, yellow urine. - Integumentary Integumentary Comment(s): Skin is warm and dry with evidence of good perfusion. Right lateral chest tube site covered with dry intact dressing, subcu emphysema present and outlined. - Neurologic Neurologic: Present: CNII-XII intact - Musculoskeletal Musculoskeletal: Present: gait normal, strength equal bilaterally - Psychiatric Psychiatric: Present: A&O x's 3, appropriate affect, intact judgment & insight - Allied health notes Allied health notes reviewed: nursing - Labs CBC & Chem 7: 10/02/18 05:47 10/02/18 05:47 Labs: Abnormal Lab Results - Last 24 Hours (Table) 10/01/18 10/01/18 10/02/18 Range/Units 16:54 20:45 05:47 WBC 18.3 H (3.8-10.6) k/uL Neutrophils # 17.1 H (1.3-7.7) k/uL Lymphocytes # 0.5 L (1.0-4.8) k/uL BUN (9-20) mg/dL Glucose (74-99) mg/dL POC Glucose (mg/dL) 164 H 221 H (75-99) mg/dL 10/02/18 10/02/18 10/02/18 Range/Units 05:47 07:05 11:45 WBC (3.8-10.6) k/uL Neutrophils # (1.3-7.7) k/uL Lymphocytes # (1.0-4.8) k/uL BUN 41 H (9-20) mg/dL Glucose 134 H (74-99) mg/dL POC Glucose (mg/dL) 126 H 123 H (75-99) mg/dL Microbiology - Last 24 Hours (Table) 09/27/18 13:10 Blood Culture - Preliminary Blood No Growth after 96 hours 09/28/18 01:05 Gram Stain - Final Sputum Sputum Culture - Final Marylin albicans Staphylococcus aureus - Imaging and Cardiology Chest x-ray: report reviewed, image reviewed Assessment and Plan Assessment: 1. Recurrent spontaneous right pneumothorax, status post VATS with bleb resection and pleurodesis, continued air leak 2. Mild congestive heart failure, elevated BNP 2820 3. Elevated troponins as high as 0.395 4. Leukocytosis 5. Previous tobacco dependence 6. Chronic obstructive pulmonary disease 7. Hypertension 8. Hyperlipidemia 9. Severe acid reflux 10. History of hiatal hernia status post Padma fundoplication 11. History of prostate cancer 12. History of right leg deep vein thrombosis 13. Anxiety 14. Severe aortic stenosis discovered on transthoracic echocardiogram with peak/mean gradient 88.19 mmHg/61.56 mmHg and valve area 0.4 cm 15. Postoperative subcu emphysema, expected 16. Postoperative acute respiratory failure secondary to compromised airway Plan: 1. Continue chest tube to -30 cm continuous wall suction. Will monitor for resolution of air leak. 2. Will continue to monitor subcu emphysema 3. Bronchodilators, steroid management per pulmonology. 4. Will monitor daily x-rays. 5. Encourage continued smoking cessation. 6. Encourage use of incentive spirometry, increase activity. 7. Continued medical management per primary care service. 8. GI/DVT prophylaxis. 9. Pain control with current medication regimen. 10. Patient will need workup for aortic stenosis with ALEJANDRO and heart catheterization in the future, cardiology following. 11. May transfer out of ICU on our standpoint. 12. More recommendations to follow. Time with Patient: Greater than 30
--- NOTE | 2018-10-02 12:48 | P.PN ---
Subjective Progress Note Date: 10/02/18 10/02/2018: Patient seen and examined in the intensive care unit with his family and nursing staff at bedside. The patient is working with physical therapy. He is standing up at the bedside with a walker. He has been able to take a few steps. The patient's chest tube has continuous air leak. Per nursing the patient's urine output has decreased to about 20 mL an hour over the last few hours. The patient's subcutaneous emphysema is slightly better than yesterday. The patient denies any shortness of breath. Objective - Vital Signs Vital signs: Vital Signs Temp 97.8 F 10/02/18 04:00 Pulse 60 10/02/18 12:12 Resp 31 H 10/02/18 12:00 BP 120/75 10/02/18 12:00 Pulse Ox 97 10/02/18 12:00 Intake & Output 10/01/18 10/02/18 10/02/18 18:59 06:59 18:59 Intake Total 355 240 80 Output Total 895 1025 170 Balance -540 -785 -90 Weight 77.9 kg 77.6 kg Intake: IV 355 240 80 Normal Saline 240 240 80 Piperacillin-Tazobactam 3 100 .375 gm In Sodium Chloride 0.9% 100 ml @ 25 mls/hr IVPB Q8HR [facility] Rx# :[id number] cardizem 15 Output: Chest Tube Drainage 0 Chest Tube Right Lateral 0 Chest Urine 895 1025 170 Other: Voiding Method Indwelling Catheter Indwelling Catheter Indwelling Catheter # Bowel Movements 1 1 ABP, PAP, CO, CI - Last Documented Arterial Blood Pressure 98/49 - Exam General: Alert, following commands, extensive subcutaneous emphysema CV: RRR, s1/s2, joel Lungs: Diminished with coarse breath sounds bilaterally, Right chest tube in place with air leak Abdomen: soft, nontender, nondistended, +bs Ext: no edema - Labs CBC & Chem 7: 10/02/18 05:47 10/02/18 05:47 Labs: Abnormal Lab Results - Last 24 Hours (Table) 10/01/18 10/01/18 10/02/18 Range/Units 16:54 20:45 05:47 WBC 18.3 H (3.8-10.6) k/uL Neutrophils # 17.1 H (1.3-7.7) k/uL Lymphocytes # 0.5 L (1.0-4.8) k/uL BUN (9-20) mg/dL Glucose (74-99) mg/dL POC Glucose (mg/dL) 164 H 221 H (75-99) mg/dL 10/02/18 10/02/18 10/02/18 Range/Units 05:47 07:05 11:45 WBC (3.8-10.6) k/uL Neutrophils # (1.3-7.7) k/uL Lymphocytes # (1.0-4.8) k/uL BUN 41 H (9-20) mg/dL Glucose 134 H (74-99) mg/dL POC Glucose (mg/dL) 126 H 123 H (75-99) mg/dL Microbiology - Last 24 Hours (Table) 09/27/18 13:10 Blood Culture - Preliminary Blood No Growth after 96 hours 09/28/18 01:05 Gram Stain - Final Sputum Sputum Culture - Final Marylin albicans Staphylococcus aureus Assessment and Plan Assessment: Respiratory failure due to compromised airway, s/p mechanical ventilation Right spontaneous pneumothorax, s/p VATS Rightward mediastinal shift - improving Staph aureus tracheobronchitis New onset atrial fibrillation with rapid ventricular response - resolved, now NSR Hypotension likely secondary to sedation - resolved COPD, severe, FEV 1 41% Leukocytosis History of DVT in the remote past History of prostate cancer Leukocytosis, possibly secondary to steroids History of Padma fundoplication and hiatial hernia GERD Hyperactivity, question bipolar versus ADHD versus other O2 to maintain saturation greater than or equal to 90% Continue Zoloft Continued smoking cessation Pulmciort Steroid taper Duonebs IS and pulmonary hygiene Chest tube per CVTS Monitor urine output and renal function Pain control Regular diet GI and DVT prophylaxis: Heparin and Pepcid Monitor urine output and renal function. Increase IVF to 75 cc/hr due to low urine output Augmentin Family is at bedside and updated to plan of care. All questions are answered.
[2018-10-02 17:21] LABS: Glucose,Whole Blood 128 mg/dL (75-99)
[2018-10-02 19:15] LABS: Hemoglobin A1C 6.4 % (4.0-6.0)
[2018-10-02] MEDS: MONTELUKAST 10 MG TAB PO SCH (20:30)
[2018-10-02] MEDS: BENZONATATE 100 MG CAP PO PRN (20:30)
[2018-10-02] MEDS: SERTRALINE 50 MG TAB PO SCH (20:30)
[2018-10-02] MEDS: ALPRAZolam 0.25 MG TAB PO PRN (20:30)
[2018-10-02] MEDS: diphenhydrAMINE 50 MG CAP PO SCH (20:30)
[2018-10-02 20:32] LABS: Glucose,Whole Blood 133 mg/dL (75-99)
[2018-10-02] MEDS ORDERED: METOPROLOL TARTRATE 25 MG TAB PO STA (21:21)
--- NOTE | 2018-10-02 21:40 | P.PN ---
Subjective Progress Note Date: 10/02/18 68-year-old male that has multiple medical troubles that includes COPD, coronary artery disease,and a history of prostate carcinoma treated with radiation therapy presents to hospital with significant shortness of breath. Upon evidence of spontaneous pneumothorax from a ruptured bleb rof the right lung. He was seen by current thoracic surgery and a thorough that was applied. He had some improvement but then eventually he developed progressive respiratory failure and required intubation with sedation mechanical ventilation. And also require surgical intervention with the VATS procedure for the resection of the bleb. The patient has subsequently been extubated is having stability to his pulmonary status. However sputum now has evidence of new pathogen and concerns to underlying pneumonia and consequently the infectious diseases consultation was requested. The patient is received some Ativan and is somewhat sedated. His is present. The patient is comfortable and not in respiratory distress at this time. 10/01/2018 patient is feeling better today. Pain is well controlled. Shortness of breath is improved. 10/02/2018 patient has had further improvement today. He was able to stand at the bedside and take 2 steps. Subcutaneous emphysema is starting to improve. Objective - Vital Signs Vital signs: Vital Signs Temp 97.6 F 10/02/18 20:00 Pulse 124 H 10/02/18 20:46 Resp 15 10/02/18 20:00 BP 118/83 10/02/18 20:00 Pulse Ox 94 L 10/02/18 20:00 Intake & Output 10/02/18 10/02/18 10/03/18 06:59 18:59 06:59 Intake Total 240 625 150 Output Total 1025 480 135 Balance -785 145 15 Weight 77.6 kg Intake: IV 240 625 150 Normal Saline 240 625 150 Output: Chest Tube Drainage 20 Chest Tube Right Lateral 20 Chest Urine 1025 460 135 Other: Voiding Method Indwelling Catheter Indwelling Catheter # Bowel Movements 1 ABP, PAP, CO, CI - Last Documented Arterial Blood Pressure 98/49 - Exam 8-year-old male comfortable HEENT: Anicteric conjunctiva are pink and moist nasal mucosa grossly intact without significant lesions, there is no thrush.subcutaneous emphysema is palpable on the face of the periorbital area. It is related with application of some localized pressure is actually improving already Neck: The neck is supple without significant lymphadenopathy or thyromegaly. Lungs: they're symmetrical bilateral air entry, there are decreased breath sounds at the bilateral bases. Some few expiratory wheezes are heard. There is still easily palpable subcu emphysema onto the anterior chest wall shoulders and upper arms bilaterally. The patient has had multiple catheters applied to reduce the 70s emphysema and apparently is are improving Heart: irregular irregular audible S1 and S2 soft S4 no click or rub 2/6 systolic murmur excellent carotids Abdomen: Positive bowel sounds soft and nontender without palpable masses or organomegaly. There was no guarding or rebound. Extremities: The upper extremities have excellent pulses they are symmetric, no significant petechiae or telangiectasia. No splinter hemorrhages were noted. The lower extremities are free from significant edema. The peripheral pulses were 2+ and symmetric. Neuro: patient is awake and alert interactive - Labs CBC & Chem 7: 10/02/18 05:47 10/02/18 05:47 Labs: Abnormal Lab Results - Last 24 Hours (Table) 10/02/18 10/02/18 10/02/18 Range/Units 05:47 05:47 05:47 WBC 18.3 H (3.8-10.6) k/uL Neutrophils # 17.1 H (1.3-7.7) k/uL Lymphocytes # 0.5 L (1.0-4.8) k/uL BUN 41 H (9-20) mg/dL Glucose 134 H (74-99) mg/dL POC Glucose (mg/dL) (75-99) mg/dL Hemoglobin A1c 6.4 H (4.0-6.0) % 10/02/18 10/02/18 10/02/18 Range/Units 07:05 11:45 17:20 WBC (3.8-10.6) k/uL Neutrophils # (1.3-7.7) k/uL Lymphocytes # (1.0-4.8) k/uL BUN (9-20) mg/dL Glucose (74-99) mg/dL POC Glucose (mg/dL) 126 H 123 H 128 H (75-99) mg/dL Hemoglobin A1c (4.0-6.0) % 10/02/18 Range/Units 20:30 WBC (3.8-10.6) k/uL Neutrophils # (1.3-7.7) k/uL Lymphocytes # (1.0-4.8) k/uL BUN (9-20) mg/dL Glucose (74-99) mg/dL POC Glucose (mg/dL) 133 H (75-99) mg/dL Hemoglobin A1c (4.0-6.0) % Microbiology - Last 24 Hours (Table) 09/27/18 13:10 Blood Culture - Preliminary Blood No Growth after 120 hours Laboratory Results WBC 18.3 k/uL (3.8-10.6) H 10/02/18 05:47 RBC 4.46 m/uL (4.30-5.90) 10/02/18 05:47 Hgb 13.6 gm/dL (13.0-17.5) 10/02/18 05:47 Hct 43.1 % (39.0-53.0) 10/02/18 05:47 MCV 96.8 fL (80.0-100.0) 10/02/18 05:47 MCH 30.5 pg (25.0-35.0) 10/02/18 05:47 MCHC 31.5 g/dL (31.0-37.0) 10/02/18 05:47 RDW 14.8 % (11.5-15.5) 10/02/18 05:47 Plt Count 166 k/uL (150-450) 10/02/18 05:47 Neutrophils % 94 % 10/02/18 05:47 Lymphocytes % 3 % 10/02/18 05:47 Monocytes % 3 % 10/02/18 05:47 Eosinophils % 0 % 10/02/18 05:47 Basophils % 0 % 10/02/18 05:47 Neutrophils # 17.1 k/uL (1.3-7.7) H 10/02/18 05:47 Lymphocytes # 0.5 k/uL (1.0-4.8) L 10/02/18 05:47 Monocytes # 0.6 k/uL (0-1.0) 10/02/18 05:47 Eosinophils # 0.0 k/uL (0-0.7) 10/02/18 05:47 Basophils # 0.0 k/uL (0-0.2) 10/02/18 05:47 PT 10.3 sec (9.0-12.0) 09/23/18 16:22 INR 1.0 (<1.2) 09/23/18 16:22 APTT 22.2 sec (22.0-30.0) 09/23/18 16:22 D-Dimer 2.00 mg/L FEU (<0.60) H 09/24/18 08:33 Sample Site vicki 09/29/18 05:31 ABG pH 7.37 (7.35-7.45) 09/29/18 05:31 ABG pCO2 47 mmHg (35-45) H 09/29/18 05:31 ABG pO2 121 mmHg (83-108) H 09/29/18 05:31 ABG HCO3 27 mmol/L (21-25) H 09/29/18 05:31 ABG Total CO2 28 mmol/L (19-24) H 09/29/18 05:31 ABG O2 Saturation 98.6 % (94-97) H 09/29/18 05:31 ABG Base Excess 1.6 mmol/L 09/29/18 05:31 Peng Test Yes 09/29/18 05:31 FiO2 40 % 09/29/18 05:31 Sodium 139 mmol/L (137-145) 10/02/18 05:47 Potassium 4.7 mmol/L (3.5-5.1) 10/02/18 05:47 Chloride 107 mmol/L (98-107) 10/02/18 05:47 Carbon Dioxide 30 mmol/L (22-30) 10/02/18 05:47 Anion Gap 2 mmol/L 10/02/18 05:47 BUN 41 mg/dL (9-20) H 10/02/18 05:47 Creatinine 0.75 mg/dL (0.66-1.25) 10/02/18 05:47 Est GFR (CKD-EPI)AfAm >90 (>60 ml/min/1.73 sqM) 10/02/18 05:47 Est GFR (CKD-EPI)NonAf >90 (>60 ml/min/1.73 sqM) 10/02/18 05:47 Glucose 134 mg/dL (74-99) H 10/02/18 05:47 POC Glucose (mg/dL) 133 mg/dL (75-99) H 10/02/18 20:30 POC Glu Rejogger Arlene Gonzalez 10/02/18 20:[address] Glu mg/dL 137 10/02/18 05:47 Hemoglobin A1c 6.4 % (4.0-6.0) H 10/02/18 05:47 Calcium 8.7 mg/dL (8.4-10.2) 10/02/18 05:47 Phosphorus 3.3 mg/dL (2.5-4.5) 09/30/18 04:51 Magnesium 2.2 mg/dL (1.6-2.3) 09/30/18 04:51 Total Bilirubin 0.2 mg/dL (0.2-1.3) 09/28/18 04:05 AST 17 U/L (17-59) 09/28/18 04:05 ALT 27 U/L (21-72) 09/28/18 04:05 Alkaline Phosphatase 39 U/L (38-126) 09/28/18 04:05 Troponin I 0.298 ng/mL (0.000-0.034) H* 09/24/18 04:06 NT-Pro-B Natriuret Pep 2820 pg/mL 09/23/18 16:22 Total Protein 4.1 g/dL (6.3-8.2) L 09/28/18 04:05 Albumin 2.0 g/dL (3.5-5.0) L 09/28/18 04:05 Triglycerides 169 mg/dL (<150) H 09/23/18 16:22 Cholesterol 249 mg/dL (<200) H 09/23/18 16:22 LDL Cholesterol, Calc 128 mg/dL (0-99) H 09/23/18 16:22 HDL Cholesterol 87 mg/dL (40-60) H 09/23/18 16:22 Urine Color Yellow 09/27/18 06:20 Urine Appearance Clear (Clear) 09/27/18 06:20 Urine pH 6.0 (5.0-8.0) 09/27/18 06:20 Ur Specific [place] 1.034 (1.001-1.035) 09/27/18 06:20 Urine Protein Trace (Negative) H 09/27/18 06:20 Urine Glucose (UA) Negative (Negative) 09/27/18 06:20 Urine Ketones Trace (Negative) H 09/27/18 06:20 Urine Blood Moderate (Negative) H 09/27/18 06:20 Urine Nitrite Negative (Negative) 09/27/18 06:20 Urine Bilirubin Negative (Negative) 09/27/18 06:20 Urine Urobilinogen <2.0 mg/dL (<2.0) 09/27/18 06:20 Ur Leukocyte Esterase Negative (Negative) 09/27/18 06:20 Urine RBC >182 /hpf (0-5) H 09/27/18 06:20 Urine WBC 3 /hpf (0-5) 09/27/18 06:20 Urine Mucus Rare /hpf (None) H 09/27/18 06:20 Blood Type A Negative 09/26/18 11:46 Blood Type Confirm A Negative 09/26/18 12:39 Blood Type Recheck CABO Indicated 09/26/18 11:46 Antibody Screen NEGATIVE 09/26/18 11:46 Spec Expiration Date 09/29/2018 - 2346 09/26/18 11:46 Microbiology 09/27/18 13:10 Blood Blood Culture - Preliminary No Growth after 120 hours 09/28/18 01:05 Sputum Gram Stain - Final 09/28/18 01:05 Sputum Sputum Culture - Final Marylin albicans Staphylococcus aureus 09/27/18 06:20 Urine,Catheterized Urine Culture - Final Assessment and Plan (1) Acute exacerbation of chronic obstructive airways disease Current Visit: Yes Status: Acute Code(s): J44.1 - CHRONIC OBSTRUCTIVE PULMONARY DISEASE W (ACUTE) EXACERBATION SNOMED Code(s): 714189998 (2) Spontaneous pneumothorax Narrative/Plan: 68-year-old male presents to hospital with the sudden onset of increasing shortness of breath. He was 5 evidence of a spontaneous pneumothorax from a bleb on the right lung. Was treated with Serevent and had some improvement. However then had worsening of the symptoms and required further intervention. He was seen by cardiovascular surgery taken the operating room and a VATS procedure was performed for surgical correction of the bleb. The patient's pneumothorax is now improving and it is also noted that his extensive his emphysema is starting to show some improvement. Patient's sputum was showing evidence of MSSA at this point in time. Vancomycin may be discontinued. Currently receiving antimicrobial therapy with piperacillin t azobactam. This will be rapidly de-escalate once final cultures are available within the next day. Patient's her REVEALS evidence of the significant irritation and a mixture of peroxide and mouthwash and utilized for cleansing of his oral cavity to improve his discomfort and oral cavity and is improving his ability to eat 10/01/2018 patient feeling better today. Oral cavity feels improved today. The patient's chest x-ray reveals evidence of resolution of the pneumothorax. His pain has improved. Tolerating current antibiotic therapy well will de-escalate to oral Augmentin with the current improvements. He's been followed by cardiovascular surgery for his continuous air leak from chest tube. Except cutaneous emphysema seems to be improving though. No other new infections except MSSA in the sputum. 10/02/2018 further improvement. Pneumothorax remains resolved. Oral Augmentin for current MSSA infection and showing further improvement. Strength is improved was able to stand with the physical therapist today. Current Visit: Yes Status: Acute Code(s): J93.83 - OTHER PNEUMOTHORAX SNOMED Code(s): 62918107 (3) ACS (acute coronary syndrome) Current Visit: Yes Status: Acute Code(s): I24.9 - ACUTE ISCHEMIC HEART DISEASE, UNSPECIFIED SNOMED Code(s): 259569884
--- NOTE | 2018-10-02 23:32 | XR ---
EXAM: XR Chest, 1 View CLINICAL HISTORY: ITS.REASON XR Reason: Shortness of Breath TECHNIQUE: Frontal view of the chest. COMPARISON: 0524 hrs. FINDINGS: Right-sided chest tube terminates at the apex of the right hemithorax. No definite pneumothorax. A large right perihilar opacity is again seen. No change. This is nonspecific. No pleural effusion. Pneumomediastinum appears to be present. This may be new. There is widespread gas throughout the soft tissues of the chest wall and neck. IMPRESSION: See above
[2018-10-03] MEDS: DILTIAZEM 125 MG in SODIUM CHLORIDE 0.9% 100 ML IV SCH ×2 (01:48→15:09)
[2018-10-03] MEDS: SODIUM CHLORIDE 0.9% 1,000 ML IV SCH ×2 (01:52→09:44)
[2018-10-03 05:52] LABS: Basophils % (A) 0 %; Eosinophils # (A) 0.2 k/uL (0-0.7); Eosinophils % (A) 1 %; HCT 42.1 % (39.0-53.0); HGB 13.5 gm/dL (13.0-17.5); Lymphocytes # (A) 1.1 k/uL (1.0-4.8); Lymphocytes % (A) 7 %; MCH 31.2 pg (25.0-35.0); MCV 97.4 fL (80.0-100.0); Mean Platelet Volume 7.4; Monocytes # (A) 0.6 k/uL (0-1.0); Monocytes % (A) 4 %; Neutrophils # (A) 14.1 k/uL (1.3-7.7); Neutrophils % (A) 88 %; Platelet Count 147 k/uL (150-450); RBC 4.32 m/uL (4.30-5.90); RDW 14.3 % (11.5-15.5); WBC 16.1 k/uL (3.8-10.6)
[2018-10-03 06:02] LABS: African American GFR (CKD) >90 (>60 ml/min/1.73 sqM); Anion Gap 2 mmol/L; Blood Urea Nitrogen 46 mg/dL (9-20); Calcium 8.2 mg/dL (8.4-10.2); Carbon Dioxide 28 mmol/L (22-30); Chloride 113 mmol/L (98-107); Glucose 97 mg/dL (74-99); Potassium 4.5 mmol/L (3.5-5.1); Sodium 143 mmol/L (137-145)
[2018-10-03 07:02] LABS: Glucose,Whole Blood 110 mg/dL (75-99)
--- NOTE | 2018-10-03 07:27 | XR ---
EXAMINATION TYPE: XR chest 1V portable DATE OF EXAM: 10/03/2018 Comparison: 10/02/2018 Clinical History: 68-year-old male Tube placement Findings: Right apical chest tube remains in place. Heart normal size. Bilateral hilar prominence is unchanged. Severe diffuse subcutaneous emphysema throughout the soft tissues of the chest and visualized base o f the neck. Some subtle pneumomediastinum may be present though decreased from prior. No sizable pneu mothorax is identified. Impression: 1. Severe diffuse subcutaneous emphysema persists with right-sided chest tube in place. 2. No sizable pneumothorax, though, note that given the extent of subcutaneous emphysema, trace subtl e pneumothoraces could easily be missed. 3. Subtle pneumomediastinum suspected though decreased from 10/02/2018. 4. Bilateral hilar enlargement could represent underlying masses, lymphadenopathy, or sequela of pulm onary arterial hypertension. Clinically correlate.
[2018-10-03] MEDS ORDERED: HEPARIN SODIUM,PORCINE 5,000 UNIT/ML 1 ML VIAL IV PRN ×2 (07:31→07:34)
[2018-10-03] MEDS: INSULIN ASPART (NovoLOG) 100 UNIT/ML VIAL SQ SCH ×4 (07:43→22:00)
[2018-10-03] MEDS: BUDESONIDE 0.5 MG/2 ML NEBU INHALATION SCH ×2 (07:43→19:46)
[2018-10-03] MEDS: IPRATROPIUM-ALBUTEROL 3 ML NEB INHALATION SCH ×4 (07:44→19:46)
[2018-10-03 08:11] LABS: Basophils % (A) 0 %; Eosinophils # (A) 0.3 k/uL (0-0.7); Eosinophils % (A) 2 %; HCT 45.5 % (39.0-53.0); HGB 14.3 gm/dL (13.0-17.5); Lymphocytes # (A) 1.3 k/uL (1.0-4.8); Lymphocytes % (A) 8 %; MCHC 31.5 g/dL (31.0-37.0); MCV 98.3 fL (80.0-100.0); Mean Platelet Volume 7.4; Monocytes # (A) 0.6 k/uL (0-1.0); Monocytes % (A) 3 %; Neutrophils # (A) 14.3 k/uL (1.3-7.7); Neutrophils % (A) 87 %; Platelet Count 150 k/uL (150-450); RBC 4.63 m/uL (4.30-5.90); RDW 14.7 % (11.5-15.5); WBC 16.6 k/uL (3.8-10.6)
[2018-10-03 08:26] LABS: Partial Thromboplastin Time 22.1 sec (22.0-30.0); Prothrombin Time 10.3 sec (9.0-12.0)
--- NOTE | 2018-10-03 08:48 | P.PN ---
Subjective Progress Note Date: 10/03/18 Principal diagnosis: Recurrent spontaneous right pneumothorax with thoravent in place. Mild congestive heart failure on admission with BNP 2820, elevated troponins of 0.395. New diagnosis of severe aortic stenosis per echocardiogram. Previous medical history of tobacco dependence, COPD, hypertension, hyperlipidemia, severe acid reflux, hiatal hernia status post Padma fundoplication with mesh repair, right leg DVT, renal failure secondary to dehydration, and prostate cancer. POD #7 right VATS bleb resection with mechanical and talc pleurodesis Postoperative hypoxic respiratory failure secondary to compromised airway, expected outcome given extensive subcutaneous emphysema The patient is currently sitting up in bed in the intensive care unit in no acute distress. Subcu emphysema still present but continues to decrease. Denies difficulty swallowing or breathing, eating breakfast. Right-sided chest tube remains present with continuous air leak. Patient states she continues to feel better every day. He did go back into A. fib with RVR last night and was restarted on Cardizem IV. Objective - Vital Signs Vital signs: Vital Signs Temp 97.9 F 10/03/18 08:00 Pulse 87 10/03/18 08:05 Resp 18 10/03/18 08:00 BP 123/86 10/03/18 08:00 Pulse Ox 96 10/03/18 07:00 Intake & Output 10/02/18 10/03/18 10/03/18 18:59 06:59 18:59 Intake Total 625 975 75 Output Total 480 1060 210 Balance 145 -85 -135 Weight 77.6 kg Intake: IV 625 975 75 Normal Saline 625 975 75 Output: Chest Tube Drainage 20 Chest Tube Right Lateral 20 Chest Urine 460 1060 210 Other: Voiding Method Indwelling Catheter Indwelling Catheter # Bowel Movements 1 1 ABP, PAP, CO, CI - Last Documented Arterial Blood Pressure 98/49 - Constitutional General appearance: Present: cooperative, no acute distress - Respiratory Details: Lungs sounds diminished bilaterally. Respirations even, nonlabored. Currently on 6 L nasal cannula with oxygen saturation 97%. Right pleural chest tube present to -30 cm continuous wall suction, 150 mL serosanguineous drainage in the last 24 hours, continues to have air leak. Subcu emphysema remains present but continues to decrease daily. - Cardiovascular Details: S1, S2 present. Irregular rate and rhythm, controlled atrial fibrillation on telemetry. Palpable peripheral pulses bilaterally. No lower extremity edema present. No calf pain or tenderness noted. Left radial arterial line present. SCDs present. - Gastrointestinal Gastrointestinal Comment(s): Abdomen soft, nontender, nondistended. Active bowel sounds present 4 quadrants. Tolerating diet. Positive bowel movement. - Genitourinary Genitourinary Comment(s): Flores present draining clear, yellow urine. - Integumentary Integumentary Comment(s): Skin is warm and dry with evidence of good perfusion. Right lateral chest tube site covered with dry intact dressing, subcu emphysema present and outlined. - Neurologic Neurologic: Present: CNII-XII intact - Musculoskeletal Musculoskeletal: Present: strength equal bilaterally - Psychiatric Psychiatric: Present: A&O x's 3, appropriate affect, intact judgment & insight - Allied health notes Allied health notes reviewed: nursing - Labs CBC & Chem 7: 10/03/18 07:50 10/03/18 05:07 Labs: Abnormal Lab Results - Last 24 Hours (Table) 10/02/18 10/02/18 10/02/18 Range/Units 05:47 11:45 17:20 WBC (3.8-10.6) k/uL Plt Count (150-450) k/uL Neutrophils # (1.3-7.7) k/uL Chloride (98-107) mmol/L BUN (9-20) mg/dL POC Glucose (mg/dL) 123 H 128 H (75-99) mg/dL Hemoglobin A1c 6.4 H (4.0-6.0) % Calcium (8.4-10.2) mg/dL 10/02/18 10/03/18 10/03/18 Range/Units 20:30 05:07 05:07 WBC 16.1 H (3.8-10.6) k/uL Plt Count 147 L (150-450) k/uL Neutrophils # 14.1 H (1.3-7.7) k/uL Chloride 113 H (98-107) mmol/L BUN 46 H (9-20) mg/dL POC Glucose (mg/dL) 133 H (75-99) mg/dL Hemoglobin A1c (4.0-6.0) % Calcium 8.2 L (8.4-10.2) mg/dL 10/03/18 10/03/18 Range/Units 07:00 07:50 WBC 16.6 H (3.8-10.6) k/uL Plt Count (150-450) k/uL Neutrophils # 14.3 H (1.3-7.7) k/uL Chloride (98-107) mmol/L BUN (9-20) mg/dL POC Glucose (mg/dL) 110 H (75-99) mg/dL Hemoglobin A1c (4.0-6.0) % Calcium (8.4-10.2) mg/dL Microbiology - Last 24 Hours (Table) 09/27/18 13:10 Blood Culture - Preliminary Blood No Growth after 120 hours - Imaging and Cardiology Chest x-ray: report reviewed, image reviewed Assessment and Plan Assessment: 1. Recurrent spontaneous right pneumothorax, status post VATS with bleb resection and pleurodesis, continued air leak 2. Mild congestive heart failure, elevated BNP 2820 3. Elevated troponins as high as 0.395 4. Leukocytosis 5. Previous tobacco dependence 6. Chronic obstructive pulmonary disease 7. Hypertension 8. Hyperlipidemia 9. Severe acid reflux 10. History of hiatal hernia status post Padma fundoplication 11. History of prostate cancer 12. History of right leg deep vein thrombosis 13. Anxiety 14. Severe aortic stenosis discovered on transthoracic echocardiogram with peak/mean gradient 88.19 mmHg/61.56 mmHg and valve area 0.4 cm 15. Postoperative subcu emphysema, expected 16. Postoperative acute respiratory failure secondary to compromised airway Plan: 1. Continue chest tube to -30 cm continuous wall suction. Will monitor for resolution of air leak. May eventually discharged to home with Pneumostat. 2. Will continue to monitor subcu emphysema 3. Bronchodilators, steroid management per pulmonology. 4. Will monitor daily x-rays. 5. Encourage continued smoking cessation. 6. Encourage use of incentive spirometry, increase activity. 7. A. fib management per Dr. Skaf. Treviño with anticoagulation from our standpoint. 8. Continued medical management per primary care service. 9. GI/DVT prophylaxis. 10. Pain control with current medication regimen. 11. Patient will need workup for aortic stenosis with ALEJANDRO and heart catheterization in the future, cardiology following. 12. May transfer out of ICU on our standpoint. 13. More recommendations to follow. Time with Patient: Greater than 30
[2018-10-03] MEDS: HEPARIN SOD,PORK IN 0.45% NACL 25,000 UNIT in 0.45% NACL 1 250ML.BAG IV SCH (09:25)
[2018-10-03] MEDS: ALPRAZolam 0.25 MG TAB PO PRN ×2 (09:33→23:48)
[2018-10-03] MEDS: ATORVASTATIN 80 MG TAB PO SCH (09:33)
[2018-10-03] MEDS: PANTOPRAZOLE 40 MG TABLET PO SCH (09:34)
[2018-10-03] MEDS: AMOXIC-POT CLAV 875-125MG 1 EACH TAB PO SCH ×2 (09:34→22:08)
[2018-10-03] MEDS: METOPROLOL TARTRATE 50 MG TAB PO SCH ×2 (09:34→22:09)
[2018-10-03] MEDS: ASPIRIN 81 MG PO SCH (09:35)
[2018-10-03] MEDS: predniSONE 20 MG TAB PO SCH (09:38)
--- NOTE | 2018-10-03 09:40 | P.PN ---
Subjective Progress Note Date: 10/03/18 Principal diagnosis: Pneumothorax This is a pleasant 68-year-old gentleman with a past medical history significant for hypertension, dyslipidemia, and history of DVT, who was admitted to the hospital with shortness of breath and was found to have pneumothorax which seems to be recurrent. He was discharged from the hospital recently with Thoravent. This time that was attached to suction. He is feeling better. The computed tomography scan revealed right sided pneumothorax. He underwent surgery. The patient underwent right VATS bleb resection. On follow-up with the patient today, 10/03/2018, the patient is doing better clinically. Last night he did go into atrial fibrillation and now he seems to be in normal sinus mechanism. I am going to increase the dose of metoprolol and start the patient on anticoagulation with heparin IV. Objective - Vital Signs Vital signs: Vital Signs Temp 97.9 F 10/03/18 08:00 Pulse 85 10/03/18 09:00 Resp 18 10/03/18 09:00 BP 114/71 10/03/18 09:00 Pulse Ox 96 10/03/18 09:00 Intake & Output 10/02/18 10/03/18 10/03/18 18:59 06:59 18:59 Intake Total 625 975 330 Output Total 480 1060 390 Balance 145 -85 -60 Weight 77.6 kg 75.9 kg Intake: IV 625 975 150 Normal Saline 625 975 150 Oral 180 Output: Chest Tube Drainage 20 Chest Tube Right Lateral 20 Chest Urine 460 1060 390 Other: Voiding Method Indwelling Catheter Indwelling Catheter Indwelling Catheter # Bowel Movements 1 1 ABP, PAP, CO, CI - Last Documented Arterial Blood Pressure 98/49 - Constitutional General appearance: Present: no acute distress - Respiratory Respiratory: bilateral: CTA - Cardiovascular Rhythm: regular Heart sounds: normal: S1 Abnormal Heart Sounds: Present: systolic murmur - Labs CBC & Chem 7: 10/03/18 07:50 10/03/18 05:07 Labs: Abnormal Lab Results - Last 24 Hours (Table) 10/02/18 10/02/18 10/02/18 Range/Units 05:47 11:45 17:20 WBC (3.8-10.6) k/uL Plt Count (150-450) k/uL Neutrophils # (1.3-7.7) k/uL Chloride (98-107) mmol/L BUN (9-20) mg/dL POC Glucose (mg/dL) 123 H 128 H (75-99) mg/dL Hemoglobin A1c 6.4 H (4.0-6.0) % Calcium (8.4-10.2) mg/dL 10/02/18 10/03/18 10/03/18 Range/Units 20:30 05:07 05:07 WBC 16.1 H (3.8-10.6) k/uL Plt Count 147 L (150-450) k/uL Neutrophils # 14.1 H (1.3-7.7) k/uL Chloride 113 H (98-107) mmol/L BUN 46 H (9-20) mg/dL POC Glucose (mg/dL) 133 H (75-99) mg/dL Hemoglobin A1c (4.0-6.0) % Calcium 8.2 L (8.4-10.2) mg/dL 10/03/18 10/03/18 Range/Units 07:00 07:50 WBC 16.6 H (3.8-10.6) k/uL Plt Count (150-450) k/uL Neutrophils # 14.3 H (1.3-7.7) k/uL Chloride (98-107) mmol/L BUN (9-20) mg/dL POC Glucose (mg/dL) 110 H (75-99) mg/dL Hemoglobin A1c (4.0-6.0) % Calcium (8.4-10.2) mg/dL Microbiology - Last 24 Hours (Table) 09/27/18 13:10 Blood Culture - Preliminary Blood No Growth after 120 hours Assessment and Plan Assessment: Assessment #1 recurrent right-sided pneumothorax #2 acute hypoxic respiratory failure #3 hypotension #4 severe aortic stenosis #5 paroxysmal atrial fibrillation Plan #1 continue the current medical regimen including aspirin and statin #2 start heparin for anticoagulation #3 increase the dose of metoprolol
[2018-10-03 11:34] LABS: Glucose,Whole Blood 150 mg/dL (75-99)
[2018-10-03] MEDS ORDERED: MELATONIN 1 MG TAB PO PRN (12:26)
--- NOTE | 2018-10-03 12:31 | P.PN ---
Subjective Progress Note Date: 10/03/18 This is a 68-year-old male patient who presented to the hospital with complaints of increased shortness of breath. Patient was recently admitted for spontaneous right-sided pneumothorax post thoracotomy placement. Patient was DC'd with thoraven in place. reports that at home he became very short winded was unable to walk. He has past medical history of COPD, GERD, hyperlipidemia, hypertension, pneumonia, ex-smoker, prostate cancer 2000, DVT 10 years ago completed treatment. Chest x-ray completed showing mild right-sided atelectasis. Right-sided pneumothorax is essentially cleared compared to last exam. Soft tissue air increased compared to last exam. EKG completed showing sinus rhythm with first-degree AV block. Troponin is elevated 0.394, 0.295 and 0.290. Cardiology and pulmonary service is consulted. D-dimer elevated at 2.00. CTA performed pending. BNP also elevated 2820. Patient does have thoravent in place. Cardiothoracic surgery consulted. Patient is very anxious. Ativan given when necessary order. At that time patient is still complaining of some shortness breath. Patient denies chest pain. Patient denies nausea vomiting or diarrhea. Patient denies any urinary burning or frequency. On 09/25/2018 patient's chest tube hooked to suction for right-sided pneumot horax. Discussed case with cardiothoracic nurse practitioner. Planning VATS procedure. Patient received 1 dose of IV Lasix for mild CHF exacerbation. Per cardiology patient does have aortic stenosis will eventually have ALEJANDRO and heart cath outpatient. At this time patient does state improvement with shortness of breath. Patient denies chest pain. Patient denies nausea vomiting or diarrhea. Patient denies any urinary burning or frequency. On 09/26/2018. Patient had episode of Thora vent dislodge this AM. Patient went into a story distress. Patient was taken to emergent surgery for VATS procedure with Dr. Jackman. Patient is currently resting in the intensive care unit. Chest tube is in place. At this time patient does state some improvement with shortness of breath. Patient denies nausea or vomiting. Patient denies any urinary burning or frequency On 09/27/2018 patient required mechanical ventilation and intubation throughout night due to increasing subcu emphysema. At this time patient is sedated. Patient also requiring Levophed for pressure support. Patient remains in intensive care unit. Pulmonary and cardiothoracic services are following. On 09/28/2018 patient remains on mechanical ventilation in the ICU. Patient remains on sedation. Pulmonary following. Patient started on Rocephin. Patient maintained on IV Solu-Medrol. Patient improvement with subcu emphysema. Patient remains on Levophed for pressure support. No plans to wean today per pulmonary. Continue tube feeds On 09/29/2018 patient was seen and examined in the ICU he was extubated and is tolerating well he is alert and oriented 3 in no apparent distress there is no chest pain or shortness of breath he has occasional cough no fever or chills no headache or dizziness no nausea or vomiting no abdominal pain no diarrhea and no urinary symptoms. On 09/30/2018 patient was seen again in the intensive care unit he is alert and oriented 3 he is maintained on oxygen via nasal cannula and is tolerating well he has worsening subcutaneous emphysema and occasional cough otherwise he denies any complaints there is no fever or chills no chest pain no shortness of breath at rest no nausea or vomiting no abdominal pain no diarrhea and no urinary symptoms On 10/01/2018 patient remains in the intensive care unit. Patient subcu emphysema is improving. Patient is anxious. Will order Xanax at this time. Patient currently on Cardizem drip currently in sinus rhythm. Metroprolol has been increased per cardiology. At this time patient denies chest pain. Shortness of breath is improving. Patient denies any nausea vomiting or diarrhea. Patient denies any urinary burning or frequency On 10/02/2018 patient is alert and oriented. Patient reports he feels improved. Patient maintained in the intensive care unit on 2 L nasal cannula. Patient still has some prominent subcu emphysema to place. Patient's chest tube remains in place. At this time patient denies chest pain. Patient denies any nausea vomiting or diarrhea. Patient denies any urinary burning or frequency. Sh ortness of breath is improving On 10/03/2018 patient alert and oriented. Patient is resting comfortably in bed. Patient has been started on heparin as per cardiology for atrial fibrillation. Metroprolol has been increased per cardiology. At this time patient is still having some subcu emphysema. Patient denies chest pain. Patient denies shortness breath. Patient denies nausea vomiting or diarrhea. Patient denies any urinary burning or frequency. Objective - Vital Signs Vital signs: Vital Signs Temp 98.2 F 10/03/18 12:00 Pulse 93 10/03/18 12:00 Resp 20 10/03/18 12:00 BP 106/73 10/03/18 12:00 Pulse Ox 96 10/03/18 12:00 Intake & Output 10/02/18 10/03/18 10/03/18 18:59 06:59 18:59 Intake Total 625 975 555 Output Total 480 1060 850 Balance 145 -85 -295 Weight 77.6 kg 75.9 kg Intake: IV 625 975 375 Normal Saline 625 975 375 Oral 180 Output: Chest Tube Drainage 20 Chest Tube Right Lateral 20 Chest Urine 460 1060 850 Other: Voiding Method Indwelling Catheter Indwelling Catheter Indwelling Catheter # Bowel Movements 1 1 ABP, PAP, CO, CI - Last Documented Arterial Blood Pressure 98/49 - Exam Head normocephalic Neck supple Lungs diminished bilaterally, chest tube in place, subcu emphysema noted to neck and face Heart regular rate and rhythm S1-S2, no rub or gallop Abdomen is soft nontender nondistended positive bowel sounds no hepatosplenomegaly Extremities no edema Neuro alert and orientated to 3 - Labs CBC & Chem 7: 10/03/18 07:50 10/03/18 05:07 Labs: Abnormal Lab Results - Last 24 Hours (Table) 10/02/18 10/02/18 10/02/18 Range/Units 05:47 17:20 20:30 WBC (3.8-10.6) k/uL Plt Count (150-450) k/uL Neutrophils # (1.3-7.7) k/uL Chloride (98-107) mmol/L BUN (9-20) mg/dL POC Glucose (mg/dL) 128 H 133 H (75-99) mg/dL Hemoglobin A1c 6.4 H (4.0-6.0) % Calcium (8.4-10.2) mg/dL 10/03/18 10/03/18 10/03/18 Range/Units 05:07 05:07 07:00 WBC 16.1 H (3.8-10.6) k/uL Plt Count 147 L (150-450) k/uL Neutrophils # 14.1 H (1.3-7.7) k/uL Chloride 113 H (98-107) mmol/L BUN 46 H (9-20) mg/dL POC Glucose (mg/dL) 110 H (75-99) mg/dL Hemoglobin A1c (4.0-6.0) % Calcium 8.2 L (8.4-10.2) mg/dL 10/03/18 10/03/18 Range/Units 07:50 11:33 WBC 16.6 H (3.8-10.6) k/uL Plt Count (150-450) k/uL Neutrophils # 14.3 H (1.3-7.7) k/uL Chloride (98-107) mmol/L BUN (9-20) mg/dL POC Glucose (mg/dL) 150 H (75-99) mg/dL Hemoglobin A1c (4.0-6.0) % Calcium (8.4-10.2) mg/dL Microbiology - Last 24 Hours (Table) 09/27/18 13:10 Blood Culture - Preliminary Blood No Growth after 120 hours Assessment and Plan Assessment: 1. Increased shortness of breathing secondary to recurring right-sided pneumothorax with rightward mediastinal shift S/P VATS. CTA chest performed showing reaccumulation of large, approximately 70% right-sided pneumonia without current mediastinal shift on the exam. thoravent is in place. Extensive underlying emphysematous change. No evidence of central pulmonary embolus. Subsegmental arteries are somewhat limited. No CT evidence of right heart s train. Cardiothoracic services have been consulted. Pulmonary services consulted. currently on DuoNeb breathing treatments. 09/26/2018 patient was taken to the OR for video-assisted thorascopic the with bleb stapling after thoravent was accidentally pulled out. Chest tube remains in place 2. Increased subcu emphysema post surgical requiring mechanical ventilation for airway management. Patient has been extubated on 09/29/2018. Patient did require needle decompression for subcu emphysema by cardiothoracic 09/30/2017. Subcu emphysema 3. Staph aureus tracheobronchitis. Pulmonary and infectious disease service is following. Sputum culture growing Staphylococcus aureus. Patient currently on Augmentin for antibiotic 4. Mild diastolic congestive heart failure. BNP elevated 2820. 2-D echo completed showing EF of 50-55% Cardiology services following. Patient received 1 dose of IV Lasix 5. Elevated troponins. Troponin level 0.395, 0.295 and 0.298. Cardiology services are following 6. Recent right-sided spontaneous pneumothorax status post ThoraVent placement. 7. Leukocytosis. Patient has been on oral prednisone. Sputum culture growing presumptive staph aureus. Infectious disease is following. Patient currently maintained on Zosyn 8. History of Niesen fundoplication 9. History of prostate cancer 2009 10. History of right leg DVT several years ago no longer on anticoagulation 11. Essential hypertension patient was DC'd during previous admission on Norvasc and hydralazine 12. Anxiety and hyperactivity. Ativan when necessary has been ordered. M aintained on Zoloft. Xanax has been added 13. Aortic stenosis. 2-D echo completed per cardiology. Patient will likely need ALEJANDRO a cardiac catheterization outpatient 14. Hypotension likely secondary to sedation. Patient currently maintained on Levophed. Resolved 15. New-onset A. fib with RVR. Patient was started on Cardizem drip. Patient is now in sinus rhythm. Cardizem drip DC'd and patient started on Metroprolol. Per cardiology patient has been started on heparin drip for anticoagulation DVT prophylaxis heparin. GI prophylaxis Protonix Social work consulted for discharge planning I performed an examination of the patient and discussed their management with the Nurse Practitioner. I have reviewed the Nurse Practitioner's notes and agree with the documented findings and plan of care
--- NOTE | 2018-10-03 15:04 | P.PN ---
Subjective Progress Note Date: 10/03/18 Principal diagnosis: Right spontaneous pneumothorax, respiratory failure, staph tracheobronchitis, new onset atrial fibrillation, hypertension, severe COPD, history of DVT, prostate cancer, Padma fundoplication, 10/03/2018, patient seen and evaluated during the rounds, patient is on 4 L oxygen breathing comfortably extensive subcu emphysema is present she is been treated with low intensity heparin drip for A. fib RVR currently in controlled ventricular response on Jena the chest x-ray reviewed, severe diffuse subcu emphysema is present with a right-sided chest tube no pneumothorax is seen, the pneumomediastinum has reduced from yesterday's exam, labs reviewed white cell count is still elevated 16,600, and her dose of metoprolol have been escalated overall remains stable otherwise Objective - Vital Signs Vital signs: Vital Signs Temp 98.2 F 10/03/18 12:00 Pulse 78 10/03/18 14:00 Resp 17 10/03/18 14:00 BP 102/76 10/03/18 14:00 Pulse Ox 97 10/03/18 14:00 Intake & Output 10/02/18 10/03/18 10/03/18 18:59 06:59 18:59 Intake Total 625 975 705 Output Total 480 1060 1080 Balance 145 -85 -375 Weight 77.6 kg 75.9 kg Intake: IV 625 975 525 Normal Saline 625 975 525 Oral 180 Output: Chest Tube Drainage 20 40 Chest Tube Right Lateral 20 40 Chest Urine 460 1060 1040 Other: Voiding Method Indwelling Catheter Indwelling Catheter Indwelling Catheter # Bowel Movements 1 1 ABP, PAP, CO, CI - Last Documented Arterial Blood Pressure 98/49 - Constitutional General appearance: Present: average body habitus, cooperative, disheveled, mild distress - EENT Eyes: Present: EOMI, PERRLA Ears: bilateral: normal - Neck Details: Extensive fascial swelling and neck swelling is present but is stable Neck: Present: normal ROM Carotids: bilateral: upstroke normal Thyroid: bilateral: normal size - Respiratory Respiratory: bilateral: diminished - Cardiovascular Rhythm: regular Heart sounds: normal: S1, S2 - Neurologic Neurologic: Present: CNII-XII intact - Musculoskeletal Musculoskeletal: Present: gait normal, generalized weakness, strength equal bilaterally - Psychiatric Psychiatric: Present: A&O x's 3, appropriate affect, intact judgment & insight - Labs CBC & Chem 7: 10/03/18 07:50 10/03/18 05:07 Labs: Abnormal Lab Results - Last 24 Hours (Table) 10/02/18 10/02/18 10/02/18 Range/Units 05:47 17:20 20:30 WBC (3.8-10.6) k/uL Plt Count (150-450) k/uL Neutrophils # (1.3-7.7) k/uL Chloride (98-107) mmol/L BUN (9-20) mg/dL POC Glucose (mg/dL) 128 H 133 H (75-99) mg/dL Hemoglobin A1c 6.4 H (4.0-6.0) % Calcium (8.4-10.2) mg/dL 10/03/18 10/03/18 10/03/18 Range/Units 05:07 05:07 07:00 WBC 16.1 H (3.8-10.6) k/uL Plt Count 147 L (150-450) k/uL Neutrophils # 14.1 H (1.3-7.7) k/uL Chloride 113 H (98-107) mmol/L BUN 46 H (9-20) mg/dL POC Glucose (mg/dL) 110 H (75-99) mg/dL Hemoglobin A1c (4.0-6.0) % Calcium 8.2 L (8.4-10.2) mg/dL 10/03/18 10/03/18 Range/Units 07:50 11:33 WBC 16.6 H (3.8-10.6) k/uL Plt Count (150-450) k/uL Neutrophils # 14.3 H (1.3-7.7) k/uL Chloride (98-107) mmol/L BUN (9-20) mg/dL POC Glucose (mg/dL) 150 H (75-99) mg/dL Hemoglobin A1c (4.0-6.0) % Calcium (8.4-10.2) mg/dL Microbiology - Last 24 Hours (Table) 09/27/18 13:10 Blood Culture - Preliminary Blood No Growth after 120 hours - Imaging and Cardiology Chest x-ray: report reviewed, image reviewed (Finding as noted above ) Assessment and Plan Assessment: Acute hypoxic respiratory failure secondary due to his spontaneous pneumothorax on the right side status post VATS Extensive subcu emphysema of thoracic wall and face overall stable Severe COPD Staph aureus tracheobronchitis Atrial fibrillation Leukocytosis Plan: Continue antibiotics Supplemental oxygen Deep breathing exercise intensive spirometry DVT and peptic ulcer disease prophylaxis Continue taper steroids Continue breathing treatments with DuoNeb and Pulmicort Further recommendations pending plan of care as per clinical response of the patient Time with Patient: Greater than 30
[2018-10-03 16:50] LABS: Glucose,Whole Blood 126 mg/dL (75-99)
--- NOTE | 2018-10-03 21:46 | P.PN ---
Subjective Progress Note Date: 10/03/18 68-year-old male that has multiple medical troubles that includes COPD, coronary artery disease,and a history of prostate carcinoma treated with radiation therapy presents to hospital with significant shortness of breath. Upon evidence of spontaneous pneumothorax from a ruptured bleb rof the right lung. He was seen by current thoracic surgery and a thorough that was applied. He had some improvement but then eventually he developed progressive respiratory failure and required intubation with sedation mechanical ventilation. And also require surgical intervention with the VATS procedure for the resection of the bleb. The patient has subsequently been extubated is having stability to his pulmonary status. However sputum now has evidence of new pathogen and concerns to underlying pneumonia and consequently the infectious diseases consultation was requested. The patient is received some Ativan and is somewhat sedated. His is present. The patient is comfortable and not in respiratory distress at this time. 10/01/2018 patient is feeling better today. Pain is well controlled. Shortness of breath is improved. 10/02/2018 patient has had further improvement today. He was able to stand at the bedside and take 2 steps. Subcutaneous emphysema is starting to improve. 10/03/2018 patient continues to improve. Although separately as emphysema remains significant. He relates that he is not having significant shortness of breath or cough. Chest pain is improved. Objective - Vital Signs Vital signs: Vital Signs Temp 98.1 F 10/03/18 17:00 Pulse 92 10/03/18 20:04 Resp 18 10/03/18 19:00 BP 111/81 10/03/18 19:00 Pulse Ox 98 10/03/18 19:00 Intake & Output 10/03/18 10/03/18 10/04/18 06:59 18:59 06:59 Intake Total 975 1171.75 75 Output Total 1060 1570 125 Balance -85 -398.25 -50 Weight 75.9 kg Intake: IV 975 825 75 Normal Saline 975 825 75 Intake, IV Titration 66.75 Amount Diltiazem 125 mg In 66.75 Sodium Chloride 0.9% 100 ml @ 5 MG/HR 5 mls/hr IV .Q24H ON LICENSE OF [facility] Rx#:[id number] Oral 280 Output: Chest Tube Drainage 40 Chest Tube Right Lateral 40 Chest Urine 1060 1530 125 Other: Voiding Method Indwelling Catheter Indwelling Catheter # Bowel Movements 1 ABP, PAP, CO, CI - Last Documented Arterial Blood Pressure 98/49 - Exam 8-year-old male comfortable HEENT: Anicteric conjunctiva are pink and moist nasal mucosa grossly intact without significant lesions, there is no thrush. subcutaneous emphysema is palpable on the face of the periorbital area. It is related with application of some localized pressure is actually improving already Neck: The neck is supple without significant lymphadenopathy or thyromegaly. Lungs: they're symmetrical bilateral air entry, there are decreased breath sounds at the bilateral bases. Some few expiratory wheezes are heard. There is still easily palpable subcu emphysema onto the anterior chest wall shoulders and upper arms bilaterally. The patient has had multiple catheters applied to reduce the 70s emphysema and apparently is are improving Heart: irregular irregular audible S1 and S2 soft S4 no click or rub 2/6 systolic murmur excellent carotids Abdomen: Positive bowel sounds soft and nontender without palpable masses or organomegaly. There was no guarding or rebound. Extremities: The upper extremities have excellent pulses they are symmetric, no significant petechiae or telangiectasia. No splinter hemorrhages were noted. The lower extremities are free from significant edema. The peripheral pulses were 2+ and symmetric. Neuro: patient is awake and alert interactive - Labs CBC & Chem 7: 10/03/18 07:50 10/03/18 05:07 Labs: Abnormal Lab Results - Last 24 Hours (Table) 10/03/18 10/03/18 10/03/18 Range/Units 05:07 05:07 07:00 WBC 16.1 H (3.8-10.6) k/uL Plt Count 147 L (150-450) k/uL Neutrophils # 14.1 H (1.3-7.7) k/uL Chloride 113 H (98-107) mmol/L BUN 46 H (9-20) mg/dL POC Glucose (mg/dL) 110 H (75-99) mg/dL Calcium 8.2 L (8.4-10.2) mg/dL 10/03/18 10/03/18 10/03/18 Range/Units 07:50 11:33 16:48 WBC 16.6 H (3.8-10.6) k/uL Plt Count (150-450) k/uL Neutrophils # 14.3 H (1.3-7.7) k/uL Chloride (98-107) mmol/L BUN (9-20) mg/dL POC Glucose (mg/dL) 150 H 126 H (75-99) mg/dL Calcium (8.4-10.2) mg/dL Microbiology - Last 24 Hours (Table) 09/27/18 13:10 Blood Culture - Final Blood No Growth after 144 hours Laboratory Results WBC 16.6 k/uL (3.8-10.6) H 10/03/18 07:50 RBC 4.63 m/uL (4.30-5.90) 10/03/18 07:50 Hgb 14.3 gm/dL (13.0-17.5) 10/03/18 07:50 Hct 45.5 % (39.0-53.0) 10/03/18 07:50 MCV 98.3 fL (80.0-100.0) 10/03/18 07:50 MCH 31.0 pg (25.0-35.0) 10/03/18 07:50 MCHC 31.5 g/dL (31.0-37.0) 10/03/18 07:50 RDW 14.7 % (11.5-15.5) 10/03/18 07:50 Plt Count 150 k/uL (150-450) 10/03/18 07:50 Neutrophils % 87 % 10/03/18 07:50 Lymphocytes % 8 % 10/03/18 07:50 Monocytes % 3 % 10/03/18 07:50 Eosinophils % 2 % 10/03/18 07:50 Basophils % 0 % 10/03/18 07:50 Neutrophils # 14.3 k/uL (1.3-7.7) H 10/03/18 07:50 Lymphocytes # 1.3 k/uL (1.0-4.8) 10/03/18 07:50 Monocytes # 0.6 k/uL (0-1.0) 10/03/18 07:50 Eosinophils # 0.3 k/uL (0-0.7) 10/03/18 07:50 Basophils # 0.0 k/uL (0-0.2) 10/03/18 07:50 PT 10.3 sec (9.0-12.0) 10/03/18 07:50 INR 1.0 (<1.2) 10/03/18 07:50 APTT 28.1 sec (22.0-30.0) 10/03/18 14:14 D-Dimer 2.00 mg/L FEU (<0.60) H 09/24/18 08:33 Sample Site vicki 09/29/18 05:31 ABG pH 7.37 (7.35-7.45) 09/29/18 05:31 ABG pCO2 47 mmHg (35-45) H 09/29/18 05:31 ABG pO2 121 mmHg (83-108) H 09/29/18 05:31 ABG HCO3 27 mmol/L (21-25) H 09/29/18 05:31 ABG Total CO2 28 mmol/L (19-24) H 09/29/18 05:31 ABG O2 Saturation 98.6 % (94-97) H 09/29/18 05:31 ABG Base Excess 1.6 mmol/L 09/29/18 05:31 Peng Test Yes 09/29/18 05:31 FiO2 40 % 09/29/18 05:31 Sodium 143 mmol/L (137-145) 10/03/18 05:07 Potassium 4.5 mmol/L (3.5-5.1) 10/03/18 05:07 Chloride 113 mmol/L (98-107) H 10/03/18 05:07 Carbon Dioxide 28 mmol/L (22-30) 10/03/18 05:07 Anion Gap 2 mmol/L 10/03/18 05:07 BUN 46 mg/dL (9-20) H 10/03/18 05:07 Creatinine 0.80 mg/dL (0.66-1.25) 10/03/18 05:07 Est GFR (CKD-EPI)AfAm >90 (>60 ml/min/1.73 sqM) 10/03/18 05:07 Est GFR (CKD-EPI)NonAf >90 (>60 ml/min/1.73 sqM) 10/03/18 05:07 Glucose 97 mg/dL (74-99) 10/03/18 05:07 POC Glucose (mg/dL) 126 mg/dL (75-99) H 10/03/18 16:48 POC Glu Manager Story ID 10/03/18 16:[address] Glu mg/dL 137 10/02/18 05:47 Hemoglobin A1c 6.4 % (4.0-6.0) H 10/02/18 05:47 Calcium 8.2 mg/dL (8.4-10.2) L 10/03/18 05:07 Phosphorus 3.3 mg/dL (2.5-4.5) 09/30/18 04:51 Magnesium 2.2 mg/dL (1.6-2.3) 09/30/18 04:51 Total Bilirubin 0.2 mg/dL (0.2-1.3) 09/28/18 04:05 AST 17 U/L (17-59) 09/28/18 04:05 ALT 27 U/L (21-72) 09/28/18 04:05 Alkaline Phosphatase 39 U/L (38-126) 09/28/18 04:05 Troponin I 0.298 ng/mL (0.000-0.034) H* 09/24/18 04:06 NT-Pro-B Natriuret Pep 2820 pg/mL 09/23/18 16:22 Total Protein 4.1 g/dL (6.3-8.2) L 09/28/18 04:05 Albumin 2.0 g/dL (3.5-5.0) L 09/28/18 04:05 Triglycerides 169 mg/dL (<150) H 09/23/18 16:22 Cholesterol 249 mg/dL (<200) H 09/23/18 16:22 LDL Cholesterol, Calc 128 mg/dL (0-99) H 09/23/18 16:22 HDL Cholesterol 87 mg/dL (40-60) H 09/23/18 16:22 Urine Color Yellow 09/27/18 06:20 Urine Appearance Clear (Clear) 09/27/18 06:20 Urine pH 6.0 (5.0-8.0) 09/27/18 06:20 Ur Specific [place] 1.034 (1.001-1.035) 09/27/18 06:20 Urine Protein Trace (Negative) H 09/27/18 06:20 Urine Glucose (UA) Negative (Negative) 09/27/18 06:20 Urine Ketones Trace (Negative) H 09/27/18 06:20 Urine Blood Moderate (Negative) H 09/27/18 06:20 Urine Nitrite Negative (Negative) 09/27/18 06:20 Urine Bilirubin Negative (Negative) 09/27/18 06:20 Urine Urobilinogen <2.0 mg/dL (<2.0) 09/27/18 06:20 Ur Leukocyte Esterase Negative (Negative) 09/27/18 06:20 Urine RBC >182 /hpf (0-5) H 09/27/18 06:20 Urine WBC 3 /hpf (0-5) 09/27/18 06:20 Urine Mucus Rare /hpf (None) H 09/27/18 06:20 Stool Occult Blood Negative (Negative) 10/03/18 13:00 Blood Type A Negative 09/26/18 11:46 Blood Type Confirm A Negative 09/26/18 12:39 Blood Type Recheck CABO Indicated 09/26/18 11:46 Antibody Screen NEGATIVE 09/26/18 11:46 Spec Expiration Date 09/29/2018 - 234509/26/18 11:46 Microbiology 09/27/18 13:10 Blood Blood Culture - Final No Growth after 144 hours 09/28/18 01:05 Sputum Gram Stain - Final 09/28/18 01:05 Sputum Sputum Culture - Final Marylin albicans Staphylococcus aureus 09/27/18 06:20 Urine,Catheterized Urine Culture - Final Assessment and Plan (1) Acute exacerbation of chronic obstructive airways disease Current Visit: Yes Status: Acute Code(s): J44.1 - CHRONIC OBSTRUCTIVE PULMONARY DISEASE W (ACUTE) EXACERBATION SNOMED Code(s): 715079404 (2) Spontaneous pneumothorax Narrative/Plan: 68-year-old male presents to hospital with the sudden onset of increasing shortness of breath. He was 5 evidence of a spontaneous pneumothorax from a bleb on the right lung. Was treated with Serevent and had some improvement. However then had worsening of the symptoms and required further intervention. He was seen by cardiovascular surgery taken the operating room and a VATS procedure was performed for surgical correction of the bleb. The patient's pneumothorax is now improving and it is also noted that his extensive his emphysema is starting to show some improvement. Patient's sputum was showing evidence of MSSA at this point in time. Vancomycin may be discontinued. Currently receiving antimicrobial therapy with piperacillin tazobactam. This will be rapidly de-escalate once final cultures are available within the next day. Patient's her REVEALS evidence of the significant irritation and a mixture of peroxide and mouthwash and utilized for cleansing of his oral cavity to improve his discomfort and oral cavity and is improving his ability to eat 10/01/2018 patient feeling better today. Oral cavity feels improved today. The patient's chest x-ray reveals evidence of resolution of the pneumothorax. His pain has improved. Tolerating current antibiotic therapy well will de-escalate to oral Augmentin with the current improvements. He's been followed by cardiovascular surgery for his continuous air leak from chest tube. Except cutaneous emphysema seems to be improving though. No other new infections except MSSA in the sputum. 10/02/2018 further improvement. Pneumothorax remains resolved. Oral Augmentin for current MSSA infection and showing further improvement. Strength is improved was able to stand with the physical therapist today. 10/03/2018 and again further improvement is occurring but continues to have the air leak with the extensive subcutaneous emphysema. Cardiac thoracic surgery is monitoring and is considering some further interventions. He did get up with the physical therapist again today and is feeling slowly better. Shortness of breath remains improved. Continue to complete the course of Augmentin. Current Visit: Yes Status: Acute Code(s): J93.83 - OTHER PNEUMOTHORAX SNOMED Code(s): 50217058 (3) ACS (acute coronary syndrome) Current Visit: Yes Status: Acute Code(s): I24.9 - ACUTE ISCHEMIC HEART DISEASE, UNSPECIFIED SNOMED Code(s): 705442364
[2018-10-03 21:58] LABS: Glucose,Whole Blood 141 mg/dL (75-99)
[2018-10-03] MEDS: diphenhydrAMINE 50 MG CAP PO SCH (22:08)
[2018-10-03] MEDS: MONTELUKAST 10 MG TAB PO SCH (22:08)
[2018-10-03] MEDS: SERTRALINE 50 MG TAB PO SCH (22:09)
[2018-10-03] MEDS: IPRATROPIUM-ALBUTEROL 3 ML NEB INHALATION PRN (23:46)
[2018-10-04] MEDS: SODIUM CHLORIDE 0.9% 1,000 ML IV SCH ×4 (06:23→12:18)
[2018-10-04] MEDS: ACETAMINOPHEN TAB 500 MG TAB PO PRN (06:53)
[2018-10-04 06:59] LABS: Glucose,Whole Blood 84 mg/dL (75-99)
[2018-10-04 07:33] LABS: AST 37 U/L (17-59); African American GFR (CKD) >90 (>60 ml/min/1.73 sqM); Albumin 2.8 g/dL (3.5-5.0); Alkaline Phosphatase 44 U/L (38-126); Blood Urea Nitrogen 29 mg/dL (9-20); Calcium 8.4 mg/dL (8.4-10.2); Carbon Dioxide 29 mmol/L (22-30); Glucose 89 mg/dL (74-99); Total Bilirubin 0.6 mg/dL (0.2-1.3); Total Protein 5.2 g/dL (6.3-8.2)
--- NOTE | 2018-10-04 07:34 | P.PN ---
Subjective Progress Note Date: 10/04/18 Principal diagnosis: Pneumothorax This is a pleasant 68-year-old gentleman with a past medical history significant for hypertension, dyslipidemia, and history of DVT, who was admitted to the hospital with shortness of breath and was found to have pneumothorax which seems to be recurrent. He was discharged from the hospital recently with Thoravent. This time that was attached to suction. He is feeling better. The computed tomography scan revealed right sided pneumothorax. He underwent surgery. The patient underwent right VATS bleb resection. On follow-up with the patient today, October 042018, he is doing better clinically. He is in normal sinus mechanism at this point. He is on metoprolol. He is also on heparin IV. I will switch the patient to oral anticoagulation down the line. Objective - Vital Signs Vital signs: Vital Signs Temp 98.3 F 10/04/18 04:00 Pulse 66 10/04/18 07:00 Resp 25 H 10/04/18 07:00 BP 138/74 10/04/18 07:00 Pulse Ox 92 L 10/04/18 07:00 Intake & Output 10/03/18 10/04/18 10/04/18 18:59 06:59 18:59 Intake Total 1171.75 1150 75 Output Total 1570 1340 75 Balance -398.25 -190 0 Weight 75.9 kg Intake: IV 825 900 75 Normal Saline 825 900 75 Intake, IV Titration 66.75 Amount Diltiazem 125 mg In 66.75 Sodium Chloride 0.9% 100 ml @ 5 MG/HR 5 mls/hr IV .Q24H FOR[facility] Rx#:[id number] Oral 280 250 Output: Chest Tube Drainage 40 90 Chest Tube Right Lateral 40 90 Chest Urine 1530 1250 75 Other: Voiding Method Indwelling Catheter Indwelling Catheter ABP, PAP, CO, CI - Last Documented Arterial Blood Pressure 98/49 - Constitutional General appearance: Present: no acute distress - Respiratory Respiratory: bilateral: rales - Cardiovascular Rhythm: regular Heart sounds: normal: S1 Abnormal Heart Sounds: Present: systolic murmur - Labs CBC & Chem 7: 10/03/18 07:50 10/03/18 05:07 Labs: Abnormal Lab Results - Last 24 Hours (Table) 10/03/18 10/03/18 10/03/18 Range/Units 07:50 11:33 16:48 WBC 16.6 H (3.8-10.6) k/uL Neutrophils # 14.3 H (1.3-7.7) k/uL APTT (22.0-30.0) sec POC Glucose (mg/dL) 150 H 126 H (75-99) mg/dL 10/03/18 10/03/18 10/04/18 Range/Units 21:57 23:38 06:46 WBC (3.8-10.6) k/uL Neutrophils # (1.3-7.7) k/uL APTT 42.7 H 36.7 H (22.0-30.0) sec POC Glucose (mg/dL) 141 H (75-99) mg/dL Microbiology - Last 24 Hours (Table) 09/27/18 13:10 Blood Culture - Final Blood No Growth after 144 hours Assessment and Plan Assessment: Assessment #1 recurrent right-sided pneumothorax #2 acute hypoxic respiratory failure #3 hypotension #4 severe aortic stenosis #5 paroxysmal atrial fibrillation Plan #1 continue the current medical regimen including aspirin and statin #2 continue heparin IV for now #3 follow-up with the patient
[2018-10-04 07:42] LABS: Basophils % (A) 0 %; Eosinophils # (A) 0.3 k/uL (0-0.7); Eosinophils % (A) 2 %; HCT 41.8 % (39.0-53.0); HGB 13.3 gm/dL (13.0-17.5); Lymphocytes # (A) 1.1 k/uL (1.0-4.8); Lymphocytes % (A) 7 %; MCH 30.9 pg (25.0-35.0); MCHC 31.7 g/dL (31.0-37.0); MCV 97.3 fL (80.0-100.0); Mean Platelet Volume 7.2; Monocytes # (A) 0.6 k/uL (0-1.0); Monocytes % (A) 4 %; Neutrophils % (A) 86 %; Platelet Count 151 k/uL (150-450); RDW 14.4 % (11.5-15.5); WBC 15.2 k/uL (3.8-10.6)
[2018-10-04] MEDS: IPRATROPIUM-ALBUTEROL 3 ML NEB INHALATION SCH ×4 (07:48→19:40)
[2018-10-04] MEDS: BUDESONIDE 0.5 MG/2 ML NEBU INHALATION SCH ×2 (07:48→19:40)
[2018-10-04 07:50] LABS: ALT 42 U/L (21-72); Anion Gap 1 mmol/L; Chloride 106 mmol/L (98-107); Potassium 4.3 mmol/L (3.5-5.1); Sodium 136 mmol/L (137-145)
--- NOTE | 2018-10-04 07:55 | XR ---
EXAMINATION TYPE: XR chest 1V portable DATE OF EXAM: 10/04/2018 CLINICAL HISTORY: Subcutaneous emphysema/pneumothorax progress study. TECHNIQUE: Single AP portable upright view of the chest is obtained. COMPARISON: Chest x-ray from one day earlier and older studies. CTA chest September 24, 2018. FINDINGS: Extensive overlying subcutaneous emphysema is redemonstrated bilaterally extending into th e abdomen and supraclavicular regions. There is persistent right apical chest tube. Pneumomediastinum is also felt present seen better on current study. No pneumothorax is clearly evident. There is sugg estion of right-sided volume loss with mediastinal shift. Right hilar atelectasis or infiltrate is ag ain seen. Cardiac silhouette size remains within normal limits. Underlying dextroconvex scoliosis roque tered in the upper to mid thoracic spine is redemonstrated. Background advanced chronic emphysematous change noted. IMPRESSION: Persistent extensive subcutaneous emphysema. Better visualize pneumomediastinum. Backgrou nd advanced emphysematous change with some persistent right-sided volume loss and right hilar christa sive atelectasis. No definitive pneumothorax. No significant interval change.
[2018-10-04] MEDS: INSULIN ASPART (NovoLOG) 100 UNIT/ML VIAL SQ SCH ×4 (08:46→21:21)
[2018-10-04] MEDS: PANTOPRAZOLE 40 MG TABLET PO SCH (09:02)
[2018-10-04] MEDS: AMOXIC-POT CLAV 875-125MG 1 EACH TAB PO SCH ×2 (09:03→21:27)
[2018-10-04] MEDS: ASPIRIN 81 MG PO SCH (09:03)
[2018-10-04] MEDS: METOPROLOL TARTRATE 50 MG TAB PO SCH ×2 (09:03→21:27)
[2018-10-04] MEDS: ATORVASTATIN 80 MG TAB PO SCH (09:03)
[2018-10-04] MEDS: predniSONE 20 MG TAB PO SCH (09:06)
[2018-10-04 10:06] VITALS: BMI 23.3
--- NOTE | 2018-10-04 10:17 | P.PN ---
Subjective Progress Note Date: 10/04/18 This is a 68-year-old male patient who presented to the hospital with complaints of increased shortness of breath. Patient was recently admitted for spontaneous right-sided pneumothorax post thoracotomy placement. Patient was DC'd with thoraven in place. reports that at home he became very short winded was unable to walk. He has past medical history of COPD, GERD, hyperlipidemia, hypertension, pneumonia, ex-smoker, prostate cancer 2000, DVT 10 years ago completed treatment. Chest x-ray completed showing mild right-sided atelectasis. Right-sided pneumothorax is essentially cleared compared to last exam. Soft tissue air increased compared to last exam. EKG completed showing sinus rhythm with first-degree AV block. Troponin is elevated 0.394, 0.295 and 0.290. Cardiology and pulmonary service is consulted. D-dimer elevated at 2.00. CTA performed pending. BNP also elevated 2820. Patient does have thoravent in place. Cardiothoracic surgery consulted. Patient is very anxious. Ativan given when necessary order. At that time patient is still complaining of some shortness breath. Patient denies chest pain. Patient denies nausea vomiting or diarrhea. Patient denies any urinary burning or frequency. On 09/25/2018 patient's chest tube hooked to suction for right-sided pneumot horax. Discussed case with cardiothoracic nurse practitioner. Planning VATS procedure. Patient received 1 dose of IV Lasix for mild CHF exacerbation. Per cardiology patient does have aortic stenosis will eventually have ALEJANDRO and heart cath outpatient. At this time patient does state improvement with shortness of breath. Patient denies chest pain. Patient denies nausea vomiting or diarrhea. Patient denies any urinary burning or frequency. On 09/26/2018. Patient had episode of Thora vent dislodge this AM. Patient went into a story distress. Patient was taken to emergent surgery for VATS procedure with Dr. Jackman. Patient is currently resting in the intensive care unit. Chest tube is in place. At this time patient does state some improvement with shortness of breath. Patient denies nausea or vomiting. Patient denies any urinary burning or frequency On 09/27/2018 patient required mechanical ventilation and intubation throughout night due to increasing subcu emphysema. At this time patient is sedated. Patient also requiring Levophed for pressure support. Patient remains in intensive care unit. Pulmonary and cardiothoracic services are following. On 09/28/2018 patient remains on mechanical ventilation in the ICU. Patient remains on sedation. Pulmonary following. Patient started on Rocephin. Patient maintained on IV Solu-Medrol. Patient improvement with subcu emphysema. Patient remains on Levophed for pressure support. No plans to wean today per pulmonary. Continue tube feeds On 09/29/2018 patient was seen and examined in the ICU he was extubated and is tolerating well he is alert and oriented 3 in no apparent distress there is no chest pain or shortness of breath he has occasional cough no fever or chills no headache or dizziness no nausea or vomiting no abdominal pain no diarrhea and no urinary symptoms. On 09/30/2018 patient was seen again in the intensive care unit he is alert and oriented 3 he is maintained on oxygen via nasal cannula and is tolerating well he has worsening subcutaneous emphysema and occasional cough otherwise he denies any complaints there is no fever or chills no chest pain no shortness of breath at rest no nausea or vomiting no abdominal pain no diarrhea and no urinary symptoms On 10/01/2018 patient remains in the intensive care unit. Patient subcu emphysema is improving. Patient is anxious. Will order Xanax at this time. Patient currently on Cardizem drip currently in sinus rhythm. Metroprolol has been increased per cardiology. At this time patient denies chest pain. Shortness of breath is improving. Patient denies any nausea vomiting or diarrhea. Patient denies any urinary burning or frequency On 10/02/2018 patient is alert and oriented. Patient reports he feels improved. Patient maintained in the intensive care unit on 2 L nasal cannula. Patient still has some prominent subcu emphysema to place. Patient's chest tube remains in place. At this time patient denies chest pain. Patient denies any nausea vomiting or diarrhea. Patient denies any urinary burning or frequency. Sh ortness of breath is improving On 10/03/2018 patient alert and oriented. Patient is resting comfortably in bed. Patient has been started on heparin as per cardiology for atrial fibrillation. Metroprolol has been increased per cardiology. At this time patient is still having some subcu emphysema. Patient denies chest pain. Patient denies shortness breath. Patient denies nausea vomiting or diarrhea. Patient denies any urinary burning or frequency. On 10/04/2018 patient alert and oriented. Patient remains on heparin and Cardizem drip for atrial fibrillation. Discussed case with cardiothoracic MECHANISM ASSEMBLER Michaela no plans to remove chest tube at this time. Patient denies chest pain or shortness of breath. Patient denies nausea vomiting or diarrhea. Patient denies any urinary burning or frequency. Fluids have been made KVO Objective - Vital Signs Vital signs: Vital Signs Temp 98.2 F 10/04/18 08:00 Pulse 61 10/04/18 10:00 Resp 17 10/04/18 10:00 BP 111/58 10/04/18 10:00 Pulse Ox 92 L 10/04/18 07:00 Intake & Output 10/03/18 10/04/18 10/04/18 18:59 06:59 18:59 Intake Total 1171.75 1150 290 Output Total 1570 1340 190 Balance -398.25 -190 100 Weight 75.9 kg 75.9 kg Intake: IV 825 900 190 Normal Saline 825 900 190 Intake, IV Titration 66.75 Amount Diltiazem 125 mg In 66.75 Sodium Chloride 0.9% 100 ml @ 5 MG/HR 5 mls/hr IV .Q[facility]H [facility] Rx#:[id number] Oral 280 250 100 Output: Chest Tube Drainage 40 90 Chest Tube Right Lateral 40 90 Chest Urine 1530 1250 190 Other: Voiding Method Indwelling Catheter Indwelling Catheter ABP, PAP, CO, CI - Last Documented Arterial Blood Pressure 98/49 - Exam Head normocephalic Neck supple Lungs diminished bilaterally, chest tube in place, subcu emphysema noted to neck and face Heart regular rate and rhythm S1-S2, no rub or gallop Abdomen is soft nontender nondistended positive bowel sounds no hepatosplenomegaly Extremities no edema Neuro alert and orientated to 3 - Labs CBC & Chem 7: 10/04/18 06:46 10/04/18 06:46 Labs: Abnormal Lab Results - Last 24 Hours (Table) 10/03/18 10/03/18 10/03/18 Range/Units 11:33 16:48 21:57 WBC (3.8-10.6) k/uL Neutrophils # (1.3-7.7) k/uL APTT (22.0-30.0) sec Sodium (137-145) mmol/L BUN (9-20) mg/dL Creatinine (0.66-1.25) mg/dL POC Glucose (mg/dL) 150 H 126 H 141 H (75-99) mg/dL Total Protein (6.3-8.2) g/dL Albumin (3.5-5.0) g/dL 10/03/18 10/04/18 10/04/18 Range/Units 23:38 06:46 06:46 WBC 15.2 H (3.8-10.6) k/uL Neutrophils # 13.0 H (1.3-7.7) k/uL APTT 42.7 H (22.0-30.0) sec Sodium 136 L (137-145) mmol/L BUN 29 H (9-20) mg/dL Creatinine 0.60 L (0.66-1.25) mg/dL POC Glucose (mg/dL) (75-99) mg/dL Total Protein 5.2 L (6.3-8.2) g/dL Albumin 2.8 L (3.5-5.0) g/dL 10/04/18 Range/Units 06:46 WBC (3.8-10.6) k/uL Neutrophils # (1.3-7.7) k/uL APTT 36.7 H (22.0-30.0) sec Sodium (137-145) mmol/L BUN (9-20) mg/dL Creatinine (0.66-1.25) mg/dL POC Glucose (mg/dL) (75-99) mg/dL Total Protein (6.3-8.2) g/dL Albumin (3.5-5.0) g/dL Microbiology - Last 24 Hours (Table) 09/27/18 13:10 Blood Culture - Final Blood No Growth after 144 hours Assessment and Plan Assessment: 1. Increased shortness of breathing secondary to recurring right-sided p neumothorax with rightward mediastinal shift S/P VATS. CTA chest performed showing reaccumulation of large, approximately 70% right-sided pneumonia without current mediastinal shift on the exam. thoravent is in place. Extensive underlying emphysematous change. No evidence of central pulmonary embolus. Subsegmental arteries are somewhat limited. No CT evidence of right heart strain. Cardiothoracic services have been consulted. Pulmonary services consulted. currently on DuoNeb breathing treatments. 09/26/2018 patient was taken to the OR for video-assisted thorascopic the with bleb stapling after thoravent was accidentally pulled out. Chest tube remains in place 2. Increased subcu emphysema post surgical requiring mechanical ventilation for airway management. Patient has been extubated on 09/29/2018. Patient did require needle decompression for subcu emphysema by cardiothoracic 09/30/2017. Subcu emphysema improving 3. Staph aureus tracheobronchitis. Pulmonary and infectious disease service is following. Sputum culture growing Staphylococcus aureus. Patient currently on Augmentin for antibiotic 4. Mild diastolic congestive heart failure. BNP elevated 2820. 2-D echo completed showing EF of 50-55% Cardiology services following. Patient received 1 dose of IV Lasix 5. Elevated troponins. Troponin level 0.395, 0.295 and 0.298. Cardiology services are following 6. Recent right-sided spontaneous pneumothorax status post ThoraVent placement. 7. Leukocytosis. Patient has been on oral prednisone. Sputum culture growing presumptive staph aureus. Infectious disease is following. 8. History of Niesen fundoplication 9. History of prostate cancer 2009 10. History of right leg DVT several years ago no longer on anticoagulation 11. Essential hypertension patient was DC'd during previous admission on Norvasc and hydralazine 12. Anxiety and hyperactivity. Ativan when necessary has been ordered. Maintained on Zoloft. Xanax has been added 13. Aortic stenosis. 2-D echo completed per cardiology. Patient will likely need ALEJANDRO a cardiac catheterization outpatient 14. Hypotension likely secondary to sedation. Patient currently maintained on Levophed. Resolved 15. New-onset A. fib with RVR. Patient was started on Cardizem and heparin drip. Patient is now in sinus rhythm. patient started on Metroprolol. Per cardiology patient has been started on heparin drip for anticoagulation DVT prophylaxis heparin. GI prophylaxis Protonix Social work consulted for discharge planning I performed an examination of the patient and discussed their management with the Nurse Practitioner. I have reviewed the Nurse Practitioner's notes and agree with the documented findings and plan of care
[2018-10-04 11:43] LABS: Glucose,Whole Blood 89 mg/dL (75-99)
[2018-10-04] MEDS: HEPARIN SOD,PORK IN 0.45% NACL 25,000 UNIT in 0.45% NACL 1 250ML.BAG IV SCH (12:15)
--- NOTE | 2018-10-04 12:33 | P.PN ---
Subjective Progress Note Date: 10/04/18 Principal diagnosis: Recurrent spontaneous right pneumothorax with thoravent in place. Mild diastolic congestive heart failure on admission with BNP 2820, elevated troponins of 0.395. New diagnosis of severe aortic stenosis per echocardiogram. Previous medical history of tobacco dependence, COPD, hypertension, hyperlipidemia, severe acid reflux, hiatal hernia status post Pdama fundoplication with mesh repair, right leg DVT, renal failure secondary to dehydration, anxiety, and prostate cancer. POD #8 right VATS bleb resection with mechanical and talc pleurodesis Postoperative hypoxic respiratory failure secondary to compromised airway, expected outcome given extensive subcutaneous emphysema Staph aureus tracheobronchitis, currently on Augmentin New-onset A. fib with RVR, currently on IV Cardizem and heparin The patient is currently sitting up in bed in the intensive care unit in no acute distress. Subcu emphysema still present but continues to decrease. D enies difficulty swallowing or breathing, tolerating diet. Right-sided chest tube remains present with continuous air leak. Patient states she continues to feel better every day. Objective - Vital Signs Vital signs: Vital Signs Temp 97.8 F 10/04/18 12:00 Pulse 74 10/04/18 12:00 Resp 17 10/04/18 12:00 BP 136/85 10/04/18 12:00 Pulse Ox 96 10/04/18 12:00 Intake & Output 10/03/18 10/04/18 10/04/18 18:59 06:59 18:59 Intake Total 1171.75 1150 579.872 Output Total 1570 1340 385 Balance -398.25 -190 194.872 Weight 75.9 kg 75.9 kg Intake: IV 825 900 230 Normal Saline 825 900 230 Intake, IV Titration 66.75 249.872 Amount Diltiazem 125 mg In 66.75 Sodium Chloride 0.9% 100 ml @ 5 MG/HR 5 mls/hr IV .Q24H [facility] Rx#:[id number] Heparin Sod,Pork in 0.45% 249.872 NaCl 25,000 unit In 0.45 % NaCl 1 250ml.bag @ 12 UNITS/KG/HR 9.312 mls/hr IV .Q24H [facility] Rx#: [id number] Oral 280 250 100 Output: Chest Tube Drainage 40 90 Chest Tube Right Lateral 40 90 Chest Urine 1530 1250 385 Other: Voiding Method Indwelling Catheter Indwelling Catheter Indwelling Catheter ABP, PAP, CO, CI - Last Documented Arterial Blood Pressure 98/49 - Constitutional General appearance: Present: cooperative, no acute distress - Respiratory Details: Lungs sounds diminished bilaterally. Respirations even, nonlabored. Currently on 4 L nasal cannula with oxygen saturation 94%. Right pleural chest tube pres ent to -20 cm continuous wall suction, 250 mL serosanguineous drainage in the last 24 hours, continues to have air leak. Subcu emphysema remains present but continues to decrease daily. - Cardiovascular Details: S1, S2 present. Regular rate and rhythm, sinus rhythm with PACs on telemetry. Palpable peripheral pulses bilaterally. No lower extremity edema present. No calf pain or tenderness noted. SCDs present. - Gastrointestinal Gastrointestinal Comment(s): Abdomen soft, nontender, nondistended. Active bowel sounds present 4 quadrants. Tolerating diet. Positive bowel movement. - Genitourinary Genitourinary Comment(s): Flores present draining clear, yellow urine. - Integumentary Integumentary Comment(s): Skin is warm and dry with evidence of good perfusion. Right lateral chest tube site covered with dry intact dressing, subcu emphysema present and outlined. - Neurologic Neurologic: Present: CNII-XII intact - Musculoskeletal Musculoskeletal: Present: gait normal, strength equal bilaterally - Psychiatric Psychiatric: Present: A&O x's 3, appropriate affect, intact judgment & insight - Allied health notes Allied health notes reviewed: nursing - Labs CBC & Chem 7: 10/04/18 06:46 10/04/18 06:46 Labs: Abnormal Lab Results - Last 24 Hours (Table) 10/03/18 10/03/18 10/03/18 Range/Units 16:48 21:57 23:38 WBC (3.8-10.6) k/uL Neutrophils # (1.3-7.7) k/uL APTT 42.7 H (22.0-30.0) sec Sodium (137-145) mmol/L BUN (9-20) mg/dL Creatinine (0.66-1.25) mg/dL POC Glucose (mg/dL) 126 H 141 H (75-99) mg/dL Total Protein (6.3-8.2) g/dL Albumin (3.5-5.0) g/dL 10/04/18 10/04/18 10/04/18 Range/Units 06:46 06:46 06:46 WBC 15.2 H (3.8-10.6) k/uL Neutrophils # 13.0 H (1.3-7.7) k/uL APTT 36.7 H (22.0-30.0) sec Sodium 136 L (137-145) mmol/L BUN 29 H (9-20) mg/dL Creatinine 0.60 L (0.66-1.25) mg/dL POC Glucose (mg/dL) (75-99) mg/dL Total Protein 5.2 L (6.3-8.2) g/dL Albumin 2.8 L (3.5-5.0) g/dL Microbiology - Last 24 Hours (Table) 09/27/18 13:10 Blood Culture - Final Blood No Growth after 144 hours - Imaging and Cardiology Chest x-ray: report reviewed, image reviewed Assessment and Plan Assessment: 1. Recurrent spontaneous right pneumothorax, status post VATS with bleb resection and pleurodesis, continued air leak 2. Mild congestive heart failure, elevated BNP 2820 3. Elevated troponins as high as 0.395 4. Leukocytosis 5. Previous tobacco dependence 6. Chronic obstructive pulmonary disease 7. Hypertension 8. Hyperlipidemia 9. Severe acid reflux 10. History of hiatal hernia status post Padma fundoplication 11. History of prostate cancer 12. History of right leg deep vein thrombosis 13. Anxiety 14. Severe aortic stenosis discovered on transthoracic echocardiogram with peak/mean gradient 88.19 mmHg/61.56 mmHg and valve area 0.4 cm 15. Postoperative subcu emphysema, expected 16. Postoperative acute respiratory failure secondary to compromised airway 17. New-onset A. fib with RVR 18. Staph aureus tracheobronchitis Plan: 1. Continue chest tube to -20 cm continuous wall suction. Will monitor for resolution of air leak. May eventually discharged to home with Pneumostat. 2. Will continue to monitor subcu emphysema 3. Bronchodilators, steroid management per pulmonology. 4. Antibiotics per infectious disease. 5. Will monitor daily x-rays. 6. Encourage continued smoking cessation. 7. Encourage use of incentive spirometry, increase activity. 8. A. fib management per Dr. Skaf. Treviño with anticoagulation from our standpoint. 9. Continued medical management per primary care service. 10. GI/DVT prophylaxis. 11. Pain control with current medication regimen. 12. Patient will need workup for aortic stenosis with ALEJANDRO and heart catheterization in the future, cardiology following. 13. May transfer out of ICU on our standpoint. 14. More recommendations to follow. Time with Patient: Greater than 30
[2018-10-04] MEDS: DILTIAZEM 125 MG in SODIUM CHLORIDE 0.9% 100 ML IV SCH (13:19)
--- NOTE | 2018-10-04 16:35 | P.PN ---
Subjective Progress Note Date: 10/04/18 10/14/2017: Patient seen and examined in the intensive care unit with nursing staff and his at bedside. The patient is going to atrial fibrillation overnight and was restarted on Cardizem and heparin drips. The patient is currently sinus rhythm. His urine output has been adequate. The patient con tinues to have air leak from his chest tube. He also has subcutaneous emphysema which appears slightly worse than 2 days ago. The patient denies difficulty swallowing or shortness of breath. He states he is planning to go to rehab because he cannot ambulate more than a few steps by himself. He does require assistance. Objective - Vital Signs Vital signs: Vital Signs Temp 97.8 F 10/04/18 12:00 Pulse 56 L 10/04/18 15:44 Resp 14 10/04/18 14:00 BP 112/69 10/04/18 14:00 Pulse Ox 96 10/04/18 14:00 Intake & Output 10/03/18 10/04/18 10/04/18 18:59 06:59 18:59 Intake Total 1171.75 1150 920.705 Output Total 1570 1340 555 Balance -398.25 -190 365.705 Weight 75.9 kg 75.9 kg Intake: IV 825 900 270 Normal Saline 825 900 270 Intake, IV Titration 66.75 360.705 Amount Diltiazem 125 mg In 66.75 110.833 Sodium Chloride 0.9% 100 ml @ 5 MG/HR 5 mls/hr IV .Q24H [facility] Rx#:[id number] Heparin Sod,Pork in 0.45% 249.872 NaCl 25,000 unit In 0.45 % NaCl 1 250ml.bag @ 12 UNITS/KG/HR 9.312 mls/hr IV .Q24H [facility] Rx#: [id number] Oral 280 250 290 Output: Chest Tube Drainage 40 90 Chest Tube Right Lateral 40 90 Chest Urine 1530 1250 555 Other: Voiding Method Indwelling Catheter Indwelling Catheter Indwelling Catheter ABP, PAP, CO, CI - Last Documented Arterial Blood Pressure 98/49 - Exam General: Alert, following commands, extensive subcutaneous emphysema CV: RRR, s1/s2, joel Lungs: Diminished with coarse breath sounds bilaterally, Right chest tube in place with air leak Abdomen: soft, nontender, nondistended, +bs Ext: no edema - Labs CBC & Chem 7: 10/04/18 06:46 10/04/18 06:46 Labs: Abnormal Lab Results - Last 24 Hours (Table) 10/03/18 10/03/18 10/03/18 Range/Units 16:48 21:57 23:38 WBC (3.8-10.6) k/uL Neutrophils # (1.3-7.7) k/uL APTT 42.7 H (22.0-30.0) sec Sodium (137-145) mmol/L BUN (9-20) mg/dL Creatinine (0.66-1.25) mg/dL POC Glucose (mg/dL) 126 H 141 H (75-99) mg/dL Total Protein (6.3-8.2) g/dL Albumin (3.5-5.0) g/dL 10/04/18 10/04/18 10/04/18 Range/Units 06:46 06:46 06:46 WBC 15.2 H (3.8-10.6) k/uL Neutrophils # 13.0 H (1.3-7.7) k/uL APTT 36.7 H (22.0-30.0) sec Sodium 136 L (137-145) mmol/L BUN 29 H (9-20) mg/dL Creatinine 0.60 L (0.66-1.25) mg/dL POC Glucose (mg/dL) (75-99) mg/dL Total Protein 5.2 L (6.3-8.2) g/dL Albumin 2.8 L (3.5-5.0) g/dL Microbiology - Last 24 Hours (Table) 09/27/18 13:10 Blood Culture - Final Blood No Growth after 144 hours Assessment and Plan Assessment: Respiratory failure due to compromised airway, s/p mechanical ventilation Right spontaneous pneumothorax, s/p VATS Rightward mediastinal shift - improving Staph aureus tracheobronchitis New onset atrial fibrillation with rapid ventricular response - resolved, now NSR Hypotension likely secondary to sedation - resolved COPD, severe, FEV 1 41% Leukocytosis History of DVT in the remote past History of prostate cancer Leukocytosis, possibly secondary to steroids History of Padma fundoplication and hiatial hernia GERD Hyperactivity, question bipolar versus ADHD versus other O2 to maintain saturation greater than or equal to 90% Continue Zoloft Continued smoking cessation Pulmciort Steroid taper Duonebs IS and pulmonary hygiene Chest tube per CVTS Monitor urine output and renal function Pain control Regular diet GI and DVT prophylaxis: Heparin and Pepcid Augmentin Family is at bedside and updated to plan of care. All questions are answered.
[2018-10-04 17:16] LABS: Glucose,Whole Blood 223 mg/dL (75-99)
[2018-10-04 17:16] LABS: Glucose,Whole Blood 211 mg/dL (75-99)
--- NOTE | 2018-10-04 17:54 | P.CONS ---
History of Present Illness - Chief Complaint Medical debility - History of Present Illness I had the opportunity to see patient for inpatient rehab consultation with regard to medical debility. He was admitted to [facility] September 23 with shortness of breath and history of recent pneumothorax. Seen in consultation by cardiology, cardiothoracic surgery and Dr. guevara mac for recurrent right pneumothorax per chest x-rays followed to demonstrate subcutaneous emphysema but resolved pneumothorax. I'll seen by Dr. Ellis. CTA demonstrated postoperative change at the GE junction only. Cardiac echo demonstrates aortic and tricuspid leaflet thickening, mitral and tricuspid regurg and aortic stenosis. PT reports minimal assistance to person for bed mobility and minimal assistance for transfers and gait 40 feet with roller walker, fatigues. OT reports minimal assistance for upper dressing, bathing and transfers and moderate assistance for lower dressing and toileting. Speech therapy evaluated patient. Previous functional history as elicited patient: 68-year-old right-handed white male who is lives and 2 floor home with . Both retired. They share the cooking and does the laundry. Patient, driving, standing shower and gait without device. History smoking and does not drink. Dr. baez jar his regular doctor. Family history father with AR. Review of Systems Review of systems: Gen.: Complains of generalized edema including face. ENT: Denies sneezes or discharge. Eyes: Denies discharge or photophobia. Cardiac: Denies chest pain or palpitation. Pulmonary: At least mild shortness of breath. Gastrointestinal: Denies nausea, emesis, constipation, diarrhea. Genitourinary: Denies discharge or frequency. Musculoskeletal: Denies muscle or bone aches. Neurologic: Denies motor or sensory change. Endocrine: Denies shakes or sweats. Oncology: Denies cancers. Dermatologic: Denies rash, itching, pruritus. ALLERGY/immunology: Denies sneezes, rashes. Past Medical History Past Medical History: Cancer, COPD, Deep Vein Thrombosis (DVT), GERD/Reflux, Hyperlipidemia, Hypertension, Pneumonia Additional Past Medical History / Comment(s): HIATAL HERNIA; PROSTATE CANCER- 2009; SHINGLES-2013; HX DVT RT LEG 10 years History of Any Multi-Drug Resistant Organisms: None Reported Past Surgical History: Orthopedic Surgery Additional Past Surgical History / Comment(s): 07/28/14 Laparoscopic Padma Fundoplication with mesh repair of hiatal hernia. LEFT ARM SURGERY 1966. RIGHT ROTATOR CUFF REPAIR 2012. EGD 06/16/14. Past Anesthesia/Blood Transfusion Reactions: No Reported Reaction Additional Past Anesthesia/Blood Transfusion Reaction / Comm: SEVERE PONV AFTER SHOULDER SURG. States becomes hyper when waking up. Past Psychological History: No Psychological Hx Reported Additional Psychological History / Comment(s): to his second who he resides with. Retired from [employer]. 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 pet dog in the home. No service. No international travel Smoking Status: Former smoker Past Alcohol Use History: None Reported Past Drug Use History: None Reported - Past Family History Mother Family Medical History: Cancer (Lungs) Father Family Medical History: Myocardial Infarction (AR) Sister(s) Family Medical History: Deep Vein Thrombosis (DVT) Medications and Allergies Home Medications Medication Instructions Recorded Confirmed Type Albuterol Nebulized [Ventolin 2.5 mg INHALATION RT-Q6H 09/15/18 09/23/18 History Nebulized] Ibuprofen 600 mg PO Q6HR #56 tablet 09/19/18 09/23/18 Rx Montelukast [Singulair] 10 mg PO HS 30 Days #30 tab 09/19/18 09/23/18 Rx Sertraline [Zoloft] 50 mg PO HS 30 Days #30 tab 09/19/18 09/23/18 Rx amLODIPine [Norvasc] 10 mg PO DAILY 30 Days #30 tab 09/19/18 09/23/18 Rx predniSONE See Taper PO DIRECTED 09/23/18 09/23/18 History diphenhydrAMINE [Benadryl] 50 mg PO HS PRN 09/29/18 09/29/18 History Allergies Allergy/AdvReac Type Severity Reaction Status Date / Time hydrocodone AdvReac Mild Vomiting Verified 09/23/18 16:31 Physical Exam Vitals: Vital Signs Temp Pulse Resp BP Pulse Ox 10/04/18 17:00 64 18 118/76 95 10/04/18 16:00 98.2 F 61 17 130/87 96 10/04/18 15:44 56 L 10/04/18 15:30 56 L 10/04/18 15:00 63 18 110/69 97 10/04/18 14:00 58 L 14 112/69 96 10/04/18 13:00 60 19 130/88 97 10/04/18 12:00 97.8 F 74 17 136/85 96 10/04/18 11:42 62 10/04/18 11:32 64 10/04/18 11:00 65 18 133/85 10/04/18 10:00 61 17 111/58 10/04/18 09:00 62 18 117/87 10/04/18 08:00 98.2 F 64 18 117/87 10/04/18 07:58 64 10/04/18 07:48 64 10/04/18 07:00 66 25 H 138/74 92 L 10/04/18 06:00 65 23 134/81 94 L 10/04/18 05:00 62 23 129/67 96 10/04/18 04:00 98.3 F 58 L 52 H 127/76 94 L 10/04/18 03:00 62 34 H 106/64 95 10/04/18 02:00 56 L 23 107/66 95 10/04/18 01:00 57 L 26 H 125/84 96 10/04/18 00:01 56 L 23 125/84 94 L 10/04/18 00:00 98.3 F 56 L 23 118/82 96 10/03/18 23:57 54 L 10/03/18 23:47 54 L 10/03/18 23:00 78 20 123/90 94 L 10/03/18 22:00 92 16 102/63 10/03/18 21:00 94 19 116/86 96 10/03/18 20:04 92 10/03/18 20:00 98.9 F 92 10 L 109/87 98 10/03/18 19:59 87 10/03/18 19:46 90 10/03/18 19:00 92 18 111/81 98 10/03/18 18:00 86 18 127/95 97 Intake and Output 10/04/18 10/04/18 10/04/18 06:59 14:59 22:59 Intake Total 850 920.705 60 Output Total 865 555 240 Balance -15 365.705 -180 Intake: IV 600 270 60 Normal Saline 600 270 60 Intake, IV Titration 360.705 Amount Diltiazem 125 mg In 110.833 Sodium Chloride 0.9% 100 ml @ 5 MG/HR 5 mls/hr IV .Q24H [facility] Rx#:[id number] Heparin Sod,Pork in 0.45% 249.872 NaCl 25,000 unit In 0.45 % NaCl 1 250ml.bag @ 12 UNITS/KG/HR 9.312 mls/hr IV .Q24H [facility] Rx#: [id number] Oral 250 290 Output: Chest Tube Drainage 90 40 Chest Tube Right Lateral 90 40 Chest Urine 775 555 200 Other: Voiding Method Indwelling Catheter Indwelling Catheter Indwelling Catheter Weight 75.9 kg Skin: Good color, texture, turgor. General: Medium build and comfortable appearance. Head: Normocephalic, atraumatic. Face indeed mildly swollen. Eyes: Symmetric. Pupils equal round. Ears: Symmetric. Hearing within normal limits. Mouth: Clear. Neck: Supple. Carotid without bruit. Cardiac: Regular rate and rhythm. Lungs: Clear anteriorly and posteriorly. Abdomen: Soft active nontender. Extremities: Normal tone. Neurological: Mental status: Alert, cooperative, pleasant. Cranial nerves: Symmetric facial tone and trapezius. Motor: Normal strength and isolation all 4 limbs. Sensation: Intact throughout. DTRs: Symmetric and equal throughout. Mobility: Bed mobility with minimal physical assist. Results CBC & Chem 7: 10/04/18 06:46 10/04/18 06:46 Labs: Abnormal Lab Results - Last 24 Hours (Table) 10/03/18 10/03/18 10/04/18 Range/Units 21:57 23:38 06:46 WBC 15.2 H (3.8-10.6) k/uL Neutrophils # 13.0 H (1.3-7.7) k/uL APTT 42.7 H (22.0-30.0) sec Sodium (137-145) mmol/L BUN (9-20) mg/dL Creatinine (0.66-1.25) mg/dL POC Glucose (mg/dL) 141 H (75-99) mg/dL Total Protein (6.3-8.2) g/dL Albumin (3.5-5.0) g/dL 10/04/18 10/04/18 10/04/18 Range/Units 06:46 06:46 17:13 WBC (3.8-10.6) k/uL Neutrophils # (1.3-7.7) k/uL APTT 36.7 H (22.0-30.0) sec Sodium 136 L (137-145) mmol/L BUN 29 H (9-20) mg/dL Creatinine 0.60 L (0.66-1.25) mg/dL POC Glucose (mg/dL) 223 H (75-99) mg/dL Total Protein 5.2 L (6.3-8.2) g/dL Albumin 2.8 L (3.5-5.0) g/dL 10/04/18 Range/Units 17:15 WBC (3.8-10.6) k/uL Neutrophils # (1.3-7.7) k/uL APTT (22.0-30.0) sec Sodium (137-145) mmol/L BUN (9-20) mg/dL Creatinine (0.66-1.25) mg/dL POC Glucose (mg/dL) 211 H (75-99) mg/dL Total Protein (6.3-8.2) g/dL Albumin (3.5-5.0) g/dL Microbiology - Last 24 Hours (Table) 09/27/18 13:10 Blood Culture - Final Blood No Growth after 144 hours Assessment and Plan (1) ACS (acute coronary syndrome) Current Visit: Yes Status: Acute Code(s): I24.9 - ACUTE ISCHEMIC HEART DISEASE, UNSPECIFIED SNOMED Code(s): 400797358 (2) Acute exacerbation of chronic obstructive airways disease Current Visit: Yes Status: Acute Code(s): J44.1 - CHRONIC OBSTRUCTIVE PULMONARY DISEASE W (ACUTE) EXACERBATION SNOMED Code(s): 563452646 (3) Spontaneous pneumothorax Current Visit: Yes Status: Acute Code(s): J93.83 - OTHER PNEUMOTHORAX SNOMED Code(s): 38559668 Plan: Impression: 1. Medical debility. 2. Spontaneous and recurrent pneumothorax. 3. Acute on chronic COPD. 4. Acute coronary artery syndrome. 5. History of DVT and cancer. 6. Hypertension. Constant plan: At this time PT and OT are ongoing. Have discussed possibility of a rehab admission and patient and seem agreeable, as necessary. Currently would qualify.
[2018-10-04 20:26] LABS: Glucose,Whole Blood 113 mg/dL (75-99)
[2018-10-04] MEDS: SERTRALINE 50 MG TAB PO SCH (21:27)
[2018-10-04] MEDS: MONTELUKAST 10 MG TAB PO SCH (21:27)
[2018-10-04] MEDS: diphenhydrAMINE 50 MG CAP PO SCH (21:27)
[2018-10-04] MEDS: ALPRAZolam 0.25 MG TAB PO PRN (21:28)
[2018-10-05] MEDS: ACETAMINOPHEN TAB 500 MG TAB PO PRN ×2 (03:54→23:35)
[2018-10-05 05:35] LABS: Basophils % (A) 0 %; Eosinophils # (A) 0.4 k/uL (0-0.7); Eosinophils % (A) 3 %; HCT 40.3 % (39.0-53.0); Lymphocytes # (A) 0.9 k/uL (1.0-4.8); Lymphocytes % (A) 7 %; MCH 31.2 pg (25.0-35.0); MCHC 32.2 g/dL (31.0-37.0); MCV 96.9 fL (80.0-100.0); Mean Platelet Volume 7.2; Monocytes # (A) 0.5 k/uL (0-1.0); Monocytes % (A) 4 %; Neutrophils # (A) 11.1 k/uL (1.3-7.7); Neutrophils % (A) 86 %; Platelet Count 164 k/uL (150-450); RBC 4.16 m/uL (4.30-5.90); RDW 14.7 % (11.5-15.5); WBC 12.9 k/uL (3.8-10.6)
[2018-10-05 05:49] LABS: ALT 40 U/L (21-72); AST 31 U/L (17-59); African American GFR (CKD) >90 (>60 ml/min/1.73 sqM); Albumin 2.7 g/dL (3.5-5.0); Alkaline Phosphatase 49 U/L (38-126); Anion Gap 1 mmol/L; Blood Urea Nitrogen 28 mg/dL (9-20); Calcium 8.5 mg/dL (8.4-10.2); Carbon Dioxide 30 mmol/L (22-30); Chloride 105 mmol/L (98-107); Glucose 102 mg/dL (74-99); Potassium 4.2 mmol/L (3.5-5.1); Sodium 136 mmol/L (137-145); Total Bilirubin 0.6 mg/dL (0.2-1.3); Total Protein 5.1 g/dL (6.3-8.2)
[2018-10-05 07:03] LABS: Glucose,Whole Blood 96 mg/dL (75-99)
--- NOTE | 2018-10-05 07:05 | P.PN ---
Subjective Progress Note Date: 10/05/18 Principal diagnosis: Pneumothorax This is a pleasant 68-year-old gentleman with a past medical history significant for hypertension, dyslipidemia, and history of DVT, who was admitted to the hospital with shortness of breath and was found to have pneumothorax which seems to be recurrent. He was discharged from the hospital recently with Thoravent. This time that was attached to suction. He is feeling better. The computed tomography scan revealed right sided pneumothorax. He underwent surgery. The patient underwent right VATS bleb resection. On follow-up with the patient today, October [id number], the patient overall is doing better clinically. He seems more puffy with more emphysema. Hemodynamically he is in normal sinus rhythm. He is on metoprolol. He is also on heparin IV for now. I would consider starting the patient on oral anticoagulation in the next 24 hours. Also I am going to check his BNP. I did review the chest x-ray from today which did not show any evidence of fluid overload. Objective - Vital Signs Vital signs: Vital Signs Temp 98.1 F 10/05/18 04:00 Pulse 52 L 10/05/18 05:00 Resp 22 10/05/18 05:00 BP 126/76 10/05/18 05:00 Pulse Ox 94 L 10/05/18 05:00 Intake & Output 10/04/18 10/05/18 10/05/18 18:59 06:59 18:59 Intake Total 1100.705 700 Output Total 895 1080 Balance 205.705 -380 Weight 75.9 kg Intake: IV 350 200 Normal Saline 350 200 Intake, IV Titration 360.705 Amount Diltiazem 125 mg In 110.833 Sodium Chloride 0.9% 100 ml @ 5 MG/HR 5 mls/hr IV .Q24H [facility] Rx#:[id number] Heparin Sod,Pork in 0.45% 249.872 NaCl 25,000 unit In 0.45 % NaCl 1 250ml.bag @ 12 UNITS/KG/HR 9.312 mls/hr IV .Q24H [facility] Rx#: [id number] Oral 390 500 Output: Chest Tube Drainage 40 Chest Tube Right Lateral 40 Chest Urine 855 1080 Other: Voiding Method Indwelling Catheter Indwelling Catheter ABP, PAP, CO, CI - Last Documented Arterial Blood Pressure 98/49 - Constitutional General appearance: Present: no acute distress - Respiratory Respiratory: bilateral: rhonchi - Cardiovascular Rhythm: regular Heart sounds: normal: S1 Abnormal Heart Sounds: Present: systolic murmur - Labs CBC & Chem 7: 10/05/18 05:02 10/05/18 05:02 Labs: Abnormal Lab Results - Last 24 Hours (Table) 10/04/18 10/04/18 10/04/18 Range/Units 06:46 06:46 06:46 WBC 15.2 H (3.8-10.6) k/uL RBC (4.30-5.90) m/uL Neutrophils # 13.0 H (1.3-7.7) k/uL Lymphocytes # (1.0-4.8) k/uL APTT 36.7 H (22.0-30.0) sec Sodium 136 L (137-145) mmol/L BUN 29 H (9-20) mg/dL Creatinine 0.60 L (0.66-1.25) mg/dL Glucose (74-99) mg/dL POC Glucose (mg/dL) (75-99) mg/dL Total Protein 5.2 L (6.3-8.2) g/dL Albumin 2.8 L (3.5-5.0) g/dL 10/04/18 10/04/18 10/04/18 Range/Units 17:13 17:15 20:25 WBC (3.8-10.6) k/uL RBC (4.30-5.90) m/uL Neutrophils # (1.3-7.7) k/uL Lymphocytes # (1.0-4.8) k/uL APTT (22.0-30.0) sec Sodium (137-145) mmol/L BUN (9-20) mg/dL Creatinine (0.66-1.25) mg/dL Glucose (74-99) mg/dL POC Glucose (mg/dL) 223 H 211 H 113 H (75-99) mg/dL Total Protein (6.3-8.2) g/dL Albumin (3.5-5.0) g/dL 10/05/18 10/05/18 10/05/18 Range/Units 05:02 05:02 05:02 WBC 12.9 H (3.8-10.6) k/uL RBC 4.16 L (4.30-5.90) m/uL Neutrophils # 11.1 H (1.3-7.7) k/uL Lymphocytes # 0.9 L (1.0-4.8) k/uL APTT 44.5 H (22.0-30.0) sec Sodium 136 L (137-145) mmol/L BUN 28 H (9-20) mg/dL Creatinine (0.66-1.25) mg/dL Glucose 102 H (74-99) mg/dL POC Glucose (mg/dL) (75-99) mg/dL Total Protein 5.1 L (6.3-8.2) g/dL Albumin 2.7 L (3.5-5.0) g/dL Assessment and Plan Assessment: Assessment #1 recurrent right-sided pneumothorax #2 acute hypoxic respiratory failure #3 hypotension #4 severe aortic stenosis #5 paroxysmal atrial fibrillation Plan #1 continue the current medical regimen including aspirin and statin #2 continue heparin IV for now #3 follow-up with the patient
--- NOTE | 2018-10-05 07:25 | XR ---
EXAMINATION TYPE: XR chest 1V portable DATE OF EXAM: 10/05/2018 COMPARISON: 10/04/2018 HISTORY: SOB, Follow Up FINDINGS: There is extensive subcutaneous emphysema noted throughout the chest and neck and right apical chest tube is unchanged in position. Small residual right-sided pneumothorax is present. No definite left-sided pneumothorax present. Overlying subcutaneous air limits evaluation. Suspect underlying pneumomediastinum. Stable appearance of the cardio-mediastinal structures at this time. IMPRESSION: 1. Stable portable chest. Clinical correlation and follow up until resolution is recommended.
[2018-10-05] MEDS: INSULIN ASPART (NovoLOG) 100 UNIT/ML VIAL SQ SCH ×4 (07:34→20:20)
[2018-10-05] MEDS: IPRATROPIUM-ALBUTEROL 3 ML NEB INHALATION SCH ×4 (07:35→20:48)
[2018-10-05] MEDS: BUDESONIDE 0.5 MG/2 ML NEBU INHALATION SCH ×2 (07:35→20:48)
[2018-10-05] MEDS: PANTOPRAZOLE 40 MG TABLET PO SCH (10:02)
[2018-10-05] MEDS: ASPIRIN 81 MG PO SCH (10:14)
[2018-10-05] MEDS: AMOXIC-POT CLAV 875-125MG 1 EACH TAB PO SCH ×2 (10:14→20:23)
[2018-10-05] MEDS: predniSONE 20 MG TAB PO SCH (10:14)
[2018-10-05] MEDS: ATORVASTATIN 80 MG TAB PO SCH (10:14)
[2018-10-05] MEDS: METOPROLOL TARTRATE 50 MG TAB PO SCH ×2 (10:14→20:21)
[2018-10-05] MEDS: HEPARIN SOD,PORK IN 0.45% NACL 25,000 UNIT in 0.45% NACL 1 250ML.BAG IV SCH (10:14)
[2018-10-05] MEDS: SODIUM CHLORIDE 0.9% 1,000 ML IV SCH (10:18)
--- NOTE | 2018-10-05 10:42 | P.PN ---
Subjective Progress Note Date: 10/05/18 Principal diagnosis: Recurrent spontaneous right pneumothorax with thoravent in place. Mild diastolic congestive heart failure on admission with BNP 2820, elevated troponins of 0.395. New diagnosis of severe aortic stenosis per echocardiogram. Previous medical history of tobacco dependence, COPD, hypertension, hyperlipidemia, severe acid reflux, hiatal hernia status post Padma fundoplication with mesh repair, right leg DVT, renal failure secondary to dehydration, anxiety, and prostate cancer. POD #9 right VATS bleb resection with mechanical and talc pleurodesis Postoperative hypoxic respiratory failure secondary to compromised airway, expected outcome given extensive subcutaneous emphysema Staph aureus tracheobronchitis, currently on Augmentin New-onset A. fib with RVR The patient is currently sitting up in the recliner in the intensive care unit in no acute distress. Subcu emphysema still present, increased slightly from yesterday in his face. Denies difficulty swallowing or breathing, tolerating diet. Right-sided chest tube remains present with continuous air leak. Patient states he continues to feel better every day, but not getting enough sleep. Objective - Vital Signs Vital signs: Vital Signs Temp 97.8 F 10/05/18 08:00 Pulse 63 10/05/18 10:00 Resp 21 10/05/18 10:00 BP 149/100 10/05/18 10:00 Pulse Ox 95 10/05/18 10:00 Intake & Output 10/04/18 10/05/18 10/05/18 18:59 06:59 18:59 Intake Total 1100.705 740 284.709 Output Total 895 1205 225 Balance 205.705 -465 59.709 Weight 75.9 kg 73.5 kg Intake: IV 350 240 80 Normal Saline 350 240 80 Intake, IV Titration 360.705 204.709 Amount Diltiazem 125 mg In 110.833 Sodium Chloride 0.9% 100 ml @ 5 MG/HR 5 mls/hr IV .Q24H [facility] Rx#:[id number] Heparin Sod,Pork in 0.45% 249.872 204.709 NaCl 25,000 unit In 0.45 % NaCl 1 250ml.bag @ 12 UNITS/KG/HR 9.312 mls/hr IV .Q24H [facility] Rx#: [id number] Oral 390 500 Output: Chest Tube Drainage 40 Chest Tube Right Lateral 40 Chest Urine 855 1205 225 Other: Voiding Method Indwelling Catheter Indwelling Catheter ABP, PAP, CO, CI - Last Documented Arterial Blood Pressure 98/49 - Constitutional General appearance: Present: cooperative, no acute distress - Respiratory Details: Lungs sounds diminished bilaterally. Respirations even, nonlabored. Currently on 2 L nasal cannula with oxygen saturation 94%. Right pleural chest tube pr esent increased to -30 cm continuous wall suction, 130 mL serosanguineous drainage in the last 24 hours, continues to have air leak. Subcu emphysema remains present, slightly increased from yesterday and the patient's face. - Cardiovascular Details: S1, S2 present. Regular rate and rhythm, sinus rhythm on telemetry. Palpable peripheral pulses bilaterally. No lower extremity edema present. No calf pain or tenderness noted. SCDs present. - Gastrointestinal Gastrointestinal Comment(s): Abdomen soft, nontender, nondistended. Active bowel sounds present 4 quadrants. Tolerating diet. Positive bowel movement. - Genitourinary Genitourinary Comment(s): Flores present draining clear, yellow urine. - Integumentary Integumentary Comment(s): Skin is warm and dry with evidence of good perfusion. Right lateral chest tube site covered with dry intact dressing, subcu emphysema present and outlined. - Neurologic Neurologic: Present: CNII-XII intact - Musculoskeletal Musculoskeletal: Present: gait normal, strength equal bilaterally - Psychiatric Psychiatric: Present: A&O x's 3, appropriate affect, intact judgment & insight - Allied health notes Allied health notes reviewed: nursing - Labs CBC & Chem 7: 10/05/18 05:02 10/05/18 05:02 Labs: Abnormal Lab Results - Last 24 Hours (Table) 10/04/18 10/04/18 10/04/18 Range/Units 17:13 17:15 20:25 WBC (3.8-10.6) k/uL RBC (4.30-5.90) m/uL Neutrophils # (1.3-7.7) k/uL Lymphocytes # (1.0-4.8) k/uL APTT (22.0-30.0) sec Sodium (137-145) mmol/L BUN (9-20) mg/dL Glucose (74-99) mg/dL POC Glucose (mg/dL) 223 H 211 H 113 H (75-99) mg/dL Total Protein (6.3-8.2) g/dL Albumin (3.5-5.0) g/dL 10/05/18 10/05/18 10/05/18 Range/Units 05:02 05:02 05:02 WBC 12.9 H (3.8-10.6) k/uL RBC 4.16 L (4.30-5.90) m/uL Neutrophils # 11.1 H (1.3-7.7) k/uL Lymphocytes # 0.9 L (1.0-4.8) k/uL APTT 44.5 H (22.0-30.0) sec Sodium 136 L (137-145) mmol/L BUN 28 H (9-20) mg/dL Glucose 102 H (74-99) mg/dL POC Glucose (mg/dL) (75-99) mg/dL Total Protein 5.1 L (6.3-8.2) g/dL Albumin 2.7 L (3.5-5.0) g/dL - Imaging and Cardiology Chest x-ray: report reviewed, image reviewed Assessment and Plan Assessment: 1. Recurrent spontaneous right pneumothorax, status post VATS with bleb resection and pleurodesis, continued air leak 2. Mild congestive heart failure, elevated BNP 2820 3. Elevated troponins as high as 0.395 4. Leukocytosis 5. Previous tobacco dependence 6. Chronic obstructive pulmonary disease 7. Hypertension 8. Hyperlipidemia 9. Severe acid reflux 10. History of hiatal hernia status post Padma fundoplication 11. History of prostate cancer 12. History of right leg deep vein thrombosis 13. Anxiety 14. Severe aortic stenosis discovered on transthoracic echocardiogram with peak/mean gradient 88.19 mmHg/61.56 mmHg and valve area 0.4 cm 15. Postoperative subcu emphysema, expected 16. Postoperative acute respiratory failure secondary to compromised airway 17. New-onset A. fib with RVR 18. Staph aureus tracheobronchitis Plan: 1. Continue chest tube to -30 cm continuous wall suction. Will monitor for resolution of air leak. May eventually discharged to home with Pneumostat once facial/neck subcu emphysema decreases. 2. Will continue to monitor subcu emphysema 3. Bronchodilators, steroid management per pulmonology. 4. Antibiotics per infectious disease. Recommend discontinuing Flores catheter. 5. Will monitor daily x-rays. 6. Encourage continued smoking cessation. 7. Encourage use of incentive spirometry, increase activity. 8. A. fib management per Dr. Skaf. Treviño with anticoagulation from our standpoint. 9. Continued medical management per primary care service. 10. GI/DVT prophylaxis. 11. Pain control with current medication regimen. 12. Patient will need workup for aortic stenosis with ALEJANDRO and heart catheterization in the future, cardiology following. 13. May transfer out of ICU on our standpoint. 14. More recommendations to follow. Time with Patient: Greater than 30
--- NOTE | 2018-10-05 11:39 | P.PN ---
Subjective Progress Note Date: 10/05/18 This is a 68-year-old male patient who presented to the hospital with complaints of increased shortness of breath. Patient was recently admitted for spontaneous right-sided pneumothorax post thoracotomy placement. Patient was DC'd with thoraven in place. reports that at home he became very short winded was unable to walk. He has past medical history of COPD, GERD, hyperlipidemia, hypertension, pneumonia, ex-smoker, prostate cancer 2000, DVT 10 years ago completed treatment. Chest x-ray completed showing mild right-sided atelectasis. Right-sided pneumothorax is essentially cleared compared to last exam. Soft tissue air increased compared to last exam. EKG completed showing sinus rhythm with first-degree AV block. Troponin is elevated 0.394, 0.295 and 0.290. Cardiology and pulmonary service is consulted. D-dimer elevated at 2.00. CTA performed pending. BNP also elevated 2820. Patient does have thoravent in place. Cardiothoracic surgery consulted. Patient is very anxious. Ativan given when necessary order. At that time patient is still complaining of some shortness breath. Patient denies chest pain. Patient denies nausea vomiting or diarrhea. Patient denies any urinary burning or frequency. On 09/25/2018 patient's chest tube hooked to suction for right-sided pneumo thorax. Discussed case with cardiothoracic nurse practitioner. Planning VATS procedure. Patient received 1 dose of IV Lasix for mild CHF exacerbation. Per cardiology patient does have aortic stenosis will eventually have ALEJANDRO and heart cath outpatient. At this time patient does state improvement with shortness of breath. Patient denies chest pain. Patient denies nausea vomiting or diarrhea. Patient denies any urinary burning or frequency. On 09/26/2018. Patient had episode of Thora vent dislodge this AM. Patient went into a story distress. Patient was taken to emergent surgery for VATS procedure with Dr. Jackman. Patient is currently resting in the intensive care unit. Chest tube is in place. At this time patient does state some improvement with shortness of breath. Patient denies nausea or vomiting. Patient denies any urinary burning or frequency On 09/27/2018 patient required mechanical ventilation and intubation throughout night due to increasing subcu emphysema. At this time patient is sedated. Patient also requiring Levophed for pressure support. Patient remains in intensive care unit. Pulmonary and cardiothoracic services are following. On 09/28/2018 patient remains on mechanical ventilation in the ICU. Patient remains on sedation. Pulmonary following. Patient started on Rocephin. Patient maintained on IV Solu-Medrol. Patient improvement with subcu emphysema. Patient remains on Levophed for pressure support. No plans to wean today per pulmonary. Continue tube feeds On 09/29/2018 patient was seen and examined in the ICU he was extubated and is tolerating well he is alert and oriented 3 in no apparent distress there is no chest pain or shortness of breath he has occasional cough no fever or chills no headache or dizziness no nausea or vomiting no abdominal pain no diarrhea and no urinary symptoms. On 09/30/2018 patient was seen again in the intensive care unit he is alert and oriented 3 he is maintained on oxygen via nasal cannula and is tolerating well he has worsening subcutaneous emphysema and occasional cough otherwise he denies any complaints there is no fever or chills no chest pain no shortness of breath at rest no nausea or vomiting no abdominal pain no diarrhea and no urinary symptoms On 10/01/2018 patient remains in the intensive care unit. Patient subcu emphysema is improving. Patient is anxious. Will order Xanax at this time. Patient currently on Cardizem drip currently in sinus rhythm. Metroprolol has been increased per cardiology. At this time patient denies chest pain. Shortness of breath is improving. Patient denies any nausea vomiting or diarrhea. Patient denies any urinary burning or frequency On 10/02/2018 patient is alert and oriented. Patient reports he feels improved. Patient maintained in the intensive care unit on 2 L nasal cannula. Patient still has some prominent subcu emphysema to place. Patient's chest tube remains in place. At this time patient denies chest pain. Patient denies any nausea vomiting or diarrhea. Patient denies any urinary burning or frequency. S hortness of breath is improving On 10/03/2018 patient alert and oriented. Patient is resting comfortably in bed. Patient has been started on heparin as per cardiology for atrial fibrillation. Metroprolol has been increased per cardiology. At this time patient is still having some subcu emphysema. Patient denies chest pain. Patient denies shortness breath. Patient denies nausea vomiting or diarrhea. Patient denies any urinary burning or frequency. On 10/04/2018 patient alert and oriented. Patient remains on heparin and Cardizem drip for atrial fibrillation. Discussed case with cardiothoracic [employer] Michaela no plans to remove chest tube at this time. Patient denies chest pain or shortness of breath. Patient denies nausea vomiting or diarrhea. Patient denies any urinary burning or frequency. Fluids have been made KVO 10-05-18 Patient seen in the ICU. He is in sinus rhythm. Cardizem drip stopped. He is on Metoprolol and IV heparin. Patient's face and neck are more swollen today from the SC emphysema. He had no new complaints. Per DR. Sweeney patient is a candidate for IPR Objective - Vital Signs Vital signs: Vital Signs Temp 97.8 F 10/05/18 08:00 Pulse 57 L 10/05/18 11:26 Resp 21 10/05/18 10:00 BP 149/100 10/05/18 10:00 Pulse Ox 95 10/05/18 10:00 Intake & Output 10/04/18 10/05/18 10/05/18 18:59 06:59 18:59 Intake Total 1100.705 740 284.709 Output Total 895 1205 225 Balance 205.705 -465 59.709 Weight 75.9 kg 73.5 kg Intake: IV 350 240 80 Normal Saline 350 240 80 Intake, IV Titration 360.705 204.709 Amount Diltiazem 125 mg In 110.833 Sodium Chloride 0.9% 100 ml @ 5 MG/HR 5 mls/hr IV .Q24H [facility] Rx#:[id number] Heparin Sod,Pork in 0.45% 249.872 204.709 NaCl 25,000 unit In 0.45 % NaCl 1 250ml.bag @ 12 UNITS/KG/HR 9.312 mls/hr IV .Q24H [facility] Rx#: [id number] Oral 390 500 Output: Chest Tube Drainage 40 Chest Tube Right Lateral 40 Chest Urine 855 1205 225 Other: Voiding Method Indwelling Catheter Indwelling Catheter ABP, PAP, CO, CI - Last Documented Arterial Blood Pressure 98/49 - Labs CBC & Chem 7: 10/05/18 05:02 10/05/18 05:02 Labs: Abnormal Lab Results - Last 24 Hours (Table) 10/04/18 10/04/18 10/04/18 Range/Units 17:13 17:15 20:25 WBC (3.8-10.6) k/uL RBC (4.30-5.90) m/uL Neutrophils # (1.3-7.7) k/uL Lymphocytes # (1.0-4.8) k/uL APTT (22.0-30.0) sec Sodium (137-145) mmol/L BUN (9-20) mg/dL Glucose (74-99) mg/dL POC Glucose (mg/dL) 223 H 211 H 113 H (75-99) mg/dL Total Protein (6.3-8.2) g/dL Albumin (3.5-5.0) g/dL 10/05/18 10/05/18 10/05/18 Range/Units 05:02 05:02 05:02 WBC 12.9 H (3.8-10.6) k/uL RBC 4.16 L (4.30-5.90) m/uL Neutrophils # 11.1 H (1.3-7.7) k/uL Lymphocytes # 0.9 L (1.0-4.8) k/uL APTT 44.5 H (22.0-30.0) sec Sodium 136 L (137-145) mmol/L BUN 28 H (9-20) mg/dL Glucose 102 H (74-99) mg/dL POC Glucose (mg/dL) (75-99) mg/dL Total Protein 5.1 L (6.3-8.2) g/dL Albumin 2.7 L (3.5-5.0) g/dL Assessment and Plan Assessment: 1. Increased shortness of breathing secondary to recurring right-sided pneumothorax with rightward mediastinal shift S/P VATS. CTA chest performed showing reaccumulation of large, approximately 70% right-sided pneumonia without current mediastinal shift on the exam. thoravent is in place. Extensive underlying emphysematous change. No evidence of central pulmonary embolus. Subsegmental arteries are somewhat limited. No CT evidence of right heart strain. Cardiothoracic services have been consulted. Pulmonary services consulted. currently on DuoNeb breathing treatments. 09/26/2018 patient was taken to the OR for video-assisted thorascopic the with bleb stapling after tho ravent was accidentally pulled out. Chest tube remains in place 2. Increased subcu emphysema post surgical requiring mechanical ventilation for airway management. Patient has been extubated on 09/29/2018. Patient did require needle decompression for subcu emphysema by cardiothoracic 09/30/2017. Subcu emphysema improving 3. Staph aureus tracheobronchitis. Pulmonary and infectious disease service is following. Sputum culture growing Staphylococcus aureus. Patient currently on Augmentin for antibiotic 4. Mild diastolic congestive heart failure. BNP elevated 2820. 2-D echo completed showing EF of 50-55% Cardiology services following. Patient received 1 dose of IV Lasix 5. Elevated troponins. Troponin level 0.395, 0.295 and 0.298. Cardiology services are following 6. Recent right-sided spontaneous pneumothorax status post ThoraVent placement. 7. Leukocytosis. Patient has been on oral prednisone. Sputum culture growing presumptive staph aureus. Infectious disease is following. 8. History of Niesen fundoplication 9. History of prostate cancer 2009 10. History of right leg DVT several years ago no longer on anticoagulation 11. Essential hypertension patient was DC'd during previous admission on Norvasc and hydralazine 12. Anxiety and hyperactivity. Ativan when necessary has been ordered. Maintained on Zoloft. Xanax has been added 13. Aortic stenosis. 2-D echo completed per cardiology. Patient will likely need ALEJANDRO a cardiac catheterization outpatient 14. Hypotension likely secondary to sedation. Patient currently maintained on Levophed. Resolved 15. New-onset A. fib with RVR. continue heparin drip. Patient is now in sinus rhythm. patient started on Metroprolol. Cardiology will possibly place patient on oral anticoagulant today DVT prophylaxis heparin. GI prophylaxis Protonix I performed an examination of the patient and discussed their management with the PA. I have reviewed the PA notes and agree with the documented findings and plan of care
[2018-10-05 12:05] LABS: Glucose,Whole Blood 93 mg/dL (75-99)
[2018-10-05] MEDS: ALPRAZolam 0.25 MG TAB PO PRN (12:38)
[2018-10-05] MEDS: HYDROcodone/APAP 10-325MG 1 EACH TAB PO PRN (14:08)
[2018-10-05] MEDS: ALPRAZolam 0.5 MG TAB PO SCH ×2 (14:10→22:21)
--- NOTE | 2018-10-05 14:32 | P.PN ---
Subjective Progress Note Date: 10/05/18 10/05/2017: Patient seen and examined in the intensive care unit with family and nursing staff at bedside. The patient had just become upset and belligerent. He states he is in pain and very frustrated. He states he is sick of hearing "more time more time." He states his been 10 days that he's been in the hospital and he is very frustrated and wants to go home. He states he feels like he is no better than when he first came in. He feels like his breathing is getting worse. His subcutaneous emphysema is markedly worse today. The patient is being started on Seroquel. His Xanax dose has been increased and he is being given Elysian for pain. The patient is asking about transfer. I do discussed the case with surgical team. The plan is for talc pleurodesis. This is discussed with the patient and he is agreeable to talc pleurodesis. He states however if he does not have improvement in his symptoms by early next week that he would like to be transferred. The patient's states that he has been on Seroquel in the past and it seems to really help him. Objective - Vital Signs Vital signs: Vital Signs Temp 97.5 F L 10/05/18 12:00 Pulse 61 10/05/18 13:00 Resp 20 10/05/18 13:00 BP 138/83 10/05/18 13:00 Pulse Ox 97 10/05/18 13:00 Intake & Output 10/04/18 10/05/18 10/05/18 18:59 06:59 18:59 Intake Total 1100.705 740 344.709 Output Total 895 1205 350 Balance 205.705 -465 -5.291 Weight 75.9 kg 73.5 kg Intake: IV 350 240 140 Normal Saline 350 240 140 Intake, IV Titration 360.705 204.709 Amount Diltiazem 125 mg In 110.833 Sodium Chloride 0.9% 100 ml @ 5 MG/HR 5 mls/hr IV .Q24H [facility] Rx#:[id number] Heparin Sod,Pork in 0.45% 249.872 204.709 NaCl 25,000 unit In 0.45 % NaCl 1 250ml.bag @ 12 UNITS/KG/HR 9.312 mls/hr IV .Q24H [facility] Rx#: [id number] Oral 390 500 Output: Chest Tube Drainage 40 Chest Tube Right Lateral 40 Chest Urine 855 1205 350 Other: Voiding Method Indwelling Catheter Indwelling Catheter ABP, PAP, CO, CI - Last Documented Arterial Blood Pressure 98/49 - Exam General: Alert, following commands, extensive worsening of subcutaneous emphysema CV: RRR, s1/s2, joel Lungs: Diminished with coarse breath sounds bilaterally, Right chest tube in place with air leak Abdomen: soft, nontender, nondistended, +bs Ext: no edema - Labs CBC & Chem 7: 10/05/18 05:02 10/05/18 05:02 Labs: Abnormal Lab Results - Last 24 Hours (Table) 10/04/18 10/04/18 10/04/18 Range/Units 17:13 17:15 20:25 WBC (3.8-10.6) k/uL RBC (4.30-5.90) m/uL Neutrophils # (1.3-7.7) k/uL Lymphocytes # (1.0-4.8) k/uL APTT (22.0-30.0) sec Sodium (137-145) mmol/L BUN (9-20) mg/dL Glucose (74-99) mg/dL POC Glucose (mg/dL) 223 H 211 H 113 H (75-99) mg/dL Total Protein (6.3-8.2) g/dL Albumin (3.5-5.0) g/dL 10/05/18 10/05/18 10/05/18 Range/Units 05:02 05:02 05:02 WBC 12.9 H (3.8-10.6) k/uL RBC 4.16 L (4.30-5.90) m/uL Neutrophils # 11.1 H (1.3-7.7) k/uL Lymphocytes # 0.9 L (1.0-4.8) k/uL APTT 44.5 H (22.0-30.0) sec Sodium 136 L (137-145) mmol/L BUN 28 H (9-20) mg/dL Glucose 102 H (74-99) mg/dL POC Glucose (mg/dL) (75-99) mg/dL Total Protein 5.1 L (6.3-8.2) g/dL Albumin 2.7 L (3.5-5.0) g/dL Assessment and Plan Assessment: Respiratory failure due to compromised airway, s/p mechanical ventilation Right spontaneous pneumothorax, s/p VATS Rightward mediastinal shift - improving Staph aureus tracheobronchitis New onset atrial fibrillation with rapid ventricular response - resolved, now NSR Hypotension likely secondary to sedation - resolved COPD, severe, FEV 1 41% Leukocytosis History of DVT in the remote past History of prostate cancer Leukocytosis, possibly secondary to steroids History of Padma fundoplication and hiatial hernia GERD Hyperactivity, question bipolar versus ADHD versus other O2 to maintain saturation greater than or equal to 90% Continue Zoloft Continued smoking cessation Pulmciort Steroid taper Duonebs IS and pulmonary hygiene Chest tube per CVTS - plan for talc pleurodesis today Monitor urine output and renal function Pain control Regular diet GI and DVT prophylaxis: Heparin and Pepcid Augmentin Family is at bedside and updated to plan of care. All questions are answered.
[2018-10-05] MEDS: QUEtiapine 25 MG TAB PO SCH ×2 (14:55→21:18)
--- NOTE | 2018-10-05 18:07 | P.PN ---
Progress Note - Text Progress Note Date: 10/05/18 Called by nursing due to worsening subcutaneous emphysema. Patient saying it is becoming harder to breathe. Patient and family wanting transfer to tertiary care center and higher level of care. [facility] is called and accepting the patient. Nursing is aware.
[2018-10-05 19:36] LABS: Glucose,Whole Blood 164 mg/dL (75-99)
[2018-10-05 20:17] LABS: Glucose,Whole Blood 137 mg/dL (75-99)
[2018-10-05] MEDS: MONTELUKAST 10 MG TAB PO SCH (20:22)
[2018-10-05] MEDS: SERTRALINE 50 MG TAB PO SCH (20:22)
[2018-10-05] MEDS: diphenhydrAMINE 50 MG CAP PO SCH (20:23)
[2018-10-05 22:46] VITALS: TEMP 98.4
[2018-10-06] VITALS: BP 113/74; PULSE 61; RESP 18
--- NOTE | 2018-11-06 15:46 | P.DS ---
Providers Date of admission: 09/23/18 18:49 Expected date of discharge: 11/05/18 Attending physician: Mukund Quiros Consults: 09/23/18 18:49 Consult Physician Routine Consulting Provider: Ame Chirinos Consult Reason/Comments: ptx Do you want consulting provider notified?: Yes Consult Physician Urgent Consulting Provider: Devonte Aranda Consult Reason/Comments: elev trop Do you want consulting provider notified?: Yes 09/24/18 11:07 Consult Physician Routine Consulting Provider: Janice Garrett Consult Reason/Comments: thoravent, recent spontanous pneumo Do you want consulting provider notified?: Yes 09/29/18 16:17 Consult Physician Routine Consulting Provider: Sunitha Ivory Consult Reason/Comments: Positive sputum culture for staph aureus and isma. Do you want consulting provider notified?: Yes 10/04/18 16:35 Consult Physician Routine Consulting Provider: Wilbert Sweeney Consult Reason/Comments: rehab Do you want consulting provider notified?: Yes Primary care physician: Mukund Quiros [facility] Hospital Course: Discharge Diagnosis 1. Increased shortness of breathing secondary to recurring right-sided pneumothorax with rightward mediastinal shift S/P VATS. CTA chest performed showing reaccumulation of large, approximately 70% right-sided pneumonia without current mediastinal shift on the exam. thoravent is in place. Extensive underlying emphysematous change. No evidence of central pulmonary embolus. Subsegmental arteries are somewhat limited. No CT evidence of right heart strain. Cardiothoracic services have been consulted. Pulmonary services consulted. currently on DuoNeb breathing treatments. 09/26/2018 patient was taken to the OR for video-assisted thorascopic the with bleb stapling after thoravent was accidentally pulled out. Chest tube remains in place 2. Increased subcu emphysema post surgical requiring mechanical ventilation for airway management. Patient has been extubated on 09/29/2018. Patient did require needle decompression for subcu emphysema by cardiothoracic 09/30/2017. 3. Staph aureus tracheobronchitis. Pulmonary and infectious disease service is following. Sputum culture growing Staphylococcus aureus. Patient currently on Augmentin for antibiotic 4. Mild diastolic congestive heart failure. BNP elevated 2820. 2-D echo completed showing EF of 50-55% Cardiology services following. Patient received 1 dose of IV Lasix 5. Elevated troponins. Troponin level 0.395, 0.295 and 0.298. Cardiology services are following 6. Recent right-sided spontaneous pneumothorax status post ThoraVent placement. 7. Leukocytosis. Patient has been on oral prednisone. Sputum culture growing presumptive staph aureus. Infectious disease is following. 8. History of Niesen fundoplication 9. History of prostate cancer 2009 10. History of right leg DVT several years ago no longer on anticoagulation 11. Essential hypertension patient was DC'd during previous admission on Norvasc and hydralazine 12. Anxiety and hyperactivity. Ativan when necessary has been ordered. Maintained on Zoloft. Xanax has been added 13. Aortic stenosis. 2-D echo completed per cardiology. Patient will likely need ALEJANDRO a cardiac catheterization outpatient 14. Hypotension likely secondary to sedation. Patient currently maintained on Levophed. Resolved 15. New-onset A. fib with RVR. continue heparin drip. Patient is now in sinus rhythm. patient started on Metroprolol. Cardiology will possibly place patient on oral anticoagulant today Hospital course This is a 68-year-old male patient who presented to the hospital with complaints of increased shortness of breath. Patient was recently admitted for spontaneous right-sided pneumothorax post thoracotomy placement. Patient was DC'd with thor aven in place. reports that at home he became very short winded was unable to walk. He has past medical history of COPD, GERD, hyperlipidemia, hypertension, pneumonia, ex-smoker, prostate cancer 1999, DVT 10 years ago completed treatment. Chest x-ray completed showing mild right-sided atelectasis. Right- sided pneumothorax is essentially cleared compared to last exam. Soft tissue air increased compared to last exam. EKG completed showing sinus rhythm with first-degree AV block. Troponin is elevated 0.394, 0.295 and 0.290. Cardiology and pulmonary service is consulted. D-dimer elevated at 2.00. CTA performed pending. BNP also elevated 2820. Patient does have thoravent in place. Cardiothoracic surgery consulted. Patient is very anxious. Ativan given when necessary order. At that time patient is still complaining of some shortness breath. Patient denies chest pain. Patient denies nausea vomiting or diarrhea. Patient denies any urinary burning or frequency. On 09/25/2018 patient's chest tube hooked to suction for right-sided pneumothorax. Discussed case with cardiothoracic nurse practitioner. Planning VATS procedure. Patient received 1 dose of IV Lasix for mild CHF exacerbation. Per cardiology patient does have aortic stenosis will eventually have ALEJANDRO and heart cath outpatient. At this time patient does state improvement with shortness of breath. Patient denies chest pain. Patient denies nausea vomiting or diarrhea. Patient denies any urinary burning or frequency. On 09/26/2018. Patient had episode of Thora vent dislodge this AM. Patient went into a story distress. Patient was taken to emergent surgery for VATS procedure with Dr. Jackman. Patient is currently resting in the intensive care unit. Chest tube is in place. At this time patient does state some improvement with shortness of breath. Patient denies nausea or vomiting. Patient denies any urinary burning or frequency On 09/27/2018 patient required mechanical ventilation and intubation throughout night due to increasing subcu emphysema. At this time patient is sedated. Patient also requiring Levophed for pressure support. Patient remains in intensive care unit. Pulmonary and cardiothoracic services are following. On 09/28/2018 patient remains on mechanical ventilation in the ICU. Patient remains on sedation. Pulmonary following. Patient started on Rocephin. Loren ent maintained on IV Solu-Medrol. Patient improvement with subcu emphysema. Patient remains on Levophed for pressure support. No plans to wean today per pulmonary. Continue tube feeds On 09/29/2018 patient was seen and examined in the ICU he was extubated and is tolerating well he is alert and oriented 3 in no apparent distress there is no chest pain or shortness of breath he has occasional cough no fever or chills no headache or dizziness no nausea or vomiting no abdominal pain no diarrhea and no urinary symptoms. On 09/30/2018 patient was seen again in the intensive care unit he is alert and oriented 3 he is maintained on oxygen via nasal cannula and is tolerating well he has worsening subcutaneous emphysema and occasional cough otherwise he denies any complaints there is no fever or chills no chest pain no shortness of breath at rest no nausea or vomiting no abdominal pain no diarrhea and no urinary symptoms On 10/01/2018 patient remains in the intensive care unit. Patient subcu emphysema is improving. Patient is anxious. Will order Xanax at this time. Patient currently on Cardizem drip currently in sinus rhythm. Metroprolol has been increased per cardiology. At this time patient denies chest pain. Shortness of breath is improving. Patient denies any nausea vomiting or diarrhea. Patient denies any urinary burning or frequency On 10/02/2018 patient is alert and oriented. Patient reports he feels improved. Patient maintained in the intensive care unit on 2 L nasal cannula. Patient still has some prominent subcu emphysema to place. Patient's chest tube remains in place. At this time patient denies chest pain. Patient denies any nausea vomiting or diarrhea. Patient denies any urinary burning or frequency. Shortness of breath is improving On 10/03/2018 patient alert and oriented. Patient is resting comfortably in bed. Patient has been started on heparin as per cardiology for atrial fibrillation. Metroprolol has been increased per cardiology. At this time patient is still having some subcu emphysema. Patient denies chest pain. Patient denies shortness breath. Patient denies nausea vomiting or diarrhea. Patient denies any urinary burning or frequency. On 10/04/2018 patient alert and oriented. Patient remains on heparin and Cardizem drip for atrial fibrillation. Discussed case with cardiothoracic DELIVERY DIRECTOR Michaela no plans to remove chest tube at this time. Patient denies chest pain or shortness of breath. Patient denies nausea vomiting or diarrhea. Patient denies any urinary burning or frequency. Fluids have been made KVO 10-05-18 Patient seen in the ICU. He is in sinus rhythm. Cardizem drip stopped. He is on Metoprolol and IV heparin. Patient's face and neck are more swollen today from the SC emphysema. He had no new complaints. Per DR. Sweeney patient is a candidate for IPR 10/06/18 Patient continued to have worsening subcutaneous emphysema. He was having a harder time to breath. The family was requesting transfer to [facility]. Critical Care service arranged the transfer to [facility]. Patient Condition at Discharge: Serious Plan - Discharge Summary New Discharge Prescriptions: No Action Albuterol Nebulized [Ventolin Nebulized] 2.5 mg INHALATION RT-Q6H amLODIPine [Norvasc] 10 mg PO DAILY 30 Days #30 tab Montelukast [Singulair] 10 mg PO HS 30 Days #30 tab Sertraline [Zoloft] 50 mg PO HS 30 Days #30 tab Ibuprofen 600 mg PO Q6HR #56 tablet predniSONE See Taper PO DIRECTED diphenhydrAMINE [Benadryl] 50 mg PO HS PRN PRN Reason: Insomnia Discharge Medication List Albuterol Nebulized [Ventolin Nebulized] 2.5 mg INHALATION RT-Q6H 09/15/18 [History] Ibuprofen 600 mg PO Q6HR #56 tablet 09/19/18 [Rx] Montelukast [Singulair] 10 mg PO HS 30 Days #30 tab 09/19/18 [Rx] Sertraline [Zoloft] 50 mg PO HS 30 Days #30 tab 09/19/18 [Rx] amLODIPine [Norvasc] 10 mg PO DAILY 30 Days #30 tab 09/19/18 [Rx] predniSONE See Taper PO DIRECTED 09/23/18 [History] diphenhydrAMINE [Benadryl] 50 mg PO HS PRN 09/29/18 [History] Follow up Appointment(s)/Referral(s): [facility] [Provider Group] - 1 Week [facility], [NON-STAFF] - 1-2 Days Mukund Quiros MD [Primary Care Provider] - 1-2 days Parrish Ambriz MD [STAFF PHYSICIAN] - 1 Week Patient Instructions/Handouts: Spontaneous Pneumothorax (DC) Activity/Diet/Wound Care/Special Instructions: See Subscription Clerk at discharge regarding indigent funds Discharge Disposition: TRANSFER TO SHORT TERM HOSP
== END 2018-10-05 23:59 | disposition short-term general hospital (02) | DRG 163 ==
LOC: SUPCPDRO 15:58 → EC 15:58 → 3SCARD 18:49 → 2SICU 09-26 09:20
PROVIDERS: ADMIT Internal Medicine; ATTEND Internal Medicine
PROC: 0W9940Z Drainage of Right Pleural Cavity with Drainage Device, Percutaneous Endoscopic Approach (ICD-10-PCS; 2018-09-26)
PROC: 0B5N4ZZ Destruction of Right Pleura, Percutaneous Endoscopic Approach (ICD-10-PCS; 2018-09-26)
PROC: 0BBF4ZZ Excision of Right Lower Lung Lobe, Percutaneous Endoscopic Approach (ICD-10-PCS; principal; 2018-09-26 08:30)
PROC: 0BH17EZ Insertion of Endotracheal Airway into Trachea, Via Natural or Artificial Opening (ICD-10-PCS; 2018-09-27)
PROC: 5A1945Z Respiratory Ventilation, 24-96 Consecutive Hours (ICD-10-PCS; 2018-09-27)
PROC: 0D9670Z Drainage of Stomach with Drainage Device, Via Natural or Artificial Opening (ICD-10-PCS; 2018-09-27)
PROC: 3E0G76Z Introduction of Nutritional Substance into Upper GI, Via Natural or Artificial Opening (ICD-10-PCS; 2018-09-27)
DX: J93.83 Other pneumothorax (principal); I50.31 Acute diastolic (congestive) heart failure; J96.01 Acute respiratory failure with hypoxia; I21.A1 Myocardial infarction type 2; I24.9 Acute ischemic heart disease, unspecified; J98.11 Atelectasis; I25.110 Atherosclerotic heart disease of native coronary artery with unstable angina pectoris; I08.3 Combined rheumatic disorders of mitral, aortic and tricuspid valves; J43.9 Emphysema, unspecified; I95.2 Hypotension due to drugs; I48.0 Paroxysmal atrial fibrillation; T42.75XA Adverse effect of unspecified antiepileptic and sedative-hypnotic drugs, initial encounter; I11.0 Hypertensive heart disease with heart failure; B95.61 Methicillin susceptible Staphylococcus aureus infection as the cause of diseases classified elsewhere; T81.82XA Emphysema (subcutaneous) resulting from a procedure, initial encounter; J93.82 Other air leak; J40 Bronchitis, not specified as acute or chronic; F41.0 Panic disorder [episodic paroxysmal anxiety]; F90.9 Attention-deficit hyperactivity disorder, unspecified type; H91.90 Unspecified hearing loss, unspecified ear; I44.0 Atrioventricular block, first degree; K21.9 Gastro-esophageal reflux disease without esophagitis; E78.5 Hyperlipidemia, unspecified; R13.10 Dysphagia, unspecified; R73.9 Hyperglycemia, unspecified; T38.0X5A Adverse effect of glucocorticoids and synthetic analogues, initial encounter; Z87.01 Personal history of pneumonia (recurrent); Z79.1 Long term (current) use of non-steroidal anti-inflammatories (NSAID); Z79.899 Other long term (current) drug therapy; Z71.6 Tobacco abuse counseling; Z85.46 Personal history of malignant neoplasm of prostate; Z86.718 Personal history of other venous thrombosis and embolism; Z92.3 Personal history of irradiation; Z86.19 Personal history of other infectious and parasitic diseases; Z97.4 Presence of external hearing-aid; Z87.891 Personal history of nicotine dependence; Z98.890 Other specified postprocedural states; Z88.5 Allergy status to narcotic agent; Y83.8 Other surgical procedures as the cause of abnormal reaction of the patient, or of later complication, without mention of misadventure at the time of the procedure; Z83.2 Family history of diseases of the blood and blood-forming organs and certain disorders involving the immune mechanism; Z82.49 Family history of ischemic heart disease and other diseases of the circulatory system; Z80.1 Family history of malignant neoplasm of trachea, bronchus and lung
CPT/HCPCS: 36415; 71045; 71275; 80048; 80053; 80061; 81001; 82272; 82805; 83036; 83735; 83880; 84100; 84484; 85025; 85027; 85379; 85610; 85730; 86850; 86900; 86901; 87040; 87070; 87077; 87086; 87186; 87205; 88305; 93005; 93306; 94002; 94003; 94640; 94760; 96361; 96374; 96375; 99291